=== PATIENT | male | born 1935 | race Caucasian/White ===

== ENCOUNTER 2016-09-04 11:01 | Outpatient (RCR) | payer MEDICARE, OTHER ==
[~2016-09-04 11:01] MED LIST: /BACIOPOI TOP; /TAMS4CA PEG; /TIOT18INH INH; ALLO100T PO; ASPI81TA21 PO; ASPI81TA83 PEG; CALC0.5C PEG; CALC1CAP31 PO; CEFD300CAP PO; CIAL5TAB PEG; CIPR500T89 PO; CLAR1TAB2 PO; CLEO300C PEG; COLC1TAB5 PO; DIOV80TA PEG; FINA5TAB2 PO; FINACRY PO; FINASTERIDE; FLOM5CAP PO; LEVO50TA45 PO; Lortab PEG; MECL-68 PO; METO-209 PO; MUCI600T34 PO; OMEP20TA7 PEG; OMEP40CA2 PO; PERIDEX RINSE SSP; PRAV10TA PO; PROA1AER IN; PROS5TAB PEG; SPIR1CAP IN; SPIRIVA INHALER INH; SULA8.5T PO; SULAR PEG; SYNT75TA PO; TOPR100T PEG; TRIGOSAMINE PEG; colace PEG
== END 2016-09-16 ==
LOC: M ST 11:01
PROVIDERS: ATTEND Otolaryngology
DX: Z51.89 Encounter for other specified aftercare (principal); Z43.0 Encounter for attention to tracheostomy
CPT/HCPCS: 92597; G9174; G9175; G9176

== ENCOUNTER → 2016-10-17 | Outpatient (CLI) | payer MEDICARE, OTHER | LOC: M ST 08:32 | PROVIDERS: ATTEND Otolaryngology | DX: Z96.3 Presence of artificial larynx (principal); Z51.89 Encounter for other specified aftercare | CPT/HCPCS: 92597; G9174; G9175; G9176 ==

== ENCOUNTER 2016-10-23 12:10 | Outpatient (RCR) | payer MEDICARE, OTHER | END 2016-11-16 | LOC: M ST 12:10 | PROVIDERS: ATTEND Otolaryngology | DX: Z51.89 Encounter for other specified aftercare (principal); C32.0 Malignant neoplasm of glottis; Z93.0 Tracheostomy status; Z43.0 Encounter for attention to tracheostomy | CPT/HCPCS: 92597; G9174; G9175; G9176 ==

== ENCOUNTER 2016-12-02 08:51 | Outpatient (RCR) | payer MEDICARE, OTHER | END 2016-12-17 | LOC: M ST 08:51 | PROVIDERS: ATTEND Otolaryngology | DX: Z51.89 Encounter for other specified aftercare (principal); Z43.0 Encounter for attention to tracheostomy; C32.0 Malignant neoplasm of glottis | CPT/HCPCS: 92597; G9174; G9175; G9176 ==

== ENCOUNTER 2017-01-09 10:44 | Outpatient (RCR) | payer MEDICARE, OTHER ==
[~2017-01-09 10:44] MED LIST changes: +CIPR-249 PO; -CIPR500T89 PO; +COLC1TAB14 PO; -COLC1TAB5 PO; -METO-209 PO; +METO1TAB33 PO; -MUCI600T34 PO; +MUCI600T37 PO; -PRAV10TA PO; +PRAV10TA4 PO; -PROA1AER IN; +PROAAER10 IN
== END 2017-01-16 | disposition home or self-care (01) ==
LOC: M ST 10:44
PROVIDERS: ATTEND Otolaryngology
DX: C32.0 Malignant neoplasm of glottis (principal); Z43.0 Encounter for attention to tracheostomy
CPT/HCPCS: 92597; G9174; G9175; G9176

== ENCOUNTER 2017-01-28 08:00 | Outpatient (RCR) | payer MEDICARE, OTHER | END 2017-02-16 | LOC: M ST 08:00 | PROVIDERS: ATTEND Otolaryngology | DX: Z51.89 Encounter for other specified aftercare (principal); Z96.3 Presence of artificial larynx | CPT/HCPCS: 92597; G9174; G9175; G9176 ==

== ENCOUNTER → 2017-12-18 | Outpatient (REF) | payer MEDICARE, OTHER | LOC: M LAB REF 17:24 | DX: R21 Rash and other nonspecific skin eruption (principal) | CPT/HCPCS: 87101 ==

== ENCOUNTER → 2018-01-25 | Outpatient (CLI) | payer MEDICARE, OTHER | LOC: M RAD 13:26 | DX: H90.A21 Sensorineural hearing loss, unilateral, right ear, with restricted hearing on the contralateral side (principal) | CPT/HCPCS: 70551 ==

== ENCOUNTER 2018-01-30 18:48 | Emergency (ER) | payer MEDICARE, OTHER ==
[2018-01-30] MEDS ORDERED: LIDOCAINE 1% MDV 20ML VIAL As Ordered (20:08)
[2018-01-30] MEDS: NS 1,000 ML IV (20:10)
[2018-01-30] MEDS ORDERED: MIDAZOLAM INJ 2 MG/2 ML VIAL (J2250) IV (20:15)
[2018-01-30] MEDS: fentaNYL 100 MCG/2 ML INJECTION (J3010) IV (20:19)
[2018-01-30] MEDS: MIDAZOLAM INJ 2 MG/2 ML VIAL (J2250) IV (20:19)
[2018-01-30] MEDS: LIDOCAINE 1% SDV INJ 30 ML VIAL XX (20:49)
[2018-01-30] MEDS ORDERED: CETACAINE SPRAY 5GM As Ordered (21:28)
== END 2018-01-30 22:49 | disposition home or self-care (01) ==
LOC: M ED 18:48
DX: R06.02 Shortness of breath (principal); R06.03 Acute respiratory distress; T17.598A Other foreign object in bronchus causing other injury, initial encounter; X58.XXXA Exposure to other specified factors, initial encounter; Y92.89 Other specified places as the place of occurrence of the external cause; Z85.21 Personal history of malignant neoplasm of larynx; Z92.3 Personal history of irradiation; Z96.3 Presence of artificial larynx; I10 Essential (primary) hypertension; E78.5 Hyperlipidemia, unspecified; M47.816 Spondylosis without myelopathy or radiculopathy, lumbar region; H91.90 Unspecified hearing loss, unspecified ear; N40.1 Benign prostatic hyperplasia with lower urinary tract symptoms; Z87.891 Personal history of nicotine dependence; K22.70 Barrett's esophagus without dysplasia; H81.10 Benign paroxysmal vertigo, unspecified ear; E03.9 Hypothyroidism, unspecified; Z88.0 Allergy status to penicillin; Z88.1 Allergy status to other antibiotic agents; Z79.899 Other long term (current) drug therapy; Z79.82 Long term (current) use of aspirin
CPT/HCPCS: J2250

== ENCOUNTER → 2018-06-07 | Outpatient (REF) | payer MEDICARE, OTHER | LOC: M LAB REF 17:12 | DX: E03.9 Hypothyroidism, unspecified (principal) | CPT/HCPCS: 84443 ==

== ENCOUNTER → 2019-04-29 | Outpatient (CLI) | payer MEDICARE, OTHER ==
[~2019-04-29] MED LIST changes: -/TAMS4CA PEG; -/TIOT18INH INH; -CALC0.5C PEG; +CALC0.5C14 PEG; +CEFD300C41 PO; -CEFD300CAP PO; +FLOM0.4C39 PEG; +FLOM0.4C39 PO; -FLOM5CAP PO; +LOPR1TAB7 PO; +METO-745 PEG; -OMEP40CA2 PO; +OMEP40CA97 PO; +SPIR1CAP INH; -TOPR100T PEG
--- NOTE | 2019-04-29 15:16 | REP ---
SCROTAL ULTRASOUND: Real-time sonographic evaluation of the scrotum and contents performed. Testicles are normal in size and echotexture with no mass or torsion. Right testicle measures 4.8 x 2.1 x 2.9 cm and left testicle 5.3 x 2.4 x 2.6 cm. RI right testicle 0.59 and left testicle 0.64. Tiny 2 mm cyst is seen in the head of the left epididymis. There is a complex right hydrocele with diffuse low level echoes. This is quite large and appears similar on size compared to the prior ultrasound at [facility] 09/03/2017. It does appear to be more complex. The right testicle is displaced anteromedially by fluid. IMPRESSION: No testicular mass or torsion. Very large right hydrocele contains diffuse low level echoes. Size is similar to the prior study of 09/03/2017, but the internal echoes and debris appear to have increased. Electronically Signed by Chadd Katz MD 05/03/2019 08:54 A
== END ==
LOC: M RAD 12:30
PROVIDERS: ATTEND Nurse Practitioner Women's Health
DX: N43.3 Hydrocele, unspecified (principal)

== ENCOUNTER → 2019-05-18 | Outpatient (CLI) | payer MEDICARE, OTHER ==
[2019-05-18 13:52] LABS: HEMATOCRIT 45.2 % (42.0-52.0); HEMOGLOBIN 14.7 g/dl (13.5-17.5); MEAN CORPUSCULAR HEMOGLOBIN 32.2 pg (27.0-33.0); MEAN CORPUSCULAR HGB CONC 32.5 g/dl (32.0-36.5); MEAN CORPUSCULAR VOLUME 99.1 fl (80.0-96.0); PLATELET COUNT, AUTOMATED 270 10^3/uL (150-450); RED BLOOD COUNT 4.56 10^6/uL (4.30-6.10); WHITE BLOOD COUNT 6.7 10^3/uL (4.0-10.0)
--- NOTE | 2019-05-18 13:55 | REP ---
Two-view chest: 05/18/2019. Indication: Preoperative assessment. Comparison: 01/30/2018. Findings: The lungs are clear. There is no pleural effusion or pneumothorax. Hyperinflation of the lungs is noted as well as degenerative sequelae of the mid thoracic spine. Surgical clips are noted within the region of the right lung apex. The previously described foreign body is no longer evident. Impression: Clear lungs. Electronically Signed by Marcell Oakley DO 05/18/2019 01:46 P
[2019-05-18 14:02] LABS: INR 1.06; PROTHROMBIN TIME 13.5 SECONDS (11.8-14.0)
[2019-05-18 14:03] LABS: PARTIAL THROMBOPLASTIN TIME 27.6 SECONDS (25.0-38.4)
[2019-05-18 14:22] LABS: CALCIUM LEVEL 9.3 MG/DL (8.8-10.2); CREATININE FOR GFR 1.82 MG/DL (0.70-1.30); GLOMERULAR FILTRATION RATE 38.2 (>35); POTASSIUM SERUM 4.3 MEQ/L (3.5-5.1)
--- NOTE | 2019-05-18 22:48 | ECGEPIP ---
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
== END ==
LOC: M LAB 12:57
PROVIDERS: ATTEND Nurse Practitioner Women's Health
DX: Z01.818 Encounter for other preprocedural examination (principal); N43.3 Hydrocele, unspecified; R94.31 Abnormal electrocardiogram [ECG] [EKG]; I44.0 Atrioventricular block, first degree; Z79.899 Other long term (current) drug therapy

== ENCOUNTER → 2019-05-20 | Outpatient (CLI) | payer MEDICARE, OTHER ==
[~2019-05-20] MED LIST changes: +ISOVUE-300 61% 50ML VIAL (Q9967) As Ordered ONE; +LIDOCAINE 1% MDV 20ML VIAL As Ordered ONE; +MIDAZOLAM INJ 2 MG/2 ML VIAL (J2250) As Ordered ONE; +fentaNYL 100 MCG/2 ML INJECTION (J3010) As Ordered ONE
--- NOTE | 2019-05-20 16:24 | ROOPDOC ---
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 Ultrasound-guided access left Laya fistula 2. Left upper extremity fistulogram and central venogram 3. Angioplasty subclavian vein with 10 x 40 conquest balloon and 14 x 40 atlas balloon 4. Completion venograms SURGEON: Leo Monzon MD ANESTHESIA: Local 7 mL lidocaine. Moderate intravenous conscious sedation with supervised by Dr. Monzon. The patient was independently monitored by a registered nurse assigned to the Department of radiology using automated blood pressure, EKG, and pulse oximetry. The detailed sedation record is permanently house in the hospital information system. The following is the brief sedation record: Start time 15:02, stop time 15:28, fentanyl 50 g IV, Versed 0.5 mg IV. CONTRAST: 20 mL Isovue INDICATION FOR PROCEDURE: Mr. Mccann is a very pleasant 84-year-old gentleman who is not yet on dialysis but has a left upper extremity Laya fistula that was placed in [place] when he was approaching stage V many years ago, but then his kidneys somewhat recovered and he has been doing very well since. He has had a few procedures done on the fistula since then, including a banding proximal to the AV anastomosis, and a subclavian vein angioplasty. He said after the subclavian vein angioplasty, his perfusion to his hand improved and he felt much better. We evaluated the patient because he was starting to have a little more aneurysmal dilation of his fistula and his hand was starting to become a little more cool than the right hand. On examination, I felt the great thrill in the fistula and it was definitely large but not extremely aneurysmal, but I did feel some pulsatility further up the arm and I think he may have again developed subclavian stenosis. He has a history of radiation to the neck and certainly this could've contributed, or could just be simply a narrow thoracic outlet. Either way, I think the best option is a fistulogram and possible angioplasty to improve her outflow. I discussed with the patient that if this resolves his symptoms with his hand, we certainly can follow him up every 2 months for maintenance. However, his hand is still having difficulty with perfusion, we may need to do a something surgical like another banding or possibly proximal eyes the fistula to the brachial artery and ligate the cephalic vein fistula at the wrist. Hopefully, relieving the outflow obstruction will be enough to relieve his symptoms. We will see how he does postprocedure. Risks benefits and alternatives were explained and he was agreeable to proceed. Informed consent was obtained. INTERPRETATION: 1. There is excellent inflow into the fistula in the cephalic vein is mildly tortuous but widely patent throughout the forearm and upper arm. There is no stenosis at the subclavian cephalic junction but the cephalic vein has a 95% stenosis through the thoracic outlet and then the central veins are widely patent. 2. After angioplasty of the subclavian vein with a 10 x 40 conquest balloon and a 14 x 40 atlas balloon, there is no significant residual stenosis and widely patent rapid flow through to the central system. REPORT OF OPERATION: The patient was brought to the angiographic suite in stable condition. His left upper extremity was prepped and draped in sterile fashion. A timeout was performed. Sedation was administered without complication. Local anesthesia was administered to the skin and subcutaneous tissue over the AV fistula near the AV anastomosis. A microneedle was used to access the fistula under ultrasound guidance and a wire was passed through this access and a micro- sheath was placed. Glidewire was advanced through this into the central system and a 6 Persian sheath was placed over the wire using the Seldinger technique and flushed with saline. A fistulogram and central venogram were performed please see above for interpretation. We advanced a 10 x 40 conquest balloon across the wire across the subclavian vein stenosis. It was little challenging to pass the balloon through due to the tight stenosis but we were able to manage this. We did it slowly inflation of the balloon due to the very tight nature of the stenosis and eventually with the conquest noncompliant balloon we were able to release the stenosis. I three-minute inflation was performed. Following this, there was improvement but still mild stenosis at the area. We then selected a 14 x 40 atlas balloon and did another three-minute inflation with the larger balloon. Following this, there was widely patent flow through to the central system with +10% residual stenosis. There is no extravasation noted. There was an excellent thrill the fistula in the pulsatility was resolved. This concluded her procedure. A Prolene suture was placed at the she site in the sheath was removed. The Prolene suture was secured with Steri-Strips and pressure was held for 5 minutes for good hemostasis. Sterile dressings were applied and the patient was taken to recovery in stable condition. ESTIMATED BLOOD LOSS: Approximately 5 mL. COMPLICATIONS: None. PLAN: We plan to see the patient back in a week to see if his symptoms are any better and his hand after this procedure. If not, further operative intervention may be necessary to improve perfusion. We will discuss with the patient once we see in the clinic. LEO MONZON MD May 20, 2019 16:24
[2019-05-20 16:50] VITALS: BP 165/71
== END ==
LOC: M IRPRO 13:23
PROVIDERS: ATTEND Surgery Vascular Surgery
DX: T82.590A Other mechanical complication of surgically created arteriovenous fistula, initial encounter (principal); N18.4 Chronic kidney disease, stage 4 (severe); X58.XXXA Exposure to other specified factors, initial encounter; Y93.9 Activity, unspecified; Y92.9 Unspecified place or not applicable; Y99.9 Unspecified external cause status
CPT/HCPCS: 36902; 99152; 99153; C1725; C1769; C1894; J2250; J3010; Q9967

== ENCOUNTER 2019-06-24 06:08 | Day surgery (SDC) | payer MEDICARE, OTHER ==
--- NOTE | 2019-06-14 12:10 | CR ---
DATE OF CONSULTATION: 06/13/[address] Dixon: Thank you for asking me to see Mr. Mario Mccann in consultation. 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 The patient reports he has been in his usual state of health. Denying any fevers or chills, chest pain or shortness of breath. At his last visit with me, he felt his dyspnea and COPD were worse. He was changed to the inhalers Stiolto and feels as previous is significantly the improved such that he is rarely using his ProAir. Patient is status post laryngectomy for squamous cell CA diagnosed 2011 treated with surgery radiotherapy. He has never been able to use this prosthetic voice box. He lips his words. His provides much of the history. The patient has chronic renal insufficiency. He has an arteriovenous (AV) fistula left upper extremity, which was just revascularized by a vascular surgeon at [facility]. He reports a good flow. The patient has benign positional vertigo. He uses his meclizine regularly with good results. Patient has history of gastroesophageal reflux disease, well controlled on omeprazole. Patient has history of gout. He has had no recent flares. Patient has history of benign prostatic hypertrophy (BPH) well-controlled of finasteride and Flomax. Review of systems otherwise negative denying fevers or chills, chest pain or shortness of breath, nausea or vomiting. PAST MEDICAL HISTORY: 1. Hypertension. 2. Hyperlipidemia. 3. Hard of hearing with bilateral hearing aides. 4. Osteoarthritis (OA) degenerative joint disease (DJD). Chronic back pain, wears a brace. 5. Vasectomy in 1975 with a reversal in 1987. 6. Left groin hernia repair 1996 7. Tobacco abuse status post cessation, 8. BPH with urinary retention 2014. Recurrent urinary tract infection (UTI) 9. Benign positional vertigo. 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 11. Colonic tubular adenomatous polyps. 12. Chronic renal insufficiency, left forearm AV fistula follows with nephrology every 3 months. 13. Status post squamous cell CA to the larynx diagnosed in 2011 status post laryngectomy and XRT. 14. Status post bilateral cataract extraction 2012. 15. 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 16. Gout. 17. Prostatic surgery because of recurrent urinary retention and UTI and urosepsis 2016. 18. Hydrocele 2018. 19. Hypothyroidism. MEDICATIONS: - allopurinol 100 mg two pills daily - baby aspirin daily - calcitriol 0.25 mcg three times a week - Cialis as needed - COLCRYS 0.6 mg twice a day as needed gout - finasteride 5 mg daily - Flomax 0.4 mg two by mouth at bedtime - levothyroxine 88 mcg daily - Magnesium 64 one at bedtime - meclizine 25 mg three times a day as needed - omeprazole 40 mg daily - ProAir as needed daily - saline three to four times a day as needed. - Stiolto rescue two puffs daily - Sular 17 mg daily - Toprol XL 100 mg daily - Tylenol as needed - Zyrtec 10 mg daily DRUG ALLERGIES: AMOXICILLIN - rash, hives. LEVAQUIN: Tendonitis. Drug intolerance to pravastatin SOCIAL HISTORY: Former smoker, quit in 2010. Denies alcohol use. Lives with his . FAMILY HISTORY: Father due to cirrhosis at age 59. Mother due to cancer, in her 80s. A son had colon cancer at 51, premature stroke at 45. A brother in his 60s due to cancer. Another brother from a drug overdose. A sister from cancer at 68. PHYSICAL EXAMINATION: Thin older male in no acute distress. Vital signs: Weight 136 with a body surface index (BMI) of 23, O2 sat at rest 96%, blood pressure 128/76, heart rate of 64. HEENT Examination: He wears dentures, hearing aides. He has in the anterior laryngectomy that appears clean and well-healed. No cervical lymphadenopathy. Oropharynx is dry. Benign. No jugular venous distention (JVD) or thyromegaly. Head is normocephalic. Neck is supple. Pupils equal, reactive to light. Respiratory: Increased AP diameter decreased breath sounds. Cardiovascular: Decreased heart sounds. Soft systolic murmur. No carotid bruits. Abdomen: Thin, firm, nontender. No hepatosplenomegaly. Dermatologic: No rashes or bruises. Extremities: OA changes of the DIP joints, left AV fistula that has a good thrill. Peripheral pulses palpable. Neurologic: Alert and oriented. Cranial nerves II-XII intact. LABORATORY DATA: 06/10/2019: Normal magnesium, thyroid. 05/18/2019: Normal CBC. Med profile significant for a GFR of 38, normal electrolytes. Urine culture negative. EKG from [facility] 05/18/2019: Normal sinus rhythm, first-degree AV block. Some repolarization changes but no significant change compared to EKG 08/19/2016. Chest x-ray 05/18/2019: Clear lungs no acute disease. IMPRESSION: Mr. Mario Mccann 84-year-old gentleman with cardiovascular risk factors positive for age, hypertension, renal disease and no signs or symptoms indicative of cardiovascular ischemia and is felt to be optimized and at low risk for cardiovascular complications from the proposed surgical intervention which can be further minimized by the followin. Chronic renal insufficiency: Take allopurinol, calcitriol a.m. of surgery. 2. Hypertension: Take Toprol and Sular as usual the evening prior to surgery. 3. Hypothyroid: Take levothyroxine a.m. of surgery. 4. Chronic obstructive pulmonary disease (COPD): Take inhalers a.m. of surgery. 5. Rivas's esophagitis: Take omeprazole as usual the evening prior to surgery. 6. Benign prostatic hypertrophy (BPH): Take finasteride and Flomax as usual before surgery. 7. Squamous carcinoma (CA) of the larynx: [place] to be in remission. 8. Chronic vertigo: Hold meclizine a.m. of surgery. 9. Hyperlipidemia: Hold aspirin 5 days before surgery. Thank you very much for this consultation. Please call with questions or concerns.
[~2019-06-24] VITALS: Ht 170.2 cm; Wt 62.1 kg
[~2019-06-24 06:08] MED LIST changes: +CETI10TA4 PO; +CLINDAMYCIN 900 MG in IV 1 EA IV ONE; -ISOVUE-300 61% 50ML VIAL (Q9967) As Ordered ONE; +LEVO88TA3 PO; -LIDOCAINE 1% MDV 20ML VIAL As Ordered ONE; +LIDOCAINE 1% MDV 20ML VIAL SQ PRN; +LR 1,000 ML IV ONE; -MIDAZOLAM INJ 2 MG/2 ML VIAL (J2250) As Ordered ONE; +NISO17TA3 PO; -SPIR1CAP IN; -fentaNYL 100 MCG/2 ML INJECTION (J3010) As Ordered ONE
[2019-06-24] MEDS ORDERED: STIO1AER (06:52)
[2019-06-24] MEDS ORDERED: BUPIVACAINE HCL 0.25% 10 ML VIAL As Ordered ONE (06:58)
[2019-06-24] MEDS ORDERED: LIDOCAINE 2% MDV 20 ML VIAL As Ordered ONE (06:59)
[2019-06-24] MEDS ORDERED: ALBUTEROL SULFATE 2.5 MG/0.5 ML INH NEB SOLN As Ordered ONE (07:11)
[2019-06-24] MEDS ORDERED: PROPOFOL 500 MG/50 ML VIAL As Ordered ONE (07:14)
[2019-06-24] MEDS ORDERED: fentaNYL 100 MCG/2 ML INJECTION (J3010) As Ordered ONE (07:14)
[2019-06-24] MEDS ORDERED: MIDAZOLAM INJ 2 MG/2 ML VIAL (J2250) As Ordered ONE (07:14)
[2019-06-24] MEDS ORDERED: dexameTHASONE 4 MG/ML 1ML VIAL (J1100) As Ordered ONE (07:15)
[2019-06-24] MEDS ORDERED: ONDANSETRON 4MG/2ML VIAL (J2405) As Ordered ONE (07:15)
[2019-06-24] MEDS ORDERED: LIDOCAINE 2% INJ 100 MG/5 ML SDV (FOR ANES.) As Ordered ONE (07:15)
[2019-06-24] MEDS ORDERED: ALBUTEROL SULFATE 2.5 MG/0.5 ML INH NEB SOLN INH ONE (07:30)
[2019-06-24] MEDS ORDERED: fentaNYL 100 MCG/2 ML INJECTION (J3010) IV PRN (09:45)
[2019-06-24] MEDS ORDERED: LR 1,000 ML IV SCH ×2 (09:45)
[2019-06-24] MEDS ORDERED: HYDROMORPHONE HCL 0.5 MG/ 0.5 ML SYRINGE (J1170 PER 1) IV PRN (09:45)
[2019-06-24] MEDS ORDERED: ONDANSETRON 4MG/2ML VIAL (J2405) IV PRN (09:45)
[2019-06-24] MEDS ORDERED: PERCOCET 5MG/325MG TAB PO PRN (09:45)
[2019-06-24 16:50] VITALS: BP 160/98
--- NOTE | 2019-06-24 18:44 | ROOPDOC ---
[facility] Report Of Operation Report of Operation DATE OF PROCEDURE: 06/24/19 PREPROCEDURE DIAGNOSES: [Right hydrocele]. POSTPROCEDURE DIAGNOSES: [Same]. PROCEDURE: [Right hydrocelectomy]. SURGEON: [Destiny]MD FOOD SERVICE: [None], ANESTHESIA: [Spinal with MAC]. ESTIMATED BLOOD LOSS: Approximately [minimal] mL. COMPLICATIONS: [None]. REMARKS: . PROCEDURE NOTE: [Patient 84-year-old gentleman large right hydrocele increasing discomfort. He was scheduled to have hydrocelectomy. He had an scrotal ultrasound which showed that it was definitely hydrocele. Mass]. DESCRIPTION OF PROCEDURE: Patient identified as himself. His H&P was updated his consent was reviewed and signed. Risk and benefits of the procedure were discussed with the patient and his . Patient was seen by the operating room team and anesthesia. Patient right sided scrotal was marked the correct side for surgery Patient was consented for spinal anesthesia with Mac. Patient was brought to the operating room first timeout was performed. Patient was given spinal anesthesia and placed in the supine position. Prepped and Draped in standard fashion. The right hemiscrotum was placed in the tension incision was made in the midline of the scrotum, dissecting through the skin into the right hemiscrotum through dartos muscle, then through the superficial fascia down to the cremasteric muscle and fascia. Once reaching the tunica vaginalis, care was taken not to enter into the hydrocele sac. The tunica was then mobilized away from the cremasteric muscle until the sac was easily exposed. An incision was made into the sac and fluid was then drained. The incision was extended along the tunica vaginalis assuring not to injure the testicles, the structures of the spermatic cord, or epididymis. The hydrocele sac was then inverted and wrapped around the spermatic cord. It was oversewed using a 3-0 Monocryl suture in a running technique. The hemiscrotum and the skin was inspected to assure that hemostasis was maintained. Hemiscrotum was also irrigated. The cremasteric muscle and fascia and the superficial layer oversew using a 3-0 Monocryl suture in a running technique. Dartos fascia was then closed using a 3-0 Monocryl using a horizontal mattress technique. The skin was then closed using a running technique with a 4-0 Monocryl suture. 10 mL of epi mixed with 0.25 Marcaine was injected along the suture line for additional anesthetic. Hemostasis was maintained throughout the entire procedure. A pressure dressing was place and a scrotal support was placed on the patient. Patient was washed off and awakened from sedation and taken to recovery room without complication. SILVANA WILSON MD Jun 24, 2019 15:10
== END 2019-06-24 17:07 | disposition home or self-care (01) ==
LOC: M SDC 06:08
PROVIDERS: ATTEND Urology
DX: N43.3 Hydrocele, unspecified (principal); I12.9 Hypertensive chronic kidney disease with stage 1 through stage 4 chronic kidney disease, or unspecified chronic kidney disease; E03.9 Hypothyroidism, unspecified; K21.9 Gastro-esophageal reflux disease without esophagitis; N18.9 Chronic kidney disease, unspecified; N40.0 Benign prostatic hyperplasia without lower urinary tract symptoms; M12.9 Arthropathy, unspecified; J44.9 Chronic obstructive pulmonary disease, unspecified; Z88.0 Allergy status to penicillin; Z88.1 Allergy status to other antibiotic agents; Z79.899 Other long term (current) drug therapy; Z79.82 Long term (current) use of aspirin; Z85.21 Personal history of malignant neoplasm of larynx; Z92.3 Personal history of irradiation; Z87.891 Personal history of nicotine dependence; Z96.1 Presence of intraocular lens; Z98.41 Cataract extraction status, right eye; Z98.42 Cataract extraction status, left eye
CPT/HCPCS: 55040; J1100; J2250; J2405; J3010

== ENCOUNTER 2020-01-24 22:37 | Emergency (ER) | payer MEDICARE, OTHER ==
[~2020-01-24] VITALS: Ht 170.2 cm; Wt 61.8 kg
[~2020-01-24 22:37] MED LIST changes: -CLINDAMYCIN 900 MG in IV 1 EA IV ONE; -LIDOCAINE 1% MDV 20ML VIAL SQ PRN; -LR 1,000 ML IV ONE; -MECL-68 PO; +MECL1TAB31 PO; -PROAAER10 IN; +PROAAER10 INH; +STIO1AER INH
[2020-01-24] MEDS ORDERED: IPRATROPIUM 0.5MG/ALBUTEROL 2.5MG INH SOL UD 3ML (DUONEB) NEB ONE (23:15)
[2020-01-24 23:27] LABS: BASO # 0.1 10^3/uL (0.0-0.2); BASO % 0.7 % (0.0-1.0); EOS # 0.4 10^3/uL (0.0-0.5); EOS % 5.4 % (0.0-3.0); HEMOGLOBIN 14.2 g/dl (13.5-17.5); LYMPH # 1.2 10^3/uL (1.5-5.0); LYMPH % 15.7 % (24.0-44.0); MEAN CORPUSCULAR HEMOGLOBIN 31.8 pg (27.0-33.0); MEAN CORPUSCULAR VOLUME 96.2 fl (80.0-96.0); MONO # 0.7 10^3/uL (0.0-0.8); MONO % 8.8 % (0.0-5.0); NEUTROPHILS # 5.1 10^3/uL (1.5-8.5); NEUTROPHILS % 69.1 % (36.0-66.0); PLATELET COUNT, AUTOMATED 269 10^3/uL (150-450); RED BLOOD COUNT 4.47 10^6/uL (4.30-6.10); WHITE BLOOD COUNT 7.4 10^3/uL (4.0-10.0)
[2020-01-24 23:58] LABS: ALBUMIN 3.5 GM/DL (3.2-5.2); ALT/SGPT 14 U/L (12-78); BILIRUBIN,DIRECT 0.1 MG/DL (0.0-0.2); BILIRUBIN,TOTAL 0.4 MG/DL (0.2-1.0); BLOOD UREA NITROGEN 25 MG/DL (7-18); CALCIUM LEVEL 8.9 MG/DL (8.8-10.2); CARBON DIOXIDE LEVEL 28 MEQ/L (21-32); CHLORIDE LEVEL 102 MEQ/L (98-107); CK-MB VALUE MASS 2.1 NG/ML (<3.6); CPK CREATINE PHOSPHOKINASE 71 U/L (39-308); CREATININE FOR GFR 1.83 MG/DL (0.70-1.30); GLOMERULAR FILTRATION RATE 37.9 (>35); GLUCOSE, FASTING 92 MG/DL (70-100); MB/CK RELATIVE INDEX 2.96 (< OR =4); NT-PRO BNP 366 PG/ML (<450); POTASSIUM SERUM 4.7 MEQ/L (3.5-5.1); SODIUM LEVEL 134 MEQ/L (136-145); TROPONIN I < 0.02 NG/ML (< 0.10)
[2020-01-25 02:23] VITALS: BP 148/82
--- NOTE | 2020-01-25 07:57 | ECGEPIP ---
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
--- NOTE | 2020-01-25 10:03 | REP ---
CHEST, SINGLE VIEW: COMPARISON: 05/18/2019 There is mild elevation of the right hemidiaphragm. There are mild bibasilar linear fibroatelectatic changes with no acute infiltrate. There is no significant cardiomegaly. There is mild calcification and tortuosity of the thoracic aorta. The mediastinal silhouette is unchanged. IMPRESSION: Mild bibasilar fibroatelectatic change. Electronically Signed by Chadd Katz MD 01/26/2020 09:18 A
[2020-01-25] MEDS ORDERED: ALBU83IN NEB (23:37)
[2020-01-25] MEDS ORDERED: [UNRECOGNIZED DRUG - SUPPLY] (23:37)
[2020-01-25] MEDS ORDERED: nebulizer (23:37)
[2020-05-03] MEDS ORDERED: FURO20TA2 PO (15:18)
== END 2020-01-25 02:25 | disposition home or self-care (01) ==
LOC: M ED 22:37
DX: R06.02 Shortness of breath (principal); R91.8 Other nonspecific abnormal finding of lung field; I10 Essential (primary) hypertension; N18.9 Chronic kidney disease, unspecified; Z79.51 Long term (current) use of inhaled steroids; Z79.82 Long term (current) use of aspirin; Z79.899 Other long term (current) drug therapy; Z85.21 Personal history of malignant neoplasm of larynx; Z88.0 Allergy status to penicillin; Z88.1 Allergy status to other antibiotic agents; Z88.8 Allergy status to other drugs, medicaments and biological substances

== ENCOUNTER 2020-01-25 20:39 | Emergency (ER) | payer MEDICARE, OTHER ==
[~2020-01-25] VITALS: Ht 170.2 cm; Wt 61.8 kg
[2020-01-25] MEDS ORDERED: NS 500 ML IV ONE (21:45)
[2020-01-25] MEDS ORDERED: IPRATROPIUM 0.5MG/ALBUTEROL 2.5MG INH SOL UD 3ML (DUONEB) NEB ONE (21:45)
[2020-01-25] MEDS ORDERED: ALBUTEROL SULFATE 2.5 MG/0.5 ML INH NEB SOLN INH ONE (21:45)
[2020-01-25 22:00] LABS: BASO # 0.1 10^3/uL (0.0-0.2); BASO % 0.7 % (0.0-1.0); EOS # 0.3 10^3/uL (0.0-0.5); EOS % 4.1 % (0.0-3.0); HEMATOCRIT 43.9 % (42.0-52.0); HEMOGLOBIN 14.4 g/dl (13.5-17.5); LYMPH # 1.1 10^3/uL (1.5-5.0); LYMPH % 15.2 % (24.0-44.0); MEAN CORPUSCULAR HEMOGLOBIN 31.5 pg (27.0-33.0); MEAN CORPUSCULAR HGB CONC 32.8 g/dl (32.0-36.5); MEAN CORPUSCULAR VOLUME 96.1 fl (80.0-96.0); MONO # 0.7 10^3/uL (0.0-0.8); MONO % 9.6 % (0.0-5.0); NEUTROPHILS # 5.3 10^3/uL (1.5-8.5); NEUTROPHILS % 70.1 % (36.0-66.0); PLATELET COUNT, AUTOMATED 280 10^3/uL (150-450); RED BLOOD COUNT 4.57 10^6/uL (4.30-6.10); WHITE BLOOD COUNT 7.5 10^3/uL (4.0-10.0)
[2020-01-25 22:32] LABS: ALBUMIN 3.5 GM/DL (3.2-5.2); ALT/SGPT 14 U/L (12-78); BILIRUBIN,DIRECT 0.3 MG/DL (0.0-0.2); BILIRUBIN,TOTAL 0.7 MG/DL (0.2-1.0); BLOOD UREA NITROGEN 26 MG/DL (7-18); CALCIUM LEVEL 9.3 MG/DL (8.8-10.2); CARBON DIOXIDE LEVEL 24 MEQ/L (21-32); CHLORIDE LEVEL 105 MEQ/L (98-107); CPK CREATINE PHOSPHOKINASE 89 U/L (39-308); CREATININE FOR GFR 1.98 MG/DL (0.70-1.30); GLOMERULAR FILTRATION RATE 34.6 (>35); GLUCOSE, FASTING 117 MG/DL (70-100); MB/CK RELATIVE INDEX 2.25 (< OR =4); NT-PRO BNP 362 PG/ML (<450); POTASSIUM SERUM 4.5 MEQ/L (3.5-5.1); SODIUM LEVEL 137 MEQ/L (136-145); THYROID STIMULATING HORMONE 0.119 uIU/ML (0.358-3.740); TOTAL PROTEIN 7.4 GM/DL (6.4-8.2); TROPONIN I < 0.02 NG/ML (< 0.10)
[2020-01-25 23:00] LABS: FREE T4 1.26 NG/DL (0.76-1.46)
[2020-01-25] MEDS ORDERED: [UNRECOGNIZED DRUG - SUPPLY] (23:37)
[2020-01-25] MEDS ORDERED: ALBU83IN NEB (23:37)
[2020-01-25] MEDS ORDERED: nebulizer (23:37)
[2020-01-25 23:45] VITALS: BP 148/78
--- NOTE | 2020-01-26 00:46 | ECGEPIP ---
[facility] - ED Test Date: 2020-01-25 Pat Name: JOSE R RAMIREZ Department: Room: - Gender: Male : jfox : 1935 Requested By: FRANKLIN Garcia Order Number: [id number] Reading MD: Franklin Arguelles Measurements Intervals [place] Rate: 72 P: 83 VA: 214 QRS: -12 QRSD: 96 T: 60 QT: 382 QTc: 419 Interpretive Statements SINUS RHYTHM WITH FIRST DEGREE AV BLOCK Nonspecific ST-T wave abnormalities Baseline artifact affects interpretation Electronically Signed on 01-26-2020 0:46:01 EDT by Franklin Arguelles
--- NOTE | 2020-01-26 08:49 | REP ---
REASON: Cough and dyspnea. COMPARISON: 01/25/2020 at 12:02 a.m. This examination 01/25/2020 at 10:58 p.m. The technique utilized in obtaining the radiograph has magnified the cardiac silhouette and accentuated the interstitial markings. The cardiomediastinal silhouette is unchanged. Once again, there is basilar fibrotic change status quo. Once again, there is thoracic aortic tortuosity status quo. No acute patchy parenchymal opacities or pleural effusions have developed. There is no change in the osseous structures. IMPRESSION: Stable appearing chronic changes. Electronically Signed by Brennan Hollingsworth DO 01/26/2020 04:53 P
[2020-05-03] MEDS ORDERED: FURO20TA2 PO (15:18)
== END 2020-01-25 23:56 | disposition home or self-care (01) ==
LOC: M ED 20:39
DX: J95.09 Other tracheostomy complication (principal); I10 Essential (primary) hypertension; Z79.51 Long term (current) use of inhaled steroids; Z79.82 Long term (current) use of aspirin; Z79.899 Other long term (current) drug therapy; Z88.0 Allergy status to penicillin; Z88.1 Allergy status to other antibiotic agents; Z88.8 Allergy status to other drugs, medicaments and biological substances

== ENCOUNTER 2020-02-29 14:55 | Inpatient (IN) | payer MEDICARE, OTHER ==
[~2020-02-29] VITALS: Ht 170.2 cm; Wt 61.8 kg
[~2020-02-29 14:55] MED LIST changes: +ALBU83IN NEB; +DEXTROMETHORPHAN 60MG/10ML SUSP 90ML BTL(DELSYM) ONE; +[UNRECOGNIZED DRUG - SUPPLY]; +methylPREDNISolone 125MG 2ML VIAL As Ordered ONE; +nebulizer
[2020-02-29] MEDS ORDERED: PANTOPRAZOLE 40MG VIAL (C9113 PER 1) As Ordered ONE (22:30)
[2020-02-29] MEDS ORDERED: SENOKOT S TAB As Ordered ONE (22:30)
[2020-02-29] MEDS ORDERED: HEPARIN SOD (PORCINE) 5000UNITS/ML 1ML VIAL/SYRINGE As Ordered ONE (22:30)
[2020-02-29] MEDS ORDERED: methylPREDNISolone 40MG 1ML VIAL As Ordered ONE (23:46)
[2020-03-01] MEDS ORDERED: methylPREDNISolone 40MG 1ML VIAL As Ordered ONE ×3 (06:23→17:51)
[2020-03-01] MEDS ORDERED: MAGNESIUM OXIDE 400 MG TAB (MAG-OX) As Ordered ONE (09:38)
[2020-03-01] MEDS ORDERED: SENOKOT S TAB As Ordered ONE ×2 (09:39→21:46)
[2020-03-01] MEDS ORDERED: HEPARIN SOD (PORCINE) 5000UNITS/ML 1ML VIAL/SYRINGE As Ordered ONE ×3 (09:39→21:46)
[2020-03-01] MEDS ORDERED: allopurinoL 100 MG TAB As Ordered ONE (09:39)
[2020-03-01] MEDS ORDERED: FINASTERIDE 5 MG TAB As Ordered ONE (09:39)
[2020-03-01] MEDS ORDERED: CETIRIZINE (ZyrTEC) 10 MG TAB As Ordered ONE (09:40)
[2020-03-01] MEDS ORDERED: METOPROLOL SUCC (TopROL XL) 100MG *XL* TAB As Ordered ONE (09:40)
[2020-03-01] MEDS ORDERED: ASPIRIN 81 MG ENTERIC TAB As Ordered ONE (09:40)
[2020-03-01] MEDS ORDERED: DOXYCYCLINE HYCLATE 100MG TABLET As Ordered ONE ×2 (11:46→21:46)
[2020-03-01] MEDS ORDERED: LEVOTHYROXINE 88MCG TABLET (0.088 MG) ONE (21:00)
[2020-03-01] MEDS ORDERED: PANTOPRAZOLE 40MG VIAL (C9113 PER 1) As Ordered ONE (21:46)
[2020-03-01] MEDS ORDERED: amLODIPine 5 MG TAB As Ordered ONE (21:46)
[2020-03-02] MEDS ORDERED: methylPREDNISolone 125MG 2ML VIAL As Ordered ONE ×4 (00:14→23:32)
[2020-03-02] MEDS ORDERED: cefTRIAXone SOD 1GM VIAL (J0696 PER 250MG) As Ordered ONE ×2 (01:48→08:13)
[2020-03-02] MEDS ORDERED: AZITHROMYCIN INJ 500MG VIAL (J0456 PER 500MG) As Ordered ONE (02:40)
[2020-03-02] MEDS ORDERED: LEVOTHYROXINE 100MCG TABLET (0.1MG) As Ordered ONE (06:21)
[2020-03-02] MEDS ORDERED: HEPARIN SOD (PORCINE) 5000UNITS/ML 1ML VIAL/SYRINGE As Ordered ONE ×2 (08:12→23:01)
[2020-03-02] MEDS ORDERED: SENOKOT S TAB As Ordered ONE ×2 (08:13→23:01)
[2020-03-02] MEDS ORDERED: METOPROLOL SUCC (TopROL XL) 100MG *XL* TAB As Ordered ONE (08:13)
[2020-03-02] MEDS ORDERED: FINASTERIDE 5 MG TAB As Ordered ONE (08:14)
[2020-03-02] MEDS ORDERED: ASPIRIN 81 MG ENTERIC TAB As Ordered ONE (08:14)
[2020-03-02] MEDS ORDERED: CETIRIZINE (ZyrTEC) 10 MG TAB As Ordered ONE (08:14)
[2020-03-02] MEDS ORDERED: DEXTROMETHORPHAN 60MG/10ML SUSP 90ML BTL(DELSYM) ONE (09:00)
[2020-03-02] MEDS ORDERED: methylPREDNISolone 125MG 2ML VIAL ONE (11:21)
[2020-03-02] MEDS ORDERED: LORazepam 0.5 MG TAB As Ordered ONE (15:47)
[2020-03-02] MEDS ORDERED: PANTOPRAZOLE 40MG VIAL (C9113 PER 1) As Ordered ONE (23:01)
[2020-03-02] MEDS ORDERED: amLODIPine 10 MG TAB As Ordered ONE (23:02)
[2020-03-02] MEDS ORDERED: amLODIPine 5 MG TAB As Ordered ONE (23:21)
[2020-03-03] MEDS ORDERED: LORazepam 0.5 MG TAB As Ordered ONE ×2 (01:50→16:34)
[2020-03-03] MEDS ORDERED: AZITHROMYCIN INJ 500MG VIAL (J0456 PER 500MG) As Ordered ONE (03:32)
[2020-03-03] MEDS ORDERED: LEVOTHYROXINE 100MCG TABLET (0.1MG) As Ordered ONE (06:04)
[2020-03-03] MEDS ORDERED: methylPREDNISolone 125MG 2ML VIAL As Ordered ONE (06:11)
[2020-03-03] MEDS ORDERED: SENOKOT S TAB As Ordered ONE ×2 (10:27→20:04)
[2020-03-03] MEDS ORDERED: allopurinoL 100 MG TAB As Ordered ONE (10:27)
[2020-03-03] MEDS ORDERED: CETIRIZINE (ZyrTEC) 10 MG TAB As Ordered ONE (10:27)
[2020-03-03] MEDS ORDERED: ASPIRIN 81 MG ENTERIC TAB As Ordered ONE (10:27)
[2020-03-03] MEDS ORDERED: METOPROLOL SUCC (TopROL XL) 100MG *XL* TAB As Ordered ONE ×2 (10:28→10:43)
[2020-03-03] MEDS ORDERED: cefTRIAXone SOD 1GM VIAL (J0696 PER 250MG) As Ordered ONE (10:28)
[2020-03-03] MEDS ORDERED: HEPARIN SOD (PORCINE) 5000UNITS/ML 1ML VIAL/SYRINGE As Ordered ONE ×2 (10:36→20:05)
[2020-03-03] MEDS ORDERED: methylPREDNISolone 40MG 1ML VIAL As Ordered ONE ×3 (13:08→23:55)
[2020-03-03] MEDS ORDERED: PANTOPRAZOLE 40MG VIAL (C9113 PER 1) As Ordered ONE (20:04)
[2020-03-03] MEDS ORDERED: AZITHROMYCIN 250MG TABLET As Ordered ONE (20:05)
[2020-03-03] MEDS ORDERED: amLODIPine 5 MG TAB As Ordered ONE (20:05)
[2020-03-04] MEDS ORDERED: methylPREDNISolone 40MG 1ML VIAL As Ordered ONE ×4 (06:17→23:57)
[2020-03-04] MEDS ORDERED: LEVOTHYROXINE 100MCG TABLET (0.1MG) As Ordered ONE (06:18)
[2020-03-04] MEDS ORDERED: LORazepam 0.5 MG TAB As Ordered ONE ×2 (06:20→18:27)
[2020-03-04] MEDS ORDERED: SENOKOT S TAB As Ordered ONE ×2 (08:27→20:21)
[2020-03-04] MEDS ORDERED: allopurinoL 100 MG TAB As Ordered ONE (08:28)
[2020-03-04] MEDS ORDERED: ACETAMINOPHEN TAB 650MG DOSE (2X325MG) As Ordered ONE (08:28)
[2020-03-04] MEDS ORDERED: HEPARIN SOD (PORCINE) 5000UNITS/ML 1ML VIAL/SYRINGE As Ordered ONE ×2 (08:28→20:21)
[2020-03-04] MEDS ORDERED: FINASTERIDE 5 MG TAB As Ordered ONE (08:28)
[2020-03-04] MEDS ORDERED: cefTRIAXone SOD 1GM VIAL (J0696 PER 250MG) As Ordered ONE (08:29)
[2020-03-04] MEDS ORDERED: ASPIRIN 81 MG ENTERIC TAB As Ordered ONE (08:29)
[2020-03-04] MEDS ORDERED: METOPROLOL SUCC (TopROL XL) 100MG *XL* TAB As Ordered ONE (08:29)
[2020-03-04] MEDS ORDERED: CETIRIZINE (ZyrTEC) 10 MG TAB As Ordered ONE (08:29)
[2020-03-04] MEDS ORDERED: CALCITRIOL 0.25 MCG CAP (S0169) As Ordered ONE (14:58)
[2020-03-04] MEDS ORDERED: FUROSEMIDE 40MG/4ML VIAL (J1940) As Ordered ONE (18:08)
[2020-03-04] MEDS ORDERED: PANTOPRAZOLE 40MG VIAL (C9113 PER 1) As Ordered ONE (20:20)
[2020-03-04] MEDS ORDERED: AZITHROMYCIN 250MG TABLET As Ordered ONE (20:21)
[2020-03-04] MEDS ORDERED: amLODIPine 5 MG TAB As Ordered ONE (20:21)
[2020-03-04] MEDS ORDERED: ACETAMINOPHEN 325 MG TAB As Ordered ONE (20:59)
[2020-03-04] MEDS ORDERED: ONDANSETRON 4MG/2ML VIAL As Ordered ONE (21:04)
[2020-03-05] MEDS ORDERED: methylPREDNISolone 40MG 1ML VIAL As Ordered ONE ×2 (05:43→13:05)
[2020-03-05] MEDS ORDERED: CETIRIZINE (ZyrTEC) 10 MG TAB As Ordered ONE (07:32)
[2020-03-05] MEDS ORDERED: SENOKOT S TAB As Ordered ONE ×2 (07:32→20:14)
[2020-03-05] MEDS ORDERED: HEPARIN SOD (PORCINE) 5000UNITS/ML 1ML VIAL/SYRINGE As Ordered ONE ×2 (07:32→20:14)
[2020-03-05] MEDS ORDERED: FINASTERIDE 5 MG TAB As Ordered ONE (07:32)
[2020-03-05] MEDS ORDERED: allopurinoL 100 MG TAB As Ordered ONE (07:32)
[2020-03-05] MEDS ORDERED: METOPROLOL TARTRATE 100 MG TAB As Ordered ONE (07:33)
[2020-03-05] MEDS ORDERED: CALCITRIOL 0.25 MCG CAP (S0169) As Ordered ONE (07:33)
[2020-03-05] MEDS ORDERED: cefTRIAXone SOD 1GM VIAL (J0696 PER 250MG) As Ordered ONE (07:34)
[2020-03-05] MEDS ORDERED: ASPIRIN 81 MG ENTERIC TAB As Ordered ONE (07:34)
[2020-03-05] MEDS ORDERED: FUROSEMIDE 40MG/4ML VIAL (J1940) As Ordered ONE (07:34)
[2020-03-05] MEDS ORDERED: DEXTROMETHORPHAN 60MG/10ML SUSP 90ML BTL(DELSYM) ONE ×2 (09:00→13:00)
[2020-03-05] MEDS ORDERED: CLINDAMYCIN 150MG CAPSULE ONE (09:00)
[2020-03-05] MEDS ORDERED: ACETAMINOPHEN TAB 650MG DOSE (2X325MG) As Ordered ONE (09:31)
[2020-03-05] MEDS ORDERED: LORazepam 0.5 MG TAB As Ordered ONE ×2 (09:31→21:27)
[2020-03-05] MEDS ORDERED: CALCITRIOL 0.25 MCG CAP (S0169) ONE (13:00)
[2020-03-05] MEDS ORDERED: AZITHROMYCIN 250MG TABLET As Ordered ONE (20:14)
[2020-03-05] MEDS ORDERED: PANTOPRAZOLE 40MG VIAL (C9113 PER 1) As Ordered ONE (20:14)
[2020-03-06] MEDS ORDERED: LEVOTHYROXINE 100MCG TABLET (0.1MG) As Ordered ONE ×2 (05:27→08:38)
[2020-03-06] MEDS ORDERED: SENOKOT S TAB As Ordered ONE (08:38)
[2020-03-06] MEDS ORDERED: FINASTERIDE 5 MG TAB As Ordered ONE (08:38)
[2020-03-06] MEDS ORDERED: HEPARIN SOD (PORCINE) 5000UNITS/ML 1ML VIAL/SYRINGE As Ordered ONE (08:38)
[2020-03-06] MEDS ORDERED: allopurinoL 100 MG TAB As Ordered ONE (08:39)
[2020-03-06] MEDS ORDERED: METOPROLOL TARTRATE 100 MG TAB As Ordered ONE (08:39)
[2020-03-06] MEDS ORDERED: CETIRIZINE (ZyrTEC) 10 MG TAB As Ordered ONE (08:39)
[2020-03-06] MEDS ORDERED: ASPIRIN 81 MG ENTERIC TAB As Ordered ONE (08:41)
[2020-03-06] MEDS ORDERED: predniSONE 20 MG TAB As Ordered ONE (08:41)
[2020-03-06] MEDS ORDERED: cefTRIAXone SOD 1GM VIAL (J0696 PER 250MG) As Ordered ONE (08:41)
[2020-03-06] MEDS ORDERED: ACETAMINOPHEN TAB 650MG DOSE (2X325MG) As Ordered ONE (10:16)
[2020-03-06] MEDS ORDERED: LORazepam 0.5 MG TAB As Ordered ONE (10:54)
[2020-03-06] MEDS ORDERED: ONDANSETRON 4MG/2ML VIAL IV PRN (11:00)
[2020-03-06] MEDS ORDERED: MUCI600T31 PO (11:20)
[2020-03-06] MEDS ORDERED: MAGN64TASA PO (11:20)
[2020-03-06] MEDS ORDERED: ALLO10TA PO (11:20)
[2020-03-06] MEDS ORDERED: ALBU83IN INH (11:20)
[2020-03-06] MEDS ORDERED: FINA5TAB2 PO (11:20)
[2020-03-06] MEDS ORDERED: CETI-24 PO (11:20)
[2020-03-06] MEDS ORDERED: ASPI-161 PO (11:20)
[2020-03-06] MEDS ORDERED: ALBUTEROL SULFATE 2.5 MG/0.5 ML INH NEB SOLN INH PRN (19:00)
[2020-03-06] MEDS ORDERED: SLF 3 ML SYR IV PRN (19:00)
[2020-03-06] MEDS ORDERED: ACETAMINOPHEN TAB 650MG DOSE (2X325MG) PO PRN (19:00)
[2020-03-06] MEDS: ALBUTEROL SULFATE 2.5 MG/0.5 ML INH NEB SOLN INH SCH ×2 (20:05→23:32)
[2020-03-06] MEDS: BUDESONIDE 0.5 MG/2 ML INHALATION SUSPENSION INH SCH (20:05)
[2020-03-06] MEDS: HEPARIN SOD (PORCINE) 5000UNITS/ML 1ML VIAL/SYRINGE SQ SCH (20:13)
[2020-03-06] MEDS: amLODIPine 5 MG TAB PO SCH (20:14)
[2020-03-06] MEDS: SODIUM CHLORIDE 1 GM TAB PO SCH (20:14)
[2020-03-06] MEDS: SENOKOT S TAB PO SCH (20:14)
[2020-03-06] MEDS: SLF 3 ML SYR IV SCH (20:15)
[2020-03-06] MEDS ORDERED: AZITHROMYCIN 250MG TABLET PO SCH (21:00)
[2020-03-06] MEDS ORDERED: DEXTROMETHORPHAN 60MG/10ML SUSP 90ML BTL(DELSYM) PO SCH (21:00)
[2020-03-06 21:50] LABS: BASO % 0.1 % (0.0-1.0); HEMATOCRIT 39.3 % (42.0-52.0); LYMPH # 0.6 10^3/uL (1.5-5.0); LYMPH % 5.4 % (24.0-44.0); MEAN CORPUSCULAR HEMOGLOBIN 32.6 pg (27.0-33.0); MEAN CORPUSCULAR HGB CONC 35.6 g/dl (32.0-36.5); MEAN CORPUSCULAR VOLUME 91.4 fl (80.0-96.0); MONO % 9.5 % (0.0-5.0); NEUTROPHILS # 9.1 10^3/uL (1.5-8.5); NEUTROPHILS % 84.1 % (36.0-66.0); PLATELET COUNT, AUTOMATED 299 10^3/uL (150-450); WHITE BLOOD COUNT 10.9 10^3/uL (4.0-10.0)
[2020-03-06 22:00] VITALS: BP 153/80
[2020-03-06] MEDS: CALCIUM CARBONATE 500 MG CHEW U/D PO PRN (23:19)
[2020-03-06] MEDS: LORazepam 0.5 MG TAB PO PRN (23:27)
[2020-03-07] MEDS: ALBUTEROL SULFATE 2.5 MG/0.5 ML INH NEB SOLN INH SCH ×6 (05:25→23:23)
[2020-03-07] MEDS: SLF 3 ML SYR IV SCH ×3 (05:25→20:05)
[2020-03-07] MEDS: LEVOTHYROXINE 100MCG TABLET (0.1MG) PO SCH (05:25)
[2020-03-07 06:00] VITALS: BP 127/67
[2020-03-07 06:39] LABS: BASO % 0.2 % (0.0-1.0); EOS % 0.1 % (0.0-3.0); HEMATOCRIT 42.1 % (42.0-52.0); HEMOGLOBIN 14.7 g/dl (13.5-17.5); LYMPH # 0.7 10^3/uL (1.5-5.0); LYMPH % 6.7 % (24.0-44.0); MEAN CORPUSCULAR HEMOGLOBIN 31.8 pg (27.0-33.0); MEAN CORPUSCULAR HGB CONC 34.9 g/dl (32.0-36.5); MEAN CORPUSCULAR VOLUME 91.1 fl (80.0-96.0); MONO % 9.3 % (0.0-5.0); NEUTROPHILS # 8.8 10^3/uL (1.5-8.5); NEUTROPHILS % 82.8 % (36.0-66.0); PLATELET COUNT, AUTOMATED 316 10^3/uL (150-450); RED BLOOD COUNT 4.62 10^6/uL (4.30-6.10); WHITE BLOOD COUNT 10.7 10^3/uL (4.0-10.0)
[2020-03-07 07:13] LABS: CALCIUM LEVEL 9.3 MG/DL (8.8-10.2); CREATININE FOR GFR 2.14 MG/DL (0.70-1.30); GLOMERULAR FILTRATION RATE 31.7 (>35); POTASSIUM SERUM 4.4 MEQ/L (3.5-5.1)
[2020-03-07] MEDS: BUDESONIDE 0.5 MG/2 ML INHALATION SUSPENSION INH SCH ×2 (08:03→19:10)
--- NOTE | 2020-03-07 08:06 | CR.PDOC ---
General Date of Consultation: Mar 07, [address] Monzon. HPI: The patient is an 84-year-old male not yet on HD, with Left radial cephalic AVF. The patient is unable to speak, status post laryngectomy. The patient is able to nod and shake his head appropriately to yes no questions. He has noted Left arm swelling. The pt is known to have h/o central vein stenosis with h/o previous angioplasty as per Dr Monzon. PMHx: Hypertension Hypothyroidism Gout Cancer - throat - 2011 Kidney Disease PSHX: renal fistula - 2010 Laryngectomy - December 2011 Dr Lucio Colonoscopy - 09/01 poor prep Hernia - [facility] Left Arm Fistulagram - (05/20/2019) SOCHX: Denies Smoking - Quit 07/2011 FAMHX: HTN ROS: As noted in HPI, otherwise 11pt ROS of systems reviewed and unremarkable. PE: GEN: 84yoM, appears stated age. Pleasant, interactive. HEENT: Normocephalic, atraumatic. Moist mucous membranes. CHEST: Regular rate and rhythm LUNGS: Clear to auscultation bilaterally. ABD: Round, soft, non-tender, non-distended. EXT: Left upper extremity swelling noted SKIN: [place], dry, warm. No rashes. NEURO: Alert and oriented x 3. No focal deficits appreciated. A&P: 1. The patient is an 84-year-old male not yet on HD, with Left radial cephalic AVF. Left arm swelling is noted. The pt is known to have h/o central vein stenosis with h/o previous angioplasty as per Dr Monzon. Fistulogram has been recommended and discussed with the pt as per Dr Monzon. The procedure, risks, benefits and alternatives are reviewed, Informed consent is obtained and placed with the chart. Thank you for your consultation. We will continue to follow along with you. Vital Signs/I&O Vital Signs Date Time Temp Pulse Resp B/P (MAP) Pulse Ox O2 Delivery O2 Flow Rate FiO2 03/07/20 06:00 97.8 70 19 127/67 (87) 98 Trach Collar 8.0 35 I&O- Last 24 Hours up to 6 AM 03/07/20 05:59 Intake Total 250 ml Output Total 400 ml Balance -150 ml Laboratory Data Labs 24H Laboratory Tests 2 03/07/20 06:18: Immature Granulocyte % (Auto) 0.9, Neutrophils (%) (Auto) 82.8H, Lymphocytes (%) (Auto) 6.7L, Monocytes (%) (Auto) 9.3H, Eosinophils (%) (Auto) 0.1, Basophils (%) (Auto) 0.2, Neutrophils # (Auto) 8.8H, Lymphocytes # (Auto) 0.7L, Monocytes # (Auto) 1.0H, Eosinophils # (Auto) 0.0, Basophils # (Auto) 0.0, Nucleated Red Blood Cells % (auto) 0.0, Anion Gap 9, Glomerular Filtration Rate 31.7L, Calcium Level 9.3 CBC/BMP Laboratory Tests 03/07/20 06:18 Allergies Coded Allergies: Penicillins (Verified Allergy, Intermediate, hives, 01/25/20) amoxicillin (Verified Allergy, Intermediate, hives, 01/25/20) levofloxacin (Verified Adverse Reaction, Severe, tendon damage, 01/25/20) Home Medications Scheduled Allopurinol (Allopurinol) 100 Mg Tablet, 200 MG PO DAILY, (Reported) Aspirin (Aspirin EC) 81 Mg Tablet.dr, 81 MG PO DAILY, (Reported) Calcitriol (Calcitriol) 0.25 Mcg Cap, 0.25 MCG PO 4XWK, (Reported) MON, WED, FRI, SUN Cetirizine HCl (Cetirizine HCl) 10 Mg Tablet, 10 MG PO DAILY, (Reported) Finasteride (Finasteride) 5 Mg Tablet, 5 MG PO DAILY, (Reported) Levothyroxine Sodium (Levothyroxine Sodium) 88 Mcg Tablet, 88 MCG PO DAILY, (Reported) Magnesium Chloride (Mag64) 64 Mg Tablet.dr, 64 MG PO Q2D, (Reported) Metoprolol Succinate (Metoprolol Succinate) 100 Mg Tab, 100 MG PO DAILY, (Reported) Nisoldipine (Nisoldipine) 17 Mg Tab.er.24h, 17 MG PO QHS, (Reported) Omeprazole (Omeprazole) 40 Mg Cap, 40 MG PO DAILY, (Reported) Tamsulosin HCl (Flomax) 0.4 Mg Cap, 0.4 MG PO QHS, (Reported) Tiotropium Br/Olodaterol HCl (Stiolto Respimat Inhal [place]) 4 Gm Mist.inhal, 1 PUFF INH BID, (Reported) Scheduled PRN Albuterol Sulf (Albuterol Sulfate) 2.5 Mg/3 Ml Vial.neb, 2.5 MG INH Q4H PRN for SSIB, (Reported) Albuterol Sulfate (Proair Hfa) 108 Mcg/Act Aer, 2 PUFFS INH QID PRN for SHORTNESS OF BREATH, (Reported) Colchicine (Colcrys) 0.6 Mg Tab, 0.6 MG PO DAILY PRN for GOUT, (Reported) Guaifenesin (Mucinex) 600 Mg Tab.er.12h, 600 MG PO BID PRN for CHEST CONGESTION, (Reported) Meclizine HCl (Meclizine HCl) 25 Mg Tab, 25 MG PO BID PRN for DIZZINESS, (Reported) Thelma Saha Mar 07, 2020 08:06
[2020-03-07] MEDS ORDERED: CEFDINIR 300 MG CAP (OMNICEF) PO SCH (09:00)
[2020-03-07] MEDS ORDERED: cefTRIAXone SOD 1 GM in D5W MINI-BAG PLUS 50 ML IV SCH (09:00)
[2020-03-07] MEDS ORDERED: PANTOPRAZOLE 40MG VIAL (C9113 PER 1) IV SCH (09:00)
[2020-03-07] MEDS ORDERED: MIDAZOLAM INJ 2MG/2ML VIAL (J2250 PER 1MG) As Ordered ONE (10:12)
[2020-03-07] MEDS ORDERED: ISOVUE-300 61% 50ML VIAL As Ordered ONE (10:12)
[2020-03-07] MEDS ORDERED: LIDOCAINE 1% MDV 20ML VIAL As Ordered ONE (10:12)
[2020-03-07] MEDS ORDERED: fentaNYL 100 MCG/2 ML INJECTION (J3010) As Ordered ONE (10:12)
--- NOTE | 2020-03-07 11:52 | IPNPDOC ---
Date Seen The patient was seen on 03/07/20. Progress Note Mr. Mccann is a very pleasant 84-year-old patient with subsiding significant swelling of his left upper extremity, and I was consulted yesterday to see the patient regarding the swelling. He has a long-standing left upper extremity AV fistula, but is not on dialysis. This was placed when the patient was progressing rapidly to stage V renal insufficiency, but then his kidney function somewhat returned to his baseline and he has not required it for dialysis. 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 This was dramatically improved with angioplasty and the patient's swelling and symptoms of a cold hand resolved. I suspect there is recurrent stenosis at the thoracic outlet requiring repeat angioplasty. I discussed the risks benefits and alternatives to a fistulogram and potential intervention with the patient and his last night, they were agreeable to proceed. Informed consent was obtained. Today, we brought the patient downstairs for the procedure, and he became very anxious and short of breath. He was coughing, consistently asking to be suctioned through his tracheostomy, requiring higher and higher amounts of oxygen to maintain oxygen saturations greater than 85%, and eventually we were able to get him calm down enough that his oxygen saturations returned to normal and he seemed ready for the procedure. However, we brought the patient in the room, he became increasingly anxious, coughing, and his oxygen saturations dropped again. We tried breathing treatments and suctioning, but the patient could not get over his anxiety. Therefore, after discussing with the patient at length options for proceeding versus postponing the procedure, he elected to postpone it. I think this is probably safest for today. We may be able to put him back on the schedule for Thursday, and we will see how he is doing then. He is agreeable to this plan. I have informed the hospitalist team. VS, I&O, 24H, Fishbone Vital Signs/I&O Vital Signs Date Time Temp Pulse Resp B/P (MAP) Pulse Ox O2 Delivery O2 Flow Rate FiO2 03/07/20 11:24 86 Trach Collar 15 50 03/07/20 11:00 28 03/07/20 10:53 58 03/07/20 06:00 97.8 127/67 (87) I&O- Last 24 Hours up to 6 AM 03/07/20 06:00 Intake Total 250 ml Output Total 525 ml Balance -275 ml Laboratory Data 24H LABS Laboratory Tests 2 03/07/20 06:18: Immature Granulocyte % (Auto) 0.9, Neutrophils (%) (Auto) 82.8H, Lymphocytes (%) (Auto) 6.7L, Monocytes (%) (Auto) 9.3H, Eosinophils (%) (Auto) 0.1, Basophils (%) (Auto) 0.2, Neutrophils # (Auto) 8.8H, Lymphocytes # (Auto) 0.7L, Monocytes # (Auto) 1.0H, Eosinophils # (Auto) 0.0, Basophils # (Auto) 0.0, Nucleated Red Blood Cells % (auto) 0.0, Anion Gap 9, Glomerular Filtration Rate 31.7L, Calcium Level 9.3 CBC/BMP Laboratory Tests 03/07/20 06:18 LEO ROGER MD Mar 07, 2020 11:52
[2020-03-07] MEDS: SODIUM CHLORIDE 1 GM TAB PO SCH ×2 (12:02→20:04)
[2020-03-07] MEDS: PANTOPRAZOLE 40MG TAB (PROTONIX) PO SCH (12:02)
[2020-03-07] MEDS: FINASTERIDE 5 MG TAB PO SCH (12:02)
[2020-03-07] MEDS: SENOKOT S TAB PO SCH ×2 (12:02→20:05)
[2020-03-07] MEDS: allopurinoL 100 MG TAB PO SCH (12:03)
[2020-03-07] MEDS: ASPIRIN 81 MG ENTERIC TAB PO SCH (12:03)
[2020-03-07] MEDS: CETIRIZINE (ZyrTEC) 10 MG TAB PO SCH (12:03)
[2020-03-07] MEDS: CALCITRIOL 0.25 MCG CAP (S0169) PO SCH (12:03)
[2020-03-07] MEDS: predniSONE 20 MG TAB PO SCH (12:03)
[2020-03-07] MEDS: CEFDINIR 300 MG CAP (OMNICEF) PO SCH (12:04)
[2020-03-07] MEDS: METOPROLOL SUCC (TopROL XL) 100MG *XL* TAB PO SCH (12:04)
[2020-03-07 14:00] VITALS: BP 123/72
--- NOTE | 2020-03-07 17:51 | IPNPDOC ---
Subjective Date Seen The patient was seen on 03/07/20. Subjective Chief Complaint/HPI shortness of breath Events since last encounter minimally ambulating per nursing. appears weak, nodded no to ROS questions. General: Reports: Normal Appetite; Denies: Chills, Night Sweats, Fatigue, Malaise Constitutional: Denies: Chills, Fever, Night Sweats Eyes: Denies: Pain, Vision change ENT: Denies: Head Aches, Ear Pain, Dysphagia Skin: Denies: Rash, Lesions, Breakdown Pulmonary: Denies: Dyspnea, Cough Cardiovascular: Denies: Chest Pain, Palpitations, Orthopnea, Paroxysmal Noc. Dyspnea, Lt Headedness Gastrointestinal: Denies: Nausea, Vomiting, Abdominal Pain, Diarrhea, Constipation Genitourinary: Denies: Dysuria, Frequency, Incontinence, Retention Hematologic: Denies: Bruising, Bleeding Excessively Musculoskeletal: Denies: Neck Pain, Back Pain, Joint Pain, Muscle Pain, Spasms Neurological: Denies: Weakness, Numbness, Change in speech, Confusion Psych: Reports: Mood Normal; Denies: Depression, Memory Issues Objective Physical Examination General Exam: Positive: Alert, No Acute Distress Eye Exam: Positive: PERRLA, Conjunctiva & lids normal, EOMI; Negative: Sclera icteric ENT Exam: Positive: Atraumatic, Mucous membr. moist/pink, Pharynx Normal Neck Exam: Positive: Supple; Negative: JVD, thyromegaly Chest Exam: Positive: Clear to auscultation, Rales, Diminished Heart Exam: Positive: Rate Normal, Regular Rhythm, Normal S1, Normal S2; Negative: Murmurs, Rubs Telemetry: Positive: No significant arrhythmia Abdomen Exam: Positive: Normal bowel sounds, Soft; Negative: Tenderness, Hepatospenomegaly Male Exam: Positive: Normal Genital Exam Extremity Exam: Positive: Normal pulses; Negative: Clubbing, Cyanosis, Edema Skin Exam: Positive: Nl turgor and temperature; Negative: Rash, Breakdown Neuro Exam: Positive: Normal Gait, Normal Speech, Cranial Nerves 3-12 NL, Reflexes 2+ Psych Exam: Positive: Mental status NL, Mood NL, Oriented x 3 Assessment /Plan Assessment 1. Acute bronchitis - continue antibiotics. desaturates with exertion. will need pulmonary rehab at some point outpatient -continue prednisone 2. Left Arm swelling - suspecting restenosis on old AV fistula (not on dialysis currently). Vascular on board - likely exploration Thursday? 3. Hx of CAD - continue ASA and Toprol 4. Hx of anxiety -on ativan as needed 5. Hx of gout - home allopurinol resumed Plan/VTE VTE Prophylaxis Ordered?: Yes VS, I&O, 24H, Fishbone Vital Signs/I&O Vital Signs Date Time Temp Pulse Resp B/P (MAP) Pulse Ox O2 Delivery O2 Flow Rate FiO2 03/07/20 14:00 98.1 79 18 123/72 (89) 83 Trach Collar 8.0 35 I&O- Last 24 Hours up to 6 AM 03/07/20 06:00 Intake Total 250 ml Output Total 525 ml Balance -275 ml Laboratory Data 24H LABS Laboratory Tests 2 03/07/20 06:18: Immature Granulocyte % (Auto) 0.9, Neutrophils (%) (Auto) 82.8H, Lymphocytes (%) (Auto) 6.7L, Monocytes (%) (Auto) 9.3H, Eosinophils (%) (Auto) 0.1, Basophils (%) (Auto) 0.2, Neutrophils # (Auto) 8.8H, Lymphocytes # (Auto) 0.7L, Monocytes # (Auto) 1.0H, Eosinophils # (Auto) 0.0, Basophils # (Auto) 0.0, Nucleated Red Blood Cells % (auto) 0.0, Anion Gap 9, Glomerular Filtration Rate 31.7L, Calcium Level 9.3 CBC/BMP Laboratory Tests 03/07/20 06:18 RYAN RODRIGUEZ DO Mar 07, 2020 17:51
[2020-03-07] MEDS: LORazepam 0.5 MG TAB PO PRN (20:04)
[2020-03-07] MEDS: amLODIPine 5 MG TAB PO SCH (20:04)
[2020-03-07] MEDS: CALCIUM CARBONATE 500 MG CHEW U/D PO PRN (20:04)
[2020-03-07 22:00] VITALS: BP 157/81
[2020-03-07] MEDS: HEPARIN SOD (PORCINE) 5000UNITS/ML 1ML VIAL/SYRINGE SQ SCH (23:12)
[2020-03-08] MEDS: ALBUTEROL SULFATE 2.5 MG/0.5 ML INH NEB SOLN INH SCH ×6 (03:46→23:04)
[2020-03-08] MEDS: LEVOTHYROXINE 100MCG TABLET (0.1MG) PO SCH (05:42)
[2020-03-08] MEDS: SLF 3 ML SYR IV SCH ×3 (05:43→20:20)
[2020-03-08 06:00] VITALS: BP 135/70
[2020-03-08] MEDS: BUDESONIDE 0.5 MG/2 ML INHALATION SUSPENSION INH SCH ×2 (07:25→19:45)
[2020-03-08] MEDS: LORazepam 0.5 MG TAB PO PRN ×2 (09:04→21:17)
[2020-03-08] MEDS: ASPIRIN 81 MG ENTERIC TAB PO SCH (09:05)
[2020-03-08] MEDS: CEFDINIR 300 MG CAP (OMNICEF) PO SCH (09:05)
[2020-03-08] MEDS: SENOKOT S TAB PO SCH ×2 (09:05→20:19)
[2020-03-08] MEDS: predniSONE 20 MG TAB PO SCH (09:06)
[2020-03-08] MEDS: PANTOPRAZOLE 40MG TAB (PROTONIX) PO SCH (09:07)
[2020-03-08] MEDS: METOPROLOL SUCC (TopROL XL) 100MG *XL* TAB PO SCH (09:08)
[2020-03-08] MEDS: SODIUM CHLORIDE 1 GM TAB PO SCH ×2 (09:08→20:19)
[2020-03-08] MEDS: CETIRIZINE (ZyrTEC) 10 MG TAB PO SCH (09:09)
[2020-03-08] MEDS: allopurinoL 100 MG TAB PO SCH (09:09)
[2020-03-08] MEDS: FINASTERIDE 5 MG TAB PO SCH (09:09)
[2020-03-08] MEDS: HEPARIN SOD (PORCINE) 5000UNITS/ML 1ML VIAL/SYRINGE SQ SCH ×2 (09:51→20:19)
[2020-03-08 11:35] LABS: CALCIUM LEVEL 9.5 MG/DL (8.8-10.2); CREATININE FOR GFR 2.07 MG/DL (0.70-1.30); GLOMERULAR FILTRATION RATE 32.9 (>35); POTASSIUM SERUM 4.1 MEQ/L (3.5-5.1)
[2020-03-08 12:03] LABS: BASO % 0.1 % (0.0-1.0); HEMATOCRIT 42.2 % (42.0-52.0); HEMOGLOBIN 14.6 g/dl (13.5-17.5); LYMPH # 0.5 10^3/uL (1.5-5.0); LYMPH % 3.5 % (24.0-44.0); MEAN CORPUSCULAR HEMOGLOBIN 31.9 pg (27.0-33.0); MEAN CORPUSCULAR HGB CONC 34.6 g/dl (32.0-36.5); MEAN CORPUSCULAR VOLUME 92.1 fl (80.0-96.0); MONO # 0.7 10^3/uL (0.0-0.8); MONO % 4.8 % (0.0-5.0); NEUTROPHILS # 12.7 10^3/uL (1.5-8.5); NEUTROPHILS % 90.5 % (36.0-66.0); PLATELET COUNT, AUTOMATED 361 10^3/uL (150-450); RED BLOOD COUNT 4.58 10^6/uL (4.30-6.10)
[2020-03-08 14:00] VITALS: BP 168/70
[2020-03-08 15:32] VITALS: BP 150/71
--- NOTE | 2020-03-08 17:16 | IPNPDOC ---
Subjective Date Seen The patient was seen on 03/08/20. Subjective Chief Complaint/HPI SOB Events since last encounter no overnight events General: Reports: Normal Appetite; Denies: Chills, Night Sweats, Fatigue, Malaise Constitutional: Denies: Chills, Fever, Night Sweats Eyes: Denies: Pain, Vision change ENT: Denies: Head Aches, Ear Pain, Dysphagia Skin: Denies: Rash, Lesions, Breakdown Pulmonary: Denies: Dyspnea, Cough Cardiovascular: Denies: Chest Pain, Palpitations, Orthopnea, Paroxysmal Noc. Dyspnea, Lt Headedness Gastrointestinal: Denies: Nausea, Vomiting, Abdominal Pain, Diarrhea, Constipation Genitourinary: Denies: Dysuria, Frequency, Incontinence, Retention Hematologic: Denies: Bruising, Bleeding Excessively Musculoskeletal: Denies: Neck Pain, Back Pain, Joint Pain, Muscle Pain, Spasms Neurological: Denies: Weakness, Numbness, Change in speech, Confusion Psych: Reports: Mood Normal; Denies: Depression, Memory Issues Objective Physical Examination General Exam: Positive: Alert, No Acute Distress Eye Exam: Positive: PERRLA, Conjunctiva & lids normal, EOMI; Negative: Sclera icteric ENT Exam: Positive: Atraumatic, Mucous membr. moist/pink, Pharynx Normal Neck Exam: Positive: Supple; Negative: JVD, thyromegaly Chest Exam: Positive: Clear to auscultation, Normal air movement, Rales, Diminished Heart Exam: Positive: Rate Normal, Regular Rhythm, Normal S1, Normal S2; Negative: Murmurs, Rubs Telemetry: Positive: No significant arrhythmia Abdomen Exam: Positive: Normal bowel sounds, Soft; Negative: Tenderness, Hepatospenomegaly Male Exam: Positive: Normal Genital Exam Extremity Exam: Positive: Normal pulses; Negative: Clubbing, Cyanosis, Edema Skin Exam: Positive: Nl turgor and temperature; Negative: Rash, Breakdown Neuro Exam: Positive: Normal Gait, Cranial Nerves 3-12 NL, Reflexes 2+ Psych Exam: Positive: Mental status NL, Mood NL, Oriented x 3 Assessment /Plan Assessment 1. Acute bronchitis - continue antibiotics -continue prednisone 2. Left Arm swelling - suspecting restenosis on old AV fistula (not on dialysis currently). Vascular on board - likely exploration Thursday? 3. Hx of CAD - continue ASA and Toprol 4. Hx of anxiety -on ativan as needed 5. Hx of gout - home allopurinol resumed 6. Hx of HTN hypertensive increased amlodipine to 10mg Plan/VTE VTE Prophylaxis Ordered?: Yes VS, I&O, 24H, Fishbone Vital Signs/I&O Vital Signs Date Time Temp Pulse Resp B/P (MAP) Pulse Ox O2 Delivery O2 Flow Rate FiO2 03/08/20 15:32 72 150/71 (97) 03/08/20 14:00 97.5 20 93 Trach Collar 8.0 35 I&O- Last 24 Hours up to 6 AM 03/08/20 06:00 Intake Total 870 ml Output Total 1650 ml Balance -780 ml Laboratory Data 24H LABS Laboratory Tests 2 03/08/20 10:45: Anion Gap 6L, Glomerular Filtration Rate 32.9L, Calcium Level 9.5 CBC/BMP Laboratory Tests 03/08/20 10:45 Microbiology Microbiology 03/02/20 Gram Stain - Final, Complete 03/02/20 Sputum Culture - Final, Complete Strep Agalactiae Group B Staphylococcus Aureus RYAN RODRIGUEZ DO Mar 08, 2020 17:16
[2020-03-08] MEDS: amLODIPine 10 MG TAB PO SCH (20:24)
[2020-03-08 22:00] VITALS: BP 153/74
[2020-03-09] MEDS: ALBUTEROL SULFATE 2.5 MG/0.5 ML INH NEB SOLN INH SCH ×6 (02:59→23:56)
[2020-03-09] MEDS: LEVOTHYROXINE 100MCG TABLET (0.1MG) PO SCH (05:37)
[2020-03-09] MEDS: SLF 3 ML SYR IV SCH ×3 (05:38→20:44)
[2020-03-09 06:00] VITALS: BP 155/78
[2020-03-09] MEDS: BUDESONIDE 0.5 MG/2 ML INHALATION SUSPENSION INH SCH ×2 (08:04→20:02)
--- NOTE | 2020-03-09 08:22 | IPNPDOC ---
Text Note Date of Service The patient was seen on 03/09/20. NOTE Vascular Surgery Dr Monzon The pt is an 84-year-old patient with swelling of his left upper extremity. He has a long-standing left upper extremity AV fistula, but is not on dialysis. This was placed when the patient was progressing rapidly to stage V renal insufficiency, but then his kidney function somewhat returned to his baseline and he has not required it for dialysis. 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 This was dramatically improved with angioplasty and the patient's swelling and symptoms of a cold hand resolved. The pt is suspected to have recurrent stenosis at the thoracic outlet requiring repeat angioplasty. Risks benefits and alternatives to a fistulogram and potential intervention have been discussed with the patient and his as per Dr Monzon, they were agreeable to proceed. Informed consent was obtained. Dr Monzon attempted fistulogram 03/07/20 however the procedure was aborted as he became very anxious and short of breath. He was coughing, consistently asking to be suctioned through his tracheostomy, requiring higher and higher amounts of oxygen to maintain oxygen saturations greater than 85%, and eventually we were able to get him calm down enough that his oxygen saturations returned to normal and he seemed ready for the procedure. However, we brought the patient in the room, he became increasingly anxious, coughing, and his oxygen saturations dropped again. Breathing treatments were tried and suctioning, but the patient could not get over his anxiety. Therefore, after discussing with the patient at length options for proceeding versus postponing the procedure, he elected to postpone it. Plan is to re attempt today at 12:[address] Monzon. Possibly consider a nebulizer treatment 1 hr prior to the procedure and possibly medication to help with anxiety, discussed with Dr Lund, she will order. BMP this AM pending. VS,[place], I+O VS, [place], I+O Laboratory Tests 03/08/20 10:45 Vital Signs Date Time Temp Pulse Resp B/P (MAP) Pulse Ox O2 Delivery O2 Flow Rate FiO2 03/09/20 06:00 98.1 64 17 155/78 (103) 100 Trach Collar 8.0 03/08/20 22:00 35 I&O- Last 24 Hours up to 6 AM 03/09/20 06:00 Intake Total 1155 ml Output Total 1150 ml Balance 5 ml Thelma Saha Mar 09, 2020 08:10
[2020-03-09] MEDS: ASPIRIN 81 MG ENTERIC TAB PO SCH (09:00)
[2020-03-09] MEDS: predniSONE 20 MG TAB PO SCH (09:59)
[2020-03-09] MEDS: FINASTERIDE 5 MG TAB PO SCH (09:59)
[2020-03-09] MEDS: METOPROLOL SUCC (TopROL XL) 100MG *XL* TAB PO SCH (09:59)
[2020-03-09] MEDS: LORazepam 0.5 MG TAB PO PRN ×2 (10:00→23:18)
[2020-03-09] MEDS ORDERED: LORazepam 2 MG/ML VIAL IV ONE ×2 (11:15)
[2020-03-09] MEDS: SENOKOT S TAB PO SCH ×2 (13:31→20:43)
[2020-03-09] MEDS: CEFDINIR 300 MG CAP (OMNICEF) PO SCH (13:32)
[2020-03-09] MEDS: CALCITRIOL 0.25 MCG CAP (S0169) PO SCH (13:32)
[2020-03-09] MEDS: CETIRIZINE (ZyrTEC) 10 MG TAB PO SCH (13:32)
[2020-03-09] MEDS: allopurinoL 100 MG TAB PO SCH (13:32)
[2020-03-09] MEDS: PANTOPRAZOLE 40MG TAB (PROTONIX) PO SCH (13:32)
[2020-03-09] MEDS: SODIUM CHLORIDE 1 GM TAB PO SCH ×2 (13:32→20:43)
[2020-03-09 14:00] VITALS: BP 155/78
[2020-03-09 14:10] LABS: CALCIUM LEVEL 9.4 MG/DL (8.8-10.2); CREATININE FOR GFR 1.76 MG/DL (0.70-1.30); GLOMERULAR FILTRATION RATE 39.7 (>35); POTASSIUM SERUM 4.5 MEQ/L (3.5-5.1)
--- NOTE | 2020-03-09 15:53 | IPNPDOC ---
Subjective Date Seen The patient was seen on 03/09/20. Subjective Chief Complaint/HPI SOB Events since last encounter no overnight events General: Reports: Normal Appetite; Denies: Chills, Night Sweats, Fatigue, Malaise Constitutional: Denies: Chills, Fever, Night Sweats Eyes: Denies: Pain, Vision change ENT: Denies: Head Aches, Ear Pain, Dysphagia Skin: Denies: Rash, Lesions, Breakdown Pulmonary: Denies: Dyspnea, Cough Cardiovascular: Denies: Chest Pain, Palpitations, Orthopnea, Paroxysmal Noc. Dyspnea, Lt Headedness Gastrointestinal: Denies: Nausea, Vomiting, Abdominal Pain, Diarrhea, Constipation Genitourinary: Denies: Dysuria, Frequency, Incontinence, Retention Hematologic: Denies: Bruising, Bleeding Excessively Musculoskeletal: Denies: Neck Pain, Back Pain, Joint Pain, Muscle Pain, Spasms Neurological: Denies: Weakness, Numbness, Change in speech, Confusion Psych: Reports: Anxiety Objective Physical Examination General Exam: Positive: Alert, No Acute Distress Eye Exam: Positive: PERRLA, Conjunctiva & lids normal, EOMI; Negative: Sclera icteric ENT Exam: Positive: Atraumatic, Mucous membr. moist/pink, Pharynx Normal Neck Exam: Positive: Supple; Negative: JVD, thyromegaly Chest Exam: Positive: Clear to auscultation, Normal air movement, Rales, Diminished Heart Exam: Positive: Rate Normal, Regular Rhythm, Normal S1, Normal S2; Negative: Murmurs, Rubs Telemetry: Positive: No significant arrhythmia Abdomen Exam: Positive: Normal bowel sounds, Soft; Negative: Tenderness, Hepatospenomegaly Male Exam: Positive: Normal Genital Exam Extremity Exam: Positive: Normal pulses; Negative: Clubbing, Cyanosis, Edema Skin Exam: Positive: Nl turgor and temperature; Negative: Rash, Breakdown Neuro Exam: Positive: Normal Gait, Cranial Nerves 3-12 NL, Reflexes 2+ Psych Exam: Positive: Mental status NL, Mood NL, Oriented x 3 Assessment /Plan Assessment 1. Acute bronchitis - continue antibiotics -continue prednisone 2. Left Arm swelling - suspecting restenosis on old AV fistula; fistulogram today 3. Hx of CAD - continue ASA and Toprol 4. Hx of anxiety -on ativan as needed 5. Hx of gout - home allopurinol resumed 6. Hx of HTN amlodipine to 10mg Plan/VTE VTE Prophylaxis Ordered?: Yes Disposition discharge tomorrow VS, I&O, 24H, Fishbone Vital Signs/I&O Vital Signs Date Time Temp Pulse Resp B/P (MAP) Pulse Ox O2 Delivery O2 Flow Rate FiO2 03/09/20 14:00 98.1 64 17 155/78 (103) 100 Trach Collar 8.0 03/09/20 12:24 50 I&O- Last 24 Hours up to 6 AM 03/09/20 05:59 Intake Total 1155 ml Output Total 1575 ml Balance -420 ml Laboratory Data 24H LABS Laboratory Tests 2 03/09/20 06:00: Anion Gap 1L, Glomerular Filtration Rate 39.7, Calcium Level 9.4 CBC/BMP Laboratory Tests 03/09/20 06:00 Microbiology Microbiology 03/02/20 Gram Stain - Final, Complete 03/02/20 Sputum Culture - Final, Complete Strep Agalactiae Group B Staphylococcus Aureus RYAN RODRIGUEZ DO Mar 09, 2020 15:53
[2020-03-09] MEDS: amLODIPine 10 MG TAB PO SCH (20:43)
[2020-03-09] MEDS: HEPARIN SOD (PORCINE) 5000UNITS/ML 1ML VIAL/SYRINGE SQ SCH (20:44)
[2020-03-09 22:00] VITALS: BP 133/88
[2020-03-10] MEDS: ALBUTEROL SULFATE 2.5 MG/0.5 ML INH NEB SOLN INH SCH ×5 (03:50→19:44)
[2020-03-10 06:00] VITALS: BP 151/90
[2020-03-10] MEDS: LEVOTHYROXINE 100MCG TABLET (0.1MG) PO SCH (06:01)
[2020-03-10] MEDS: SLF 3 ML SYR IV SCH ×3 (06:01→21:12)
[2020-03-10] MEDS: HEPARIN SOD (PORCINE) 5000UNITS/ML 1ML VIAL/SYRINGE SQ SCH ×2 (08:30→21:12)
[2020-03-10] MEDS: ASPIRIN 81 MG ENTERIC TAB PO SCH (08:31)
[2020-03-10] MEDS: allopurinoL 100 MG TAB PO SCH (08:31)
[2020-03-10] MEDS: PANTOPRAZOLE 40MG TAB (PROTONIX) PO SCH (08:31)
[2020-03-10] MEDS: SENOKOT S TAB PO SCH ×2 (08:31→21:12)
[2020-03-10] MEDS: CETIRIZINE (ZyrTEC) 10 MG TAB PO SCH (08:31)
[2020-03-10] MEDS: predniSONE 20 MG TAB PO SCH (08:31)
[2020-03-10] MEDS: SODIUM CHLORIDE 1 GM TAB PO SCH ×2 (08:31→21:11)
[2020-03-10] MEDS: FINASTERIDE 5 MG TAB PO SCH (08:32)
[2020-03-10] MEDS: CEFDINIR 300 MG CAP (OMNICEF) PO SCH (08:32)
[2020-03-10] MEDS: METOPROLOL SUCC (TopROL XL) 100MG *XL* TAB PO SCH (08:32)
[2020-03-10] MEDS: BUDESONIDE 0.5 MG/2 ML INHALATION SUSPENSION INH SCH ×2 (08:41→19:43)
[2020-03-10 09:07] LABS: CALCIUM LEVEL 9.3 MG/DL (8.8-10.2); CREATININE FOR GFR 1.55 MG/DL (0.70-1.30); GLOMERULAR FILTRATION RATE 45.9 (>35); POTASSIUM SERUM 4.1 MEQ/L (3.5-5.1)
[2020-03-10] MEDS ORDERED: CEFD1CAP8 PO (12:39)
[2020-03-10] MEDS ORDERED: PRED20TA PO (12:39)
[2020-03-10] MEDS ORDERED: AMLO1TAB25 PO (12:39)
[2020-03-10 14:00] VITALS: BP 155/64
[2020-03-10 16:38] LABS: BASO % 0.2 % (0.0-1.0); HEMATOCRIT 40.1 % (42.0-52.0); HEMOGLOBIN 13.5 g/dl (13.5-17.5); LYMPH # 0.3 10^3/uL (1.5-5.0); LYMPH % 2.5 % (24.0-44.0); MEAN CORPUSCULAR HEMOGLOBIN 32.5 pg (27.0-33.0); MEAN CORPUSCULAR HGB CONC 33.7 g/dl (32.0-36.5); MEAN CORPUSCULAR VOLUME 96.4 fl (80.0-96.0); MONO # 0.3 10^3/uL (0.0-0.8); MONO % 2.6 % (0.0-5.0); NEUTROPHILS # 11.2 10^3/uL (1.5-8.5); NEUTROPHILS % 93.5 % (36.0-66.0); PLATELET COUNT, AUTOMATED 320 10^3/uL (150-450); RED BLOOD COUNT 4.16 10^6/uL (4.30-6.10)
--- NOTE | 2020-03-10 18:45 | ROOPDOC ---
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 US guided access left cephalic vein 2. LUE fistulagram and central venogram 3. Angioplasty left subclavian vein at the thoracic outlet with 10 x 40 mustang balloon and 12 x 40 atlas balloon 4. Completion venogram SURGEON: Angela Monzon MD ANESTHESIA: Local anesthesia 3cc lidocaine. Moderate conscious sedation was administered by Dr. Monzon. The patient was independently monitored by a registered nurse assigned to the Department of radiology using automated blood pressure, EKG, and pulse oximetry. The detailed sedation record is permanently stored in the hospital information system. The following is a brief sedation record: Start time 12:05, stop time 12:23, Versed 1 mg IV, fentanyl 50 g IV. INDICATION FOR PROCEDURE: Mr. Mccann is a very pleasant 84-year-old patient with subsiding significant swelling of his left upper extremity, and I was consulted yesterday to see the patient regarding the swelling. He has a long- standing left upper extremity AV fistula, but is not on dialysis. This was placed when the patient was progressing rapidly to stage V renal insufficiency, but then his kidney function somewhat returned to his baseline and he has not required it for dialysis. 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 This was dramatically improved with angioplasty and the patient's swelling and symptoms of a cold hand resolved. I suspect there is recurrent stenosis at the thoracic outlet requiring repeat angioplasty. I discussed the risks benefits and alternatives to a fistulogram and potential intervention with the patient and his , they were agreeable to proceed. Informed consent was obtained. INTERPRETATION: 1. Widely patent AV anastamosis and laya fistula LUE, and widely patent cephalic vein over the forearm. 2. Excellent outflow through the left basilic vein and axillary vein 3. 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 4. 40-50% residual stenosis after initial angioplasty left subclavian vein with 10 x 40 balloon, but no significant residual stenosis after repeat angioplasty with 12 x 40 [place] balloon. No extravasation noted. Excellent brisk outflow and marked improvement in thrill over left laya fistula. REPORT OF OPERATION: Patient was brought to the angiographic suite in stable condition. His left upper extremity was prepped and draped in a sterile fashion. A timeout was performed. Local anesthesia was a inspector and sorter to the skin and subcutaneous tissue over the Laya fistula in the left upper extremity. Ultrasound was used to examine the Laya fistula from the AV anastomosis to the antecubital crease. There was excellent flow through the AV anastomosis, and through the fistula with no areas of stenosis noted. We then used ultrasound to gain access to the Laya fistula over the forearm and a microneedle was used for this access. A wire was passed through this access under ultrasound guidance the needle was removed and a 4 Greek sheath was placed and flushed with saline. We then performed a fistulogram and central venogram. Please interpretation above. Next, Glidewire was advanced into the central system under fluoroscopic guidance. The sheath was exchanged for a 7 Greek sheath and flushed with s marcos. We then angioplasty to cross the tight stenosis at the thoracic outlet in the subclavian vein with a 10 x 40 [place] balloon, but unfortunately despite multiple inflations are still remained persistent stenosis. No extravasation was noted. We then upsized to a 12 x 40 atlas balloon and with this high pressure balloon, after three-minute inflations, there was widely patent flow through the subclavian vein with no residual stenosis noted, and no extravasation noted. The thrill markedly improved in the fistula, and the flow rate was much more rapid to the central system. This concluded her procedure. Local anesthesia was administered around the sheath and a [id number] Prolene suture was secured at the sheath was removed. Pressure was held and sterile dressings were applied and the patient was taken to recovery in stable condition. He tolerated the procedure and the sedation well. ESTIMATED BLOOD LOSS: Approximately 3 mL. COMPLICATIONS: None. PLAN: Since the patient is not on dialysis, we will ask our nephrology colleagues to help us monitor his left upper extremity for signs of restenosis proximal. He may need maintenance angioplasty at thoracic outlet every 6-7 months to improve outflow and prevent swelling in his left arm. Will follow patient's exam. We appreciate the opportunity to participate in the care of this patient. ANGELA MONZON MD Mar 10, 2020 18:43
--- NOTE | 2020-03-10 19:25 | IPNPDOC ---
Subjective Date Seen The patient was seen on 03/10/20. Subjective Chief Complaint/HPI SOB Events since last encounter no overnight events. s/p fistulogram General: Reports: Normal Appetite; Denies: Chills, Night Sweats, Fatigue, Malaise Constitutional: Denies: Chills, Fever, Night Sweats Eyes: Denies: Pain, Vision change ENT: Denies: Head Aches, Ear Pain, Dysphagia, Sinus Congestion, Post Nasal Drip, Sore Throat, Epistaxis, Other Symptoms Skin: Denies: Rash, Lesions, Breakdown Pulmonary: Denies: Dyspnea, Cough Cardiovascular: Denies: Chest Pain, Palpitations, Orthopnea, Paroxysmal Noc. Dyspnea, Lt Headedness Gastrointestinal: Denies: Nausea, Vomiting, Abdominal Pain, Diarrhea, Constipation Genitourinary: Denies: Dysuria, Frequency, Incontinence, Retention Hematologic: Denies: Bruising, Bleeding Excessively Musculoskeletal: Denies: Neck Pain, Back Pain, Joint Pain, Muscle Pain, Spasms Neurological: Denies: Weakness, Numbness, Change in speech, Confusion Psych: Reports: Mood Normal; Denies: Depression, Memory Issues Objective Physical Examination General Exam: Positive: Alert, No Acute Distress Eye Exam: Positive: PERRLA, Conjunctiva & lids normal, EOMI; Negative: Sclera icteric ENT Exam: Positive: Atraumatic, Mucous membr. moist/pink, Pharynx Normal Neck Exam: Positive: Supple; Negative: JVD, thyromegaly Chest Exam: Positive: Clear to auscultation, Normal air movement, Rales, Diminished Heart Exam: Positive: Rate Normal, Regular Rhythm, Normal S1, Normal S2; Negative: Murmurs, Rubs Telemetry: Positive: No significant arrhythmia Abdomen Exam: Positive: Normal bowel sounds, Soft; Negative: Tenderness, Hepatospenomegaly Male Exam: Positive: Normal Genital Exam Extremity Exam: Positive: Normal pulses; Negative: Clubbing, Cyanosis, Edema Skin Exam: Positive: Nl turgor and temperature; Negative: Rash, Breakdown Neuro Exam: Positive: Normal Gait, Cranial Nerves 3-12 NL, Reflexes 2+ Psych Exam: Positive: Mental status NL, Mood NL, Oriented x 3 Assessment /Plan Assessment 1. Acute bronchitis - slight increase in WC, suspective reactive -will stop prednisone. will add azithro 2. Left Arm swelling - s/p fistulogram 3. Hx of CAD - continue ASA and Toprol 4. Hx of anxiety -on ativan as needed 5. Hx of gout - home allopurinol resumed 6. Hx of HTN amlodipine to 10mg Plan/VTE VTE Prophylaxis Ordered?: Yes VS, I&O, 24H, Fishbone Vital Signs/I&O Vital Signs Date Time Temp Pulse Resp B/P (MAP) Pulse Ox O2 Delivery O2 Flow Rate FiO2 03/10/20 14:00 96.4 63 18 155/64 (94) 100 Trach Collar 8.0 28 I&O- Last 24 Hours up to 6 AM 03/10/20 06:00 Intake Total 895 ml Output Total 2100 ml Balance -1205 ml Laboratory Data 24H LABS Laboratory Tests 2 03/10/20 06:55: Anion Gap 3L, Glomerular Filtration Rate 45.9, Calcium Level 9.3 03/10/20 16:00: Immature Granulocyte % (Auto) 1.2, Neutrophils (%) (Auto) 93.5H, Lymphocytes (%) (Auto) 2.5L, Monocytes (%) (Auto) 2.6, Eosinophils (%) (Auto) 0.0, Basophils (%) (Auto) 0.2, Neutrophils # (Auto) 11.2H, Lymphocytes # (Auto) 0.3L, Monocytes # (Auto) 0.3, Eosinophils # (Auto) 0.0, Basophils # (Auto) 0.0, Nucleated Red Blood Cells % (auto) 0.0 CBC/BMP Laboratory Tests 03/10/20 06:55 03/10/20 16:00 Microbiology Microbiology 03/02/20 Gram Stain - Final, Complete 03/02/20 Sputum Culture - Final, Complete Strep Agalactiae Group B Staphylococcus Aureus RYAN RODRIGUEZ DO Mar 10, 2020 19:25
[2020-03-10] MEDS: amLODIPine 10 MG TAB PO SCH (21:12)
[2020-03-10] MEDS: LORazepam 0.5 MG TAB PO PRN (21:12)
[2020-03-10 22:00] VITALS: BP 150/87
[2020-03-10 23:17] LABS: CALCIUM LEVEL 8.4 MG/DL (8.8-10.2); CREATININE FOR GFR 2.38 MG/DL (0.70-1.30); MAGNESIUM LEVEL 2.1 MG/DL (1.8-2.4); POTASSIUM SERUM 4.1 MEQ/L (3.5-5.1)
[2020-03-11] MEDS: ALBUTEROL SULFATE 2.5 MG/0.5 ML INH NEB SOLN INH SCH ×4 (00:42→13:38)
[2020-03-11 06:00] VITALS: BP 132/89
[2020-03-11] MEDS: LEVOTHYROXINE 100MCG TABLET (0.1MG) PO SCH (06:09)
[2020-03-11] MEDS: SLF 3 ML SYR IV SCH (06:09)
[2020-03-11 06:44] LABS: BASO % 0.3 % (0.0-1.0); EOS # 0.1 10^3/uL (0.0-0.5); EOS % 0.4 % (0.0-3.0); HEMATOCRIT 40.7 % (42.0-52.0); HEMOGLOBIN 13.4 g/dl (13.5-17.5); LYMPH % 7.2 % (24.0-44.0); MEAN CORPUSCULAR HEMOGLOBIN 31.8 pg (27.0-33.0); MEAN CORPUSCULAR HGB CONC 32.9 g/dl (32.0-36.5); MEAN CORPUSCULAR VOLUME 96.4 fl (80.0-96.0); MONO # 1.1 10^3/uL (0.0-0.8); NEUTROPHILS # 11.4 10^3/uL (1.5-8.5); NEUTROPHILS % 81.9 % (36.0-66.0); PLATELET COUNT, AUTOMATED 316 10^3/uL (150-450); RED BLOOD COUNT 4.22 10^6/uL (4.30-6.10); WHITE BLOOD COUNT 13.9 10^3/uL (4.0-10.0)
[2020-03-11 07:14] LABS: CREATININE FOR GFR 1.56 MG/DL (0.70-1.30); GLOMERULAR FILTRATION RATE 45.6 (>35)
[2020-03-11] MEDS: BUDESONIDE 0.5 MG/2 ML INHALATION SUSPENSION INH SCH (08:04)
[2020-03-11] MEDS ORDERED: CEFDINIR 300 MG CAP (OMNICEF) PO SCH (09:00)
[2020-03-11] MEDS: allopurinoL 100 MG TAB PO SCH (09:16)
[2020-03-11] MEDS: PANTOPRAZOLE 40MG TAB (PROTONIX) PO SCH (09:16)
[2020-03-11] MEDS: SODIUM CHLORIDE 1 GM TAB PO SCH (09:16)
[2020-03-11] MEDS: SENOKOT S TAB PO SCH (09:16)
[2020-03-11] MEDS: FINASTERIDE 5 MG TAB PO SCH (09:16)
[2020-03-11] MEDS: ASPIRIN 81 MG ENTERIC TAB PO SCH (09:16)
[2020-03-11 09:19] VITALS: BP 148/91
[2020-03-11] MEDS: LORazepam 0.5 MG TAB PO PRN (09:19)
[2020-03-11] MEDS: METOPROLOL SUCC (TopROL XL) 100MG *XL* TAB PO SCH (09:19)
[2020-03-11] MEDS: CETIRIZINE (ZyrTEC) 10 MG TAB PO SCH (09:19)
[2020-03-11] MEDS: HEPARIN SOD (PORCINE) 5000UNITS/ML 1ML VIAL/SYRINGE SQ SCH (09:20)
[2020-03-11] MEDS: CALCITRIOL 0.25 MCG CAP (S0169) PO SCH (09:20)
--- NOTE | 2020-03-11 19:06 | DS.PDOC ---
Discharge Summary General Date of Admission Feb 29, 2020 at 15:00 Date of Discharge 03/11/20 Specialist/Consultants Involve: A Discharge Summary PROCEDURES PERFORMED DURING STAY: [None]. ADMITTING DIAGNOSES: 1. Shortness of breath DISCHARGE DIAGNOSES: 1. CAP COMPLICATIONS/CHIEF COMPLAINT: SOB. HISTORY OF PRESENT ILLNESS: presented with SOB. Initial workup suggestive of pneumonia. treated with fiveday courrse of steroid and antibiotics HOSPITAL COURSE: left AV fistologram - f/u outpatient is concern for stenosis persists. curfrently not on hemodialysis DISCHARGE MEDICATIONS: Please see below. ALLERGIES: Please see below. PHYSICAL EXAMINATION ON DISCHARGE: VITAL SIGNS: Please see below. GENERAL: no acute distress HEENT: normocephalic NECK: no masses CARDIOVASCULAR EXAMINATION: rrr RESPIRATORY EXAMINATION: clear ABDOMINAL EXAMINATION: soft EXTREMITIES: no swelling SKIN: intact NEUROLOGICAL EXAMINATION: no focal defecits PSYCHIATRIC EXAMINATION: LABORATORY DATA: Please see below. IMAGING: CXR on 03/11/20 PROGNOSIS: good ACTIVITY: [As tolerated]. DIET: as tolerated DISCHARGE PLAN: completed CAP pneumonia treatment course DISPOSITION: 01 Home, Self-Care. DISCHARGE INSTRUCTIONS: 1. f/u PCP within 1 week ITEMS TO FOLLOWUP ON ON OUTPATIENT: 1. Respiratory symptoms: will benefit from pulmonary rehab DISCHARGE CONDITION: stable TIME SPENT ON DISCHARGE: Greater than 30 minutes. Vital Signs/I&Os Vital Signs Date Time Temp Pulse Resp B/P (MAP) Pulse Ox O2 Delivery O2 Flow Rate FiO2 03/11/20 09:19 73 148/91 03/11/20 08:00 8.0 28 03/11/20 06:00 97.6 20 93 Trach Collar I&O- Last 24 Hours up to 6 AM 03/11/20 05:59 Intake Total 1350 ml Output Total 1200 ml Balance 150 ml Laboratory Data Labs 24H Laboratory Tests 2 03/11/20 05:49: Immature Granulocyte % (Auto) 2.2, Neutrophils (%) (Auto) 81.9H, Lymphocytes (%) (Auto) 7.2L, Monocytes (%) (Auto) 8.0H, Eosinophils (%) (Auto) 0.4, Basophils (%) (Auto) 0.3, Neutrophils # (Auto) 11.4H, Lymphocytes # (Auto) 1.0L, Monocytes # (Auto) 1.1H, Eosinophils # (Auto) 0.1, Basophils # (Auto) 0.0, Nucleated Red Blood Cells % (auto) 0.0, Anion Gap 4L, Glomerular Filtration Rate 45.6, Calcium Level 9.0 03/11/20 05:55: CBC/BMP Laboratory Tests 03/11/20 05:49 Microbiology Microbiology 03/02/20 Gram Stain - Final, Complete 03/02/20 Sputum Culture - Final, Complete Strep Agalactiae Group B Staphylococcus Aureus Discharge Medications Scheduled Allopurinol (Allopurinol) 100 Mg Tablet, 200 MG PO DAILY, (Reported) Amlodipine Besylate (Amlodipine Besylate) 10 Mg Tablet, 10 MG PO QHS Aspirin (Aspirin EC) 81 Mg Tablet.dr, 81 MG PO DAILY, (Reported) Calcitriol (Calcitriol) 0.25 Mcg Cap, 0.25 MCG PO 4XWK, (Reported) MON, WED, FRI, SUN Cetirizine HCl (Cetirizine HCl) 10 Mg Tablet, 10 MG PO DAILY, (Reported) Finasteride (Finasteride) 5 Mg Tablet, 5 MG PO DAILY, (Reported) Levothyroxine Sodium (Levothyroxine Sodium) 88 Mcg Tablet, 88 MCG PO DAILY, (Reported) Magnesium Chloride (Mag64) 64 Mg Tablet.dr, 64 MG PO Q2D, (Reported) Metoprolol Succinate (Metoprolol Succinate) 100 Mg Tab, 100 MG PO DAILY, (Reported) Nisoldipine (Nisoldipine) 17 Mg Tab.er.24h, 17 MG PO QHS, (Reported) Omeprazole (Omeprazole) 40 Mg Cap, 40 MG PO DAILY, (Reported) Tamsulosin HCl (Flomax) 0.4 Mg Cap, 0.4 MG PO QHS, (Reported) Tiotropium Br/Olodaterol HCl (Stiolto Respimat Inhal [facility]) 4 Gm Mist.inhal, 1 PUFF INH BID, (Reported) Scheduled PRN Albuterol Sulf (Albuterol Sulfate) 2.5 Mg/3 Ml Vial.neb, 2.5 MG INH Q4H PRN for SSIB, (Reported) Albuterol Sulfate (Proair Hfa) 108 Mcg/Act Aer, 2 PUFFS INH QID PRN for SHORTNESS OF BREATH, (Reported) Colchicine (Colcrys) 0.6 Mg Tab, 0.6 MG PO DAILY PRN for GOUT, (Reported) Guaifenesin (Mucinex) 600 Mg Tab.er.12h, 600 MG PO BID PRN for CHEST CONGESTION, (Reported) Meclizine HCl (Meclizine HCl) 25 Mg Tab, 25 MG PO BID PRN for DIZZINESS, (Reported) Allergies Coded Allergies: Penicillins (Verified Allergy, Intermediate, hives, 01/25/20) amoxicillin (Verified Allergy, Intermediate, hives, 01/25/20) levofloxacin (Verified Adverse Reaction, Severe, tendon damage, 01/25/20) RYAN RODRIGUEZ DO Mar 11, 2020 16:04
[2020-03-11] MEDS ORDERED: AZITHROMYCIN 250MG TABLET PO SCH (21:00)
--- NOTE | 2020-04-06 08:02 | ECGEPIP ---
SINUS RHYTHM NORMAL ECG BASELINE ARTIFACT NO PREVIOUS SEE SCANNED DOWNTIME REPORT MTDD
--- NOTE | 2020-04-16 09:06 | REP ---
CHEST X-RAY: 2-VIEWS HISTORY: Pneumonia. COMPARISON: Chest x-ray 01/25/2020. FINDINGS: The lungs are symmetrically aerated and free of infiltrate. Pleural angles are sharp. Heart size is normal. Pulmonary vasculature is not increased. The thoracic aorta is tortuous as before. There is a nodular calcification projecting at the left base. Pulmonary vasculature is not increased. IMPRESSION: No acute disease. MTDD
[2020-04-18 20:16] LABS: BASO # 0.1 10^3/uL (0.0-0.2); BASO % 0.7 % (0.0-1.0); EOS # 0.4 10^3/uL (0.0-0.5); EOS % 5.1 % (0.0-3.0); HEMATOCRIT 42.9 % (42.0-52.0); HEMOGLOBIN 14.4 g/dl (13.5-17.5); LYMPH % 13.5 % (24.0-44.0); MEAN CORPUSCULAR HGB CONC 33.6 g/dl (32.0-36.5); MEAN CORPUSCULAR VOLUME 95.3 fl (80.0-96.0); MONO # 0.4 10^3/uL (0.0-0.8); MONO % 5.9 % (0.0-5.0); NEUTROPHILS # 5.6 10^3/uL (1.5-8.5); NEUTROPHILS % 73.9 % (36.0-66.0); PLATELET COUNT, AUTOMATED 338 10^3/uL (150-450); WHITE BLOOD COUNT 7.5 10^3/uL (4.0-10.0)
[2020-04-22 16:43] LABS: BASO % 0.2 % (0.0-1.0); HEMATOCRIT 43.1 % (42.0-52.0); HEMOGLOBIN 14.6 g/dl (13.5-17.5); LYMPH # 0.5 10^3/uL (1.5-5.0); LYMPH % 4.3 % (24.0-44.0); MEAN CORPUSCULAR HEMOGLOBIN 32.4 pg (27.0-33.0); MEAN CORPUSCULAR HGB CONC 33.9 g/dl (32.0-36.5); MEAN CORPUSCULAR VOLUME 95.6 fl (80.0-96.0); MONO # 0.1 10^3/uL (0.0-0.8); MONO % 1.1 % (0.0-5.0); NEUTROPHILS # 11.7 10^3/uL (1.5-8.5); PLATELET COUNT, AUTOMATED 332 10^3/uL (150-450); RED BLOOD COUNT 4.51 10^6/uL (4.30-6.10); WHITE BLOOD COUNT 12.6 10^3/uL (4.0-10.0)
[2020-04-29 08:34] LABS: HEMATOCRIT 41.1 % (42.0-52.0); HEMOGLOBIN 13.8 g/dl (13.5-17.5); MEAN CORPUSCULAR HEMOGLOBIN 31.9 pg (27.0-33.0); MEAN CORPUSCULAR HGB CONC 33.6 g/dl (32.0-36.5); MEAN CORPUSCULAR VOLUME 95.1 fl (80.0-96.0); PLATELET COUNT, AUTOMATED 364 10^3/uL (150-450); RED BLOOD COUNT 4.32 10^6/uL (4.30-6.10); WHITE BLOOD COUNT 21.5 10^3/uL (4.0-10.0)
[2020-04-29 08:35] LABS: INR 0.94; PROTHROMBIN TIME 12.8 SECONDS (12.5-14.3)
[2020-04-29 18:14] LABS: BASO % 0.1 % (0.0-1.0); LYMPH # 0.6 10^3/uL (1.5-5.0); LYMPH % 3.5 % (24.0-44.0); MEAN CORPUSCULAR HEMOGLOBIN 32.1 pg (27.0-33.0); MEAN CORPUSCULAR HGB CONC 34.1 g/dl (32.0-36.5); MONO # 0.5 10^3/uL (0.0-0.8); MONO % 2.6 % (0.0-5.0); NEUTROPHILS # 15.8 10^3/uL (1.5-8.5); NEUTROPHILS % 92.6 % (36.0-66.0); PLATELET COUNT, AUTOMATED 314 10^3/uL (150-450); RED BLOOD COUNT 4.36 10^6/uL (4.30-6.10)
[2020-05-03] MEDS ORDERED: FURO20TA2 PO (15:18)
[2020-05-23 04:32] LABS: ALBUMIN 3.8 GM/DL (3.2-5.2); ALT/SGPT 33 U/L (12-78); BILIRUBIN,DIRECT 0.2 MG/DL (0.0-0.2); BILIRUBIN,TOTAL 0.5 MG/DL (0.2-1.0); BLOOD UREA NITROGEN 33 MG/DL (7-18); CALCIUM LEVEL 9.5 MG/DL (8.8-10.2); CARBON DIOXIDE LEVEL 23 MEQ/L (21-32); CHLORIDE LEVEL 101 MEQ/L (98-107); CK-MB VALUE MASS 11.3 NG/ML (<3.6); CPK CREATINE PHOSPHOKINASE 452 U/L (39-308); CREATININE FOR GFR 2.05 MG/DL (0.70-1.30); GLOMERULAR FILTRATION RATE 33.2 (>35); GLUCOSE, FASTING 119 MG/DL (70-100); NT-PRO BNP 371 PG/ML (<450); POTASSIUM SERUM 4.8 MEQ/L (3.5-5.1); SODIUM LEVEL 133 MEQ/L (136-145); TOTAL PROTEIN 7.4 GM/DL (6.4-8.2); TROPONIN I < 0.02 NG/ML (< 0.10)
[2020-05-23 18:10] LABS: CALCIUM LEVEL 9.4 MG/DL (8.8-10.2); CREATININE FOR GFR 1.93 MG/DL (0.70-1.30); GLOMERULAR FILTRATION RATE 35.6 (>35); POTASSIUM SERUM 4.9 MEQ/L (3.5-5.1)
[2020-05-23 18:11] LABS: ALBUMIN 3.7 GM/DL (3.2-5.2); BILIRUBIN,TOTAL 0.4 MG/DL (0.2-1.0); FREE T3 1.2 PG/ML (2.2-4.0); FREE T4 0.43 NG/DL (0.76-1.46); MAGNESIUM LEVEL 1.9 MG/DL (1.8-2.4); TOTAL PROTEIN 7.4 GM/DL (6.4-8.2); TOTAL T3 39.8 NG/DL (60.0-181.0)
[2020-05-27 05:00] LABS: ALBUMIN 3.8 GM/DL (3.2-5.2); BILIRUBIN,TOTAL 0.5 MG/DL (0.2-1.0); CALCIUM LEVEL 9.6 MG/DL (8.8-10.2); CREATININE FOR GFR 1.96 MG/DL (0.70-1.30); GLOMERULAR FILTRATION RATE 34.9 (>35); PHOSPHORUS LEVEL 3.5 MG/DL (2.5-4.9); POTASSIUM SERUM 5.3 MEQ/L (3.5-5.1); TOTAL PROTEIN 7.5 GM/DL (6.4-8.2); TROPONIN I 0.02 NG/ML (< 0.10)
[2020-05-27 05:00] LABS: CALCIUM LEVEL 8.7 MG/DL (8.8-10.2); CREATININE FOR GFR 1.9 MG/DL (0.70-1.30); GLOMERULAR FILTRATION RATE 36.2 (>35); POTASSIUM SERUM 5.5 MEQ/L (3.5-5.1); THYROID STIMULATING HORMONE 28.6 uIU/ML (0.358-3.740)
[2020-05-27 06:43] LABS: ABG BASE EXCESS -4.9 (-2.0-2.0); ABG MODE OF VENT RA; ABG O2 SATURATION 98.8 % (95.0-99.0); ABG PARTIAL PRESSURE CO2 32.6 mmHg (35.0-45.0); ABG PARTIAL PRESSURE O2 124.7 mmHg (75.0-100.0); ABG STANDARD HCO3 20.5 MEQ/L (22.0-26.0); ABG pH (ARTERIAL) 7.384 UNITS (7.350-7.450)
[2020-05-27 11:12] LABS: CALCIUM LEVEL 8.7 MG/DL (8.8-10.2); CREATININE FOR GFR 1.76 MG/DL (0.70-1.30); GLOMERULAR FILTRATION RATE 39.6 (>35); POTASSIUM SERUM 4.7 MEQ/L (3.5-5.1)
[2020-05-27 12:34] LABS: OSMOLALITY URINE 265 MOSM/KG (500-800); SODIUM,RANDOM URINE 73 MEQ/L
[2020-05-27 13:02] LABS: CALCIUM LEVEL 8.4 MG/DL (8.8-10.2); CREATININE FOR GFR 2.38 MG/DL (0.70-1.30); GLOMERULAR FILTRATION RATE 27.9 (>35); POTASSIUM SERUM 4.6 MEQ/L (3.5-5.1); URIC ACID 5.7 MG/DL (3.5-7.2)
[2020-05-27 13:02] LABS: CALCIUM LEVEL 8.6 MG/DL (8.8-10.2); CREATININE FOR GFR 2.43 MG/DL (0.70-1.30); GLOMERULAR FILTRATION RATE 27.3 (>35); POTASSIUM SERUM 4.3 MEQ/L (3.5-5.1)
[2020-05-27 13:02] LABS: CALCIUM LEVEL 8.9 MG/DL (8.8-10.2); CREATININE FOR GFR 2.3 MG/DL (0.70-1.30); GLOMERULAR FILTRATION RATE 29.1 (>35); POTASSIUM SERUM 4.8 MEQ/L (3.5-5.1)
== END 2020-03-11 14:30 | disposition home or self-care (01) | DRG 981 ==
LOC: M ED 14:55 → M MSPAV 15:00
PROVIDERS: ADMIT Internal Medicine Nephrology; ATTEND Internal Medicine
PROC: 0BJ08ZZ Inspection of Tracheobronchial Tree, Via Natural or Artificial Opening Endoscopic (ICD-10-PCS; principal; 2020-02-28)
PROC: 05763Z1 Dilation of Left Subclavian Vein using Drug-Coated Balloon, Percutaneous Approach (ICD-10-PCS; 2020-03-09)
DX: J18.9 Pneumonia, unspecified organism (principal); J86.0 Pyothorax with fistula; J44.1 Chronic obstructive pulmonary disease with (acute) exacerbation; E87.1 Hypo-osmolality and hyponatremia; Z79.899 Other long term (current) drug therapy; Z79.82 Long term (current) use of aspirin; Z88.0 Allergy status to penicillin; Z88.8 Allergy status to other drugs, medicaments and biological substances; I12.9 Hypertensive chronic kidney disease with stage 1 through stage 4 chronic kidney disease, or unspecified chronic kidney disease; M10.9 Gout, unspecified; E03.9 Hypothyroidism, unspecified; Z85.818 Personal history of malignant neoplasm of other sites of lip, oral cavity, and pharynx; Z90.02 Acquired absence of larynx; Z87.891 Personal history of nicotine dependence; I25.10 Atherosclerotic heart disease of native coronary artery without angina pectoris; F41.9 Anxiety disorder, unspecified; N18.3 Chronic kidney disease, stage 3 (moderate); N40.0 Benign prostatic hyperplasia without lower urinary tract symptoms; K21.9 Gastro-esophageal reflux disease without esophagitis; E83.42 Hypomagnesemia

== ENCOUNTER → 2020-03-29 | Outpatient (REF) | payer MEDICARE, OTHER ==
[~2020-03-29] MED LIST changes: +ALBU83IN INH; +ALLO10TA PO; +AMLO1TAB25 PO; +ASPI-161 PO; +CEFD1CAP8 PO; +CETI-24 PO; -DEXTROMETHORPHAN 60MG/10ML SUSP 90ML BTL(DELSYM) ONE; +FURO20TA2 PO; +MAGN64TASA PO; +MUCI600T31 PO; +PRED20TA PO; -methylPREDNISolone 125MG 2ML VIAL As Ordered ONE
== END ==
LOC: M LAB REF 12:19
PROVIDERS: ATTEND Internal Medicine
DX: M19.90 Unspecified osteoarthritis, unspecified site (principal)

== ENCOUNTER → 2020-03-30 | Outpatient (CLI) | payer MEDICARE, OTHER ==
--- NOTE | 2020-03-30 14:46 | REPVR ---
PROCEDURE INFORMATION: Exam: CT Chest Without Contrast Exam date and time: 03/30/2020 2:12 PM Age: 84 years old Clinical indication: Other: Dysphagia; Additional info: Dysphaiga TECHNIQUE: Imaging protocol: Computed tomography of the chest without contrast. Radiation optimization: All CT scans at this facility use at least one of these dose optimization techniques: automated exposure control; mA and/or kV adjustment per patient size (includes targeted exams where dose is matched to clinical indication); or iterative reconstruction. COMPARISON: CT Neck without contrast 03/06/2016 1:00:53 PM FINDINGS: Limitations: Lack of intravenous contrast material limits evaluation of the vascular and visceral structures. Thyroid: Peripherally calcified lesion adjacent to the left thyroid bed, measuring up to 1.8 cm, unchanged. Surgical clips in the right thyroid bed. Lungs: Mild subpleural scarring in the lung apices. Calcified pulmonary granulomas. Mild linear atelectasis or scarring in the lingula and right lower lobe. Pleural space: Unremarkable. No pneumothorax. No pleural effusion. Heart: Prominent coronary artery calcifications. Aortic valve calcification. Mediastinal space: Patient is status post laryngectomy and tracheostomy. Tubular shaped metallic density between the trachea and the esophagus, unchanged. Aorta: Moderate atherosclerotic calcification of the thoracic aorta. Lymph nodes: Unremarkable. No enlarged lymph nodes. Gallbladder and bile ducts: Cholelithiasis. Adrenals: Mild left adrenal gland thickening. Kidneys and ureters: Bilateral renal cortical scarring. Right renal cysts, measuring up to 2.8 cm. 1.6 cm left renal cyst. Bones/joints: Degenerative change of the spine. Soft tissues: Postsurgical changes from laryngectomy. IMPRESSION: 1. No acute chest abnormality is identified. 2. Prominent coronary artery calcifications. 3. Postsurgical change of the larynx/trachea. COMMENTS: Consistent with the [employer]'s Incidental Findings Committee white paper (J Am Elvira Radiol 2015): In patients aged 35 years and older with an incidental thyroid nodule equal to or greater than 1.[address], MRI or extrathyroidal US, further evaluation with dedicated thyroid US is recommended for patients with normal life expectancy and without comorbidities. For smaller nodules without suspicious features, no further evaluation or follow up is recommended. Electronically signed by: Henrietta Ford On 03/30/2020 14:46:10 PM
--- NOTE | 2020-03-30 15:08 | REPVR ---
PROCEDURE INFORMATION: Exam: CT Neck Without Contrast Exam date and time: 03/30/2020 2:12 PM Age: 84 years old Clinical indication: Dysphagia / difficulty swallowing TECHNIQUE: Imaging protocol: Computed tomography images of the neck without contrast. Radiation optimization: All CT scans at this facility use at least one of these dose optimization techniques: automated exposure control; mA and/or kV adjustment per patient size (includes targeted exams where dose is matched to clinical indication); or iterative reconstruction. COMPARISON: CT Neck without contrast 03/06/2016 1:[address] Chest without contrast 03/30/2020 2:22:53 PM FINDINGS: Orbits: Thinning of the lenses of the globes consistent with prior lens surgery. Nasopharynx: Unremarkable. Oropharynx: Unremarkable. Larynx: Prior total laryngectomy. Retropharyngeal space: Stable. Submandibular/Parotid glands: Normal. Glands are normal in size. Thyroid: Normal. No enlarged or calcified nodules. Lymph nodes: Perhaps heavily calcified lymph nodes in the left neck, as before. No pathologically enlarged lymph nodes identified. Trachea: A tracheostomy is again demonstrated. A TEP device is in place between the trachea and esophagus. Esophagus: The pharyngoesophageal junction demonstrates circumferential wall thickening with luminal narrowing for example seen on image 52 of series 201. Previously, the lumen appeared entirely effaced (image 50 series 201 on the prior study). Just caudal to this level, the upper cervical esophagus at C6 level appears relatively patent. More inferiorly this is followed by stable, mild apparent circumferential wall thickening, image 57 series 201. Lungs: Evaluated separately. Bones/joints: No acute fracture seen. Progressive severe cervical degenerative disc disease is again demonstrated from C4-C5 through C6-C7; anterior osteophytes are larger compared to the prior study. There are central spinal canal and neural foraminal stenoses. Moderate pannus like degenerative changes at C1-C2. Vasculature: Calcified atherosclerotic plaque at the carotid bifurcations. Soft tissues: Stable increased prevertebral soft tissue attenuation from the C4 through C6 levels, an area of prominent prevertebral spondylosis. IMPRESSION: 1. The pharyngoesophageal junction demonstrates circumferential wall thickening with luminal narrowing, improved compared to the prior study. 2. A separate area of stable mild luminal narrowing in the upper cervical esophagus. 3. The areas of luminal narrowing could be related to related to postsurgical scar tissue/radiation therapy or inflammation. Electronically signed by: Angela Lim On 03/30/2020 15:08:09 PM
== END ==
LOC: M RAD 14:02
PROVIDERS: ATTEND Internal Medicine
DX: R13.10 Dysphagia, unspecified (principal); R06.00 Dyspnea, unspecified; Z85.89 Personal history of malignant neoplasm of other organs and systems

== ENCOUNTER → 2020-04-02 | Outpatient (REF) | payer MEDICARE, OTHER | LOC: M LAB REF 16:25 | PROVIDERS: ATTEND Internal Medicine | DX: E03.9 Hypothyroidism, unspecified (principal) ==

== ENCOUNTER → 2020-04-18 | Outpatient (CLI) | payer MEDICARE, OTHER ==
--- NOTE | 2020-04-25 08:30 | REP ---
UNILATERAL RIGHT LOWER EXTREMITY DUPLEX VENOUS ULTRASOUND HISTORY: Right lower extremity swelling. Rule out deep vein thrombosis (DVT). FINDINGS: The deep veins are anechoic and fully compressible from the groin to the popliteal fossa on the right lower extremity on two-dimensional scanning. Color flow imaging is homogeneous. Spectral Doppler interrogation demonstrates intact respiratory variation in flow and normal manual augmentation of flow. There is no evidence of DVT. IMPRESSION: Negative right lower extremity duplex venous ultrasound. No evidence of deep vein thrombosis (DVT). MTDD
== END ==
LOC: M RAD 10:00
PROVIDERS: ATTEND Internal Medicine Nephrology
DX: R60.0 Localized edema (principal)

== ENCOUNTER → 2020-04-29 | Outpatient (CLI) | payer MEDICARE, OTHER | LOC: M LABSMTC 08:14 | PROVIDERS: ATTEND Anesthesiology | DX: Z01.812 Encounter for preprocedural laboratory examination (principal); Z20.828 Contact with and (suspected) exposure to other viral communicable diseases | CPT/HCPCS: C9803; U0003 ==

== ENCOUNTER 2020-05-04 12:45 | Day surgery (SDC) | payer MEDICARE, OTHER ==
[~2020-05-04] VITALS: Ht 170.2 cm; Wt 61.2 kg
[~2020-05-04 12:45] MED LIST changes: +NS 1,000 ML IV ONE
[2020-05-04] MEDS ORDERED: LIDOCAINE 2% 100MG/5ML SDV (FOR ANES.) As Ordered ONE (13:59)
[2020-05-04] MEDS ORDERED: fentaNYL 100 MCG/2 ML INJECTION (J3010) As Ordered ONE (13:59)
[2020-05-04] MEDS ORDERED: propofoL 200 MG/20 ML VIAL As Ordered ONE (13:59)
--- NOTE | 2020-05-04 14:12 | ROOR ---
Patient Name: Nickolas Mccann Procedure Date: 05/04/2020 1:48 PM Date of : 1935 Age: 84 Room: [facility] Gender: Male Note Status: Finalized Procedure: Upper GI endoscopy Indications: Dysphagia Providers: Franklin HILL MD Referring MD: Nena ARAGON MD Requesting Provider: Medicines: Monitored Anesthesia Care Complications: No immediate complications. Procedure: Pre-Anesthesia Assessment: - The heart rate, respiratory rate, oxygen saturations, blood pressure, adequacy of pulmonary ventilation, and response to care were monitored throughout the procedure. The Endoscope was introduced through the mouth, and advanced to the second part of duodenum. The upper GI endoscopy was accomplished without difficulty. The patient tolerated the procedure well. Findings: One benign-appearing, intrinsic moderate (circumferential scarring or stenosis; an endoscope may pass) stenosis was found in the proximal esophagus. This stenosis measured 8-9 mm (inner diameter) x 1 cm (in length). The stenosis was traversed. A guidewire was placed and the scope was withdrawn. Dilation was performed with a Savary dilator with mild resistance at 33 Fr and 36 Fr. The dilation site was examined following endoscope reinsertion and showed moderate improvement in luminal narrowing. The exam of the esophagus was otherwise normal. The entire examined stomach was normal. The examined duodenum was normal. Impression: - Benign-appearing proximal esophageal stenosis. Dilated with guidewire/savary dilator at 33 and 36 F. - Normal stomach. - Normal examined duodenum. - No specimens collected. Recommendation: - Observe patient's clinical course. - Continue present medications. Franklin Hill MD Franklin HILL MD 05/04/2020 2:11:45 PM Electronically signed by Franklin HILL MD Number of Addenda: 0 Note Initiated On: 05/04/2020 1:48 PM Estimated Blood Loss: Estimated blood loss: none.
[2020-05-04 14:35] VITALS: BP 151/70
== END 2020-05-04 14:50 | disposition home or self-care (01) ==
LOC: M OPP 12:45
PROVIDERS: ATTEND Internal Medicine Gastroenterology
DX: R13.10 Dysphagia, unspecified (principal); K22.2 Esophageal obstruction
CPT/HCPCS: 43453; J3010

== ENCOUNTER → 2020-08-10 | Outpatient (CLI) | payer MEDICARE, OTHER ==
[~2020-08-10] MED LIST changes: +DOXY-350 PO; -NS 1,000 ML IV ONE; +PRED10PA PO
--- NOTE | 2020-08-10 12:24 | REP ---
INDICATION: COUGH, US 1ST THEN XR. COMPARISON: Comparison chest x-ray March 11, 2020. TECHNIQUE: Two views.. FINDINGS: The lungs are well inflated and free of infiltrate. The pleural angles are sharp. The heart size is normal. Pulmonary vasculature is not increased. No significant bony abnormality is seen. Thoracic aorta is somewhat tortuous. Mild degenerative changes are seen in the thoracic and lumbar spine. There are clips in the soft tissues of the neck to the right of the trachea. There are calcifications projecting to the left of the trachea at the thoracic inlet consistent with calcified thyroid cysts or peripherally calcified lymph nodes. These are unchanged. IMPRESSION: No active cardiopulmonary disease.. <Electronically signed by Lisandro Land > 08/10/20 [id number]
== END ==
LOC: M RAD 10:01
PROVIDERS: ATTEND Internal Medicine
DX: M51.34 Other intervertebral disc degeneration, thoracic region (principal); M51.36 Other intervertebral disc degeneration, lumbar region; R05 Cough

== ENCOUNTER → 2020-08-10 | Outpatient (CLI) | payer MEDICARE, OTHER ==
--- NOTE | 2020-08-10 12:15 | REP ---
INDICATION: RETENTION OF URINE. COMPARISON: None. TECHNIQUE: Transabdominal pelvic sonography bladder sonogram. FINDINGS: Scanning through the urine filled bladder demonstrates smooth bladder davila. Emptying ureteral jets are present. No mass lesion is observed. Prostate dimensions on transabdominal scanning are 3.7 x 2.8 x 4.1 cm. Calculated glandular volume 22 mL. A calculated volume of the urine filled bladder is 452 mL. Postvoid residual is 55% (250 mL). IMPRESSION: 55% postvoid bladder residual. Otherwise negative. <Electronically signed by Lisandro Land > 08/10/20 [id number]
--- NOTE | 2020-08-10 12:21 | REP ---
INDICATION: CKD STAGE 3. COMPARISON: Comparison renal sonography August 08, 2010.. TECHNIQUE: Upper urinary tract sonography. FINDINGS: . Renal cortical echogenicity pattern is normal bilaterally and contours are smooth. There is no evidence of hydronephrosis on either side. There is a 1.6 cm cyst at the lower pole of the left kidney and a 1.1 cm cyst is seen at the upper pole the left kidney. In a atypically shaped, cylindrical cyst is seen in the right kidney. Previous study from 2010 showed a cyst. There is a cylindrical cyst visible on noncontrast CT study from March 30, 2020 corresponding to today's ultrasound findings. No mass lesion is observed on either side. The right kidney measures 9.4 x 5.3 x 5.4 cm. Left renal dimensions are 10.2 x 5.2 x 5.4 cm. IMPRESSION: Bilateral renal cysts. Atypical cylindrical cyst right kidney measuring small cysts left kidney 4.8 x 1.9 by 1.5 cm.. Small cysts left kidney. No hydronephrosis. <Electronically signed by Lisandro Land > 08/10/20 [id number]
== END ==
LOC: M RAD 09:57
PROVIDERS: ATTEND Internal Medicine Nephrology
DX: N18.32 Chronic kidney disease, stage 3b (principal); R33.9 Retention of urine, unspecified; N28.1 Cyst of kidney, acquired; R39.198 Other difficulties with micturition; M51.34 Other intervertebral disc degeneration, thoracic region; M51.36 Other intervertebral disc degeneration, lumbar region; R05 Cough

== ENCOUNTER → 2020-08-14 | Outpatient (CLI) | payer MEDICARE, OTHER ==
[~2020-08-14] MED LIST changes: +ISOVUE-300 61% 50ML VIAL As Ordered ONE; +LIDOCAINE 1% MDV 20ML VIAL As Ordered ONE; +MIDAZOLAM INJ 2MG/2ML VIAL (J2250 PER 1MG) As Ordered ONE; +fentaNYL 100 MCG/2 ML INJECTION (J3010) As Ordered ONE
--- NOTE | 2020-08-14 15:08 | ROOPDOC ---
[facility] Report Of Operation Report of Operation DATE OF PROCEDURE: 08/14/20 PREPROCEDURE DIAGNOSES: End-stage renal disease with increased swelling left upper extremity POSTPROCEDURE DIAGNOSES: Same. PROCEDURE: 1. Ultrasound-guided access right cephalic vein 2. Right upper extremity fistulogram and central venogram 3. Angioplasty basilic vein with 8 x 20 cutting balloon 4. Angioplasty subclavian vein with 10 x 40 Dazey balloon and 12 x 40 atlas balloon 5. Completion venogram SURGEON: Leo Monzon MD ANESTHESIA: Local anesthesia 5 mL lidocaine. Moderate intravenous conscious sedation was administered by Dr. Monzon. The patient was independently monitored by registered nurse and signed in the department of radiology using automated blood pressure, EKG, and pulse oximetry. The details sedation record is permanently stored in the hospital information system. The following is a brief sedation record: Start time 14:29, stop time 14:49, Versed 0.5 mg IV, fentanyl 25 g IV. CONTRAST: 24 mL Isovue-300 INDICATION FOR PROCEDURE: This is a very pleasant 85-year-old gentleman with end-stage renal disease currently dialyzing with the left Laya fistula. He has had increased swelling in the left upper extremity and increased pulsatility in the fistula. Risks benefits alternatives to a fistulogram potential intervention works 1 to the patient needs agreeable to proceed. Informed consent was obtained. INTERPRETATION: 1. On ultrasound the patient's AV anastomosis is widely patent. We also examined the cephalic vein near the AV anastomosis and it is mildly tortuous but widely patent. No signs of stenosis are noted. 2. Fistulogram of the left upper extremity reveals a widely patent cephalic vein that flows primarily into the basilic vein. There is no outflow obstruction in this area, but in the mid basilic vein there is a mild stenosis noted and a valve, and then widely patent inflow through to the proximal system through the axillary vein, but a 70% stenosis is noted at the thoracic outlet in the subclavian vein, and then the central veins are widely patent. 3. After angioplasty the basilic vein with an 8 x 20 cutting balloon, there is widely patent flow no extravasation. No significant residual stenosis is noted. 4. After angioplasty of the subclavian vein with a 10 x 40 Dazey balloon, there is still 50% residual stenosis, but this resolved with a high-pressure 12 x 40 atlas balloon after three-minute inflations. We noted widely patent inflow through the central system without significant residual stenosis in no extravasation was noted. There was an excellent thrill and the fistula. REPORT OF OPERATION: The patient was brought to the angiographic suite in stable condition. His left upper extremity was prepped and draped in a sterile fashion. A timeout was performed. Local anesthesia was administered to the skin and subcutaneous tissue over the cephalic vein near the AV anastomosis. Ultrasound was used to examine the AV anastomosis and the cephalic vein in this area. Please see into rotation above. We then use ultrasound to access the vein and a wire was passed through this access and a 4 Maldivian sheath was placed and flushed with saline. A fistulogram and central venogram were performed, please see interpretation above. Next, exchanged the sheath over the wire for a 7 Mal[place]ian sheath. [id number] Glidewire advantage was advanced in the central system 8 x 20 cutting balloon was used to angioplasty dear the valve and mild stenosis in the basilic vein. Following this there is widely patent flow. We then exchange the wire [id number] Glidewire and over this wire we began angioplasty at the thoracic outlet subclavian vein on the left with a 10 x 40 Dazey balloon. After three- minute inflations were still 50% residual stenosis, the balloon was exchanged for a high-pressure 12 x 40 atlas balloon and a high-pressure inflation was performed following by 3 minutes to atmospheres. Following this, there is widely patent inflow through the central system with no significant residual stenosis noted at the thoracic outlet. The patient had an excellent thrill and is fistula, and following opening up this outflow, the very prominent small guerrero perficial veins on his forearm or much less prominent. Hopefully this will help his swelling. We placed a [id number] Prolene suture at the sheath thigh and removed the sheath and secured the suture. Pressure was held for 2 minutes and sterile dressings were applied. Good hemostasis was noted. The patient was taken recovery in stable condition. He tolerated the sedation in the procedure well. ESTIMATED BLOOD LOSS: Approximately 5 mL. COMPLICATIONS: none. PLAN: It is okay to use the AV access for dialysis. It is okay to resume home diet and medications. Continue to use a squeeze ball left upper extremity to improve circulation. We appreciate the opportunity to participate in the care of this patient. LEO MONZON MD Aug 14, 2020 15:08
[2020-08-14 15:35] VITALS: BP 168/74
== END ==
LOC: M IRPRO 12:57
PROVIDERS: ATTEND Surgery Vascular Surgery
DX: T82.590A Other mechanical complication of surgically created arteriovenous fistula, initial encounter (principal); N18.6 End stage renal disease; I12.0 Hypertensive chronic kidney disease with stage 5 chronic kidney disease or end stage renal disease; E03.9 Hypothyroidism, unspecified; M10.9 Gout, unspecified; X58.XXXA Exposure to other specified factors, initial encounter; Z79.82 Long term (current) use of aspirin; Z79.890 Hormone replacement therapy; Z79.899 Other long term (current) drug therapy; Z85.21 Personal history of malignant neoplasm of larynx; Z88.1 Allergy status to other antibiotic agents
CPT/HCPCS: 36902; 36907; 99152; 99153; C1725; C1729; C1769; C1894; J1644; J2250; J3010; Q9967

== ENCOUNTER → 2020-12-25 | Outpatient (CLI) | payer MEDICARE, OTHER ==
--- NOTE | 2020-12-25 14:38 | ROOPDOC ---
[facility] Report Of Operation Report of Operation DATE OF PROCEDURE: 12/25/20 PREPROCEDURE DIAGNOSES: End-stage renal disease on hemodialysis with the increased venous pressures and swelling left upper extremity POSTPROCEDURE DIAGNOSES: Same PROCEDURE: 1. Ultrasound-guided access left cephalic vein 2. Left upper extremity fistulogram and central venogram 3. Angioplasty left subclavian vein at the thoracic outlet with 8 x 20 cutting balloon, 9 x 40 Wilton balloon, 10 x 40 conquest balloon 4. Completion venogram SURGEON: Angela Monzon MD ANESTHESIA: Local anesthesia 3 mL lidocaine. Moderate intravenous conscious sedation was administered by Dr. Monzon. The patient was independently monitored by registered nurse assigned to the Department of radiology using automated blood pressure, EKG, and pulse oximetry. The details sedation record is permanently stored in the hospital information system. The following is a brief sedation record: Start time 13:59, stop time 14:26, Versed 0.5 mg IV, fentanyl 25 g IV. CONTRAST: 32 mL Isovue-300 INDICATION FOR PROCEDURE: This is a very pleasant 85-year-old gentleman with increased swelling in venous pressures in his left upper extremity. The patient dialyzes through Laya fistula and has had increased pulsatility and increased bleeding times with dialysis as well. His arm is becoming quite uncomfortable due to the swelling. 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 Risks benefits and alternatives to a fistulogram potential intervention were explained to the patient needs agreeable to proceed. Informed consent was obtained. INTERPRETATION: 1. The AV anastomosis is widely patent on ultrasound, please see images. We also examine the cephalic vein over the forearm and although tortuous and mildly aneurysmal, it is widely patent with no areas of stenosis. 2. The fistulogram reveals widely patent outflow through the median cubital vein into the basilic vein in the upper arm with a widely patent inflow through the basilic vein and into the axillary vein. There are extensive collateral veins filling along with the main outflow, and collaterals filling around the shoulder and chest due to severe stenosis at the thoracic outlet. There is a 95% stenosis at the thoracic outlet in the subclavian vein, but then the central veins proximal to this are widely patent with good outflow to the heart. 3. After angioplasty of the left subclavian vein with an 8 x 20 cutting balloon, there is some improvement in flow, no extravasation, but still significant residual stenosis. After repeat angioplasty with a 9 x 40 balloon, also improvement is noted but still residual stenosis. After angioplasty with a high pressure 10 x 40 conquest balloon, there is a marked improvement in flow through the vein, no filling of the collateral veins is noted, there is an excellent thrill and the fistula with no pulsatility. No extravasation noted. REPORT OF OPERATION: The patient was brought to the angiographic suite in stable condition. His left upper extremity was prepped and draped in a sterile fashion. A timeout was performed. Local anesthesia was administered to the skin and subcutaneous tissue over the cephalic vein in the forearm. Ultrasound was used to examine the AV anastomosis and it was noted to be widely patent. We also examine the cephalic vein and forearm and all the vein was patent with no areas of stenosis noted. We used ultrasound to gain access to the cephalic vein and a wire was passed through this access and the needle was removed and a 4 Hebrew s rylee was placed and flushed with saline. A fistulogram and central venogram were performed, please see interpretation above. We then advanced Glidewire through this access and exchange the sheath for 7 Hebrew sheath using a Seldinger technique. The sheath was flushed with saline. We exchange the wire for a 018 Glidewire to manage advances into the central system under fluoroscopic guidance. We advanced an 8 x 20 cutting balloon over the wire and did serial angioplasties across the left subclavian vein. Following this there was definitely an improvement in no extravasation, but still significant residual stenosis. We slowly upsized to a 9 x 40 Wilton balloon and after three-minute inflations and there was still significant residual stenosis. However, after three-minute inflations with a 10 x 40 high-pressure conquest balloon, there was a marked improvement in flow, no significant residual stenosis, no filling of the collateral veins, and no extravasation noted. There was an excellent thrill and the fistula in the pulsatility have resolved. The once prominent superficial veins on the arm had flattened. The patient had much better venous return in the left upper extremity. Local anesthesia was administered around the sheath in a [id number]-[id number] suture was placed at the sheath exit site. This was secured is the sheath was removed. Pressure was held and sterile dressings were applied. Good hemostasis was noted. The patient tolerated the procedure and the sedation well and was then taken to recovery in stable condition. ESTIMATED BLOOD LOSS: Approximately 3 mL. COMPLICATIONS: None. PLAN: It is okay to use the left Laya fistula for dialysis. It is okay to resume home diet and medications. Elevation of the left upper extremity above the level of the heart will help with the left arm swelling now that his venous outflow is improved. We appreciate the opportunity to participate in the care of this patient. ANGELA MONZON MD Dec 25, 2020 14:38
[2020-12-25 15:25] VITALS: BP 97/8
== END ==
LOC: M IRPRO 13:01
PROVIDERS: ATTEND Surgery Vascular Surgery
DX: T82.590A Other mechanical complication of surgically created arteriovenous fistula, initial encounter (principal); N18.6 End stage renal disease; E03.9 Hypothyroidism, unspecified; I12.0 Hypertensive chronic kidney disease with stage 5 chronic kidney disease or end stage renal disease; M10.9 Gout, unspecified; X58.XXXA Exposure to other specified factors, initial encounter; Z79.82 Long term (current) use of aspirin; Z79.899 Other long term (current) drug therapy; Z85.21 Personal history of malignant neoplasm of larynx; Z88.1 Allergy status to other antibiotic agents; Z99.2 Dependence on renal dialysis
CPT/HCPCS: 36902; 99152; 99153; C1725; C1729; C1769; C1894; J1644; J2250; J3010; Q9967

== ENCOUNTER 2021-01-02 17:38 | Observation (INO) | payer MEDICARE, OTHER ==
[~2021-01-02] VITALS: Ht 170.2 cm; Wt 62.2 kg
[~2021-01-02 17:38] MED LIST changes: -ISOVUE-300 61% 50ML VIAL As Ordered ONE; -LIDOCAINE 1% MDV 20ML VIAL As Ordered ONE; -MIDAZOLAM INJ 2MG/2ML VIAL (J2250 PER 1MG) As Ordered ONE; +OMEP40CA4 PO; -OMEP40CA97 PO; -fentaNYL 100 MCG/2 ML INJECTION (J3010) As Ordered ONE
[2021-01-02] MEDS ORDERED: [UNRECOGNIZED DRUG - REMARK] PO (18:11)
[2021-01-02] MEDS ORDERED: TOPR100T PO (18:11)
[2021-01-02 18:39] LABS: BASO # 0.1 10^3/uL (0.0-0.2); BASO % 1.1 % (0.0-1.0); EOS # 0.3 10^3/uL (0.0-0.5); EOS % 4.4 % (0.0-3.0); HEMATOCRIT 43.9 % (42.0-52.0); HEMOGLOBIN 14.3 g/dl (13.5-17.5); LYMPH # 1.2 10^3/uL (1.5-5.0); LYMPH % 16.2 % (24.0-44.0); MEAN CORPUSCULAR HEMOGLOBIN 31.7 pg (27.0-33.0); MEAN CORPUSCULAR HGB CONC 32.6 g/dl (32.0-36.5); MEAN CORPUSCULAR VOLUME 97.3 fl (80.0-96.0); MONO # 0.9 10^3/uL (0.0-0.8); MONO % 11.3 % (2.0-8.0); NEUTROPHILS # 4.9 10^3/uL (1.5-8.5); NEUTROPHILS % 65.7 % (36.0-66.0); PLATELET COUNT, AUTOMATED 452 10^3/uL (150-450); RED BLOOD COUNT 4.51 10^6/uL (4.30-6.10); WHITE BLOOD COUNT 7.5 10^3/uL (4.0-10.0)
[2021-01-02 18:51] LABS: ALBUMIN 3.2 GM/DL (3.2-5.2); ALT/SGPT 18 U/L (12-78); BILIRUBIN,DIRECT 0.2 MG/DL (0.0-0.2); BILIRUBIN,TOTAL 0.6 MG/DL (0.2-1.0); CPK CREATINE PHOSPHOKINASE 64 U/L (39-308); MB/CK RELATIVE INDEX 4.69 (< OR =4); TOTAL PROTEIN 6.8 GM/DL (6.4-8.2); TROPONIN I < 0.02 NG/ML (< 0.10)
--- NOTE | 2021-01-02 19:11 | REP ---
INDICATION: lethargy; ?pneumonia. COMPARISON: 08/10/2020 TECHNIQUE: Portable FINDINGS: The technique utilized in obtaining the radiograph has magnified the cardiac silhouette and attenuated the interstitial markings. Cardiomediastinal silhouette is unchanged. The heart is not enlarged. Lung salazar are clear and stable. No acute patchy parenchymal opacities or pleural effusions have developed. There is unchanged elevation of the diaphragmatic surface of the right lung. There is no change in the osseous structures. IMPRESSION: Stable appearing chronic changes without evidence of acute cardiopulmonary disease. <Electronically signed by Brennan Hollingsworth > 01/02/21 [id number]
[2021-01-02] MEDS ORDERED: NS 500 ML IV ONE (20:45)
[2021-01-02] MEDS ORDERED: NS 1,000 ML IV SCH (20:45)
[2021-01-02] MEDS ORDERED: cefTRIAXone SOD 1 GM in D5W MINI-BAG PLUS 50 ML IV ONE (20:45)
[2021-01-02] MEDS ORDERED: MUCI600T31 PO (21:29)
[2021-01-02] MEDS ORDERED: BUDE0.5S6 INH (21:29)
[2021-01-02] MEDS ORDERED: FLOM0.4C39 PO (21:29)
[2021-01-02] MEDS ORDERED: METO1TAB33 PO (21:29)
[2021-01-02] MEDS ORDERED: SYNT75TA PO (21:29)
[2021-01-02] MEDS ORDERED: ACET-897 PO (21:29)
[2021-01-02] MEDS ORDERED: MAALOX 30 ML SUSP *UDC PO PRN (21:40)
[2021-01-02] MEDS ORDERED: MOM 30ML SUSPENSION UDC PO PRN (21:40)
[2021-01-02 21:59] LABS: RSV AMPLIFICATION NEGATIVE (NEGATIVE)
[2021-01-02] MEDS ORDERED: MECLIZINE 25 MG TABLET PO PRN (22:20)
[2021-01-02] MEDS ORDERED: ALBUTEROL SULFATE 2.5 MG/0.5 ML INH NEB SOLN INH PRN (22:20)
[2021-01-02] MEDS: NS 1,000 ML IV SCH (22:20)
--- NOTE | 2021-01-02 22:24 | HPEPDOC ---
[facility] Medical History & Physical Date of Admission Jan 02, 2021 Date of Service: Jan 02, 2021 Primary Care Physician: Nena Norman Attending Physician: DANIELLE BATISTA MD History and Physical CHIEF COMPLAINT: Sleepiness and right lower back pain HISTORY OF PRESENT ILLNESS: . Mr. Mccann is an 85-year-old male who was brought to the ER this evening upon the recommendation of Dr. Hayes, nephrology. According to the patient's . The patient has been sleeping about 15 hours a day for the last 2-3 days. He denies any nausea, vomiting, fever, chills or diarrhea but does complain of right lower back/lateral buttock pain which extends down the lateral right leg. At the time of my evaluation. He states this pain was improved. The patient's also noted that his urine was dark and cloudy this morning. He has a history of chronic kidney disease stage 3-4 with baseline creatinine around 2.0 per nephrology. He does have an AV fistula in the left forearm but is not on dialysis. Patient has a history of laryngeal cancer, status post tracheostomy. He is also hard of hearing with bilateral hearing aids. He will answer yes and no appropriately and does mouth some words. His answers most questions for him and provides the majority of the details of his history. Patient also has a history of dysphagia, not only secondary to his tracheostomy but also because of scarring status post radiation treatment. His relates that this is compounded by the fact that the patient eats very fast and does not chew his food well. She states there has been no change in his appetite, by mouth or fluid intake in the last several days. Her biggest clue that something was wrong was the fact that he was sleeping most of the day. Dr. Hayes recommended the patient go to the ER for further evaluation. On initial evaluation he was noted to have an abnormal UA with 2+ leukocyte Estrace. He also had an acute kidney injury with creatinine of 3.0. BUNs was elevated at 47. Platelets were also elevated at 452. Chest x-ray showed stable appearing chronic changes without evidence of acute cardiopulmonary disease. Vital signs were unremarkable. The patient was given 500 mL normal saline bolus in the ER and 1 g of Rocephin. PAST MEDICAL HISTORY: 1. Chronic kidney disease stage 3-4. 2. Hypertension. 3. Chronic obstructive pulmonary disease. 4. Gout. 5. Laryngeal cancer status post tracheostomy. 5. Hypothyroid. 6. Gastroesophageal reflux disease. 7. Urinary retention. 8. Hyperlipidemia. 9. Hard of hearing with hearing aids. 10. Dysphagia PAST SURGICAL HISTORY: . 1. AV fistula 3. 2. Laryngectomy. 3. Colonoscopy. 4. Left inguinal hernia repair. 5. Hydrocelectomy 2. 6. Tonsillectomy. 7. Cyst removal SOCIAL HISTORY: Tobacco use:, Quit in 2011 ETOH:. Denies Illicit drug use: Denies Patient lives with: His FAMILY HISTORY: . Patient's father of liver failure. His mother of old age. REVIEW OF SYSTEMS: Complete 10 point review systems is negative except as noted above PHYSICAL EXAMINATION: Patient is seen in the ER, sitting up on the stretcher eating dinner. He is hard of hearing and has bilateral hearing aids.. He does read lips and will answer appropriately, either by mouthing his answer or signing to his . He has obvious issues with dysphagia, but seems to eat very fast and chews very little. He spits out almost half of what he puts in his mouth. He is alert and oriented x 3. HEENT is otherwise WNL. Neck is supple. Tracheostomy is clean with blue prosthesis tab taped in place. Lungs coarse with bilateral wheeze and shallow, tachypneic inspiration. Heart regular rate and rhythm without murmur. Abdomen is soft, non-tender to palpation with bowel sounds positive. Extremities with good ROM and strength equal bilaterally. No lower extremity edema. Pedal pulses are positive. Patient states pain at right lower back/lateral hip is much improved. Skin is warm and dry with no obvious rash or lesion. Neuro: grossly intact. Psych: He seems to be constantly moving, but does not appear to be anxious or agitated. He is cooperative. ASSESSMENT AND PLAN: 1. Acute kidney injury in the setting of chronic kidney disease stage 3-4 possibly secondary to urinary tract infection. Will continue empiric antibiotics with Rocephin and adjust those antibiotics based on urine cultures. We'll hold home Lasix. Will continue on very gentle IV fluids and monitor intake and output closely. Avoid nephrotoxic medications. We'll recheck renal function in the morning. Will consult nephrology if needed. 2. Possible urinary tract infection. Plan as outlined above. 3. Hypertension, essential. Continue metoprolol and nisoldipine. Patient does not tolerate amlodipine. Monitor with routine vital signs and adjust medications as needed based on trends. 4. Chronic obstructive pulmonary disease with no obvious acute exacerbation. We'll continue the patient on duo nebs and home Pulmicort while hospitalized. Encourage good pulmonary toilet. Oxygen will be available as needed. 5. Chronic tracheostomy. Continue trach care. Monitor prosthesis closely and continue to tape prosthetic tab as needed. 6. Dysphagia. We'll continue the patient on mechanical soft diet. Try to encourage patient to slow down and chew food better. We'll consult speech therapy if needed. 7. Gout. Continue allopurinol. 8. Thrombocytosis, probably reactive. Continue to monitor platelets, with daily labs. 9. Urinary retention. Continue Flomax. 10. Gastroesophageal reflux disease. Omeprazole. 11. DVT prophylaxis. Will add heparin. CODE STATUS: CODE STATUS was discussed with the patient. He desires to be considered full code. He states his would act as his surrogate if he were unable to make his own decisions. Patient is considered high risk of further deterioration including worsening acute kidney injury and possible end-stage renal disease. He is admitted for close observation and further evaluation and expected to remain at least one midnight 8. Vital Signs Vital Signs Date Time Temp Pulse Resp B/P (MAP) Pulse Ox O2 Delivery O2 Flow Rate FiO2 01/02/21 21:19 77 19 112/63 (79) 96 Room Air 01/02/21 19:53 97.4 Laboratory Data Labs 24H Laboratory Tests 2 01/02/21 17:57: Immature Granulocyte % (Auto) 1.3, Neutrophils (%) (Auto) 65.7, Lymphocytes (%) (Auto) 16.2L, Monocytes (%) (Auto) 11.3H, Eosinophils (%) (Auto) 4.4H, Basophils (%) (Auto) 1.1H, Neutrophils # (Auto) 4.9, Lymphocytes # (Auto) 1.2L, Monocytes # (Auto) 0.9H, Eosinophils # (Auto) 0.3, Basophils # (Auto) 0.1, Nucleated Red Blood Cells % (auto) 0.0 01/02/21 18:01: Total Bilirubin 0.6, Direct Bilirubin 0.2, Aspartate Amino Transf (AST/SGOT) 14, Alanine Aminotransferase (ALT/SGPT) 18, Alkaline Phosphatase 74, Total Creatine Kinase 64, Creatine Kinase MB 3.0, Creatine Kinase MB Relative Index 4.69H, Troponin I < 0.02, Total Protein 6.8, Albumin 3.2, Albumin/Globulin Ratio 0.9 01/02/21 18:02: POC Glucose (Misc Panel) 103, POC Sodium (Misc Panel) 137, POC Potassium (Misc Panel) 4.2, POC Chloride (Misc Panel) 97L, POC Total CO2 (Misc Panel) 29.0H, POC Blood Urea Nitrogen (Misc Panel 47H, POC Ionized Calcium (Misc Panel) 4.7, POC Creatinine (Misc Panel) 3.0H, POC Hematocrit (Misc Panel) 45.0 01/02/21 19:43: Urine Color YELLOW, Urine Appearance CLEAR, Urine pH 6.0, Urine Specific [place] 1.008, Urine Protein NEGATIVE, Urine Glucose (UA) NEGATIVE, Urine Ketones NEGATIVE, Urine Blood NEGATIVE, Urine Nitrite NEGATIVE, Urine Bilirubin NEGATIVE, Urine Urobilinogen 0.2, Urine Leukocyte Esterase 2+H, Urine WBC (Auto) 17H, Urine RBC (Auto) 4H, Urine Hyaline Casts (Auto) 0, Urine Bacteria (Auto) NEGATIVE, Urine Squamous Epithelial Cells 1, Urine Transitional Epithelial Cells 1, Urine Sperm (Auto) 01/02/21 21:12: CBC/BMP Laboratory Tests 01/02/21 17:57 Microbiology Microbiology 01/02/21 Urine Culture, Received Pending Home Medications Scheduled Allopurinol (Allopurinol) 100 Mg Tablet, 200 MG PO DAILY Aspirin (Aspirin EC) 81 Mg Tablet.dr, 81 MG PO DAILY Budesonide (Budesonide) 0.5 Mg/2 Ml Ampul.neb, 0.5 MG INH BID Calcitriol (Calcitriol) 0.25 Mcg Cap, 0.25 MCG PO 4XWK THURSDAY, THURSDAY, THURSDAY AND THURSDAY Cetirizine HCl (Cetirizine HCl) 10 Mg Tablet, 10 MG PO DAILY Furosemide (Furosemide) 20 Mg Tablet, 20 MG PO Q2D Guaifenesin (Mucinex) 600 Mg Tab.er.12h, 600 MG PO BID Levothyroxine Sodium (Synthroid) 75 Mcg Tablet, 75 MCG PO DAILY Magnesium Chloride (Mag64) 64 Mg Tablet.dr, 64 MG PO Q2D Metoprolol Succinate (Metoprolol Succinate) 100 Mg Tab.er.24h, 100 MG PO DAILY Nisoldipine (Nisoldipine) 17 Mg Tab.er.24h, 17 MG PO QHS Omeprazole (Omeprazole) 40 Mg Cap, 40 MG PO DAILY Tamsulosin HCl (Flomax) 0.4 Mg Capsule, 0.4 MG PO DAILY Tiotropium Br/Olodaterol HCl (Stiolto Respimat Inhal [place]) 4 Gm Mist.inhal, 1 PUFF INH BID Scheduled PRN Acetaminophen (Tylenol Extra Strength) 500 Mg Tablet, 1,000 MG PO Q6H PRN for PAIN Albuterol Sulf (Albuterol Sulfate) 2.5 Mg/3 Ml Vial.neb, 2.5 MG INH QID PRN for SHORTNESS OF BREATH Albuterol Sulfate (Proair Hfa) 108 Mcg/Act Aer, 2 PUFFS INH QID PRN for SHORTNESS OF BREATH Meclizine HCl (Meclizine HCl) 25 Mg Tab, 25 MG PO TID PRN for DIZZINESS Allergies Coded Allergies: amoxicillin (Verified Allergy, Intermediate, hives, 01/25/20) levofloxacin (Verified Adverse Reaction, Severe, tendon damage, 01/25/20) A-FIB/CHADSVASC A-FIB History Current/History of A-Fib/PAF?: No TERRI JAMES Jan 02, 2021 22:24
[2021-01-02 23:57] VITALS: BP 170/68
[2021-01-03] MEDS: HEPARIN SOD (PORCINE) 5000UNITS/ML 1ML VIAL/SYRINGE SC SCH ×4 (00:24→21:11)
[2021-01-03] MEDS: guaiFENesin ER 600 MG TAB PO SCH ×3 (00:24→21:12)
[2021-01-03] MEDS: ACETAMINOPHEN TAB 650MG DOSE (2X325MG) PO PRN ×2 (02:14→13:28)
[2021-01-03] MEDS: NS 1,000 ML IV SCH ×2 (05:02→18:50)
[2021-01-03 06:00] VITALS: BP 110/65
[2021-01-03] MEDS: IPRATROPIUM 0.5MG/ALBUTEROL 2.5MG INH SOL UD 3ML (DUONEB) NEB SCH ×4 (07:22→20:07)
[2021-01-03] MEDS: BUDESONIDE 0.5 MG/2 ML INHALATION SUSPENSION INH SCH ×2 (07:22→20:07)
--- NOTE | 2021-01-03 08:14 | ECGEPIP ---
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
[2021-01-03 08:40] LABS: HEMATOCRIT 42.4 % (42.0-52.0); HEMOGLOBIN 13.9 g/dl (13.5-17.5); MEAN CORPUSCULAR HEMOGLOBIN 31.6 pg (27.0-33.0); MEAN CORPUSCULAR HGB CONC 32.8 g/dl (32.0-36.5); MEAN CORPUSCULAR VOLUME 96.4 fl (80.0-96.0); PLATELET COUNT, AUTOMATED 445 10^3/uL (150-450); WHITE BLOOD COUNT 10.6 10^3/uL (4.0-10.0)
[2021-01-03 09:03] LABS: CREATININE FOR GFR 2.47 MG/DL (0.70-1.30); GLOMERULAR FILTRATION RATE 26.8 (>35); MAGNESIUM LEVEL 2.2 MG/DL (1.8-2.4); POTASSIUM SERUM 4.3 MEQ/L (3.5-5.1)
[2021-01-03 09:15] LABS: BASO # 0.1 10^3/uL (0.0-0.2); BASO % 0.6 % (0.0-1.0); EOS # 0.1 10^3/uL (0.0-0.5); LYMPH # 1.1 10^3/uL (1.5-5.0); LYMPH % 10.9 % (24.0-44.0); MONO # 0.8 10^3/uL (0.0-0.8); MONO % 7.5 % (2.0-8.0); NEUTROPHILS # 8.3 10^3/uL (1.5-8.5); NEUTROPHILS % 79.2 % (36.0-66.0)
[2021-01-03 09:16] LABS: PLATELET ESTIMATE NORMAL (NORMAL)
[2021-01-03] MEDS: METOPROLOL SUCC (TopROL XL) 100MG *XL* TAB PO SCH (09:33)
[2021-01-03] MEDS: NISOLDIPINE 17 MG PO SCH ×2 (09:39→21:14)
[2021-01-03] MEDS: LEVOTHYROXINE 75MCG TABLET (0.075MG) PO SCH (09:40)
[2021-01-03] MEDS: OMEPRAZOLE 20 MG CAP PO SCH (09:40)
[2021-01-03] MEDS: ASPIRIN 81MG ENTERIC TABLET PO SCH (09:40)
[2021-01-03] MEDS: TAMSULOSIN 0.4 MG CAP PO SCH (09:40)
[2021-01-03] MEDS: CETIRIZINE (ZyrTEC) 10 MG TAB PO SCH (09:40)
[2021-01-03] MEDS: allopurinoL 100 MG TAB PO SCH (09:43)
[2021-01-03 14:00] VITALS: BP 120/95
--- NOTE | 2021-01-03 18:46 | IPNPDOC ---
Subjective Date Seen The patient was seen on 01/03/21. Subjective Chief Complaint/HPI Feeling better this am. Did not offer any complaints . He says was feeling very tired so was sleeping so much at home. Denied any dysuria or frequency. Objective Physical Examination General Exam: Positive: Alert, Cooperative, No Acute Distress Eye Exam: Positive: PERRLA, Conjunctiva & lids normal, EOMI; Negative: Sclera icteric Neck Exam: Positive: Supple; Negative: JVD, thyromegaly Chest Exam: Positive: Clear to auscultation, Normal air movement Heart Exam: Positive: Rate Normal, Regular Rhythm, Normal S1, Normal S2; Negative: Murmurs, Rubs Abdomen Exam: Positive: Normal bowel sounds, Soft; Negative: Tenderness, Hepatospenomegaly Extremity Exam: Positive: Normal pulses; Negative: Clubbing, Cyanosis, Edema Assessment /Plan Assessment Mr. 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 Hayes, nephrology for excessive somnolence. According to the patient's . The patient has been sleeping about 15 hours a day for the last 2-3 days with decreased oral intake as he has been sleeping mostly. The patient's also noted that his urine was dark and cloudy this morning. He has a history of chronic kidney disease stage 3-4 with baseline creatinine around 2.0 per nephrology. He does have an AV fistula in the left forearm. On initial evaluation he was noted to have an abnormal UA with 2+ leukocyte Estrace. He also had an acute kidney injury with creatinine of 3.0. BUNs was elevated at 47. H e was admitted for ALENA on CKD and suspected UTI. Acute kidney injury on chronic kidney disease stage 4 stopped lasix. received some fluids getting better, with continue IVF. UTi ruled out urine culture negative antibiotic stopped. Hypertension, essential. Continue metoprolol and nisoldipine. Patient does not tolerate amlodipine. Chronic obstructive pulmonary disease with no obvious acute exacerbation. Chronic tracheostomy. Continue trach care. Monitor prosthesis closely and continue to tape prosthetic tab as needed. Dysphagia. continue the patient on mechanical soft diet. Try to encourage patient to slow down and chew food better. Gout. Continue allopurinol. BPH with h/o Urinary retention. Continue Flomax. Gastroesophageal reflux disease. Omeprazole. Plan/VTE VTE Prophylaxis Ordered?: Yes VS, I&O, 24H, Fishbone Vital Signs/I&O Vital Signs Date Time Temp Pulse Resp B/P (MAP) Pulse Ox O2 Delivery O2 Flow Rate FiO2 01/03/21 06:00 98.3 82 20 110/65 (80) 97 Room Air I&O- Last 24 Hours up to 6 AM 01/03/21 06:00 Intake Total 1465 ml Output Total 100 ml Balance 1365 ml Laboratory Data 24H LABS Laboratory Tests 2 01/02/21 17:57: Immature Granulocyte % (Auto) 1.3, Neutrophils (%) (Auto) 65.7, Lymphocytes (%) (Auto) 16.2L, Monocytes (%) (Auto) 11.3H, Eosinophils (%) (Auto) 4.4H, Basophils (%) (Auto) 1.1H, Neutrophils # (Auto) 4.9, Lymphocytes # (Auto) 1.2L, Monocytes # (Auto) 0.9H, Eosinophils # (Auto) 0.3, Basophils # (Auto) 0.1, Nucleated Red Blood Cells % (auto) 0.0 01/02/21 18:01: Total Bilirubin 0.6, Direct Bilirubin 0.2, Aspartate Amino Transf (AST/SGOT) 14, Alanine Aminotransferase (ALT/SGPT) 18, Alkaline Phosphatase 74, Total Creatine Kinase 64, Creatine Kinase MB 3.0, Creatine Kinase MB Relative Index 4.69H, Troponin I < 0.02, Total Protein 6.8, Albumin 3.2, Albumin/Globulin Ratio 0.9 01/02/21 18:02: POC Glucose (Misc Panel) 103, POC Sodium (Misc Panel) 137, POC Potassium (Misc Panel) 4.2, POC Chloride (Misc Panel) 97L, POC Total CO2 (Misc Panel) 29.0H, POC Blood Urea Nitrogen (Misc Panel 47H, POC Ionized Calcium (Misc Panel) 4.7, POC Creatinine (Misc Panel) 3.0H, POC Hematocrit (Misc Panel) 45.0 01/02/21 19:43: Urine Color YELLOW, Urine Appearance CLEAR, Urine pH 6.0, Urine Specific [place] 1.008, Urine Protein NEGATIVE, Urine Glucose (UA) NEGATIVE, Urine Ketones NEGATIVE, Urine Blood NEGATIVE, Urine Nitrite NEGATIVE, Urine Bilirubin NEG ATIVE, Urine Urobilinogen 0.2, Urine Leukocyte Esterase 2+H, Urine WBC (Auto) 17H, Urine RBC (Auto) 4H, Urine Hyaline Casts (Auto) 0, Urine Bacteria (Auto) NEGATIVE, Urine Squamous Epithelial Cells 1, Urine Transitional Epithelial Cells 1, Urine Sperm (Auto) 01/02/21 21:12: Coronavirus (COVID-19)(PCR) NEGATIVE, Influenza Type A (RT-PCR) NEGATIVE, Influenza Type B (RT-PCR) NEGATIVE, Respiratory Syncytial Virus (PCR) NEGATIVE CBC/BMP Laboratory Tests 01/02/21 17:57 Microbiology Microbiology 01/02/21 Urine Culture, Received Pending MIGUELINA COREA MD Jan 03, 2021 08:16
[2021-01-03] MEDS ORDERED: cefTRIAXone SOD 1 GM in D5W MINI-BAG PLUS 50 ML IV SCH (21:00)
[2021-01-03 21:15] VITALS: BP 133/67
[2021-01-03 22:00] VITALS: BP 134/67
[2021-01-04] MEDS: ACETAMINOPHEN TAB 650MG DOSE (2X325MG) PO PRN (04:55)
[2021-01-04] MEDS: LEVOTHYROXINE 75MCG TABLET (0.075MG) PO SCH (05:32)
[2021-01-04] MEDS: HEPARIN SOD (PORCINE) 5000UNITS/ML 1ML VIAL/SYRINGE SC SCH (05:32)
[2021-01-04 06:00] VITALS: BP 135/54
[2021-01-04 06:32] LABS: BASO # 0.1 10^3/uL (0.0-0.2); BASO % 0.9 % (0.0-1.0); EOS # 0.3 10^3/uL (0.0-0.5); EOS % 3.7 % (0.0-3.0); HEMATOCRIT 36.8 % (42.0-52.0); LYMPH # 0.9 10^3/uL (1.5-5.0); LYMPH % 11.2 % (24.0-44.0); MEAN CORPUSCULAR HEMOGLOBIN 31.4 pg (27.0-33.0); MEAN CORPUSCULAR HGB CONC 32.6 g/dl (32.0-36.5); MEAN CORPUSCULAR VOLUME 96.3 fl (80.0-96.0); MONO # 0.7 10^3/uL (0.0-0.8); MONO % 9.5 % (2.0-8.0); NEUTROPHILS # 5.6 10^3/uL (1.5-8.5); NEUTROPHILS % 73.8 % (36.0-66.0); PLATELET COUNT, AUTOMATED 350 10^3/uL (150-450); RED BLOOD COUNT 3.82 10^6/uL (4.30-6.10); WHITE BLOOD COUNT 7.6 10^3/uL (4.0-10.0)
[2021-01-04 06:50] LABS: CALCIUM LEVEL 8.4 MG/DL (8.8-10.2); CREATININE FOR GFR 2.03 MG/DL (0.70-1.30); GLOMERULAR FILTRATION RATE 33.6 (>35); POTASSIUM SERUM 3.8 MEQ/L (3.5-5.1)
[2021-01-04] MEDS: IPRATROPIUM 0.5MG/ALBUTEROL 2.5MG INH SOL UD 3ML (DUONEB) NEB SCH ×2 (07:18→12:00)
[2021-01-04] MEDS: BUDESONIDE 0.5 MG/2 ML INHALATION SUSPENSION INH SCH (07:18)
[2021-01-04] MEDS: guaiFENesin ER 600 MG TAB PO SCH (08:41)
[2021-01-04] MEDS: TAMSULOSIN 0.4 MG CAP PO SCH (08:41)
[2021-01-04] MEDS: OMEPRAZOLE 20 MG CAP PO SCH (08:41)
[2021-01-04] MEDS: ASPIRIN 81MG ENTERIC TABLET PO SCH (08:41)
[2021-01-04] MEDS: allopurinoL 100 MG TAB PO SCH (08:42)
[2021-01-04 08:44] VITALS: BP 141/81
[2021-01-04] MEDS: CETIRIZINE (ZyrTEC) 10 MG TAB PO SCH (08:44)
[2021-01-04] MEDS: METOPROLOL SUCC (TopROL XL) 100MG *XL* TAB PO SCH (08:44)
[2021-01-04] MEDS ORDERED: CALCITRIOL 0.25 MCG CAP (S0169) PO SCH (09:00)
--- NOTE | 2021-01-04 12:09 | IPNPDOC ---
Subjective Date Seen The patient was seen on 01/04/21. Subjective Chief Complaint/HPI No complaints this morning wants to go home. Objective Physical Examination General Exam: Positive: Alert, Cooperative, No Acute Distress Eye Exam: Positive: PERRLA, Conjunctiva & lids normal, EOMI; Negative: Sclera icteric Neck Exam: Positive: Supple; Negative: JVD, thyromegaly Chest Exam: Positive: Clear to auscultation, Normal air movement Heart Exam: Positive: Rate Normal, Regular Rhythm, Normal S1, Normal S2; Negative: Murmurs, Rubs Abdomen Exam: Positive: Normal bowel sounds, Soft; Negative: Tenderness, Hepatospenomegaly Extremity Exam: Positive: Normal pulses; Negative: Clubbing, Cyanosis, Edema Assessment /Plan Assessment Mr. 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 Hayes, nephrology for excessive somnolence. According to the patient's . The patient has been sleeping about 15 hours a day for the last 2-3 days with decreased oral intake as he has been sleeping mostly. The patient's also noted that his urine was dark and cloudy this morning. He has a history of chronic kidney disease stage 3-4 with baseline creatinine around 2.0 per nephrology. He does have an AV fistula in the left forearm. On initial evaluation he was noted to have an abnormal UA with 2+ leukocyte Estrace. He also had an acute kidney injury with creatinine of 3.0. BUNs was elevated at 47. H e was admitted for ALENA on CKD and suspected UTI. Acute kidney injury on chronic kidney disease stage 4 improved with IVF will stop lasix. UTI ruled out urine culture negative antibiotic stopped. Hypertension, essential. Continue metoprolol and nisoldipine. Patient does not tolerate amlodipine. Chronic obstructive pulmonary disease with no obvious acute exacerbation. Chronic tracheostomy. Continue trach care. Monitor prosthesis closely and continue to tape prosthetic tab as needed. Dysphagia. continue the patient on mechanical soft diet. Try to encourage patient to slow down and chew food better. Gout. Continue allopurinol. BPH with h/o Urinary retention. Continue Flomax. Gastroesophageal reflux disease. Omeprazole. Dispo: Home. Follow up with renal in 1 week. PMD in 2 weeks. Plan/VTE VTE Prophylaxis Ordered?: Yes VS, I&O, 24H, Fishbone Vital Signs/I&O Vital Signs Date Time Temp Pulse Resp B/P (MAP) Pulse Ox O2 Delivery O2 Flow Rate FiO2 01/04/21 09:00 5.0 28 01/04/21 08:44 94 141/81 01/04/21 06:00 99.0 22 95 Room Air I&O- Last 24 Hours up to 6 AM 01/04/21 06:00 Intake Total 2408 ml Output Total 2255 ml Balance 153 ml Laboratory Data 24H LABS Laboratory Tests 2 01/04/21 06:15: Immature Granulocyte % (Auto) 0.9, Neutrophils (%) (Auto) 73.8H, Lymphocytes (%) (Auto) 11.2L, Monocytes (%) (Auto) 9.5H, Eosinophils (%) (Auto) 3.7H, Basophils (%) (Auto) 0.9, Neutrophils # (Auto) 5.6, Lymphocytes # (Auto) 0.9L, Monocytes # (Auto) 0.7, Eosinophils # (Auto) 0.3, Basophils # (Auto) 0.1, Nucleated Red Blood Cells % (auto) 0.0, Anion Gap 8, Glomerular Filtration Rate 33.6L, Calcium Level 8.4L CBC/BMP Laboratory Tests 01/04/21 06:15 Microbiology Microbiology 01/02/21 Urine Culture - Final, Complete MIGUELINA COREA MD Jan 04, 2021 12:09
== END 2021-01-04 14:10 | disposition home or self-care (01) ==
LOC: M ED 17:38 → UNDOADMOB 17:39 → M ED INP 17:39 → ENRESERV 22:37 → M ED INP 01-03 → M MSPAV 01-03
PROVIDERS: ADMIT Internal Medicine; ATTEND Internal Medicine Nephrology
DX: N17.9 Acute kidney failure, unspecified (principal); N18.4 Chronic kidney disease, stage 4 (severe); R40.0 Somnolence; R82.998 Other abnormal findings in urine; I44.0 Atrioventricular block, first degree; I49.3 Ventricular premature depolarization; I12.9 Hypertensive chronic kidney disease with stage 1 through stage 4 chronic kidney disease, or unspecified chronic kidney disease; J44.9 Chronic obstructive pulmonary disease, unspecified; T66.XXXA Radiation sickness, unspecified, initial encounter; R13.10 Dysphagia, unspecified; M10.9 Gout, unspecified; N40.1 Benign prostatic hyperplasia with lower urinary tract symptoms; K21.9 Gastro-esophageal reflux disease without esophagitis; Z93.0 Tracheostomy status; Z85.21 Personal history of malignant neoplasm of larynx; Z92.3 Personal history of irradiation; E03.9 Hypothyroidism, unspecified; M54.5 Low back pain; H91.90 Unspecified hearing loss, unspecified ear; Z87.891 Personal history of nicotine dependence; Z79.899 Other long term (current) drug therapy; Z79.82 Long term (current) use of aspirin; Z88.0 Allergy status to penicillin; Z88.1 Allergy status to other antibiotic agents
CPT/HCPCS: 36415; 71045; 80047; 80048; 80076; 81001; 82550; 82553; 83735; 84484; 85025; 85027; 87086; 87631; 93005; 93041; 94640; 96361; 96365; 96367; 96372; 99285; G0378; J0696; J1644

== ENCOUNTER → 2021-02-18 | Outpatient (CLI) | payer MEDICARE, OTHER ==
[~2021-02-18] MED LIST changes: +ACET-897 PO; +BUDE0.5S6 INH; +TOPR100T PO; +[UNRECOGNIZED DRUG - REMARK] PO
== END ==
LOC: M LABSMTC 10:04
PROVIDERS: ATTEND Anesthesiology
DX: Z11.52 Encounter for screening for COVID-19 (principal)

== ENCOUNTER 2021-02-22 08:59 | Day surgery (SDC) | payer MEDICARE, OTHER ==
[~2021-02-22] VITALS: Ht 170.2 cm; Wt 62.6 kg
[~2021-02-22 08:59] MED LIST changes: -CEFD1CAP8 PO; +NS 1,000 ML IV ONE; +propofoL 200 MG/20 ML VIAL As Ordered ONE
[2021-02-22 11:07] VITALS: BP 167/73
[2021-05-24] MEDS ORDERED: FINA5TAB2 PO (07:59)
[2021-05-24] MEDS ORDERED: COLC1TAB14 PO (07:59)
[2021-05-24] MEDS ORDERED: PROAAER10 INH (07:59)
[2021-07-28] MEDS ORDERED: OMEP40CA5 PO (08:06)
== END 2021-02-22 11:06 | disposition home or self-care (01) ==
LOC: M OPP 08:59
PROVIDERS: ATTEND Internal Medicine Gastroenterology
DX: Z86.010 Personal history of colon polyps (principal); K57.30 Diverticulosis of large intestine without perforation or abscess without bleeding; K64.8 Other hemorrhoids; I10 Essential (primary) hypertension; E03.9 Hypothyroidism, unspecified; M19.90 Unspecified osteoarthritis, unspecified site; J44.9 Chronic obstructive pulmonary disease, unspecified; G47.30 Sleep apnea, unspecified; Z85.89 Personal history of malignant neoplasm of other organs and systems; Z92.3 Personal history of irradiation; Z88.1 Allergy status to other antibiotic agents; Z88.8 Allergy status to other drugs, medicaments and biological substances; Z79.82 Long term (current) use of aspirin; Z79.899 Other long term (current) drug therapy; Z80.1 Family history of malignant neoplasm of trachea, bronchus and lung; Z82.49 Family history of ischemic heart disease and other diseases of the circulatory system; Z80.0 Family history of malignant neoplasm of digestive organs

== ENCOUNTER → 2021-04-24 | Outpatient (CLI) | payer MEDICARE, OTHER ==
[~2021-04-24] MED LIST changes: +CEFD1CAP8 PO; +ISOVUE-300 61% 50ML VIAL As Ordered ONE; +LIDOCAINE 1% MDV 20ML VIAL As Ordered ONE; +MIDAZOLAM INJ 2MG/2ML VIAL (J2250 PER 1MG) As Ordered ONE; -NS 1,000 ML IV ONE; +NS 1,000 ML IV SCH; +ceFAZolin 2 GM/D5W 50 ML IV BAG (J0690 PER 500MG) As Ordered ONE; +diphenhydrAMINE 50MG/ML VIAL (J1200) As Ordered ONE; +fentaNYL 100 MCG/2 ML INJECTION (J3010) As Ordered ONE; -propofoL 200 MG/20 ML VIAL As Ordered ONE
[2021-04-24 09:23] LABS: HEMATOCRIT 44.8 % (42.0-52.0); HEMOGLOBIN 14.7 g/dl (13.5-17.5); MEAN CORPUSCULAR HEMOGLOBIN 32.3 pg (27.0-33.0); MEAN CORPUSCULAR HGB CONC 32.8 g/dl (32.0-36.5); MEAN CORPUSCULAR VOLUME 98.5 fl (80.0-96.0); PLATELET COUNT, AUTOMATED 303 10^3/uL (150-450); RED BLOOD COUNT 4.55 10^6/uL (4.30-6.10); WHITE BLOOD COUNT 6.3 10^3/uL (4.0-10.0)
[2021-04-24 09:34] LABS: INR 0.95; PARTIAL THROMBOPLASTIN TIME 25.5 SECONDS (25.9-37.0); PROTHROMBIN TIME 13.1 SECONDS (12.7-14.5)
[2021-04-24 09:41] LABS: CALCIUM LEVEL 10.3 MG/DL (8.8-10.2); CREATININE FOR GFR 2.06 MG/DL (0.70-1.30); POTASSIUM SERUM 4.3 MEQ/L (3.5-5.1)
[2021-04-24 12:57] VITALS: BP 148/74
--- NOTE | 2021-04-24 15:27 | ROOPDOC ---
[facility] Report Of Operation Report of Operation DATE OF PROCEDURE: 04/24/21 PREPROCEDURE DIAGNOSES: End-stage renal disease, not on hemodialysis yet. 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 PROCEDURE PERFORMED: 1. Ultrasound-guided access of the left cephalic vein 2. Left upper extremity fistulogram and central venogram 3. Angioplasty left subclavian vein at the junction with the innominate vein, with 8 x 20 cutting balloon, 10 x 40 [place] balloon, 12 x 80 [place] balloon 4. Completion venogram SURGEON: Adrianne Resendiz MD ANESTHESIA: Local anesthesia 3 mL lidocaine. Moderate intravenous conscious sedation was administered-with Versed 1 mg and fentanyl 50 mcg. The patient was independently monitored by registered nurse assigned to the Department of radiology using automated blood pressure, EKG, and pulse oximetry. CONTRAST: 60 mL Isovue-300 INDICATION FOR PROCEDURE: The patient is a pleasant 85-year-old gentleman with increased swelling in his left upper extremity, along with decrease in thrill of the left radiocephalic AV fistula. He is not on hemodialysis yet. He was noted to have a venous stenosis of the subclavian vein, at the thoracic outlet, and had balloon angioplasty, by Dr. Monzon on 12/25/2020, for similar symptoms. Recurrent central venous stenosis was suspected. As the patient was not on hemodialysis yet, clearance from nephrology was obtained, to use contrast dye for the procedure. Risks benefits and alternatives to the fistulogram with po tential intervention were explained to the patient, including worsening renal insufficiency secondary to contrast, and the need to go on hemodialysis. The patient and his agreeable to proceed. Informed consent was obtained from the patient. INTERPRETATION: 1. The AV anastomosis is widely patent on reflux imaging. The cephalic vein over the forearm although tortuous and aneurysmal, is widely patent. There was an area of 50% stenosis, at its junction with the median antecubital vein, before entering into the basilic vein. The basilic vein, in the was patent and significantly tortuous, however with no areas of stenosis. 2. The fistulogram reveals widely patent outflow through the median cubital vein into the basilic vein in the upper arm with a widely patent inflow through the basilic vein and into the axillary vein. There are extensive collateral veins filling along with the main outflow, and collaterals filling around the shoulder and chest due to severe stenosis of the subclavian vein at the thoracic outlet. There is a 95% focal stenosis of the subclavian vein, at the junction with the innominate. Patent superior vena cava 3. After angioplasty of the left subclavian vein with an 8 x 20 cutting balloon, there was still significant residual stenosis. After repeat angioplasty with 12 x 80 [place] balloon, there was marked improvement in flow through the vein. No extravasation noted. REPORT OF OPERATION: The patient was brought to the angiographic suite in stable condition. His left upper extremity was prepped and draped in a sterile fashion. A timeout was performed. Local anesthesia was administered to the skin and subcutaneous tissue over the cephalic vein in the forearm. Under ultrasound guidance, the cephalic vein was accessed, in the mid forearm, using a 21-gauge micropuncture needle. This was exchanged to a 4 [place] micro sheath over 0.018 inch guidewire. Initial fistulogram was performed, through the micro sheath. Half-strength contrast was used to image, to reduce the volume of contrast dye. Findings as mentioned above. The micro sheath was then exchanged to a 7 [place] sheath, over a stiff Glidewire, that was advanced, into the superior vena cava. Initial balloon angioplasty, with a 10 x 40 mm [place] balloon, seemed to resolve the subclavian vein stenosis, however with significant recoil. This was followed by 12 x 80 mm [place] balloon. Although the waist in the balloon improved, there was significant recoil. Hence an 8 x 20 mm cutting balloon was used, to treat the focal subclavian vein stenosis, followed by balloon angioplasty with the 12 x 80 mm balloon. Follow-up imaging revealed improvement in the subclavian vein stenosis, with less than 30% residual stenosis, and improved flow into the central veins. There was a suspicion of stenosis, in the basilic vein, in the mid arm area where it was tortuous. This was treated with the 10 mm balloon, without significant stenosis noted. There was also an area of 50% stenosis, noted, in the cephalic vein, at its junction with the median antecubital vein, which was treated with a 10 mm balloon, with significant waist noted, that resolved with balloon angioplasty. Reflux imaging of the arterial anastomosis revealed a widely patent anastomosis. The thrill in the fistula improved following the procedure. The 7 [place] sheath was removed, and the sheath access site was controlled with a pursestring 2-0 Prolene suture. Dry dressing was placed ESTIMATED BLOOD LOSS: Approximately 10 mL. COMPLICATIONS: None. The patient tolerated the procedure well, and was hemodynamically stable throughout. He however had bouts of wheezing, and cough, secondary to collection of secretions, at his tracheostomy site, requiring suctioning and inhalation treatment during the procedure through the tracheostomy. This led to frequent moving of the patient, with need to repeat imaging, to better delineate the findings. Suggest anesthesia assistance, for future procedures. The procedure and findings were conveyed to his Dania over the phone. Adrianne Resendiz MD Apr 24, 2021 15:27
== END ==
LOC: M IRPRO 08:42
PROVIDERS: ATTEND Surgery Vascular Surgery
DX: T82.590A Other mechanical complication of surgically created arteriovenous fistula, initial encounter (principal); E03.9 Hypothyroidism, unspecified; I12.0 Hypertensive chronic kidney disease with stage 5 chronic kidney disease or end stage renal disease; J44.9 Chronic obstructive pulmonary disease, unspecified; N18.6 End stage renal disease; X58.XXXA Exposure to other specified factors, initial encounter; Z79.890 Hormone replacement therapy; Z79.899 Other long term (current) drug therapy; Z88.1 Allergy status to other antibiotic agents
CPT/HCPCS: 36902; 36907; 80048; 85027; 85610; 85730; 99152; 99153; C1725; C1769; C1894; J0690; J1644; J2250; J3010; Q9967

== ENCOUNTER → 2021-04-29 | Outpatient (CLI) | payer MEDICARE, OTHER ==
[~2021-04-29] MED LIST changes: -ISOVUE-300 61% 50ML VIAL As Ordered ONE; -LIDOCAINE 1% MDV 20ML VIAL As Ordered ONE; -MIDAZOLAM INJ 2MG/2ML VIAL (J2250 PER 1MG) As Ordered ONE; -NS 1,000 ML IV SCH; -ceFAZolin 2 GM/D5W 50 ML IV BAG (J0690 PER 500MG) As Ordered ONE; -diphenhydrAMINE 50MG/ML VIAL (J1200) As Ordered ONE; -fentaNYL 100 MCG/2 ML INJECTION (J3010) As Ordered ONE
[2021-04-29 14:27] LABS: CALCIUM LEVEL 9.7 MG/DL (8.8-10.2); CREATININE FOR GFR 2.04 MG/DL (0.70-1.30); GLOMERULAR FILTRATION RATE 33.4 (>35); POTASSIUM SERUM 4.1 MEQ/L (3.5-5.1)
== END ==
LOC: M PLALAB 09:40
PROVIDERS: ATTEND Surgery Vascular Surgery
DX: N18.5 Chronic kidney disease, stage 5 (principal)

== ENCOUNTER → 2021-04-30 | Outpatient (REF) | payer MEDICARE, OTHER | LOC: M LAB REF 14:02 | PROVIDERS: ATTEND Internal Medicine Nephrology | DX: E83.42 Hypomagnesemia (principal) ==

== ENCOUNTER → 2021-05-24 | Outpatient (CLI) | payer MEDICARE, OTHER | LOC: M LABSMTC 10:26 | PROVIDERS: ATTEND Anesthesiology | DX: Z01.818 Encounter for other preprocedural examination (principal); Z11.52 Encounter for screening for COVID-19 ==

== ENCOUNTER 2021-05-27 12:44 | Day surgery (SDC) | payer MEDICARE, OTHER ==
[~2021-05-27] VITALS: Ht 170.2 cm; Wt 62.6 kg
[~2021-05-27 12:44] MED LIST changes: +LIDOCAINE 1% MDV 20ML VIAL SQ PRN; +LR 1,000 ML IV ONE
--- OUTSIDE RECORDS SUMMARY | 2021-05-27 12:50 | CCD | Continuity of Care Document ---
Author Author Nickolas Rendon M.D. Organization Unknown Address [id number] [place] [address] Phone [phone] Care Team Providers Care Weigher Operator Name Role Phone Víctor Hayes MD AUTM [phone] Manuel Nunn MD AUTM Unavailable Bo Trotter MD AUTM Unavailable Nena Rendon MD AUTM [phone] Angel Lucio MD AUTM [phone] Cirilo Weeks MD AUTM [phone] Joceline Motley OD AUTM Unavailable Marlo Caban MD AUTM [phone] [facility] AUTM [phone] Angela Monzon MD AUTM [phone] Problems Active Problems Provider Date Benign essential hypertension Nena Rendon M.D. Onset: 05/02/2011 Abnormal glucose level Nena Rendon M.D. Onset: 2010 Pure hypercholesterolemia Nena Rendon M.D. Onset: Chronic kidney disease stage 4 Nena Rendon M.D. Onset : 05/02/2011 Rivas's esophagus Nena Rendon M.D. Onset: 1 Chronic obstructive lung disease Nena Rendon M.D. Ons et: 05/02/2011 Benign prostatic hyperplasia without outflow obstructi on Nena Rendon M.D. Onset: 05/02/2011 Hypomagnesemia Nena Rendon M.D. Onset: 7 Social History Type Date Description Comments Sex Unknown ETOH Use Denies alcohol use Tobacco Use Start: Unknown End: Unknown Patient is a former smoker Quit 2010; 1 ppd x 50 Allergies and adverse reactions Active Allergies Criticality Reaction | Severity Comments Date Amoxicillin Unable to assess criticality rash, hives 09/14/2012 Levaquin Unable to assess criticality tendonitis 06/06/2015 Inactive Allergies NKDA Unable to assess criticality 03/21/2010 Medications Active Medications SIG Qnty Indications Ordering Provide r Date Levothyroxine Sodium 88mcg Tablets 1 by mouth every day Nena Rendon M.D. 03/21/20 21 Metoprolol Succinate ER 100mg Tablets ER 24HR Take One Tablet By Mouth Every Day 90tabs Nena Rendon M.D. 03/19/2021 Gatoraid one daily ok with Dr.Sindhu Nena Rendon M.D. 01/11/2021 Tamsulosin HCL 0.4mg Capsules 1 by mouth every day 90caps Nena Rendon M.D. 09/04/19 21 Ensure Active Liquid 2 can/d 30Cans Nena Rendon M.D. 05/01/[address] 1 by mouth every morning 90caps Nena Rendon M.D. 03/30/20 20 Albuterol Sulfate (2 .5mg/3ML) 0.083% Nebulizer Use One Vial Via Nebulizer Four Times A Day as Needed 1050units Nena Rendon M.D. 01/30/2020 Nebulizer Device use as d irected 1units Nena Rendon M.D. 01/26/2020 Allopurinol 100mg Tablets take 2 tablets by mouth every day Nena Rendon M.D. 01/[address] 1 by [facility] Nena Rendon M.D. 05/24/2019 Stiolto Respimat 2.5-2.5mcg/Act Ae rosol Inhale Two Puffs By Mouth Daily 12units Nena jaime M.D. 05/24/2019 Calcitriol 0.25mcg Capsules 1 on Thursday and Thursday only Nena Rendon M.D. 08/19/19 17 Saline Nasal [place] 0.65% Solution 3-4x/d as directed 1units Nena Rendon M.D. 03/22/20 13 Zyrtec Allergy 10mg Tablets 1 by mouth every day Nena Rendon M.D. 03/22/20 13 Colcrys 0.6mg Tablets 1 po bid prn gout Nephrol Nena Rendon M.D. 03/21/2013 Proair HFA 108(90Base) mcg/Act Aer osol Inhale Two Puffs By Mouth Four Times A Day as Needed 25.5units Nena Rendon M.D. 09/14/2012 Finasteride 5mg Tablets qd Nena Rendon M.D. 05/06/2011 Aspir-Low 81mg Tablets DR 1 p o qd Nena Rendon M.D. 01/01/2011 Tylenol Extra Strength 500mg Table ts prn up to 3 a day Nena Rendon M.D. 01/02/20 11 Meclizine HCL 25mg Tablets take one to two tablets by mouth three times a day as needed 180tabs Jaime Rendon M.D. 03/05/2010 Budesonide 0.5mg/2ML Suspension use in nebulizer twice daily Unknown Sular 8.5mg Tablets ER 24HR 1 at bedtime by mouth Unknown History Medications Levothyroxine Sodium 75mcg Tablets 1 by mouth every day 90tabs Nena Rendon M.D. 12/01/19 - 03/21/2021 Prednisone 20mg Tablets 3 qd x 4days then 2 for 4 days then 1 for 4 d then 1/2 x 4 days then stop Unknown 11/26/2020 - 01/07/2021 Medications Administered in Office Medication SIG Qnty Indications Ordering Provider Date Administration Of Flu Vaccine Inj ection Nena Rendon M.D. 04/18/20 21 Covid-19 vaccine, Unspecified Inj ection Unknown 10/19/2020 Covid-19 vaccine, Unspecified Inj ection Unknown 09/21/2020 Administration Of Flu Vaccine Inj kathleen Rendon M.D. 04/11/20 20 Administration Of Flu Vaccine Inj kathleen Rendon M.D. 05/24/20 19 Administration Of Flu Vaccine Inj kathleen Rendon M.D. 06/08/20 18 Administration Of Flu Vaccine Inj ection Nnea Rendon M.D. 05/21/20 17 Administration Of Flu Vaccine Inj kathleen Rendon M.D. 06/03/20 16 Administration Of Flu Vaccine Inj kathleen Rendon M.D. 06/06/20 15 Administration Of Flu Vaccine Inj kathleen Rendon M.D. 06/05/20 14 Immunizations CPT Code Status Date Vaccine Lot # [id number] Given 04/18/2021 Influenza Vaccin e Quadrivalent Preser/Antibiotic Free Im Use [id number] 89889 Given 04/11/2020 Influenza Vaccin e Quadrivalent Preser/Antibiotic Free Im Use [id number] 60976 Given 05/24/2019 Influenza Vaccin e Quadrivalent Preser/Antibiotic Free Im Use [id number] 79855 Given 06/08/2018 Influenza Virus Vaccine, Quadrivalent ([id number]), Derived From 9 Given 03/02/2018 Pneumovax 23 [id number] 39885 Given 05/21/2017 Influenza Vaccin e Quadrivalent Preser/Antibiotic Free Im Use [id number] 70983 Given 08/19/2016 Adacel- Tetanus Diphtheria P ertussis [id number] Q2037 Given 06/03/2016 Fluvirin Virus Vaccine 89722 01 U-PneuC Given 04/19/2016 Prevnar 13 Q2037 Given 06/06/2015 Fluvirin Virus Vaccine 91616 01 Q2037 Given 06/05/2014 Fluvirin Virus Vaccine 48499 21 Q2037 Given 05/07/2012 Fluvirin Virus Vaccine 16995 01 Q2037 Given 05/01/2011 Fluvirin Virus Vaccine 99262 Given 04/25/2010 Influenza Virus Vaccine 53666 Refused 09/14/2018 Shingrix Zoster Vaccine (HZV), Recombinant, Subunit, Adjuvanted 55159 Refused 09/14/2018 Zoster Vaccine Vital Signs Date Vital Result Comment 03/19/2021 10:44am BP Systolic 108 mmHg RT Arm BP Diastolic 60 mmHg RT Arm Heart Rate 60 /min Height 64.75 inches 5'4.75" Weight 138.38 lb BMI (Body Mass Index) 23.2 kg/m2 01/10/2021 10:01am BP Systolic 118 mmHg RT Arm BP Diastolic 60 mmHg RT Arm Heart Rate 60 /min Height 64.75 inches 5'4.75" Weight 138.00 lb BMI (Body Mass Index) 23.1 kg/m2 Results Test Acquired Date Facility Test Result H/L Range Note Laboratory test finding 05/24/[address] [address] [phone] Sars Covid-19 Amplification NEGATIVE Normal Nega tive 1 Basic Metabolic Profile 04/29/[address] [id number] [phone] Glucose, Fasting 104 mg/dL High 70-100 Blood Urea Nitrogen 30 mg/dL High 7-18 Creatinine For GFR 2.04 mg/dL High 0.70-1.30 Glomerular Filtration Rate 33.4 Low >35 2 Sodium Level 136 mEq/L Normal 136-145 Potassium Serum 4.1 mEq/L Normal 3.5-5.1 Chloride Level 102 mEq/L Normal 98-107 Carbon Dioxide Level 29 mEq/L Normal 21-32 Anion Gap 5 mEq/L Low 8-16 Calcium Level 9.7 mg/dL Normal 8.8-10.2 PT & Aptt 04/24/2021 [facility] nter [address] [place] [address] [phone] Prothrombin Time 13.1 seconds Normal 12.7-14.5 Inr 0.95 Normal 3 Partial Thromboplastin Time 25.5 seconds Normal 25.9-37.0 Basic Metabolic Profile 04/24/[address] [address] [phone] Glucose, Fasting 107 mg/dL High 70-100 Blood Urea Nitrogen 31 mg/dL High 7-18 Creatinine For GFR 2.06 mg/dL High 0.70-1.30 Glomerular Filtration Rate 33.0 Low >35 4 Sodium Level 137 mEq/L Normal 136-145 Potassium Serum 4.3 mEq/L Normal 3.5-5.1 Chloride Level 103 mEq/L Normal 98-107 Carbon Dioxide Level 31 mEq/L Normal 21-32 Anion Gap 3 mEq/L Low 8-16 Calcium Level 10.3 mg/dL High 8.8-10.2 Complete Blood Count 04/24/2021 [facility] enter [address] [place] [address] [phone] White Blood Count 6.3 10 Normal 4.0-10.0 Red Blood Count 4.55 10 Normal 4.30-6.10 Hemoglobin 14.7 g/dL Normal 13.5-17.5 Hematocrit 44.8 % Normal 42.0-52.0 Mean Corpuscular Volume 98.5 fl High 80.0-96.0 Mean Corpuscular Hemoglobin 32.3 pg Normal 27.0-33.0 Mean Corpuscular HGB Conc 32.8 g/dL Normal 32.0-36.5 Red Cell Distribution Width 14.1 % Normal 11.5-14.5 Platelet Count, Automated 303 10 Normal 150-450 Nucleated Red Blood Cell % 0.0 % Normal 0-0 Laboratory test finding 03/19/2021 [facility] Research Psychologist: Dr Niranjan Goss [place], [place] [id number] [phone] Thyroid Stimulating Hormone 5.69 uIU/mL High 0.3 6 - 3.74 Coronavirus 2019 Nasopharygeal 02/18/2021 [place] [id number] [phone] Coronavirus 2019 Nasopharygeal ASSAY INFORMATIO <SEE N OTE> 5 Laboratory test finding 02/08/2021 [facility] Research Psychologist: Dr Niranjan [place]oss [place] [address] [phone] Thyroid Stimulating Hormone 6.49 uIU/mL High 0.3 6 - 3.74 Basic Metabolic Panel 01/10/2021 [facility] Research Psychologist: [address] [place] [place] [address] [phone] Glucose 109 mg/dL High 74 - 99 6 BUN 26 mg/dL High 7 - 18 Creatinine 1.9 mg/dL High 0.6 - 1.3 Sodium 136 mEq/L 136 - 145 Potassium 4.8 mEq/L 3.5 - 5.1 Chloride 99 mEq/L 98 - 107 Carbon Dioxide 31 mEq/L 21 - 32 Calcium 10.2 mg/dL High 8.5 - 10.1 7 GFR 34 mL/min Low >60 GFR 41 mL/min Low >60 8 Laboratory test finding 01/10/2021 [facility] Research Psychologist: Dr Ureña [place] [id number] [phone] Thyroid Stimulating Hormone 8.00 uIU/mL High 0.3 6 - 3.74 9 Ua W/ Reflex To Culture 01/02/2021 [facility] [address] [place] [address] [phone] Appearance, Urine RFX CLEAR Normal Clear Color, Urine RFX YELLOW Normal Yellow PH,Urine RFX 6.0 units Normal 5.0-9.0 Specific [place] Ur Auto RFX 1.008 Normal 1.002-1.035 Protein, Urine Auto RFX NEGATIVE mg/dL Normal Negative Glucose, Urine (Ua) Auto RFX NEGATIVE mg/dL Normal Negative Ketone, Urine Auto RFX NEGATIVE mg/dL Normal Negative Urobilinogen, Urine Auto RFX 0.2 mg/dL Normal 0.0-2.0 Bilirubin, Urine Auto RFX NEGATIVE Normal Negative Nitrite, Urine Auto RFX NEGATIVE Normal Negative Leukocyte Esterase Ur Auto RFX 2+ High Negative Blood, Urine Blood RFX NEGATIVE Normal Negative WBC, Urine Auto RFX 17 /HPF High 0-3 RBC, Urine Auto RFX 4 /HPF High 0-3 Bacteria, Urine Auto RFX NEGATIVE Normal Negative Squam Epithelial Cell Ur Aurfx 1 /HPF Normal 0-6 Transitional Epithelial AU RFX 1 /HPF Normal None Hyaline Cast, Urine Auto RFX 0 /LPF Normal 0-1 Istat Chem8+ Panel 01/02/2021 [facility] nter [address] [place] [address] [phone] iSTAT HCT 45.0 % Normal 38.0-51.0 iSTAT Glucose 103 mg/dL Normal 70-105 iSTAT Sodium 137 mEq/L Normal 136-145 iSTAT Potassium 4.2 mEq/L Normal 3.5-5.1 iSTAT CA++ 4.7 mg/dL Normal 4.5-5.3 iSTAT Chloride 97 mEq/L Low 98-109 iSTAT Co2 29.0 MM/L High 23.0-27.0 iSTAT BUN 47 mg/dL High 8-26 iSTAT Creatinine 3.0 mg/dL High 0.6-1.3 Cardiac Marker Panel 01/02/2021 [facility] enter [address] [place] [address] [phone] CPK Creatine Phosphokinase 64 U/L Normal 39-30 8 CK-MB Value Mass 3.0 NG/ML Normal <3.6 MB/CK Relative Index 4.69 High < Or =4 10 Troponin I < 0.02 NG/ML Normal < 0.10 11 Liver Profile 01/02/2021 [facility] nter [address] [place] [address] [phone] Ast/Sgot 14 U/L Normal 7-37 Alt/SGPT 18 U/L Normal 12-78 Alkaline Phosphatase 74 U/L Normal 45-117 Bilirubin,Total 0.6 mg/dL Normal 0.2-1.0 Bilirubin,Direct 0.2 mg/dL Normal 0.0-0.2 Total Protein 6.8 GM/DL Normal 6.4-8.2 Albumin 3.2 GM/DL Normal 3.2-5.2 Albumin/Globulin Ratio 0.9 Normal CBC With Differential 01/02/[address] [address] [phone] White Blood Count 7.5 10 Normal 4.0-10.0 Red Blood Count 4.51 10 Normal 4.30-6.10 Hemoglobin 14.3 g/dL Normal 13.5-17.5 Hematocrit 43.9 % Normal 42.0-52.0 Mean Corpuscular Volume 97.3 fl High 80.0-96.0 Mean Corpuscular Hemoglobin 31.7 pg Normal 27.0-33.0 Mean Corpuscular HGB Conc 32.6 g/dL Normal 32.0-36.5 Red Cell Distribution Width 13.6 % Normal 11.5-14.5 Platelet Count, Automated 452 10 High 150-450 Neutrophils % 65.7 % Normal 36.0-66.0 Lymph % 16.2 % Low 24.0-44.0 [place] % 11.3 % High 2.0-8.0 Eos % 4.4 % High 0.0-3.0 Baso % 1.1 % High 0.0-1.0 Immature Granulocyte % 1.3 % Normal 0-3.0 Nucleated Red Blood Cell % 0.0 % Normal 0-0 Neutrophils # 4.9 10 Normal 1.5-8.5 Lymph # 1.2 10 Low 1.5-5.0 [place] # 0.9 10 High 0.0-0.8 Eos # 0.3 10 Normal 0.0-0.5 Baso # 0.1 10 Normal 0.0-0.2 Laboratory test finding 11/29/2020 [facility] Research Psychologist: [place] [address] [phone] Thyroid Stimulating Hormone 0.05 uIU/mL Low 0.3 6 - 3.74 1 A false negative result may occur if a specimen is improperly collected, transported or handled. False negative results may also occur if inadequate numbers of organisms are present in the specimen. As with any molecular test, mutations within the target regions of X[employer]press SARS-CoV-2 could affect primer and/or probe binding resulting in failure to detect the presence of virus. This test cannot rule out diseases caused by other bacterial or viral pathogens. DISCLAIMER: Testing was performed using the [employer] SARS-CoV-2 test. This test was developed and its performance characteristics determined by [employer]. This test has not been FDA cleared or approved. This test has been authorized by FDA under an Emergency Use Authorization (EUA). This test is only authorized for the duration of time the declaration that circumstances exist justifying the authorization of the emergency use of in vitro diagnostic tests for detection of SARS-CoV-2 virus and/or diagnosis of COVID-19 infection under section 564(b)(1) of the Act, 21 U.S.C. 360bbb-3(b)(1), unless the authorization is terminated or revoked sooner. 2 Units are mL/min/1.73 m2 Chronic Kidney Disease Staging per NKF: Stage I & II GFR >=60 Normal to Mildly Decreased Stage III GFR 30-59 Moderately Decreased Stage IV GFR 15-29 Severely Decreased Stage V GFR <15 Very Little GFR Left ESRD GFR <15 on MANAGER METAL 3 THERAPUTIC HUMAN INR VALUES INDICATIONS NORMAL RANGES PROPHYLAXIS/TREATMENT OF: VENOUS THROMBOSIS 2.0-3.0 PULMONARY EMBOLISM 2.0-3.0 PREVENTION OF SYSTEMIC EMBOLISM FROM: TISSUE HEART VALVES 2.0-3.0 ACUTE MYOCARDIAL INFARCTION 2.0-3.0 VALVULAR HEART DISEASE 2.0-3.0 ATRIAL FIBRILLATION 2.0-3.0 MECHANICAL VALVES(HIGH RISK) 2.5-3.5 RECURRENT MYOCARDIAL INFARCTION 2.5-3.5 4 Units are mL/min/1.73 m2 Chronic Kidney Disease Staging per NKF: Stage I & II GFR >=60 Normal to Mildly Decreased Stage III GFR 30-59 Moderately Decreased Stage IV GFR 15-29 Severely Decreased Stage V GFR <15 Very Little GFR Left ESRD GFR <15 on MANAGER METAL 5 ASSAY INFORMATION: Real Time RT-PCR NOTE: The COVID-19 assay has been cleared by the U.S. Food and Drug Administration under the Emergency Use Authorization (EUA). [employer] and [facility] are designated as high complexity laboratories by the Clinical Laboratory Improvement Amendments of 1988(CLIA) and are qualified to perform this test. Not Detected 6 100-125 mg/dL PRE-DIABET ES/FASTING >126 mg/dL DIABETES/FASTING 7 NOTE: RESULT VERIFIED. 8 CHRONIC KIDNEY DISEASE STAGI NG PER NKF STAGE I & II GFR >= 60 NORMAL TO MILDLY DECREASED STAGE III GFR 30-59 MODERATELY DECREASED STAGE IV GFR 15-29 SEVERELY DECREASED STAGE V GFR <15 VERY LITTLE GFR LEFT ESRD GFR <15 ON MANAGER METAL 9 NOTE: RESULT VERIFIED. 10 DIAGNOSIS CRITERIA MMB ng/ml Relative Index (RI) NON-AMI < or = 5 N/A BLOOM ZONE > 5 < or = 4 AMI > 5 > 4 11 Troponin I Reference Interva l for [facility] LOCI: 99th Percentile= 0.00-0.045 ng/ml Risk Stratification: <= 0.10 ng/ml Decreased Risk for Adverse Clinical Events. 0.10-1.50 ng/ml Increased Risk for Adv erse Clinical Events. Evaluation of additional criterion and/or repeat testing in 2-6 hours is suggested to rule out myocardial damage. >= 1.50 ng/ml Indicative of Myocardial Injury. Procedures Date Code Description Status 03/19/2021 40125 Office/Outpatient Established Mo d MDM 30-39 Min Completed 02/22/2021 [id number] Colonoscopy Completed 01/10/2021 [address]1648 [facility] SRV W/I 7 Days Of DC, C omm W/I 2 Dys Med Rec Completed 11/29/2020 [id number] Office/Outpatient Established Mo d MDM 30-39 Min Completed 09/28/2014 [id number] Colonoscopy Completed 09/02/2012 [id number] Colonoscopy Completed 06/28/2009 [id number] Colonoscopy Completed Medical Devices Description No Information Available Encounters Type Date Location Provider Dx Diagnosis Office Visit 03/19/2021 10:45a [facility] PAhmetCAhmet Rendon M.D. 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 Jaime Rendon M.D. 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 04/18/2021 Z23 Encounter for immunization Nurse Schedule 03/19/2021 J44.1 Chronic obstructive pulmonary disease with (acute) exacerbation Nena Rendon M.D. 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 03/19/2021 I12.9 Hypertensive chronic kidney dise ase with stage 1 through sta Nena Rendon M.D. 03/19/2021 N18.32 Chronic kidney disease, stage 3b Nena Rendon M.D. 03/19/2021 K21.9 Gastro-esophageal reflux disease without esophagitis Nena Rendon M.D. 03/19/2021 E03.9 Hypothyroidism, unspecified Hawa Rendon M.D. 03/19/2021 M10.9 Gout, unspecified Nena kingsley M.D. 03/19/2021 H82.9 Vertiginous syndrome s in diseases classified elsewhere, unspecified ear Nena Rendon M.D. 03/19/2021 M54.41 Lumbago with sciatica, right jasmyn e Nena Rendon M.D. 03/19/2021 N40.1 Benign prostatic hyperplasia wit h lower urinary tract symptoms Nena Rendon M.D. 03/19/2021 E83.42 Hypomagnesemia Nena jaime M.D. 03/19/2021 Z86.010 Personal history of colonic poly ps Nena Rendon M.D. 03/19/2021 R62.7 Adult failure to thrive Nena Rendon M.D. 02/08/2021 E03.9 Hypothyroidism, unspecified Hawa Rendon M.D. 02/08/2021 E03.9 Hypothyroidism, unspecified Lab Schedule 01/10/2021 N17.9 Acute kidney failure, unspecifie d Nena Rendon M.D. 01/10/2021 I12.9 Hypertensive chronic kidney dise ase with stage 1 through sta Nena Rendon M.D. 01/10/2021 N18.32 Chronic kidney disease, stage 3b Nena Rendon M.D. 01/10/2021 N30.01 Acute cystitis with hematuria Mey Rendon M.D. 01/10/2021 J44.1 Chronic obstructive pulmonary disease with (acute) exacerbation Nena Rendon M.D. 01/10/2021 K21.9 Gastro-esophageal reflux disease without esophagitis Nena Rendon M.D. 01/10/2021 E03.9 Hypothyroidism, jassified Hawa Rendon M.D. 01/10/2021 R13.10 Dysphagia, breanne Rendon M.D. 01/10/2021 M10.9 Gout, unspecified Nena kingsley M.D. 01/10/2021 H82.9 Vertiginous syndrome s in diseases classified elsewhere, unspecified ear Nena Rendon M.D. 01/10/2021 M54.41 Lumbago with sciatica, right jasmyn e Nena Rendon M.D. 01/10/2021 N40.1 Benign prostatic hyperplasia wit h lower urinary tract symptoms Nena Rendon M.D. 01/10/2021 E83.42 Hypomagnesemia Nena jaime M.D. 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 01/10/2021 Z86.010 Personal history of colonic poly ps Nena Rendon M.D. 11/29/2020 J44.1 Chronic obstructive pulmonary disease with (acute) exacerbation Nena Rendon M.D. 11/29/2020 I12.9 Hypertensive chronic kidney dise ase with stage 1 through sta Nena Rendon M.D. 11/29/2020 N18.32 Chronic kidney disease, stage 3b Nena Rendon M.D. 11/29/2020 R60.0 Localized edema Nena jaime M.D. 11/29/2020 N40.0 Benign prostatic hyp erplasia without lower urinary tract symptoms Nena Rendon M.D. 11/29/2020 M10.9 Gout, unspecified Nena kingsley M.D. 11/29/2020 E83.42 Hypomagnesemia Nena jaime M.D. 11/29/2020 E03.9 Hypothyroidism, unspecified Hawa Rendon M.D. 11/29/2020 R13.10 Dysphagia, unspecified Nena Rendon M.D. 11/29/2020 R62.7 Adult failure to thrive Nena Rendon M.D. 11/29/2020 Z86.010 Personal history of colonic poly ps Nena Rendon M.D. 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 Plan of Treatment Future Appointment(s):* 06/25/2021 10:45 am - Nena Rendon M.D. at [facility]. 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 * I12.9 Hypertensive chronic kidney disease with stage 1 through sta * N18.32 Chronic kidney disease, stage 3b * K21.9 Gastro-esophageal reflux disease without esophagitis * E03.9 Hypothyroidism, unspecified * M10.9 Gout, unspecified * H82.9 Vertiginous syndromes in diseases classified elsewhere, unspecified ear * M54.41 Lumbago with sciatica, right side * N40.1 Benign prostatic hyperplasia with lower urinary tract symptoms * E83.42 Hypomagnesemia * Z86.010 Personal history of colonic polyps * R62.7 Adult failure to thrive * All * New Medication:* Metoprolol Succinate ER 100 mg - Take One Tablet By Mouth Every Day Functional Status Description No Information Available Mental Status Description No Information Available Referrals Description No Information Available
--- OUTSIDE RECORDS SUMMARY | 2021-05-27 12:51 | CCD | Continuity of Care Document ---
Author Author Nickolas WEBSTER MD Organization Unknown Address [address], [address] [place] [address] Phone [phone] Care Team Providers Care Silk Spotter Name Role Phone Nena Norman M.D. AUTM [phone] Angel Lucio MD AUTM Supriya Adame AUTM [phone] AUTM Unavailable AUTM Unavailable Madalyn Hayes D.O. AUTM [phone] Problems Active Problems Provider Date Chronic kidney disease stage 4 Bo Trotter MD O nset: 08/02/2010 Essential hypertension Bo Trotter MD Onset: Disorder of prostate Bo Trotter MD Onset: 07/20 Rivas's esophagus Bo Trotter MD Onset: 08/02 Deficiency anemias Bo Trotter MD Onset: 08/02 Benign prostatic hyperplasia without outflow obstructi on Bo Trotter MD Onset: 08/02/2010 Chronic obstructive lung disease Bo Trotter MD Onset: 08/02/2010 Gastroesophageal reflux disease Bo Trotter MD Onset: 08/02/2010 Renovascular hypertension Bo Trotter MD Onset: 08/16/2010 Hyperparathyroidism due to renal insufficiency Bo Trotter MD Onset: 08/16/2010 History of polyp of colon Bo Trotter MD Onset: 08/16/2010 Psychosexual dysfunction associated with inhibited fortino dashawn Bo Trotter MD Onset: 08/16/2010 Difficulty speaking Bo Trotter MD Onset: 10/20 Overlapping malignant neoplasm of larynx Bo stewart MD Onset: 01/20/2012 History Personal Malignant Neoplasm Larynx Angel Lucio MD Onset: 06/28/2012 Tracheoesophageal fistula Angel Lucio MD Onset: 012 Aphonia Angel Lucio MD Onset: 06/28/2012 Tracheostomy present Marivel Chandra Chel SHEPARD Onset: 06/28/2012 Tracheostomy complication Marivel Milligan DO Onset: 012 Malignant tumor of larynx Manuel Nunn MD Onset: 06/28 Non-toxic uninodular goiter Manuel Nunn MD Onset: 04/2012 Neoplasm of uncertain behavior of larynx Manuel Nunn MD Onset: 06/28/2012 Diverticular disease of colon Franklin Hill MD Onset: 04/2012 Internal hemorrhoids without complication Franklin Hill MD Onset: 06/28/2012 Gout Bo Trotter MD Onset: 02/04 Benign neoplasm of colon Franklin Hill MD Onset: 06/10/20 13 Neoplasm of uncertain behavior of skin Bill Canela II, PA-C Onset: 09/22/2013 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 .. hx of 1 ppd x 55 years Recreational Drug Use Denies Drug Use Smoking Status Reviewed: 01/14/21 Denies Smoking Quit 07/2011.. .. hx of 1 ppd x 55 years Allergies and adverse reactions Active Allergies Criticality Reaction | Severity Comments Date Amoxicillin Unable to assess criticality Hives, Rash 05/11/2009 Levaquin Unable to assess criticality 09/03/2016 Medications Active Medications SIG Qnty Indications Ordering Provide r Date Budesonide 0.5mg/2ML Suspension inhale 1 vial twice a day via nebulizer 360units J44.9 James Dorsey 11/26/[address] 1 by mouth twice a day (Dysphagia/reflux) 60caps 530.85 Franklin Hill MD 04/26/2020 Zyrtec Allergy 10mg Tablets 1 by mouth every day Unknown Tamsulosin HCL 0.4mg Capsules Take One Capsule By Mouth Every Day Unknown Metoprolol Tartrate 100mg Tablets 1 tab by mouth every day Unknown Albuterol Sulfate (2 .5mg/3ML) 0.083% Nebulizer 1 vial four times a day as needed Unknown Magnesium Oxide 250mg Tablets 1 by mouth every other day Unknown Stiolto Respimat 2.5-2.5mcg/Act Ae rosol Inhale Two Puffs By Mouth Daily Unknown Mucinex 600mg Tablets ER 12HR 1 tab by mouth as needed Unknown Calcitriol 0.25mcg Capsules 1 tab by mouth every Mon and Fri Unknown Finasteride 5mg Tablets 1 tab by mouth everyday Unknown Levothyroxine Sodium 88mcg Capsule s 1 tab by mouth everyday 45caps Unknown Proair HFA 108(90Base) mcg/Act Aer osol two puffs q6h prn dyspnea 1units Unknown Sular 8.5mg Tablets ER 24HR 1 tab by mouth everyday 405.91 Unknown Colcrys 0.6mg Tablets 1 tab by mouth as needed 30tabs 274.9 Unknown Allopurinol 100mg Tablets two tab by mouth everyday 30tabs 274.9 Unknown Meclizine HCL 25mg Tablets 1 tab by mouth as needed 30tabs Unknown Aspirin Ec Lo-Dose 81mg Tablets 1 tab by mouth everyday 30tabs Unknown History Medications Prednisone 10mg Tablets 30mg every day x 4 days then 20mg every day x 4 days then 10mg every day x 4 days, then 5mg every day x 4 days, then stop 26tabs J44.9 Narcisa Dorsey 11/26 - 08/16/2020 Milk Of Magnesia 7.75% Suspension take 45 milliliters by mouth about 1-2 days before colonoscopy prep 360ml Z86.010 Franklin Hill MD 11/26/2020 - 08/16/2020 Miralax 17GM/Scoop Powder use as directed see dr hill colon preparation instructions 510gm Z86.010 Fabricio kotsas Hill MD 11/26/2020 - 08/16/2020 Covid-19 vaccine, Unspecified Inj ection Unknown Medications Administered in Office Medication SIG Qnty Indications Ordering Provider Date Covid-19 vaccine, Unspecified Inj ection Unknown 10/19/2020 Covid-19 vaccine, Unspecified Inj ection Unknown 09/21/2020 Immunizations Description No Information Available Vital Signs Date Vital Result Comment 04/29/2021 3:49pm BP Systolic 126 mmHg BP Diastolic 62 mmHg Body Temperature 97.3 F Height 67 inches 5'7" Weight 137.12 lb BMI (Body Mass Index) 21.5 kg/m2 [place] Body Weight 148 lb Weight 62.200 kg BSA (Body Surface Area) 1.72 m2 04/04/2021 11:38am BP Systolic 136 mmHg BP Diastolic 78 mmHg Body Temperature 98.2 F Height 67 inches 5'7" Weight 141.38 lb BMI (Body Mass Index) 22.1 kg/m2 [place] Body Weight 148 lb Weight 64.128 kg BSA (Body Surface Area) 1.75 m2 Results Test Acquired Date Facility Test Result H/L Range Note Basic Metabolic Profile 04/29/2021 [facility] Main Lab [address], [place] [id number] [phone] Glucose, Fasting 104 mg/dL High 70-100 Blood Urea Nitrogen 30 mg/dL High 7-18 Creatinine For GFR 2.04 mg/dL High 0.70-1.30 Glomerular Filtration Rate 33.4 Low >35 1 Sodium Level 136 mEq/L Normal 136-145 Potassium Serum 4.1 mEq/L Normal 3.5-5.1 Chloride Level 102 mEq/L Normal 98-107 Carbon Dioxide Level 29 mEq/L Normal 21-32 Anion Gap 5 mEq/L Low 8-16 Calcium Level 9.7 mg/dL Normal 8.8-10.2 PT & Aptt 04/24/2021 [facility] Main Lab [address] [place] [address] [phone] Prothrombin Time 13.1 seconds Normal 12.7-14.5 Inr 0.95 Normal 2 Partial Thromboplastin Time 25.5 seconds Normal 25.9-37.0 Basic Metabolic Profile 04/24/2021 [facility] Main Lab [address] [place] [address] [phone] Glucose, Fasting 107 mg/dL High 70-100 Blood Urea Nitrogen 31 mg/dL High 7-18 Creatinine For GFR 2.06 mg/dL High 0.70-1.30 Glomerular Filtration Rate 33.0 Low >35 3 Sodium Level 137 mEq/L Normal 136-145 Potassium Serum 4.3 mEq/L Normal 3.5-5.1 Chloride Level 103 mEq/L Normal 98-107 Carbon Dioxide Level 31 mEq/L Normal 21-32 Anion Gap 3 mEq/L Low 8-16 Calcium Level 10.3 mg/dL High 8.8-10.2 Complete Blood Count 04/24/2021 [facility] Main Lab [address] [place] [address] [phone] White Blood Count 6.3 10 Normal 4.0-10.0 [...] Blood Cell % 0.0 % Normal 0-0 1 Units are mL/min/1.73 m2 Chronic Kidney Disease Staging per NKF: Stage I & II GFR >=60 Normal to Mildly Decreased Stage III GFR 30-59 Moderately Decreased Stage IV GFR 15-29 Severely Decreased Stage V GFR <15 Very Little GFR Left ESRD GFR <15 on GRAIN THRESHER 2 THERAPUTIC HUMAN INR VALUES INDICATIONS NORMAL RANGES PROPHYLAXIS/TREATMENT OF: VENOUS THROMBOSIS 2.0-3.0 PULMONARY EMBOLISM 2.0-3.0 PREVENTION OF SYSTEMIC EMBOLISM FROM: TISSUE HEART VALVES 2.0-3.0 ACUTE MYOCARDIAL INFARCTION 2.0-3.0 VALVULAR HEART DISEASE 2.0-3.0 ATRIAL FIBRILLATION 2.0-3.0 MECHANICAL VALVES(HIGH RISK) 2.5-3.5 RECURRENT MYOCARDIAL INFARCTION 2.5-3.5 3 Units are mL/min/1.73 m2 Chronic Kidney Disease Staging per NKF: Stage I & II GFR >=60 Normal to Mildly Decreased Stage III GFR 30-59 Moderately Decreased Stage IV GFR 15-29 Severely Decreased Stage V GFR <15 Very Little GFR Left ESRD GFR <15 on GRAIN THRESHER Procedures Date Code Description Status 04/29/2021 24372 Office/Outpatient Established Lo w MDM 20-29 Min Completed 04/24/2021 26263 Ultrasound Guidance For Vascular Access Requiring Ultrasound Eval Completed 04/24/2021 90234 Translum Balloon Ang io Central Dial Segment Through Dialys Circui Completed 04/24/2021 67958 Dialysis Circuit, Intro Robeline/ Cath W/ Diagnostic Angiography Completed 04/04/2021 76440 Office/Outpatient Established Mo d MDM 30-39 Min Completed 02/22/2021 92678 Colonoscopy Flexible Proximal To Splenic Flexure Diagnostic W/Or Completed 02/04/2021 21391 Office/Outpatient Established Lo w MDM 20-29 Min Completed 02/04/2021 10216 Tracheobronchoscopy Through Est Tracheostomy Incision Completed 01/14/2021 92746 Office/Outpatient Established Lo w MDM 20-29 Min Completed 01/01/2021 51167 Office/Outpatient Established Lo w MDM 20-29 Min Completed 12/25/2020 15368 Hospital Consult Initial Level 2 Completed 12/25/2020 43042 Dialysis Circuit W/ Transluminal Balloon Angioplasty, Peripheral Completed 12/05/2020 69672 Office/Outpatient Established Mo d MDM 30-39 Min Completed 11/26/2020 05545 Office/Outpatient Established Lo w MDM 20-29 Min Completed 11/26/2020 42856 Office/Outpatient Established Lo w MDM 20-29 Min Completed Medical Devices Description No Information Available Encounters Type Date Location Provider Dx Diagnosis Office Visit 04/29/2021 3:45p [facility] Alicia Webster MD 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, init N18.5 Chronic kidney disease, stag e 5 Office Visit 04/04/2021 11:30a [facility] Alicia Webster MD N18.5 Chronic kidney disease, stag e 5 J44.9 Chronic obstructive pulmonar y disease, unspecified T82.898A Oth complication of vascular prosth dev/grft, 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 Office Visit 02/04/2021 11:00a [facility] Angel Lucio MD Z85.21 Personal history of malignant neoplasm of larynx Office Visit 01/14/2021 3:00p [facility] Pulmonary[facility]Thoracic Narcisa Rodriguez J44.9 Chronic obstructive pulmonary disease, u nspecified Z87.891 Personal history of nicotine dependence Office Visit 01/01/2021 1:15p [facility] MULU Gallo N18.4 Chronic kidney disease, stage 4 (severe) 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 Office Visit 12/25/2020 2:00p [facility], init N18.6 End stage renal disease Office Visit 12/05/2020 11:00a [facility] MULU Gallo N18.4 Chronic kidney disease, stage 4 (severe) 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 T82.898A Oth complication of vascular prosth dev/grft, init Office Visit 11/26/2020 1:00p [facility] Pulmonary/Thoracic Giovana To wne, A.N.P. J44.9 Chronic obstructive pulmonary disease, u nspecified Z87.891 Personal history of nicotine dependence Office Visit 11/26/2020 3:30p [facility] Franklin Hill MD Z86.010 Personal history of colonic polyps R13.12 Dysphagia, oropharyngeal pha se Assessments Date Code Description Provider 04/29/2021 T82.858A Stenosis of other va scular prosthetic devices, implants and grafts, initial encounter Adrianne Webster MD 04/29/2021 N18.5 Chronic kidney disease, stage 5 Adrianne Webster MD 04/24/2021 N18.6 End stage renal disease Adrianne Webster MD 04/24/2021 T82.590A Other mechanical com plication of surgically created arteriovenous fistula, initial encounter Adrianne Webster MD 04/24/2021 I87.1 Compression of vein Adrianne Webster MD 04/04/2021 N18.5 Chronic kidney disease, stage 5 Adrianne Webster MD 04/04/2021 J44.9 Chronic obstructive pulmonary di sease, unspecified Adrianne Webster MD 04/04/2021 T82.898A Other specified comp lication of vascular prosthetic devices, implants and grafts, initial encounter Adrianne Webster MD 04/04/2021 Z95.828 Presence of other vascular impla nts and grafts Adrianne Webster MD 02/22/2021 Z12.11 Encounter for screening for paolo gnant neoplasm of colon Franklin Hill MD 02/22/2021 K57.30 Diverticulosis of la rge intestine without perforation or abscess without bleeding Franklin Hill MD 02/22/2021 K64.8 Other hemorrhoids Franklin Hill MD 02/04/2021 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 Angel Lucio MD 01/14/2021 J44.9 Chronic obstructive pulmonary di sease, unspecified Giovana Hernandez A.N.P. 01/14/2021 Z87.891 Personal history of nicotine dep endence Giovana Hernandez, A.N.P. 01/01/2021 N18.4 Chronic kidney disease, stage 4 (severe) MULU Fuller 01/01/2021 Z95.828 Presence of other vascular impla nts and grafts MULU Fuller 12/25/2020 T82.590A Other mechanical com plication of surgically created arteriovenous fistula, initial encounter Angela Monzon MD 12/25/2020 N18.6 End stage renal disease Angela santoyo MD 12/05/2020 N18.4 Chronic kidney disease, stage 4 (severe) MULU Fuller 12/05/2020 Z95.828 Presence of other vascular impla nts and grafts MULU Fuller 12/05/2020 T82.898A Other specified comp lication of vascular prosthetic devices, implants and grafts, initial encounter MULU Fuller 11/26/2020 Z86.010 Personal history of colonic poly ps Franklin Hill MD 11/26/2020 R13.12 Dysphagia, oropharyngeal phase D alf Hill MD 11/26/2020 J44.9 Chronic obstructive pulmonary di sease, unspecified Giovana Hernandez, A.N.P. 11/26/2020 Z87.891 Personal history of nicotine dep endence Giovana Hernandez, A.N.P. Plan of Treatment Future Appointment(s):* 06/24/2021 1:30 pm - Giovana Hernandez A.N.P. 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 He developed postprocedure hematoma which is resolved, with residual bruising, which is improving. The left arm swelling has improved/resolved. The AV fistula is patent.Follow-up as required. * N18.5 Chronic kidney disease, stage 5* Comments:* Not on hemodialysis yet Functional Status Description No Information Available Mental Status Description No Information Available Referrals Description No Information Available
--- OUTSIDE RECORDS SUMMARY | 2021-05-27 12:51 | CCD | Continuity of Care Document ---
Author Author Nickolas WEBSTER MD Organization Unknown Address [address], [address] [place] [address] Phone [phone] Care Team Providers Care Environmental Solutions Engineer Name Role Phone Nena Norman M.D. AUTM [phone] Angel Lucio MD AUTM [phone] Supriya Adame AUTM [phone] AUTM Unavailable AUTM Unavailable Madalyn Hayes D.O. AUTM [phone] Problems Active Problems Provider Date Chronic kidney [...] Lucio MD Onset: 06/28/2012 Tracheostomy present Marivel Milligan DO Onset: 06/28/2012 Tracheostomy complication Marivel Milligan DO [...] vein Adrianne Webster MD Onset: 2020 Ex-smoker ERIKA Dorsey Onset: 11/26/2020 Chronic kidney disease stage 5 [...] twice a day via nebulizer 360units J44.9 Giovana Hernandez, ANP 0 11/26/[address] 1 by [...] x 4 days, then stop 26tabs J44.9 ERIKA Dorsey 11/27/19 - 08/16/2020 Milk Of Magnesia 7.75% Suspension take 45 milliliters by mouth about 1-2 days before colonoscopy prep 360ml Z86.010 Franklin Hill MD 11/26/2020 - 08/16/2020 Miralax 17GM/Scoop Powder use as directed see dr hill colon preparation instructions 510gm Z86.010 Fabricio kostas Hill MD 11/26/2020 - 08/16/2020 Covid-19 vaccine, [...] lb BMI (Body Mass Index) 21.5 kg/m2 [place] Body Weight 148 lb Weight 62.200 kg BSA (Body Surface Area) 1.72 m2 04/04/2021 11:38am BP Systolic 136 mmHg BP Diastolic 78 mmHg Body Temperature 98.2 F Height 67 inches 5'7" Weight 141.38 lb BMI (Body Mass Index) 22.1 kg/m2 [place] Body Weight 148 lb Weight 64.128 kg BSA (Body Surface Area) 1.75 m2 Results Test Acquired Date Facility Test Result H/L Range Note Basic Metabolic Profile 04/29/2021 [facility] Main Lab [address] [place] [address] [phone] Glucose, Fasting 104 mg/dL High 70-100 Blood [...] mg/dL Normal 8.8-10.2 PT & Aptt 04/24/2021 [facility] Main Lab [address] [place] [address] [phone] Prothrombin Time 13.1 seconds Normal 12.7-14.5 Inr 0.95 Normal 2 Partial Thromboplastin Time 25.5 seconds Normal 25.9-37.0 Basic Metabolic Profile 04/24/2021 [facility] Main Lab [address] [place] [address] [phone] Glucose, Fasting 107 mg/dL High 70-100 Blood [...] mg/dL High 8.8-10.2 Complete Blood Count 04/24/2021 [facility] Main Lab [address] [place] [address] [phone] White Blood Count 6.3 10 Normal 4.0-10.0 [...] Little GFR Left ESRD GFR <15 on AUTOMOTIVE WINDOW TINTER 2 THERAPUTIC HUMAN INR VALUES INDICATIONS NORMAL [...] Little GFR Left ESRD GFR <15 on AUTOMOTIVE WINDOW TINTER Procedures Date Code Description Status 04/29/2021 46427 Office/Outpatient Established Lo w MDM 20-29 Min Completed 04/04/2021 07336 Office/Outpatient Established Mo d MDM 30-39 Min Completed 02/22/2021 56998 Colonoscopy Flexible Proximal To Splenic Flexure Diagnostic W/Or Completed 02/04/2021 39506 Office/Outpatient Established Lo w MDM 20-29 Min Completed 02/04/2021 21430 Tracheobronchoscopy Through Est Tracheostomy Incision Completed 01/14/2021 55310 Office/Outpatient Established Lo w MDM 20-29 Min Completed 01/01/2021 73532 Office/Outpatient Established Lo w MDM 20-29 Min Completed 12/25/2020 21931 Hospital Consult Initial Level 2 Completed 12/25/2020 50292 Dialysis Circuit W/ Transluminal Balloon Angioplasty, Peripheral Completed 12/05/2020 11964 Office/Outpatient Established Mo d MDM 30-39 Min Completed 11/26/2020 22020 Office/Outpatient Established Lo w MDM 20-29 Min Completed 11/26/2020 50191 Office/Outpatient Established Lo w MDM 20-29 Min Completed Medical Devices Description No Information Available Encounters Type Date Location Provider Dx Diagnosis Office Visit 04/29/2021 3:45p [facility] Alicia Webster MD 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, init N18.5 Chronic kidney disease, stag e 5 Office Visit 04/04/2021 11:30a [facility] Alicia Webster MD N18.5 Chronic kidney disease, stag e 5 J44.9 Chronic obstructive pulmonar y disease, unspecified T82.898A Oth complication of vascular prosth dev/grft, 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 Office Visit 02/04/2021 11:00a [facility] Angel Lucio MD Z85.21 Personal history of malignant neoplasm of larynx Office Visit 01/14/2021 3:00p [facility] Pulmonary/Thoracic Giovana To ERIKA barrios J44.9 Chronic obstructive pulmonary disease, u nspecified Z87.891 Personal history of nicotine dependence Office Visit 01/01/2021 1:15p [facility] MULU Gallo N18.4 Chronic kidney disease, stage 4 (severe) 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 Office Visit 12/25/2020 2:00p [facility] Angela malone MD 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, init N18.6 End stage renal disease Office Visit 12/05/2020 11:00a [facility] MULU Gallo N18.4 Chronic kidney disease, stage 4 (severe) 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 T82.898A Oth complication of vascular prosth dev/grft, init Office Visit 11/26/2020 1:00p [facility] Pulmonary/Thoracic Giovana To ERIKA barrios J44.9 Chronic obstructive pulmonary disease, u nspecified Z87.891 Personal history of nicotine dependence Office Visit 11/26/2020 3:30p [facility] Gastroenterology [facility] toby Hill MD Z86.010 Personal history of colonic polyps R13.12 Dysphagia, oropharyngeal pha se Assessments Date Code Description Provider 04/29/2021 T82.858A Stenosis of other va scular prosthetic devices, implants and grafts, initial encounter Adrianne Webster MD 04/29/2021 N18.5 Chronic kidney disease, stage 5 Adrianne Webster MD 04/04/2021 N18.5 Chronic kidney [...] of malignant ne oplasm of larynx Angel uLcio MD 01/14/2021 J44.9 Chronic obstructive pulmonary di sease, unspecified Giovana Hernandez, ERIKA 01/14/2021 Z87.891 Personal history of nicotine dep endence Giovana Hernandez, ERIKA 01/01/2021 N18.4 Chronic kidney disease, stage 4 [...] J44.9 Chronic obstructive pulmonary di sease, unspecified ERIKA Dorsey 11/26/2020 Z87.891 Personal history of nicotine dep endence ERIKA Dorsey Plan of Treatment Future Appointment(s):* 06/24/2021 1:30 pm - ERIKA Dorsey at [facility] Pulmonary/Thoracic 04/29/2021 - Adrianne Webster MD* [...] Mental Status Description No Information Available Referrals Refer to Reason for Referral Status Appt Date Giovana Hernandez A.N.P. SOB Closed 11/26/2020 [facility] Pul[facility] [address] [place], [place] [address] [phone]
--- OUTSIDE RECORDS SUMMARY | 2021-05-27 12:51 | CCD | Continuity of Care Document ---
Author Author Nickolas WEBSTER MD Organization Unknown Address [address] [facility], [address] [place] [address] Phone [phone] Care Team Providers Care Back Roll Lathe Operator Name Role Phone Nena Norman M.D. AUTM [phone] Angel Lucio MD AUTM Supriya Adame AUTM AUTM Unavailable AUTM Unavailable Madalyn Hayes D.O. 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 Bo Trotter MD Onset: 08/16/2010 Difficulty speaking [...] lb BMI (Body Mass Index) 21.5 kg/m2 [place] Body Weight 148 lb Weight 62.200 kg BSA (Body Surface Area) 1.72 m2 04/04/2021 11:38am BP Systolic 136 mmHg BP Diastolic 78 mmHg Body Temperature 98.2 F Height 67 inches 5'7" Weight 141.38 lb BMI (Body Mass Index) 22.1 kg/m2 [place] Body Weight 148 lb Weight 64.128 kg BSA (Body Surface Area) 1.75 m2 Results Test Acquired Date Facility Test Result H/L Range Note Basic Metabolic Profile 04/29/2021 [facility] Main Lab [address] [place] [address] [phone] Glucose, Fasting 104 mg/dL High 70-100 Blood [...] mg/dL Normal 8.8-10.2 PT & Aptt 04/24/2021 [facility] nter Main Lab [address] [place] [address] [phone] Prothrombin Time 13.1 seconds Normal 12.7-14.5 Inr 0.95 Normal 2 Partial Thromboplastin Time 25.5 seconds Normal 25.9-37.0 Basic Metabolic Profile 04/24/2021 [facility] Main Lab [address] [place] [address] [phone] Glucose, Fasting 107 mg/dL High 70-100 Blood [...] mg/dL High 8.8-10.2 Complete Blood Count 04/24/2021 [facility] Main Lab [address] [place] [address] [phone] White Blood Count 6.3 10 Normal 4.0-10.0 [...] Little GFR Left ESRD GFR <15 on GARBAGE DEPOT WORKER 2 THERAPUTIC HUMAN INR VALUES INDICATIONS NORMAL [...] Little GFR Left ESRD GFR <15 on [employer] Procedures Date Code Description Status 04/29/2021 74916 Office/Outpatient Established Lo w MDM 20-29 Min Completed 04/04/2021 59191 Office/Outpatient Established Mo d MDM 30-39 Min Completed 02/22/2021 53202 Colonoscopy Flexible Proximal To Splenic Flexure Diagnostic W/Or Completed 02/04/2021 49235 Office/Outpatient Established Lo w MDM 20-29 Min Completed 02/04/2021 81908 Tracheobronchoscopy Through Est Tracheostomy Incision Completed 01/14/2021 87638 Office/Outpatient Established Lo w MDM 20-29 Min Completed 01/01/2021 19000 Office/Outpatient Established Lo w MDM 20-29 Min Completed 12/25/2020 31886 Hospital Consult Initial Level 2 Completed 12/25/2020 77420 Dialysis Circuit W/ Transluminal Balloon Angioplasty, Peripheral Completed 12/05/2020 45486 Office/Outpatient Established Mo d MDM 30-39 Min Completed 11/26/2020 88225 Office/Outpatient Established Lo w MDM 20-29 Min Completed 11/26/2020 49329 Office/Outpatient Established Lo w MDM 20-29 Min Completed Medical Devices Description No Information Available Encounters Type Date Location Provider Dx Diagnosis Office Visit 04/29/2021 3:45p [facility] Alicia Webster MD 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, init N18.5 Chronic kidney disease, stag e 5 Office Visit 04/04/2021 11:30a [facility] Alicia Webster MD N18.5 Chronic kidney disease, stag e 5 J44.9 Chronic obstructive pulmonar y disease, unspecified T82.898A Oth complication of vascular prosth dev/grft, 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 Office Visit 02/04/2021 11:00a [facility] Angel Lucio MD 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 Office Visit 01/14/2021 3:00p [facility]Thoracic Giovana To ERIKA barrois J44.9 Chronic obstructive pulmonary disease, u nspecified Z87.891 Personal history of nicotine dependence Office Visit 01/01/2021 1:15p [facility] MULU Gallo N18.4 Chronic kidney disease, stage 4 (severe) 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 Office Visit 12/25/2020 2:00p [facility] Angela malone MD 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, init N18.6 End stage renal disease Office Visit 12/05/2020 11:00a [facility] MULU Gallo N18.4 Chronic kidney disease, stage 4 (severe) 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 SOB Closed 11/26/2020 [facility] Pulmonary [address] [place], [place] [address] [phone]
--- OUTSIDE RECORDS SUMMARY | 2021-05-27 12:51 | CCD | Continuity of Care Document ---
Author Author Nickolas Rendon M.D. Organization Unknown Address [address] [place] [address] Phone [phone] Care Team Providers Care Facility Practice Specialist Name Role Phone Víctor Hayes MD AUTM [phone] Manuel Nunn MD AUTM Unavailable Bo Trotter MD AUTM Unavailable Nena Rendon MD AUTM [phone] Angel Lucio MD AUTM [phone] Cirilo Weeks MD AUTM [phone] Joceline Motley OD AUTM Unavailable Marlo Caban MD AUTM [phone] [facility] AUTM Angela Monzon MD AUTM [phone] Problems Active Problems Provider Date Benign essential [...] 01/[address] 1 by [facility] Nena Rendon M.D. 05/24/2019 Stiolto Respimat 2.5-2.5mcg/Act Ae rosol Inhale Two Puffs By Mouth Daily 12units Nena jaime M.D. 05/24/2019 Calcitriol 0.25mcg Capsules 1 on Thursday and Thursday only Nena Rendon M.D. 08/19/19 17 Saline Nasal [place] 0.65% Solution 3-4x/d as directed 1units Nena [...] 18 Administration Of Flu Vaccine Inj ection Nena Rendon M.D. 05/21/20 17 Administration Of Flu Vaccine Inj kathleen Rendon M.D. 06/03/20 16 Administration Of Flu Vaccine Inj kathleen Rendon M.D. 06/06/20 15 Administration Of Flu Vaccine Inj kathleen Rendon M.D. 06/05/20 14 Immunizations CPT Code Status Date Vaccine Lot # [id number] Given 04/18/2021 Influenza Vaccin e Quadrivalent Preser/Antibiotic Free Im Use [id number] 94278 Given 04/11/2020 Influenza Vaccin e Quadrivalent Preser/Antibiotic Free Im Use [id number] 74994 Given 05/24/2019 Influenza Vaccin e Quadrivalent Preser/Antibiotic Free Im Use [id number] 70240 Given 06/08/2018 Influenza Virus Vaccine, Quadrivalent ([id number]), Derived From 7 Given 03/02/2018 Pneumovax 23 [id number] 32807 Given 05/21/2017 Influenza Vaccin e Quadrivalent Preser/Antibiotic Free Im Use 530234 34217 Given 08/19/2016 Adacel- Tetanus Diphtheria P ertussis [id number] Q2037 Given 06/03/2016 Fluvirin Virus Vaccine 86477 01 U-PneuC Given 04/19/2016 Prevnar 13 Q2037 Given 06/06/2015 Fluvirin Virus Vaccine 66392 01 Q2037 Given 06/05/2014 Fluvirin Virus Vaccine 94814 21 Q2037 Given 05/07/2012 Fluvirin Virus Vaccine 54694 01 Q2037 Given 05/01/2011 Fluvirin Virus Vaccine 22531 Given 04/25/2010 Influenza Virus Vaccine 50321 Refused 09/14/2018 Shingrix Zoster Vaccine (HZV), Recombinant, Subunit, Adjuvanted 62465 Refused 09/14/2018 Zoster Vaccine Vital Signs Date [...] H/L Range Note Basic Metabolic Profile 04/29/2021 [facility] [address] [place] [address] [phone] Glucose, Fasting 104 mg/dL High 70-100 Blood [...] mg/dL Normal 8.8-10.2 PT & Aptt 04/24/2021 [facility] nter [address] [place] [address] [phone] Prothrombin Time 13.1 seconds Normal 12.7-14.5 Inr 0.95 Normal 2 Partial Thromboplastin Time 25.5 seconds Normal 25.9-37.0 Basic Metabolic Profile 04/24/2021 [facility] [address] [place] [address] [phone] Glucose, Fasting 107 mg/dL High 70-100 Blood [...] mg/dL High 8.8-10.2 Complete Blood Count 04/24/2021 [facility] enter [address] [place], [place] [id number] [phone] White Blood Count 6.3 10 Normal 4.0-10.0 [...] % Normal 0-0 Laboratory test finding 03/19/2021 [facility] is, Range Mounter: [place] [address] [phone] Thyroid Stimulating Hormone 5.69 uIU/mL High 0.3 6 - 3.74 Coronavirus 2019 Nasopharygeal 02/18/2021 [facility] [address] [place], [place] [id number] [phone] Coronavirus 2019 Nasopharygeal ASSAY INFORMATIO <SEE N OTE> 4 Laboratory test finding 02/08/2021 [facility], pc Range Mounter: Dr Niranjan Goss [place], [place] [id number] [phone] Thyroid Stimulating Hormone 6.49 uIU/mL High 0.3 6 - 3.74 Basic Metabolic Panel 01/10/2021 [facility] Range Mounter: Dr Niranjan Goss [place], [place] [id number] [phone] Glucose 109 mg/dL High 74 - 99 5 BUN 26 mg/dL High 7 - 18 Creatinine 1.9 mg/dL High 0.6 - 1.3 Sodium 136 mEq/L 136 - 145 Potassium 4.8 mEq/L 3.5 - 5.1 Chloride 99 mEq/L 98 - 107 Carbon Dioxide 31 mEq/L 21 - 32 Calcium 10.2 mg/dL High 8.5 - 10.1 6 GFR 34 mL/min Low >60 GFR 41 mL/min Low >60 7 Laboratory test finding 01/10/2021 [facility] Range Mounter: [place] [address] [phone] Thyroid Stimulating Hormone 8.00 uIU/mL High 0.3 6 - 3.74 8 Ua W/ Reflex To Culture 01/02/2021 [facility] [address] [place] [address] [phone] Appearance, Urine RFX CLEAR Normal Clear Color, Urine RFX YELLOW Normal Yellow PH,Urine RFX 6.0 units Normal 5.0-9.0 Specific [place] Ur Auto RFX 1.008 Normal 1.002-1.035 Protein, [...] /LPF Normal 0-1 Istat Chem8+ Panel 01/02/2021 [facility] nter [address] [place] [address] [phone] iSTAT HCT 45.0 % Normal 38.0-51.0 iSTAT Glucose 103 mg/dL Normal 70-105 iSTAT Sodium 137 mEq/L Normal 136-145 iSTAT Potassium 4.2 mEq/L Normal 3.5-5.1 iSTAT CA++ 4.7 mg/dL Normal 4.5-5.3 iSTAT Chloride 97 mEq/L Low 98-109 iSTAT Co2 29.0 MM/L High 23.0-27.0 iSTAT BUN 47 mg/dL High 8-26 iSTAT Creatinine 3.0 mg/dL High 0.6-1.3 Cardiac Marker Panel 01/02/2021 [facility] enter [address] [place] [address] [phone] CPK Creatine Phosphokinase 64 U/L Normal 39-30 8 CK-MB Value Mass 3.0 NG/ML Normal <3.6 MB/CK Relative Index 4.69 High < Or =4 9 Troponin I < 0.02 NG/ML Normal < 0.10 10 Liver Profile 01/02/2021 [facility] nter [address] [place] [address] [phone] Ast/Sgot 14 U/L Normal 7-37 Alt/SGPT 18 U/L Normal 12-78 Alkaline Phosphatase 74 U/L Normal 45-117 Bilirubin,Total 0.6 mg/dL Normal 0.2-1.0 Bilirubin,Direct 0.2 mg/dL Normal 0.0-0.2 Total Protein 6.8 GM/DL Normal 6.4-8.2 Albumin 3.2 GM/DL Normal 3.2-5.2 Albumin/Globulin Ratio 0.9 Normal CBC With Differential 01/02/[address] [address] [phone] White Blood Count 7.5 10 Normal 4.0-10.0 [...] 36.0-66.0 Lymph % 16.2 % Low 24.0-44.0 [place] % 11.3 % High 2.0-8.0 Eos % 4.4 % High 0.0-3.0 Baso % 1.1 % High 0.0-1.0 Immature Granulocyte % 1.3 % Normal 0-3.0 Nucleated Red Blood Cell % 0.0 % Normal 0-0 Neutrophils # 4.9 10 Normal 1.5-8.5 Lymph # 1.2 10 Low 1.5-5.0 [place]ett # 0.9 10 High 0.0-0.8 Eos # 0.3 10 Normal 0.0-0.5 Baso # 0.1 10 Normal 0.0-0.2 Laboratory test finding 11/29/2020 [facility] Range Mounter: Dr Niranjan Goss [place], [place] [id number] [phone] Thyroid Stimulating Hormone 0.05 uIU/mL Low 0.3 6 - 3.74 Laboratory test finding 10/30/2020 [facility] Range Mounter: Dr Niranjan Goss [place], [place] [id number] [phone] Thyroid Stimulating Hormone 0.67 uIU/mL 0.3 6 - 3.74 1 Units are mL/min/1.73 m2 Chronic Kidney Disease Staging per NKF: Stage I & II GFR >=60 Normal to Mildly Decreased Stage III GFR 30-59 Moderately Decreased Stage IV GFR 15-29 Severely Decreased Stage V GFR <15 Very Little GFR Left ESRD GFR <15 on POLISHER APPRENTICE 2 THERAPUTIC HUMAN INR VALUES INDICATIONS NORMAL [...] Little GFR Left ESRD GFR <15 on POLISHER APPRENTICE 4 ASSAY INFORMATION: Real Time RT-PCR NOTE: The COVID-19 assay has been cleared by the U.S. Food and Drug Administration under the Emergency Use Authorization (EUA). [employer] and [facility] are designated as high complexity laboratories by the Clinical Laboratory Improvement Amendments of 1988(CLIA) and are qualified to perform this test. Not Detected 5 100-125 mg/dL PRE-DIABET ES/FASTING >126 mg/dL DIABETES/FASTING 6 NOTE: RESULT VERIFIED. 7 CHRONIC KIDNEY DISEASE STAGI NG PER NKF STAGE I & II GFR >= 60 NORMAL TO MILDLY DECREASED STAGE III GFR 30-59 MODERATELY DECREASED STAGE IV GFR 15-29 SEVERELY DECREASED STAGE V GFR <15 VERY LITTLE GFR LEFT ESRD GFR <15 ON POLISHER APPRENTICE 8 NOTE: RESULT VERIFIED. 9 DIAGNOSIS CRITERIA MMB ng/ml Relative Index (RI) NON-AMI < or = 5 N/A BLOOM ZONE > 5 < or = 4 AMI > 5 > 4 10 Troponin I Reference Interva l for [employer] LOCI: 99th Percentile= 0.00-0.045 ng/ml Risk Stratification: <= 0.10 ng/ml Decreased Risk for Adverse Clinical Events. 0.10-1.50 ng/ml Increased Risk for Adv erse Clinical Events. Evaluation of additional criterion and/or repeat testing in 2-6 hours is suggested to rule out myocardial damage. >= 1.50 ng/ml Indicative of Myocardial Injury. Procedures Date Code Description Status 03/19/2021 90824 Office/Outpatient Established Mo d MDM 30-39 Min Completed 02/22/2021 [id number] Colonoscopy Completed 01/10/2021 [address] SRV W/I 7 Days Of DC, C omm W/I 2 Dys Med Rec Completed 11/29/2020 13701 Office/Outpatient Established Mo d MDM 30-39 Min Completed 09/28/2014 [id number] Colonoscopy Completed 09/02/2012 [id number] Colonoscopy Completed 06/28/2009 [id number] Colonoscopy Completed Medical Devices Description No Information Available Encounters Type Date Location Provider Dx Diagnosis Office Visit 03/19/2021 10:[facility] J44.1 Chronic obstructive pulmonar y [...] failure to thrive Office Visit 01/10/2021 10:00a [facility] P[facility]remías Rendon M.D. N17.9 Acute kidney [...] of colonic polyps Office Visit 11/29/2020 11:00a [facility] J44.1 Chronic obstructive pulmonar y disease [...] esophagitis Nena Rendon M.D. 01/10/2021 E03.9 Hypothyroidism, unspecified Hawa Rendon M.D. 01/10/2021 R13.10 Dysphagia, jassified Nena Rendon M.D. 01/10/2021 M10.9 Gout, unspecified Nena [...] ne oplasm of larynx Nena Rendon M.D. 10/30/2020 E03.9 Hypothyroidism, unspecified Hawa Rendon M.D. 10/30/2020 E03.9 Hypothyroidism, unspecified Lab Schedule Plan of Treatment Future Appointment(s):* 06/25/2021 10:45 am - Nena Rendon M.D. at [facility] 03/19/2021 - Nena Rendon M.D.* J44.1 Chronic [...]
--- OUTSIDE RECORDS SUMMARY | 2021-05-27 12:51 | CCD | Continuity of Care Document ---
Author Author Nickolas Rendon M.D. Organization Unknown Address [address] [place] [address] Phone [phone] Care Team Providers Care Marketing Outreach Coordinator Name Role Phone Víctor Hayes MD AUTM [phone] Manuel Nunn MD AUTM Unavailable Bo Trotter MD AUTM Unavailable Nnea Rendon MD AUTM [phone] Angel Lucio MD AUTM [phone] Cirilo Weeks MD AUTM [phone] Joceline Motley OD AUTM Unavailable Marlo Caban MD AUTM [phone] [facility] AUTM Angela Monzon MD AUTM [phone] Problems Active Problems Provider Date Benign essential [...] 01/[address] 1 by [facility] Nena Rendon M.D. 05/24/2019 Stiolto Respimat 2.5-2.5mcg/Act Ae rosol Inhale Two Puffs By Mouth Daily 12units Nena jaime M.D. 05/24/2019 Calcitriol 0.25mcg Capsules 1 on Thursday and Thursday only Nena Rendon M.D. 08/19/19 17 Saline Nasal [place] 0.65% Solution 3-4x/d as directed 1units Nena [...] CPT Code Status Date Vaccine Lot # [id number] Given 04/18/2021 Influenza Vaccin e Quadrivalent Preser/Antibiotic Free Im Use [id number] 66315 Given 04/11/2020 Influenza Vaccin e Quadrivalent Preser/Antibiotic Free Im Use [id number] 16854 Given 05/24/2019 Influenza Vaccin e Quadrivalent Preser/Antibiotic Free Im Use [id number] 08481 Given 06/08/2018 Influenza Virus Vaccine, Quadrivalent ([id number]), Derived From 2 Given 03/02/2018 Pneumovax 23 [id number] 31507 Given 05/21/2017 Influenza Vaccin e Quadrivalent Preser/Antibiotic Free Im Use 536314 03130 Given 08/19/2016 Adacel- Tetanus Diphtheria P ertussis [id number] Q2037 Given 06/03/2016 Fluvirin Virus Vaccine 35674 01 U-[id number] Given 04/19/2016 Prevnar 13 [id number] Given 06/06/2015 Fluvirin Virus Vaccine 29850 01 Q2037 Given 06/05/2014 Fluvirin Virus Vaccine 58805 21 Q2037 Given 05/07/2012 Fluvirin Virus Vaccine [id number] 01 Q2037 Given 05/01/2011 Fluvirin Virus Vaccine 91827 Given 04/25/2010 Influenza Virus Vaccine 92321 Refused 09/14/2018 Shingrix Zoster Vaccine (HZV), Recombinant, Subunit, Adjuvanted 03322 Refused 09/14/2018 Zoster Vaccine Vital Signs Date [...] Date Facility Test Result H/L Range Note PT & Aptt 04/24/2021 [facility] nter [address] [place], [place] [id number] [phone] Prothrombin Time 13.1 seconds Normal 12.7-14.5 Inr 0.95 Normal 1 Partial Thromboplastin Time 25.5 seconds Normal 25.9-37.0 Basic Metabolic Profile 04/24/2021 [facility] [address] [place] [address] [phone] Glucose, Fasting 107 mg/dL High 70-100 Blood Urea Nitrogen 31 mg/dL High 7-18 Creatinine For GFR 2.06 mg/dL High 0.70-1.30 Glomerular Filtration Rate 33.0 Low >35 2 Sodium Level 137 mEq/L Normal 136-145 Potassium Serum 4.3 mEq/L Normal 3.5-5.1 Chloride Level 103 mEq/L Normal 98-107 Carbon Dioxide Level 31 mEq/L Normal 21-32 Anion Gap 3 mEq/L Low 8-16 Calcium Level 10.3 mg/dL High 8.8-10.2 Complete Blood Count 04/24/2021 [facility] [address] [place] [address] [phone] White Blood Count 6.3 10 Normal 4.0-10.0 [...] % Normal 0-0 Laboratory test finding 03/19/2021 [facility] [employer] hunt Dimethylaniline Sulfator Operator: Dr Niranjan [place] [id number] [phone] Thyroid Stimulating Hormone 5.69 uIU/mL High 0.3 6 - 3.74 Coronavirus 2019 Nasopharygeal 02/18/[address] [address] [phone] Coronavirus 2019 Nasopharygeal ASSAY INFORMATIO <SEE N OTE> 3 Laboratory test finding 02/08/2021 [facility] Echeverria Dimethylaniline Sulfator Operator: Dr Niranjan Goss [place], [place] [address] [phone] Thyroid Stimulating Hormone 6.49 uIU/mL High 0.3 6 - 3.74 Basic Metabolic Panel 01/10/2021 [facility] Maldonado Dimethylaniline Sulfator Operator: Dr Niranjan [place]oss [place] [address] [phone] Glucose 109 mg/dL High 74 - 99 4 BUN 26 mg/dL High 7 - 18 Creatinine 1.9 mg/dL High 0.6 - 1.3 Sodium 136 mEq/L 136 - 145 Potassium 4.8 mEq/L 3.5 - 5.1 Chloride 99 mEq/L 98 - 107 Carbon Dioxide 31 mEq/L 21 - 32 Calcium 10.2 mg/dL High 8.5 - 10.1 5 GFR 34 mL/min Low >60 GFR 41 mL/min Low >60 6 Laboratory test finding 01/10/2021 [facility] Echeverria Dimethylaniline Sulfator Operator: Dr Niranjan Goss [place], [place] [id number] [phone] Thyroid Stimulating Hormone 8.00 uIU/mL High 0.3 6 - 3.74 7 Ua W/ Reflex To Culture 01/02/[address], [place] [address] [phone] Appearance, Urine RFX CLEAR Normal Clear Color, Urine RFX YELLOW Normal Yellow PH,Urine RFX 6.0 units Normal 5.0-9.0 Specific [place] Ur Auto RFX 1.008 Normal 1.002-1.035 Protein, [...] /LPF Normal 0-1 Istat Chem8+ Panel 01/02/2021 [facility] nter [address] [place], [place] [address] [phone] iSTAT HCT 45.0 % Normal 38.0-51.0 iSTAT Glucose 103 mg/dL Normal 70-105 iSTAT Sodium 137 mEq/L Normal 136-145 iSTAT Potassium 4.2 mEq/L Normal 3.5-5.1 iSTAT CA++ 4.7 mg/dL Normal 4.5-5.3 iSTAT Chloride 97 mEq/L Low 98-109 iSTAT Co2 29.0 MM/L High 23.0-27.0 iSTAT BUN 47 mg/dL High 8-26 iSTAT Creatinine 3.0 mg/dL High 0.6-1.3 Cardiac Marker Panel 01/02/2021 [facility] enter [address] [place] [address] [phone] CPK Creatine Phosphokinase 64 U/L Normal 39-30 8 CK-MB Value Mass 3.0 NG/ML Normal <3.6 MB/CK Relative Index 4.69 High < Or =4 8 Troponin I < 0.02 NG/ML Normal < 0.10 9 Liver Profile 01/02/2021 [facility] nter [address] [place], [place] [address] [phone] Ast/Sgot 14 U/L Normal 7-37 Alt/SGPT 18 U/L Normal 12-78 Alkaline Phosphatase 74 U/L Normal 45-117 Bilirubin,Total 0.6 mg/dL Normal 0.2-1.0 Bilirubin,Direct 0.2 mg/dL Normal 0.0-0.2 Total Protein 6.8 GM/DL Normal 6.4-8.2 Albumin 3.2 GM/DL Normal 3.2-5.2 Albumin/Globulin Ratio 0.9 Normal CBC With Differential 01/02/2021 [place] [address] [place] [address] [phone] White Blood Count 7.5 10 Normal 4.0-10.0 [...] 36.0-66.0 Lymph % 16.2 % Low 24.0-44.0 [place] % 11.3 % High 2.0-8.0 Eos % 4.4 % High 0.0-3.0 Baso % 1.1 % High 0.0-1.0 Immature Granulocyte % 1.3 % Normal 0-3.0 Nucleated Red Blood Cell % 0.0 % Normal 0-0 Neutrophils # 4.9 10 Normal 1.5-8.5 Lymph # 1.2 10 Low 1.5-5.0 [place] # 0.9 10 High 0.0-0.8 Eos # 0.3 10 Normal 0.0-0.5 Baso # 0.1 10 Normal 0.0-0.2 Laboratory test finding 11/29/2020 [facility] [employer] hunt Dimethylaniline Sulfator Operator: [place] [address] [phone] Thyroid Stimulating Hormone 0.05 uIU/mL Low 0.3 6 - 3.74 Laboratory test finding 10/30/2020 [facility] [employer] hunt Dimethylaniline Sulfator Operator: [place] [address] [phone] Thyroid Stimulating Hormone 0.67 uIU/mL 0.3 6 - 3.74 1 THERAPUTIC HUMAN INR VALUES INDICATIONS NORMAL RANGES PROPHYLAXIS/TREATMENT OF: VENOUS THROMBOSIS 2.0-3.0 PULMONARY EMBOLISM 2.0-3.0 PREVENTION OF SYSTEMIC EMBOLISM FROM: TISSUE HEART VALVES 2.0-3.0 ACUTE MYOCARDIAL INFARCTION 2.0-3.0 VALVULAR HEART DISEASE 2.0-3.0 ATRIAL FIBRILLATION 2.0-3.0 MECHANICAL VALVES(HIGH RISK) 2.5-3.5 RECURRENT MYOCARDIAL INFARCTION 2.5-3.5 2 Units are mL/min/1.73 m2 Chronic Kidney Disease Staging per NKF: Stage I & II GFR >=60 Normal to Mildly Decreased Stage III GFR 30-59 Moderately Decreased Stage IV GFR 15-29 Severely Decreased Stage V GFR <15 Very Little GFR Left ESRD GFR <15 on SENIOR PRIVATE CLIENT ADVISOR 3 ASSAY INFORMATION: Real Time RT-PCR NOTE: The COVID-19 assay has been cleared by the U.S. Food and Drug Administration under the Emergency Use Authorization (EUA). [facility] and [facility] are designated as high complexity laboratories by the Clinical Laboratory Improvement Amendments of 1988(CLIA) and are qualified to perform this test. Not Detected 4 100-125 mg/dL PRE-DIABET ES/FASTING >126 mg/dL DIABETES/FASTING 5 NOTE: RESULT VERIFIED. 6 CHRONIC KIDNEY DISEASE STAGI NG PER NKF STAGE I & II GFR >= 60 NORMAL TO MILDLY DECREASED STAGE III GFR 30-59 MODERATELY DECREASED STAGE IV GFR 15-29 SEVERELY DECREASED STAGE V GFR <15 VERY LITTLE GFR LEFT ESRD GFR <15 ON SENIOR PRIVATE CLIENT ADVISOR 7 NOTE: RESULT VERIFIED. 8 DIAGNOSIS CRITERIA MMB ng/ml Relative Index (RI) NON-AMI < or = 5 N/A BLOOM ZONE > 5 < or = 4 AMI > 5 > 4 9 Troponin I Reference Interva l for Siemens IQcard LOCI: 99th Percentile= 0.00-0.045 ng/ml Risk Stratification: <= 0.10 ng/ml Decreased Risk for Adverse Clinical Events. 0.10-1.50 ng/ml Increased Risk for Adv erse Clinical Events. Evaluation of additional criterion and/or repeat testing in 2-6 hours is suggested to rule out myocardial damage. >= 1.50 ng/ml Indicative of Myocardial Injury. Procedures Date Code Description Status 03/19/2021 27432 Office/Outpatient Established Mo d MDM 30-39 Min Completed 02/22/2021 [id number] Colonoscopy Completed 01/10/2021 [address] SRV W/I 7 Days Of DC, C omm W/I 2 Dys Med Rec Completed 11/29/2020 43905 Office/Outpatient Established Mo d MDM 30-39 Min Completed 09/28/2014 [id number] Colonoscopy Completed 09/02/2012 [id number] Colonoscopy Completed 06/28/2009 [id number] Colonoscopy Completed Medical Devices Description No Information Available Encounters Type Date Location Provider Dx Diagnosis Office Visit 03/19/2021 10:45a [facility] M.D. J44.1 Chronic obstructive pulmonar y disease [...] failure to thrive Office Visit 01/10/2021 10:00a [facility] M.D. N17.9 Acute kidney failure, unspec ified [...] of colonic polyps Office Visit 11/29/2020 11:00a [facility] Jaime Rendon M.D. J44.1 Chronic [...] ase with stage 1 through sta Nena Rnedon M.D. 03/19/2021 N18.32 Chronic kidney disease, stage [...] 10:45 am - [facility] at [facility] 03/19/2021 - Nena Rendon M.D.* J44.1 [...]
--- OUTSIDE RECORDS SUMMARY | 2021-05-27 12:51 | CCD | Continuity of Care Document ---
Author Author Nickolas WEBSTER MD Organization Unknown Address [address] [facility], [address] [place] [address] Phone [phone] Care Team Providers Care Fulfillment Associate Name Role Phone Nena Norman M.D. AUTM [phone] Angel Lucio MD AUTM Supriya Adame AUTM AUTM Unavailable AUTM Unavailable Madalyn Hayes D.O. 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[place] Angel Lucio MD Onset: 06/28/2012 Tracheostomy present Marivel Milligan DO Onset: 06/28/2012 Tracheostomy complication Marivle Milligan DO Onset: 012 Malignant tumor of [...] lb BMI (Body Mass Index) 21.5 kg/m2 [place] Body Weight 148 lb Weight 62.200 kg BSA (Body Surface Area) 1.72 m2 04/04/2021 11:38am BP Systolic 136 mmHg BP Diastolic 78 mmHg Body Temperature 98.2 F Height 67 inches 5'7" Weight 141.38 lb BMI (Body Mass Index) 22.1 kg/m2 [place] Body Weight 148 lb Weight 64.128 kg BSA (Body Surface Area) 1.75 m2 Results Test Acquired Date Facility Test Result H/L Range Note Basic Metabolic Profile 04/29/2021 [facility] Main Lab [address] [place] [address] [phone] Glucose, Fasting 104 mg/dL High 70-100 Blood [...] mg/dL Normal 8.8-10.2 PT & Aptt 04/24/2021 [facility] nter Main Lab [address] [place] [address] [phone] Prothrombin Time 13.1 seconds Normal 12.7-14.5 Inr 0.95 Normal 2 Partial Thromboplastin Time 25.5 seconds Normal 25.9-37.0 Basic Metabolic Profile 04/24/2021 [facility] Main Lab [address] [place] [address] [phone] Glucose, Fasting 107 mg/dL High 70-100 Blood [...] 8.8-10.2 Complete Blood Count 04/24/2021 [facility] Main Lab [address] [place] [address] [phone] White Blood Count 6.3 10 Normal 4.0-10.0 [...] Little GFR Left ESRD GFR <15 on SHIP OFFICER 2 THERAPUTIC HUMAN INR VALUES INDICATIONS NORMAL [...] Little GFR Left ESRD GFR <15 on SHIP OFFICER Procedures Date Code Description Status 04/29/2021 93363 Office/Outpatient Established Lo w MDM 20-29 Min Completed 04/04/2021 00750 Office/Outpatient Established Mo d MDM 30-39 Min Completed 02/22/2021 47480 Colonoscopy Flexible Proximal To Splenic Flexure Diagnostic W/Or Completed 02/04/2021 40992 Office/Outpatient Established Lo w MDM 20-29 Min Completed 02/04/2021 53727 Tracheobronchoscopy Through Est Tracheostomy Incision Completed 01/14/2021 76190 Office/Outpatient Established Lo w MDM 20-29 Min Completed 01/01/2021 40983 Office/Outpatient Established Lo w MDM 20-29 Min Completed 12/25/2020 58235 Hospital Consult Initial Level 2 Completed 12/25/2020 78367 Dialysis Circuit W/ Transluminal Balloon Angioplasty, Peripheral Completed 12/05/2020 38171 Office/Outpatient Established Mo d MDM 30-39 Min Completed 11/26/2020 94496 Office/Outpatient Established Lo w MDM 20-29 Min Completed 11/26/2020 67410 Office/Outpatient Established Lo w MDM 20-29 Min Completed Medical Devices Description No Information Available Encounters Type Date Location Provider Dx Diagnosis Office Visit 04/29/2021 3:45p [facility] Surgery [facility] Alicia Webster MD 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, init N18.5 Chronic kidney disease, stag e 5 Office Visit 04/04/2021 11:30a [facility] Surgery Practice Alicia Webster MD N18.5 Chronic kidney disease, stag e 5 J44.9 Chronic obstructive pulmonar y disease, unspecified T82.898A Oth complication of vascular prosth dev/grft, 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 Office Visit 02/04/2021 11:00a [facility] ENT Practice Angel Lucio MD 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 Office Visit 01/14/2021 3:00p [facility] Pulmonary/Thoracic Giovana To ERIKA barrios J44.9 Chronic obstructive pulmonary disease, u nspecified Z87.891 Personal history of nicotine dependence Office Visit 01/01/2021 1:15p [facility] Surgery Practice MULU Gallo N18.4 Chronic kidney disease, stage 4 (severe) 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 Office Visit 12/25/2020 2:00p [facility] Surgery [facility] Angela malone MD 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, init N18.6 End stage renal disease Office Visit 12/05/2020 11:00a [facility] Surgery Practice MULU Gallo N18.4 Chronic kidney disease, stage 4 (severe) 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 T82.898A Oth complication of vascular prosth dev/grft, init Office Visit 11/26/2020 1:00p [facility] Pulmonary/Thoracic Giovana To ERIKA barrios J44.9 Chronic obstructive pulmonary disease, u nspecified Z87.891 Personal history of nicotine dependence Office Visit 11/26/2020 3:30p [facility] Gastroenterology [facility] toby Hill MD Z86.010 Personal history of colonic polyps R13.12 Dysphagia, oropharyngeal pha se Assessments Date Code Description Provider 04/29/2021 T82.858A Stenosis of other va scular prosthetic devices, implants and grafts, initial encounter Adiranne Webster MD 04/29/2021 N18.5 Chronic kidney disease, [...] 06/24/2021 1:30 pm - ERIKA Dorsey at [facility] Pulmonary/Thoracic 04/29/2021 - Adrianne Webster MD* T82.858A [...] Date Giovana Hernandez A.N.P. SOB Closed 11/26/2020 [facility] Pulmonary [address] [place], [place] [address] [phone]
--- OUTSIDE RECORDS SUMMARY | 2021-05-27 12:51 | CCD | Continuity of Care Document ---
Author Author Nickolas WEBSTER MD Organization Unknown Address [address] [facility], [address] [place] [address] Phone [phone] Care Team Providers Care Grommet Worker Name Role Phone Nena Norman M.D. AUTM [phone] Angel Lucio MD AUTM Supriya Adame AUTM AUTM Unavailable AUTM Unavailable Madalyn Hayes D.O. AUTM [phone] Problems Active Problems Provider Date Chronic kidney [...] lb BMI (Body Mass Index) 21.5 kg/m2 [place] Body Weight 148 lb Weight 62.200 kg BSA (Body Surface Area) 1.72 m2 04/04/2021 11:38am BP Systolic 136 mmHg BP Diastolic 78 mmHg Body Temperature 98.2 F Height 67 inches 5'7" Weight 141.38 lb BMI (Body Mass Index) 22.1 kg/m2 [place] Body Weight 148 lb Weight 64.128 kg BSA (Body Surface Area) 1.75 m2 Results Test Acquired Date Facility Test Result H/L Range Note Basic Metabolic Profile 04/29/2021 [facility] Main Lab [address] [place] [address] [phone] Glucose, Fasting 104 mg/dL High 70-100 Blood [...] mg/dL Normal 8.8-10.2 PT & Aptt 04/24/2021 [facility] nter Main Lab [address] [place] [address] [phone] Prothrombin Time 13.1 seconds Normal 12.7-14.5 Inr 0.95 Normal 2 Partial Thromboplastin Time 25.5 seconds Normal 25.9-37.0 Basic Metabolic Profile 04/24/2021 [facility] Main Lab [address] [place] [address] [phone] Glucose, Fasting 107 mg/dL High 70-100 Blood [...] mg/dL High 8.8-10.2 Complete Blood Count 04/24/2021 [facility] Main Lab [address] [place] [address] [phone] White Blood Count 6.3 10 Normal 4.0-10.0 [...] Little GFR Left ESRD GFR <15 on ORGANIC GARDENING TEACHER 2 THERAPUTIC HUMAN INR VALUES INDICATIONS NORMAL [...] Little GFR Left ESRD GFR <15 on ORGANIC GARDENING TEACHER Procedures Date Code Description Status 04/29/2021 20408 Office/Outpatient Established Lo w MDM 20-29 Min Completed 04/04/2021 80650 Office/Outpatient Established Mo d MDM 30-39 Min Completed 02/22/2021 93066 Colonoscopy Flexible Proximal To Splenic Flexure Diagnostic W/Or Completed 02/04/2021 35823 Office/Outpatient Established Lo w MDM 20-29 Min Completed 02/04/2021 68375 Tracheobronchoscopy Through Est Tracheostomy Incision Completed 01/14/2021 06765 Office/Outpatient Established Lo w MDM 20-29 Min Completed 01/01/2021 33308 Office/Outpatient Established Lo w MDM 20-29 Min Completed 12/25/2020 85783 Hospital Consult Initial Level 2 Completed 12/25/2020 63327 Dialysis Circuit W/ Transluminal Balloon Angioplasty, Peripheral Completed 12/05/2020 67314 Office/Outpatient Established Mo d MDM 30-39 Min Completed 11/26/2020 73389 Office/Outpatient Established Lo w MDM 20-29 Min Completed 11/26/2020 79220 Office/Outpatient Established Lo w MDM 20-29 Min Completed Medical Devices Description No Information Available Encounters Type Date Location Provider Dx Diagnosis Office Visit 04/29/2021 3:45p [facility] Surgery [facility] Alicia Webster MD 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, init N18.5 Chronic kidney disease, stag e 5 Office Visit 04/04/2021 11:30a [facility] Surgery Practice Alicia Webster MD N18.5 Chronic kidney disease, stag e 5 J44.9 Chronic obstructive pulmonar y disease, unspecified T82.898A Oth complication of vascular prosth dev/grft, 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 Office Visit 02/04/2021 11:00a [facility] ENT Practice Angel Lucio MD 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 Office Visit 01/14/2021 3:00p [facility] Pulmonary/Thoracic Giovana To ERIKA barrios J44.9 Chronic obstructive pulmonary disease, u nspecified Z87.891 Personal history of nicotine dependence Office Visit 01/01/2021 1:15p [facility] Surgery [facility] MULU Gallo N18.4 Chronic kidney disease, stage 4 (severe) 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 Office Visit 12/25/2020 2:00p [facility] Angela malone MD 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, init N18.6 End stage renal disease Office Visit 12/05/2020 11:00a [facility] MULU Gallo N18.4 Chronic kidney disease, stage 4 (severe) 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 T82.898A Oth complication of vascular prosth dev/grft, init Office Visit 11/26/2020 1:00p [facility] Pulmonary/Thoracic Giovana To ERIKA barrios J44.9 Chronic obstructive pulmonary disease, u nspecified Z87.891 Personal history of nicotine dependence Office Visit 11/26/2020 3:30p [facility] Gastroenterology [facility] toby Hill MD Z86.010 Personal [...] 06/24/2021 1:30 pm - ERIKA Dorsey at [facility] Pulmonary/Thoracic 04/29/2021 - Adrianne Webster MD* T82.858A [...]
--- OUTSIDE RECORDS SUMMARY | 2021-05-27 12:51 | CCD | Continuity of Care Document ---
Author Author Nickolas WEBSTER MD Organization Unknown Address [address], [address] [place] [address] Phone [phone] Care Team Providers Care Sales Driver Name Role Phone Nena Norman M.D. AUTM [phone] Angel Lucio MD AUTM [phone] Supriya Adame AUTM [phone] AUTM Unavailable AUTM Unavailable Madalyn Hayes D.O. AUTM [phone] Problems Active Problems Provider Date Chronic kidney [...] lb BMI (Body Mass Index) 21.5 kg/m2 [place] Body Weight 148 lb Weight 62.200 kg BSA (Body Surface Area) 1.72 m2 04/04/2021 11:38am BP Systolic 136 mmHg BP Diastolic 78 mmHg Body Temperature 98.2 F Height 67 inches 5'7" Weight 141.38 lb BMI (Body Mass Index) 22.1 kg/m2 [place] Body Weight 148 lb Weight 64.128 kg BSA (Body Surface Area) 1.75 m2 Results Test Acquired Date Facility Test Result H/L Range Note Basic Metabolic Profile 04/29/2021 [facility] Main Lab [address] [place] [address] [phone] Glucose, Fasting 104 mg/dL High 70-100 Blood [...] mg/dL Normal 8.8-10.2 PT & Aptt 04/24/2021 [facility] Main Lab [address] [place] [address] [phone] Prothrombin Time 13.1 seconds Normal 12.7-14.5 Inr 0.95 Normal 2 Partial Thromboplastin Time 25.5 seconds Normal 25.9-37.0 Basic Metabolic Profile 04/24/2021 [facility] Main Lab [address] [place] [address] [phone] Glucose, Fasting 107 mg/dL High 70-100 Blood [...] mg/dL High 8.8-10.2 Complete Blood Count 04/24/2021 [facility] Main Lab [address] [place] [address] [phone] White Blood Count 6.3 10 Normal 4.0-10.0 [...] Little GFR Left ESRD GFR <15 on COAL DUMPING EQUIPMENT OPERATOR 2 THERAPUTIC HUMAN INR VALUES INDICATIONS NORMAL [...] Little GFR Left ESRD GFR <15 on COAL DUMPING EQUIPMENT OPERATOR Procedures Date Code Description Status 04/29/2021 89475 Office/Outpatient Established Lo w MDM 20-29 Min Completed 04/24/2021 99862 Ultrasound Guidance For Vascular Access Requiring Ultrasound Eval Completed 04/24/2021 27513 Translum Balloon Ang io Central Dial Segment Through Dialys Circui Completed 04/24/2021 98935 Dialysis Circuit, Intro [place]/ Cath W/ Diagnostic Angiography Completed 04/04/2021 96177 Office/Outpatient Established Mo d MDM 30-39 Min Completed 02/22/2021 92421 Colonoscopy Flexible Proximal To Splenic Flexure Diagnostic W/Or Completed 02/04/2021 25434 Office/Outpatient Established Lo w MDM 20-29 Min Completed 02/04/2021 14442 Tracheobronchoscopy Through Est Tracheostomy Incision Completed 01/14/2021 14901 Office/Outpatient Established Lo w MDM 20-29 Min Completed 01/01/2021 15906 Office/Outpatient Established Lo w MDM 20-29 Min Completed 12/25/2020 45833 Hospital Consult Initial Level 2 Completed 12/25/2020 36484 Dialysis Circuit W/ Transluminal Balloon Angioplasty, Peripheral Completed 12/05/2020 46520 Office/Outpatient Established Mo d MDM 30-39 Min Completed 11/26/2020 29790 Office/Outpatient Established Lo w MDM 20-29 Min Completed 11/26/2020 08704 Office/Outpatient Established Lo w MDM 20-29 Min Completed Medical Devices Description No Information Available Encounters Type Date Location Provider Dx Diagnosis Office Visit 04/29/2021 3:45p [facility] Alicia Webster MD 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, init N18.5 Chronic kidney disease, stag e 5 Office Visit 04/04/2021 11:30a [facility] Alicia Webster MD N18.5 Chronic kidney disease, stag e 5 J44.9 Chronic obstructive pulmonar y disease, unspecified T82.898A Oth complication of vascular prosth dev/grft, 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 Office Visit 02/04/2021 11:00a [facility] Angel Lucio MD 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 Office Visit 01/14/2021 3:00p [facility] Pulmonary/Thoracic Giovana To ERIKA barrios J44.9 Chronic obstructive pulmonary disease, u nspecified Z87.891 Personal history of nicotine dependence Office Visit 01/01/2021 1:15p [facility] MULU Gallo N18.4 Chronic kidney disease, stage 4 (severe) 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 Office Visit 12/25/2020 2:00p [facility] Angela malone MD T82.590A [facility] compl of surgically created arterio venous fistula, init N18.6 End stage renal disease Office Visit 12/05/2020 11:00a [facility] MULU Gallo N18.4 Chronic kidney disease, stage 4 (severe) 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 T82.898A Oth complication of vascular prosth dev/grft, init Office Visit 11/26/2020 1:00p [facility] Pulmonary/Thoracic Giovana To ERIKA barrios J44.9 Chronic obstructive pulmonary disease, u nspecified Z87.891 Personal history of nicotine dependence Office Visit 11/26/2020 3:30p [facility] Gastroenterology Pra ctice [place] MD [...] obstructive pulmonary di sease, unspecified ERIKA Dorsey 01/14/2021 Z87.891 Personal history of nicotine dep endence ERIKA Dorsey 01/01/2021 N18.4 Chronic kidney disease, stage 4 (severe) MULU Fuller 01/01/2021 Z95.828 Presence of other vascular impla nts and grafts MULU Fuller 12/25/2020 T82.590A Other mechanical com plication of surgically created arteriovenous fistula, initial encounter Angela Monzon MD 12/25/2020 N18.6 End stage renal disease Angela santoyo MD 12/05/2020 N18.4 Chronic kidney disease, stage 4 (severe) UMLU Fuller 12/05/2020 Z95.828 Presence of other vascular [...] 06/24/2021 1:30 pm - ERIKA Dorsey at [facility] Pulmonary/Thoracic 04/29/2021 - Adrianne Webster MD* [...]
--- OUTSIDE RECORDS SUMMARY | 2021-05-27 12:52 | CCD | Continuity of Care Document ---
Author Author Nickolas Rendon M.D. Organization Unknown Address [address] [place] [address] Phone [phone] Care Team Providers Care Database Software Technician Name Role Phone Víctor Hayes MD AUTM [phone] Manuel Nunn MD AUTM Unavailable Bo Trotter MD AUTM Unavailable Nena Rendon MD AUTM [phone] Angel Lucio MD AUTM [phone] Cirilo Weeks MD AUTM [phone] Joceline Motley OD AUTM Unavailable Marlo Caban MD AUTM [phone] [facility] AUTM Angela Monzon MD AUTM [phone] Problems Active Problems Provider Date Benign essential [...] smoker Quit 2010; 1 ppd x 50 Allergies, Adverse Reactions, Alerts Active Allergies Criticality Reaction | Severity Comments Date Amoxicillin Unable to assess criticality rash, hives 09/14/2012 Levaquin Unable to assess criticality tendonitis 06/06/2015 Inactive Allergies NKDA Unable to assess criticality 03/21/2010 Medications Active Medications SIG Qnty Indications Ordering Provide r Date Gatoraid one daily ok with Dr.Sindhu Nena Rendon M.D. 01/11/2021 Levothyroxine Sodium 75mcg Tablets 1 by mouth every day 90tabs Nena Rendon M.D. 12/01/19 21 Tamsulosin HCL 0.4mg Capsules 1 by mouth every day 90selins Nena Rendon M.D. 09/04/19 21 Ensure Active Liquid 2 can/d 30Cans Nena Rendon M.D. 05/01/[address] 1 by mouth every morning 90tonny Rendon M.D. 03/30/20 20 Albuterol Sulfate (2 .5mg/3ML) 0.083% Nebulizer Use One Vial Via Nebulizer Four Times A Day as Needed 1050units Nena Rendon M.D. 01/30/2020 Nebulizer Device use as d irected 1unsae Rendon M.D. 01/26/2020 Allopurinol 100mg Tablets take 2 tablets by mouth every day Nena Rendon M.D. 01/[address] 1 by mo [facility] Nena Rendon M.D. 05/24/2019 Stiolto Respimat 2.5-2.5mcg/Act Ae rosol Inhale Two Puffs By Mouth Daily 12units Nena jaime M.D. 05/24/2019 Calcitriol 0.25mcg Capsules 1 on Thursday and Thursday only Nena Rendon M.D. 08/19/19 17 Saline Nasal [place] 0.65% Solution 3-4x/d as directed 1units Nena [...] as needed 180tabs Jaime Rendon M.D. 03/05/2010 Toprol XL 100mg Tablets ER 24HR take one tablet by mouth every day 90tabs Alejandra Casarez 11/29/1999 Budesonide 0.5mg/2ML Suspension use in nebulizer twice daily Unknown Sular 8.5mg Tablets ER 24HR 1 at bedtime by mouth Unknown History Medications Prednisone 20mg Tablets 3 qd x 4days then 2 for 4 days then 1 for 4 d then 1/2 x 4 days then stop Unknown 11/26/2020 - 01/07/2021 Medications Administered in Office Medication SIG Qnty Indications Ordering Provider Date Administration Of Flu Vaccine Inj kathleen Rendon M.D. 04/11/20 20 Administration Of Flu Vaccine Inj kathleen Rendon M.D. 05/24/20 19 Administration Of Flu Vaccine Inj Oksana HolderD. 06/08/20 18 Administration Of Flu Vaccine Inj kathleen Rendon M.D. 05/21/20 17 Administration Of Flu Vaccine Inj kathleen Rendon M.D. 06/03/20 16 Administration Of Flu Vaccine Inj kathleen Rendon M.D. 06/06/20 15 Administration Of Flu Vaccine Inj kathleen Rendon M.D. 06/05/20 14 Immunizations CPT Code Status Date Vaccine Lot # [id number] Given 04/11/2020 Influenza Vaccin e Quadrivalent Preser/Antibiotic Free Im Use [id number] 14365 Given 05/24/2019 Influenza Vaccin e Quadrivalent Preser/Antibiotic Free Im Use [id number] 97807 Given 06/08/2018 Influenza Virus Vaccine, Quadrivalent (Cciiv4), Derived From 4 Given 03/02/2018 Pneumovax 23 [id number] 22771 Given 05/21/2017 Influenza Vaccin e Quadrivalent Preser/Antibiotic Free Im Use [id number] 71508 Given 08/19/2016 Adacel- Tetanus Diphtheria P ertussis (Age64 & Under) [id number] Q2037 Given 06/03/2016 Fluvirin Virus Vaccine 87361 01 U-PneuC Given 04/19/2016 Prevnar 13 Q2037 Given 06/06/2015 Fluvirin Virus Vaccine 28301 01 Q2037 Given 06/05/2014 Fluvirin Virus Vaccine 39152 21 Q2037 Given 05/07/2012 Fluvirin Virus Vaccine 79173 01 Q2037 Given 05/01/2011 Fluvirin Virus Vaccine 43569 Given 04/25/2010 Influenza Virus Vaccine 33316 Refused 09/14/2018 Shingrix Zoster Vaccine (HZV), Recombinant, Subunit, Adjuvanted 31705 Refused 09/14/2018 Zoster Vaccine Vital Signs Date [...] Result H/L Range Note Laboratory test finding 03/19/2021 [place] [facility] Echeverria Ladle Puller: [place] [address] [phone] TSH <pending> Coronavirus 2019 Nasopharygeal 02/18/2021 [place] [address] [phone] Coronavirus 2019 Nasopharygeal ASSAY INFORMATIO <SEE N OTE> 1 Laboratory test finding 02/08/2021 [place] [facility] Echeverria Ladle Puller: [place] [id number] [phone] Thyroid Stimulating Hormone 6.49 uIU/mL High 0.3 6 - 3.74 Basic Metabolic Panel 01/10/2021 [place] [facility] Maldonado Ladle Puller: [place] [address] [phone] Glucose 109 mg/dL High 74 - 99 2 BUN 26 mg/dL High 7 - 18 Creatinine 1.9 mg/dL High 0.6 - 1.3 Sodium 136 mEq/L 136 - 145 Potassium 4.8 mEq/L 3.5 - 5.1 Chloride 99 mEq/L 98 - 107 Carbon Dioxide 31 mEq/L 21 - 32 Calcium 10.2 mg/dL High 8.5 - 10.1 3 GFR 34 mL/min Low >60 GFR 41 mL/min Low >60 4 Laboratory test finding 01/10/2021 [place] Silvia hunt Ladle Puller: Dr Nir[place] [id number] [phone] Thyroid Stimulating Hormone 8.00 uIU/mL High 0.3 6 - 3.74 5 Ua W/ Reflex To Culture 01/02/2021 [place] [id number] [phone] Appearance, Urine RFX CLEAR Normal Clear Color, Urine RFX YELLOW Normal Yellow PH,Urine RFX 6.0 units Normal 5.0-9.0 Specific [place] Ur Auto RFX 1.008 Normal 1.002-1.035 Protein, [...] /LPF Normal 0-1 Istat Chem[facility]+ [facility] [address] [place] [address] [phone] iSTAT HCT 45.0 % Normal 38.0-51.0 iSTAT Glucose 103 mg/dL Normal 70-105 iSTAT Sodium 137 mEq/L Normal 136-145 iSTAT Potassium 4.2 mEq/L Normal 3.5-5.1 iSTAT CA++ 4.7 mg/dL Normal 4.5-5.3 iSTAT Chloride 97 mEq/L Low 98-109 iSTAT Co2 29.0 MM/L High 23.0-27.0 iSTAT BUN 47 mg/dL High 8-26 iSTAT Creatinine 3.0 mg/dL High 0.6-1.3 Cardiac Marker Panel 01/02/2021 [facility] enter [address] [place] [address] [phone] CPK Creatine Phosphokinase 64 U/L Normal 39-30 8 CK-MB Value Mass 3.0 NG/ML Normal <3.6 MB/CK Relative Index 4.69 High < Or =4 6 Troponin I < 0.02 NG/ML Normal < 0.10 7 Liver Profile 01/02/2021 [facility] nter [address] [place] [address] [phone] Ast/Sgot 14 U/L Normal 7-37 Alt/SGPT 18 U/L Normal 12-78 Alkaline Phosphatase 74 U/L Normal 45-117 Bilirubin,Total 0.6 mg/dL Normal 0.2-1.0 Bilirubin,Direct 0.2 mg/dL Normal 0.0-0.2 Total Protein 6.8 GM/DL Normal 6.4-8.2 Albumin 3.2 GM/DL Normal 3.2-5.2 Albumin/Globulin Ratio 0.9 Normal CBC With Differential 01/02/2021 [facility] [address] [place], [place] [id number] [phone] White Blood Count 7.5 10 Normal 4.0-10.0 [...] 36.0-66.0 Lymph % 16.2 % Low 24.0-44.0 [place] % 11.3 % High 2.0-8.0 Eos % 4.4 % High 0.0-3.0 Baso % 1.1 % High 0.0-1.0 Immature Granulocyte % 1.3 % Normal 0-3.0 Nucleated Red Blood Cell % 0.0 % Normal 0-0 Neutrophils # 4.9 10 Normal 1.5-8.5 Lymph # 1.2 10 Low 1.5-5.0 [place] # 0.9 10 High 0.0-0.8 Eos # 0.3 10 Normal 0.0-0.5 Baso # 0.1 10 Normal 0.0-0.2 Laboratory test finding 11/29/2020 [place] [facility] pc Ladle Puller: [place] [address] [phone] Thyroid Stimulating Hormone 0.05 uIU/mL Low 0.3 6 - 3.74 Laboratory test finding 10/30/2020 [place] [employer] avis hunt Ladle Puller: [place] [address] [phone] Thyroid Stimulating Hormone 0.67 uIU/mL 0.3 6 - 3.74 Laboratory test finding 09/28/2020 [place] [employer] avis hunt Ladle Puller: [place] [address] [phone] Thyroid Stimulating Hormone 1.37 uIU/mL 0.3 6 - 3.74 1 ASSAY INFORMATION: Real Time RT-PCR NOTE: The COVID-19 assay has been cleared by the U.S. Food and Drug Administration under the Emergency Use Authorization (EUA). [facility] are designated as high complexity laboratories by the Clinical Laboratory Improvement Amendments of 1988(CLIA) and are qualified to perform this test. Not Detected 2 100-125 mg/dL PRE-DIABET ES/FASTING >126 mg/dL DIABETES/FASTING 3 NOTE: RESULT VERIFIED. 4 CHRONIC KIDNEY DISEASE STAGI NG PER NKF STAGE I & II GFR >= 60 NORMAL TO MILDLY DECREASED STAGE III GFR 30-59 MODERATELY DECREASED STAGE IV GFR 15-29 SEVERELY DECREASED STAGE V GFR <15 VERY LITTLE GFR LEFT ESRD GFR <15 ON DIRECTOR CONSUMER AFFAIRS 5 NOTE: RESULT VERIFIED. 6 DIAGNOSIS CRITERIA MMB ng/ml Relative Index (RI) NON-AMI < or = 5 N/A BLOOM ZONE > 5 < or = 4 AMI > 5 > 4 7 Troponin I Reference Interva l for [employer] LOCI: 99th Percentile= 0.00-0.045 ng/ml Risk Stratification: <= 0.10 ng/ml Decreased Risk for Adverse Clinical Events. 0.10-1.50 ng/ml Increased Risk for Adv erse Clinical Events. Evaluation of additional criterion and/or repeat testing in 2-6 hours is suggested to rule out myocardial damage. >= 1.50 ng/ml Indicative of Myocardial Injury. Procedures Date Code Description Status 02/22/2021 [id number] Colonoscopy Completed 01/10/2021 [address] SRV W/I 7 Days Of DC, C omm W/I 2 Dys Med Rec Completed 11/29/2020 88885 Office/Outpatient Established Mo d MDM 30-39 Min Completed 10/09/2020 76687 Office/Outpatient Established Lo w MDM 20-29 Min Completed 09/28/2014 [id number] Colonoscopy Completed 09/02/2012 [id number] Colonoscopy Completed 06/28/2009 [id number] Colonoscopy Completed Medical Devices Description No Information Available Encounters Type Date Location Provider Dx Diagnosis Office Visit 01/10/2021 10:00a [place] InternAroldo hunt M.D. N17.9 Acute kidney failure, [...] of colonic polyps Office Visit 11/29/2020 11:00a [place] InternAroldo hunt M.D. J44.1 Chronic obstructive pulmonar [...] history of malignan t neoplasm of larynx Office Visit 10/09/2020 12:00p [place] Aroldo Queen M.D. 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 [...] unspecified Hawa Rendon M.D. 01/10/2021 R13.10 Dysphagia, unspecified Nena Rendon M.D. 01/10/2021 M10.9 Gout, unspecified [...] M.D. 10/30/2020 E03.9 Hypothyroidism, unspecified Lab Schedule 10/09/2020 J44.1 Chronic obstructive pulmonary disease with (acute) exacerbation Nena Rendon M.D. 10/09/2020 R62.7 Adult failure to thrive Nena Rendon M.D. 10/09/2020 I12.9 Hypertensive chronic kidney dise ase with stage 1 through sta Nena Rendon M.D. 10/09/2020 N18.32 Chronic kidney disease, stage 3b Nena Rendon M.D. 10/09/2020 E03.9 Hypothyroidism, unspecified Hawa Rendon M.D. 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 09/28/2020 E03.9 Hypothyroidism, unspecified Hawa Rendon M.D. 09/28/2020 E03.9 Hypothyroidism, unspecified Lab Schedule Plan of Treatment Future Appointment(s):* 04/18/2021 2:00 pm - [facility] * 06/25/2021 10:45 am - Nena Rendon M.D. at [facility] 01/10/2021 - Nena Rendon M.D.* N17.9 Acute kidney failure, unspecified * I12.9 Hypertensive chronic kidney disease with stage 1 through sta * N18.32 Chronic kidney disease, stage 3b * N30.01 Acute cystitis with hematuria * J44.1 Chronic obstructive pulmonary disease with (acute) exacerbation * K21.9 Gastro-esophageal reflux disease without esophagitis * E03.9 Hypothyroidism, unspecified * R13.10 Dysphagia, unspecified * M10.9 Gout, unspecified * H82.9 Vertiginous syndromes in diseases classified elsewhere, unspecified ear * M54.41 Lumbago with sciatica, right side * N40.1 Benign prostatic hyperplasia with lower urinary tract symptoms * E83.42 Hypomagnesemia * 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 Failure to thrive. Weight is down again, will continue to supplement. Support offered, encouragement given Functional Status Description No Information Available Mental Status Description No Information Available Referrals Refer to Reason for Referral Status Appt Date [facility] Pulmonary Medicine CONSULT FOR PROGRESSIVE SOB Patient Noti fied 11/26/[address] [place], [place] [id number] [phone]
--- OUTSIDE RECORDS SUMMARY | 2021-05-27 12:52 | CCD | Continuity of Care Document ---
Author Author Nurse Nickolas Tompkins Organization Unknown Address [address] [place] [address] Phone [phone] Care Team Providers Care Federal District Clerk Name Role Phone Víctor Hayes MD AUTM [phone] Manuel Nunn MD AUTM Unavailable Bo Trotter MD AUTM Unavailable Nena Rendon MD AUTM [phone] Angel Lucio MD AUTM [phone] Cirilo Weeks MD AUTM [phone] Joceline Motley OD AUTM Unavailable Marlo Caban MD AUTM [phone] [facility] AUTM [phone] Angela Monzon MD AUTM [phone] Problems Active Problems Provider Date Benign essential [...] Capsules DR 1 by mouth every morning 90capsteve Rendon M.D. 03/30/20 20 Albuterol Sulfate (2 .5mg/3ML) 0.083% Nebulizer Use One Vial Via Nebulizer Four Times A Day as Needed 1050units Nena Rendon M.D. 01/30/2020 Nebulizer Device use as d irected 1unsae Rendon M.D. 01/26/2020 Allopurinol 100mg Tablets take 2 tablets by mouth every day Nena Rendon M.D. 01/[address] 1 by mo [facility] Nena Rendon M.D. 05/24/2019 Stiolto Respimat 2.5-2.5mcg/Act Ae rosol Inhale Two Puffs By Mouth Daily 12units Nena jaime M.D. 05/24/2019 Calcitriol 0.25mcg Capsules 1 on Thursday and Thursday only Nena Rendon M.D. 08/19/19 17 Saline Nasal [place] 0.65% Solution 3-4x/d as directed 1unsae Rendon M.D. 03/22/20 13 Zyrtec Allergy 10mg Tablets 1 by mouth every day Nena Rnedon M.D. 03/22/20 13 Colcrys 0.6mg Tablets 1 [...] Flu Vaccine Inj ection Nena Rendon M.D. 04/11/20 20 Administration Of Flu [...] CPT Code Status Date Vaccine Lot # 13974 Given 04/18/2021 Influenza Vaccin e Quadrivalent Preser/Antibiotic Free Im Use [id number] 47113 Given 04/11/2020 Influenza Vaccin e Quadrivalent Preser/Antibiotic Free Im Use 229097 39199 Given 05/24/2019 Influenza Vaccin e Quadrivalent Preser/Antibiotic Free Im Use 136113 40578 Given 06/08/2018 Influenza Virus Vaccine, Quadrivalent (Cciiv4), Derived From 9 Given 03/02/2018 Pneumovax 23 [id number] 59956 Given 05/21/2017 Influenza Vaccin e Quadrivalent Preser/Antibiotic Free Im Use [id number] 28755 Given 08/19/2016 Adacel- Tetanus Diphtheria P ertussis [id number] Q2037 Given 06/03/2016 Fluvirin Virus Vaccine 19015 01 U-PneuC Given 04/19/2016 Prevnar 13 Q2037 Given 06/06/2015 Fluvirin Virus Vaccine 53304 01 Q2037 Given 06/05/2014 Fluvirin Virus Vaccine 17344 21 Q2037 Given 05/07/2012 Fluvirin Virus Vaccine 25790 01 Q2037 Given 05/01/2011 Fluvirin Virus Vaccine 48792 Given 04/25/2010 Influenza Virus Vaccine 89408 Refused 09/14/2018 Shingrix Zoster Vaccine (HZV), Recombinant, Subunit, Adjuvanted 29127 Refused 09/14/2018 Zoster Vaccine Vital Signs Date [...] H/L Range Note Laboratory test finding 03/19/2021 [facility] Referral Management Liaison: [place] [address] [phone] Thyroid Stimulating Hormone 5.69 uIU/mL High 0.3 6 - 3.74 Coronavirus 2019 Nasopharygeal 02/18/[address] [address] [phone] Coronavirus 2019 Nasopharygeal ASSAY INFORMATIO <SEE N OTE> 1 Laboratory test finding 02/08/2021 [facility] Echever[facility] Referral Management Liaison: [place] [address] [phone] Thyroid Stimulating Hormone 6.49 uIU/mL High 0.3 6 - 3.74 Basic Metabolic Panel 01/10/2021 [facility] Garcia Referral Management Liaison: [place] [address] [phone] Glucose 109 mg/dL High 74 - 99 [...] Low >60 4 Laboratory test finding 01/10/2021 [facility] Echever[facility] Referral Management Liaison: [place] [address] [phone] Thyroid Stimulating Hormone 8.00 uIU/mL High 0.3 6 - 3.74 5 Ua W/ Reflex To Culture 01/02/2021 [facility] [address] [place] [address] [phone] Appearance, Urine RFX CLEAR Normal Clear Color, Urine RFX YELLOW Normal Yellow PH,Urine RFX 6.0 units Normal 5.0-9.0 Specific [place] Ur Auto RFX 1.008 Normal 1.002-1.035 Protein, [...] /LPF Normal 0-1 Istat Chem8+ Panel 01/02/2021 [facility] [address] [place] [address] [phone] iSTAT HCT 45.0 % Normal 38.0-51.0 iSTAT Glucose 103 mg/dL Normal 70-105 iSTAT Sodium 137 mEq/L Normal 136-145 iSTAT Potassium 4.2 mEq/L Normal 3.5-5.1 iSTAT CA++ 4.7 mg/dL Normal 4.5-5.3 iSTAT Chloride 97 mEq/L Low 98-109 iSTAT Co2 29.0 MM/L High 23.0-27.0 iSTAT BUN 47 mg/dL High 8-26 iSTAT Creatinine 3.0 mg/dL High 0.6-1.3 Cardiac Marker Panel 01/02/2021 [facility] enter [address] [place] [address] [phone] CPK Creatine Phosphokinase 64 U/L Normal 39-30 8 CK-MB Value Mass 3.0 NG/ML Normal <3.6 MB/CK Relative Index 4.69 High < Or =4 6 Troponin I < 0.02 NG/ML Normal < 0.10 7 Liver Profile 01/02/2021 [facility] nter [address] [place] [address] [phone] Ast/Sgot 14 U/L Normal 7-37 Alt/SGPT 18 U/L Normal 12-78 Alkaline Phosphatase 74 U/L Normal 45-117 Bilirubin,Total 0.6 mg/dL Normal 0.2-1.0 Bilirubin,Direct 0.2 mg/dL Normal 0.0-0.2 Total Protein 6.8 GM/DL Normal 6.4-8.2 Albumin 3.2 GM/DL Normal 3.2-5.2 Albumin/Globulin Ratio 0.9 Normal CBC With Differential 01/02/2021 [facility] [address] [place] [address] [phone] White Blood Count 7.5 10 Normal 4.0-10.0 [...] 36.0-66.0 Lymph % 16.2 % Low 24.0-44.0 Grant % 11.3 % High 2.0-8.0 Eos % 4.4 % High 0.0-3.0 Baso % 1.1 % High 0.0-1.0 Immature Granulocyte % 1.3 % Normal 0-3.0 Nucleated Red Blood Cell % 0.0 % Normal 0-0 Neutrophils # 4.9 10 Normal 1.5-8.5 Lymph # 1.2 10 Low 1.5-5.0 Grant # 0.9 10 High 0.0-0.8 Eos # 0.3 10 Normal 0.0-0.5 Baso # 0.1 10 Normal 0.0-0.2 Laboratory test finding 11/29/2020 [facility] Referral Management Liaison: [place] [address] [phone] Thyroid Stimulating Hormone 0.05 uIU/mL Low 0.3 6 - 3.74 Laboratory test finding 10/30/2020 [facility] Referral Management Liaison: [place] [address] [phone] Thyroid Stimulating Hormone 0.67 uIU/mL 0.3 6 - 3.74 1 ASSAY INFORMATION: Real Time RT-PCR NOTE: The COVID-19 assay has been cleared by the U.S. Food and Drug Administration under the Emergency Use Authorization (EUA). [facility] and [facility] are designated as high complexity laboratories by [...] LITTLE GFR LEFT ESRD GFR <15 ON BOTTLE CASER 5 NOTE: RESULT VERIFIED. 6 DIAGNOSIS CRITERIA MMB ng/ml Relative Index (RI) NON-AMI < or = 5 N/A BLOOM ZONE > 5 < or = 4 AMI > 5 > 4 7 Troponin I Reference Interva l for Siemens [place] LOCI: 99th Percentile= 0.00-0.045 ng/ml Risk Stratification: <= 0.10 ng/ml Decreased Risk for Adverse Clinical Events. 0.10-1.50 ng/ml Increased Risk for Adv erse Clinical Events. Evaluation of additional criterion and/or repeat testing in 2-6 hours is suggested to rule out myocardial damage. >= 1.50 ng/ml Indicative of Myocardial Injury. Procedures Date Code Description Status 03/19/2021 47874 Office/Outpatient Established Mo d MDM 30-39 Min Completed 02/22/2021 20412503 Colonoscopy Completed 01/10/2021 97869 [facility] SRV W/I 7 Days Of DC, C omm W/I 2 Dys Med Rec Completed 11/29/2020 22543 Office/Outpatient Established Mo d MDM 30-39 Min Completed 09/28/2014 [id number] Colonoscopy Completed 09/02/2012 [id number] Colonoscopy Completed 06/28/2009 [id number] Colonoscopy Completed Medical Devices Description No Information Available Encounters Type Date Location Provider Dx Diagnosis Office Visit 03/19/2021 10:45a [facility] M.[facility] J44.1 Chronic obstructive pulmonar [...] failure to thrive Office Visit 01/10/2021 10:00a Aroldo Velazquez M.D. N17.9 Acute kidney failure, unspec ified [...] of colonic polyps Office Visit 11/29/2020 11:00a [facility] Jaime Rendon M.D. J44.1 Chronic [...] of larynx Assessments Date Code Description Provider 03/19/2021 J44.1 Chronic obstructive pulmonary disease with [...] symptoms Nena Rendon M.D. 11/29/2020 M10.9 Gout, jassified Nena kingsley M.D. 11/29/2020 E83.42 Hypomagnesemia Nena jaime M.D. 11/29/2020 E03.9 Hypothyroidism, unspecified Hawa Rendon M.D. 11/29/2020 R13.10 Dysphagia, jassified Nena Rendon M.D. 11/29/2020 R62.7 Adult failure to thrive Nena Rendon M.D. 11/29/2020 Z86.010 Personal history of colonic poly ps Nena Rendon M.D. 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 10/30/2020 E03.9 Hypothyroidism, unspecified Hawa Rendon M.D. 10/30/2020 E03.9 Hypothyroidism, unspecified Lab Schedule Plan of Treatment Future Appointment(s):* 06/25/2021 10:45 am - Nena Rendon M.D. at [facility] 03/19/2021 - Nena Rendon M.D.* [...]
--- OUTSIDE RECORDS SUMMARY | 2021-05-27 12:52 | CCD | Continuity of Care Document ---
Author Author Nickolas WEBSTER MD Organization Unknown Address [address], [address] [place] [address] Phone [phone] Care Team Providers Care Relay Record Clerk Name Role Phone Nena Norman M.D. AUTM [phone] Angel Lucio MD AUTM [phone] Supriya Adame AUTM [phone] AUTM Unavailable Problems Active Problems Provider Date Chronic kidney [...] of colon Franklin Hill MD Onset: 09/29/2014 Ex-smoker ERIKA Dorsey Onset: 11/26/2020 Social History Type Date Description Comments Sex Unknown ETOH Use Denies alcohol use Tobacco Use Reviewed: 11/26/20 Denies Smoking Quit 07/2011.. .. hx of 1 ppd x 55 years Recreational Drug Use Denies Drug Use Smoking Status Reviewed: 01/14/21 Denies Smoking Quit 07/2011.. .. hx of 1 ppd x 55 years Allergies, Adverse Reactions, Alerts Active Allergies Criticality Reaction | Severity Comments Date Amoxicillin Unable to assess criticality Hives, Rash 05/11/2009 Levaquin Unable to assess criticality 09/03/2016 Medications Active Medications SIG Qnty Indications Ordering Provide r Date Budesonide 0.5mg/2ML Suspension inhale 1 vial twice a day via nebulizer 360units J44.9 ERIKA Dorsey 0 11/26/[address] 1 [...] 30tabs Unknown Aspirin Ec Lo-Dose 81mg Tablets DR 1 tab by mouth everyday 30tabs Unknown History Medications Prednisone 10mg Tablets 30mg every day x 4 days then 20mg every day x 4 days then 10mg every day x 4 days, then 5mg every day x 4 days, then stop 26tabs J44.9 Giovanayadira Oconnelle, ERIKA 11/27/19 - 08/16/2020 Milk Of Magnesia 7.75% [...] Available Vital Signs Date Vital Result Comment 04/04/2021 11:38am BP Systolic 136 mmHg BP Diastolic 78 mmHg Body Temperature 98.2 F Height 67 inches 5'7" Weight 141.38 lb BMI (Body Mass Index) 22.1 kg/m2 [place] Body Weight 148 lb Weight 64.128 kg BSA (Body Surface Area) 1.75 m2 02/04/2021 11:10am Height 67 inches 5'7" Weight 136.00 lb BMI (Body Mass Index) 21.3 kg/m2 [place] Body Weight 148 lb Weight 61.690 kg BSA (Body Surface Area) 1.72 m2 Results Description No Information Available Procedures Date Code Description Status 02/22/2021 79378 Colonoscopy Flexible Proximal To Splenic Flexure Diagnostic W/Or Completed 02/04/2021 16567 Office/Outpatient Established Lo w MDM 20-29 Min Completed 02/04/2021 40149 Tracheobronchoscopy Through Est Tracheostomy Incision Completed 01/14/2021 08206 Office/Outpatient Established Lo w MDM 20-29 Min Completed 01/01/2021 15167 Office/Outpatient Established Lo w MDM 20-29 Min Completed 12/25/2020 95992 Hospital Consult Initial Level 2 Completed 12/25/2020 40460 Dialysis Circuit W/ Transluminal Balloon Angioplasty, Peripheral Completed 12/05/2020 05885 Office/Outpatient Established Mo d MDM 30-39 Min Completed 11/26/2020 22348 Office/Outpatient Established Lo w MDM 20-29 Min Completed 11/26/2020 67750 Office/Outpatient Established Lo w MDM 20-29 Min Completed Medical Devices Description No Information Available Encounters Type Date Location Provider Dx Diagnosis Office Visit 02/04/2021 11:00a [facility] Angel Lucio MD 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 Office Visit 01/14/2021 3:00p [facility] Pulmonary/Thoracic Giovana To ERIKA barrios J44.9 Chronic obstructive pulmonary disease, u nspecified Z87.891 Personal history of nicotine dependence Office Visit 01/01/2021 1:15p [facility] Surgery [facility] MULU Gallo N18.4 Chronic kidney disease, stage 4 (severe) 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 Office Visit 12/25/2020 2:00p [facility], init N18.6 End stage renal disease Office Visit 12/05/2020 11:00a [facility] MULU Gallo N18.4 Chronic kidney disease, stage 4 (severe) 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 T82.898A Oth complication of vascular prosth dev/grft, init Office Visit 11/26/2020 1:00p [facility] Pulmonary/Thoracic Giovana To ERIKA barrios J44.9 Chronic obstructive pulmonary disease, u nspecified Z87.891 Personal history of nicotine dependence Office Visit 11/26/2020 3:30p [facility] Gastroenterology Pra ctice Franklin Hill MD Z86.010 Personal history of colonic polyps R13.12 Dysphagia, oropharyngeal pha se Assessments Date Code Description Provider 02/22/2021 Z12.11 Encounter for screening for paolo gnant neoplasm of colon Franklin Hill MD 02/22/2021 K57.30 Diverticulosis of la rge intestine without perforation or abscess without bleeding Franklin Hill MD 02/22/2021 K64.8 Other hemorrhoids Franklin Hill MD 02/04/2021 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 Angel Lucio MD 01/14/2021 J44.9 Chronic obstructive pulmonary di seasyeni, unspecified ERIKA Dorsey 01/14/2021 Z87.891 Personal history of nicotine dep lisandroence ERIKA Dorsey 01/01/2021 N18.4 Chronic kidney disease, [...] 06/24/2021 1:30 pm - ERIKA Dorsey at [facility] Pulmonary/Thoracic 02/04/2021 - Angel Lucio MD* 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
--- OUTSIDE RECORDS SUMMARY | 2021-05-27 12:52 | CCD | Continuity of Care Document ---
Author Author Nickolas WEBSTER MD Organization Unknown Address [address], [address] [place] [address] Phone [phone] Care Team Providers Care Starting Sheet Tank Operator Name Role Phone Nena Norman M.D. AUTM [phone] Angel Lucio MD AUTM [phone] Supriya Adame AUTM [phone] AUTM Unavailable Problems Active Problems Provider [...] Milligan DO Onset: 06/28/2012 Tracheostomy complication Marivel L Chel DO Onset: 012 Malignant tumor of larynx [...] of colon Franklin Hill MD Onset: 09/29/2014 Disorder of surgical arteriovenous fistula Adrianne kamara MD Onset: 04/04/2021 Ex-smoker ERIKA Dorsey Onset: 11/26/2020 Chronic kidney disease stage 5 Adrianne Webster MD On set: 04/04/2021 Social History Type Date Description Comments [...] lb BMI (Body Mass Index) 22.1 kg/m2 [place] Body Weight 148 lb Weight 64.128 kg BSA (Body Surface Area) 1.75 m2 02/04/2021 11:10am Height 67 inches 5'7" Weight 136.00 lb BMI (Body Mass Index) 21.3 kg/m2 [place] Body Weight 148 lb Weight 61.690 kg BSA (Body Surface Area) 1.72 m2 Results Description No Information Available Procedures Date Code Description Status 04/04/2021 32061 Office/Outpatient Established Mo d MDM 30-39 Min Completed 02/22/2021 17851 Colonoscopy Flexible Proximal To Splenic Flexure Diagnostic W/Or Completed 02/04/2021 37500 Office/Outpatient Established Lo w MDM 20-29 Min Completed 02/04/2021 77934 Tracheobronchoscopy Through Est Tracheostomy Incision Completed 01/14/2021 30124 Office/Outpatient Established Lo w MDM 20-29 Min Completed 01/01/2021 94567 Office/Outpatient Established Lo w MDM 20-29 Min Completed 12/25/2020 66761 Hospital Consult Initial Level 2 Completed 12/25/2020 97936 Dialysis Circuit W/ Transluminal Balloon Angioplasty, Peripheral Completed 12/05/2020 18081 Office/Outpatient Established Mo d MDM 30-39 Min Completed 11/26/2020 55656 Office/Outpatient Established Lo w MDM 20-29 Min Completed 11/26/2020 01595 Office/Outpatient Established Lo w MDM 20-29 Min Completed Medical Devices Description No Information Available Encounters Type Date Location Provider Dx Diagnosis Office Visit 04/04/2021 11:30a [facility] Alicia blackwood Froy Webster MD N18.5 Chronic kidney disease, stag e 5 J44.9 Chronic obstructive pulmonar y disease, unspecified T82.898A Oth complication of vascular prosth dev/grft, 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 Office Visit 02/04/2021 11:00a [facility] Angel Lucio MD 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 Office Visit 01/14/2021 3:00p [facility] Giovana To ERIKA barrios J44.9 Chronic obstructive pulmonary disease, u nspecified Z87.891 Personal history of nicotine dependence Office Visit 01/01/2021 1:15p [facility] MULU Gallo N18.4 Chronic kidney disease, stage 4 (severe) 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 Office Visit 12/25/2020 2:00p [facility] Angela malone MD 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, init N18.6 End stage renal disease Office Visit 12/05/2020 11:00a [facility] MULU Gallo N18.4 Chronic kidney disease, stage 4 (severe) 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 T82.898A Oth complication of vascular prosth dev/grft, init Office Visit 11/26/2020 1:00p [facility] Giovana To ERIKA barrios J44.9 Chronic obstructive pulmonary disease, u nspecified Z87.891 Personal history of nicotine dependence Office Visit 11/26/2020 3:30p [facility] Franklin Hill MD Z86.010 Personal history of colonic polyps R13.12 Dysphagia, oropharyngeal pha se Assessments Date Code Description Provider 04/04/2021 N18.5 Chronic kidney disease, stage 5 [...] N18.4 Chronic kidney disease, stage 4 (severe) MLUU Fuller 12/05/2020 Z95.828 Presence of other vascular impla nts and grafts MULU Fuller 12/05/2020 T82.898A Other specified comp lication of vascular prosthetic devices, implants and grafts, initial encounter MULU Fuller 11/26/2020 Z86.010 Personal history of colonic poly ps Franklin Hill MD 11/26/2020 R13.12 Dysphagia, oropharyngeal phase D alf Hill MD 11/26/2020 J44.9 Chronic obstructive pulmonary di sease, unspecified ERIKA Dorsye 11/26/2020 Z87.891 Personal history of nicotine dep endence ERIKA Dorsey Plan of Treatment Future Appointment(s):* 05/02/2021 9:00 am - Adrianne Webster MD at [facility] * 04/24/2021 9:30 am - Adrianne Webster MD at [facility] * 06/24/2021 1:30 pm - ERIKA Dorsey at [facility] 04/04/2021 - Adrianne Webster MD* N18.5 Chronic kidney disease, stage 5* Comments:* Patient is not on hemodialysis yet. 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 of his recurrent left arm swelling * J44.9 Chronic obstructive pulmonary disease, unspecified* Comments:* On nebulizers * T82.898A Other specified complication of vascular prosthetic devices, implants and grafts, initial encounter* Comments:* Recurrent swelling of the left 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 They are keen on salvaging the AV fistula, and wished to proceed with a fistulogram and subclavian artery intervention-which will be performed, after evaluation with nephrology, as he is not on hemodialysis yet.The patient and his understand and agree to the plan of care. All their questions were answered to their satisfaction * Z95.828 Presence of other vascular implants and grafts* Comments:* Patent left radio cephalic AV fistula. He has mild grade 1 steal syndrome, which is tolerable, and does not need intervention, at the current time. The patient and his were reassured about the nature of his symptoms Functional Status Description No Information Available Mental Status Description No Information Available Referrals Refer to Reason for Referral Status Appt Date Giovana Hernandez A.N.P. SOB Closed 11/26/2020 [facility] [address] [place], [place] [address] [phone]
--- OUTSIDE RECORDS SUMMARY | 2021-05-27 12:52 | CCD | Continuity of Care Document ---
Author Author Nickolas Rendon M.D. Organization Unknown Address [address] [place] [address] Phone [phone] Care Team Providers Care Event Host Name Role Phone Víctor Hayes MD AUTM [phone] Manuel Nunn MD AUTM Unavailable Bo Trotter MD AUTM Unavailable Nena Rendon MD AUTM [phone] Angel Lucio MD AUTM [phone] Cirilo Weeks MD AUTM [phone] Joceline Motley OD AUTM Unavailable Marlo Caban MD AUTM [phone] [facility] AUTM [phone] Angela Monzon MD AUTM [phone] Problems Active Problems Provider Date Benign essential [...] 01/[address] 1 by [facility] Nena Rendon M.D. 05/24/2019 Stiolto Respimat 2.5-2.5mcg/Act Ae rosol Inhale Two Puffs By Mouth Daily 12units Nena jaime M.D. 05/24/2019 Calcitriol 0.25mcg Capsules 1 on Thursday and Thursday only Nena Rendon M.D. 08/19/19 17 Saline Nasal [place] 0.65% Solution 3-4x/d as directed 1units Nena [...] CPT Code Status Date Vaccine Lot # 63349 Given 04/18/2021 Influenza Vaccin e Quadrivalent Preser/Antibiotic Free Im Use [id number] 57563 Given 04/11/2020 Influenza Vaccin e Quadrivalent Preser/Antibiotic Free Im Use 734853 40914 Given 05/24/2019 Influenza Vaccin e Quadrivalent Preser/Antibiotic Free Im Use [id number] 30674 Given 06/08/2018 Influenza Virus Vaccine, Quadrivalent (Cciiv4), Derived From 1 Given 03/02/2018 Pneumovax 23 [id number] 80455 Given 05/21/2017 Influenza Vaccin e Quadrivalent Preser/Antibiotic Free Im Use 690653 93273 Given 08/19/2016 Adacel- Tetanus Diphtheria P ertussis [id number] Q2037 Given 06/03/2016 Fluvirin Virus Vaccine 88521 01 U-PneuC Given 04/19/2016 Prevnar 13 Q2037 Given 06/06/2015 Fluvirin Virus Vaccine 32606 01 Q2037 Given 06/05/2014 Fluvirin Virus Vaccine 60664 21 Q2037 Given 05/07/2012 Fluvirin Virus Vaccine 98296 01 Q2037 Given 05/01/2011 Fluvirin Virus Vaccine 71751 Given 04/25/2010 Influenza Virus Vaccine 13534 Refused 09/14/2018 Shingrix Zoster Vaccine (HZV), Recombinant, Subunit, Adjuvanted 16575 Refused 09/14/2018 Zoster Vaccine Vital Signs Date [...] H/L Range Note PT & Aptt 04/24/2021 [facility] nter [address] [place], [place] [address] [phone] Prothrombin Time 13.1 seconds Normal 12.7-14.5 Inr 0.95 Normal 1 Partial Thromboplastin Time 25.5 seconds Normal 25.9-37.0 Basic Metabolic Profile 04/24/2021 [facility] [address] [place] [address] [phone] Glucose, Fasting 107 mg/dL High 70-100 Blood [...] mg/dL High 8.8-10.2 Complete Blood Count 04/24/2021 [facility] [address] [place] [address] [phone] White Blood Count 6.3 10 Normal 4.0-10.0 [...] % Normal 0-0 Laboratory test finding 03/19/2021 [place] [employer] avis hunt Biology Manager: Dr Niranjan [place]oss [place] [address] [phone] Thyroid Stimulating Hormone 5.69 uIU/mL High 0.3 6 - 3.74 Coronavirus 2019 Nasopharygeal 02/18/[address] [address] [phone] Coronavirus 2019 Nasopharygeal ASSAY INFORMATIO <SEE N OTE> 3 Laboratory test finding 02/08/2021 [place] av[facility] Echeverria Biology Manager: Dr Niranjan Goss [place], [place] [address] [phone] Thyroid Stimulating Hormone 6.49 uIU/mL High 0.3 6 - 3.74 Basic Metabolic Panel 01/10/2021 [place] vais Maldonado Biology Manager: Dr Niranjan [place]oss [place] [address] [phone] Glucose 109 mg/dL High 74 - 99 [...] Low >60 6 Laboratory test finding 01/10/2021 [place] [facility] Echeverria Biology Manager: Dr Niranjan Goss [place], [place] [address] [phone] Thyroid Stimulating Hormone 8.00 uIU/mL High 0.3 6 - 3.74 7 Ua W/ Reflex To Culture 01/02/[address], [place] [address] [phone] Appearance, Urine RFX CLEAR Normal Clear Color, Urine RFX YELLOW Normal Yellow PH,Urine RFX 6.0 units Normal 5.0-9.0 Specific [place] Ur Auto RFX 1.008 Normal 1.002-1.035 Protein, [...] /LPF Normal 0-1 Istat Chem8+ Panel 01/02/2021 [facility] Ce nter [address] [place], [place] [id number] [phone] iSTAT HCT 45.0 % Normal 38.0-51.0 iSTAT Glucose 103 mg/dL Normal 70-105 iSTAT Sodium 137 mEq/L Normal 136-145 iSTAT Potassium 4.2 mEq/L Normal 3.5-5.1 iSTAT CA++ 4.7 mg/dL Normal 4.5-5.3 iSTAT Chloride 97 mEq/L Low 98-109 iSTAT Co2 29.0 MM/L High 23.0-27.0 iSTAT BUN 47 mg/dL High 8-26 iSTAT Creatinine 3.0 mg/dL High 0.6-1.3 Cardiac Marker Panel 01/02/2021 [facility] [address] [place] [address] [phone] CPK Creatine Phosphokinase 64 U/L Normal 39-30 8 CK-MB Value Mass 3.0 NG/ML Normal <3.6 MB/CK Relative Index 4.69 High < Or =4 8 Troponin I < 0.02 NG/ML Normal < 0.10 9 Liver Profile 01/02/2021 [facility] nter [address] [place], [place] [address] [phone] Ast/Sgot 14 U/L Normal 7-37 Alt/SGPT 18 U/L Normal 12-78 Alkaline Phosphatase 74 U/L Normal 45-117 Bilirubin,Total 0.6 mg/dL Normal 0.2-1.0 Bilirubin,Direct 0.2 mg/dL Normal 0.0-0.2 Total Protein 6.8 GM/DL Normal 6.4-8.2 Albumin 3.2 GM/DL Normal 3.2-5.2 Albumin/Globulin Ratio 0.9 Normal CBC With Differential 01/02/2021 [address] [place] [address] [phone] White Blood Count 7.5 10 Normal 4.0-10.0 [...] 36.0-66.0 Lymph % 16.2 % Low 24.0-44.0 [place] % 11.3 % High 2.0-8.0 Eos % 4.4 % High 0.0-3.0 Baso % 1.1 % High 0.0-1.0 Immature Granulocyte % 1.3 % Normal 0-3.0 Nucleated Red Blood Cell % 0.0 % Normal 0-0 Neutrophils # 4.9 10 Normal 1.5-8.5 Lymph # 1.2 10 Low 1.5-5.0 [place] # 0.9 10 High 0.0-0.8 Eos # 0.3 10 Normal 0.0-0.5 Baso # 0.1 10 Normal 0.0-0.2 Laboratory test finding 11/29/2020 [place] [employer] avis hunt Biology Manager: [place] [address] [phone] Thyroid Stimulating Hormone 0.05 uIU/mL Low 0.3 6 - 3.74 Laboratory test finding 10/30/2020 [place] [employer] av[employer] hunt Biology Manager: [place] [address] [phone] Thyroid Stimulating Hormone 0.67 uIU/mL 0.3 6 [...] Little GFR Left ESRD GFR <15 on CONTRACT TECHNICIAN 3 ASSAY INFORMATION: Real Time RT-PCR NOTE: The COVID-19 assay has been cleared by the U.S. Food and Drug Administration under the Emergency Use Authorization (EUA). [employer] and [employer] are designated as high complexity laboratories by [...] LITTLE GFR LEFT ESRD GFR <15 ON CONTRACT TECHNICIAN 7 NOTE: RESULT VERIFIED. 8 DIAGNOSIS CRITERIA MMB ng/ml Relative Index (RI) NON-AMI < or = 5 N/A BLOOM ZONE > 5 < or = 4 AMI > 5 > 4 9 Troponin I Reference Interva l for Siemens UZwan LOCI: 99th Percentile= 0.00-0.045 ng/ml Risk Stratification: <= 0.10 ng/ml Decreased Risk for Adverse Clinical Events. 0.10-1.50 ng/ml Increased Risk for Adv erse Clinical Events. Evaluation of additional criterion and/or repeat testing in 2-6 hours is suggested to rule out myocardial damage. >= 1.50 ng/ml Indicative of Myocardial Injury. Procedures Date Code Description Status 03/19/2021 00015 Office/Outpatient Established Mo d MDM 30-39 Min Completed 02/22/2021 [id number] Colonoscopy Completed 01/10/2021 [id number] SRV W/I 7 Days Of DC, C omm W/I 2 Dys Med Rec Completed 11/29/2020 01732 Office/Outpatient Established Mo d MDM 30-39 Min Completed 09/28/2014 [id number] Colonoscopy Completed 09/02/2012 [id number] Colonoscopy Completed 06/28/2009 [id number] Colonoscopy Completed Medical Devices Description No Information Available Encounters Type Date Location Provider Dx Diagnosis Office Visit 03/19/2021 10:45a [place] [facility] M.D. J44.1 Chronic obstructive pulmonar [...] failure to thrive Office Visit 01/10/2021 10:00a [place] [facility] hunt M.D. N17.9 Acute kidney failure, [...] of colonic polyps Office Visit 11/29/2020 11:00a [facility] Jaime Rendon M.D. J44.1 Chronic [...] 10:45 am - [facility] at [place] [facility] 03/19/2021 - Nena Rendon M.D.* J44.1 [...]
--- OUTSIDE RECORDS SUMMARY | 2021-05-27 12:52 | CCD | Continuity of Care Document ---
Author Author Nickolas Rendon M.D. Organization Unknown Address [address] [place] [address] Phone [phone] Care Team Providers Care Denitrator Name Role Phone Víctor Hayes MD AUTM [phone] Manuel Nunn MD AUTM Unavailable Bo Trotter MD AUTM Unavailable Nena Rendon MD AUTM [phone] Angel Lucio MD AUTM [phone] Cirilo Weeks MD AUTM [phone] Joceline Motley OD AUTM Unavailable Marlo Caban MD AUTM [phone] [facility] AUTM Angela Monzon MD AUTM [phone] Problems Active Problems Provider Date Benign essential [...] Rendon M.D. 01/[address] Jessica by [facility] Nena Rendon M.D. 05/24/2019 Stiolto Respimat 2.5-2.5mcg/Act Ae rosol Inhale Two Puffs By Mouth Daily 12units Nena jaime M.D. 05/24/2019 Calcitriol 0.25mcg Capsules 1 on Thursday and Thursday only Nena Rendon M.D. 08/19/19 17 Saline Nasal [place] 0.65% Solution 3-4x/d as directed 1units Nena [...] CPT Code Status Date Vaccine Lot # 50137 Given 04/11/2020 Influenza Vaccin e Quadrivalent Preser/Antibiotic Free Im Use [id number] 86748 Given 05/24/2019 Influenza Vaccin e Quadrivalent Preser/Antibiotic Free Im Use 637647 82774 Given 06/08/2018 Influenza Virus Vaccine, Quadrivalent (Cciiv4), Derived From 3 Given 03/02/2018 Pneumovax 23 [id number] 23413 Given 05/21/2017 Influenza Vaccin e Quadrivalent Preser/Antibiotic Free Im Use 212506 02881 Given 08/19/2016 Adacel- Tetanus Diphtheria P ertussis (Age64 & Under) [id number] Q2037 Given 06/03/2016 Fluvirin Virus Vaccine 83944 01 U-PneuC Given 04/19/2016 Prevnar 13 Q2037 Given 06/06/2015 Fluvirin Virus Vaccine 62528 01 Q2037 Given 06/05/2014 Fluvirin Virus Vaccine 11009 21 Q2037 Given 05/07/2012 Fluvirin Virus Vaccine 95967 01 Q2037 Given 05/01/2011 Fluvirin Virus Vaccine 02478 Given 04/25/2010 Influenza Virus Vaccine 55727 Refused 09/14/2018 Shingrix Zoster Vaccine (HZV), Recombinant, Subunit, Adjuvanted 83945 Refused 09/14/2018 Zoster Vaccine Vital Signs Date [...] H/L Range Note Laboratory test finding 03/19/2021 [place] [employer] Super[employer] avis hunt Tree Pruner: Dr Niranjan [place]oss [place] [address] [phone] Thyroid Stimulating Hormone 5.69 uIU/mL High 0.3 6 - 3.74 Coronavirus 2019 Nasopharygeal 02/18/[address] [address] [phone] Coronavirus 2019 Nasopharygeal ASSAY INFORMATIO <SEE N OTE> 1 Laboratory test finding 02/08/2021 [place] [facility] Echeverria Tree Pruner: Dr Niranjan [place]oss [place] [address] [phone] Thyroid Stimulating Hormone 6.49 uIU/mL High 0.3 6 - 3.74 Basic Metabolic Panel 01/10/2021 [place] [facility] Maldonado Tree Pruner: Dr [place] [address] [phone] Glucose 109 mg/dL High 74 - 99 [...] Low >60 4 Laboratory test finding 01/10/2021 [place] [facility] Echeverria Tree Pruner: Dr Niranjan [place]oss [place] [address] [phone] Thyroid Stimulating Hormone 8.00 uIU/mL High 0.3 6 - 3.74 5 Ua W/ Reflex To Culture 01/02/[address], [place] 13[address]24 [phone] Appearance, Urine RFX CLEAR Normal Clear Color, Urine RFX YELLOW Normal Yellow PH,Urine RFX 6.0 units Normal 5.0-9.0 Specific [place] Ur Auto RFX 1.008 Normal 1.002-1.035 Protein, [...] /LPF Normal 0-1 Istat Chem8+ Panel 01/02/2021 [facility] Ce n[address] [place], [place] [address] [phone] iSTAT HCT 45.0 % Normal 38.0-51.0 iSTAT Glucose 103 mg/dL Normal 70-105 iSTAT Sodium 137 mEq/L Normal 136-145 iSTAT Potassium 4.2 mEq/L Normal 3.5-5.1 iSTAT CA++ 4.7 mg/dL Normal 4.5-5.3 iSTAT Chloride 97 mEq/L Low 98-109 iSTAT Co2 29.0 MM/L High 23.0-27.0 iSTAT BUN 47 mg/dL High 8-26 iSTAT Creatinine 3.0 mg/dL High 0.6-1.3 Cardiac Marker Panel 01/02/2021 [facility] enter [address] [place] [address] [phone] CPK Creatine Phosphokinase 64 U/L Normal 39-30 8 CK-MB Value Mass 3.0 NG/ML Normal <3.6 MB/CK Relative Index 4.69 High < Or =4 6 Troponin I < 0.02 NG/ML Normal < 0.10 7 Liver Profile 01/02/2021 [facility] nter [address] [place], [place] [address] [phone] Ast/Sgot 14 U/L Normal 7-37 Alt/SGPT 18 U/L Normal 12-78 Alkaline Phosphatase 74 U/L Normal 45-117 Bilirubin,Total 0.6 mg/dL Normal 0.2-1.0 Bilirubin,Direct 0.2 mg/dL Normal 0.0-0.2 Total Protein 6.8 GM/DL Normal 6.4-8.2 Albumin 3.2 GM/DL Normal 3.2-5.2 Albumin/Globulin Ratio 0.9 Normal CBC With Differential 01/02/2021 [address] [place] [address] [phone] White Blood Count 7.5 10 Normal 4.0-10.0 [...] 36.0-66.0 Lymph % 16.2 % Low 24.0-44.0 [place] % 11.3 % High 2.0-8.0 Eos % 4.4 % High 0.0-3.0 Baso % 1.1 % High 0.0-1.0 Immature Granulocyte % 1.3 % Normal 0-3.0 Nucleated Red Blood Cell % 0.0 % Normal 0-0 Neutrophils # 4.9 10 Normal 1.5-8.5 Lymph # 1.2 10 Low 1.5-5.0 [place] # 0.9 10 High 0.0-0.8 Eos # 0.3 10 Normal 0.0-0.5 Baso # 0.1 10 Normal 0.0-0.2 Laboratory test finding 11/29/2020 [place] [employer] av[employer] hunt Tree Pruner: Dr Nir[place] [address] [phone] Thyroid Stimulating Hormone 0.05 uIU/mL Low 0.3 6 - 3.74 Laboratory test finding 10/30/2020 [place] [employer] avis hunt Tree Pruner: Dr Niranjan [place] [address] [phone] Thyroid Stimulating Hormone 0.67 uIU/mL 0.3 6 - 3.74 Laboratory test finding 09/28/2020 [place] [employer] Super[employer] avis hunt Tree Pruner: Dr Niranjan [place] [address] [phone] Thyroid Stimulating Hormone 1.37 uIU/mL 0.3 6 - 3.74 1 ASSAY INFORMATION: Real Time RT-PCR NOTE: The COVID-19 assay has been cleared by the U.S. Food and Drug Administration under the Emergency Use Authorization (EUA). [employer] and [employer] are designated as high complexity laboratories by [...] LITTLE GFR LEFT ESRD GFR <15 ON SKELP PROCESSOR 5 NOTE: RESULT VERIFIED. 6 DIAGNOSIS CRITERIA MMB ng/ml Relative Index (RI) NON-AMI < or = 5 N/A BLOOM ZONE > 5 < or = 4 AMI > 5 > 4 7 Troponin I Reference Interva l for Siemens [place] LOCI: 99th Percentile= 0.00-0.045 ng/ml Risk Stratification: <= 0.10 ng/ml Decreased Risk for Adverse Clinical Events. 0.10-1.50 ng/ml Increased Risk for Adv erse Clinical Events. Evaluation of additional criterion and/or repeat testing in 2-6 hours is suggested to rule out myocardial damage. >= 1.50 ng/ml Indicative of Myocardial Injury. Procedures Date Code Description Status 03/19/2021 10519 Office/Outpatient Established Mo d MDM 30-39 Min Completed 02/22/2021 [id number] Colonoscopy Completed 01/10/2021 [address] SRV W/I 7 Days Of DC, C omm W/I 2 Dys Med Rec Completed 11/29/2020 00076 Office/Outpatient Established Mo d MDM 30-39 Min Completed 10/09/2020 68347 Office/Outpatient Established Lo w MDM 20-29 Min Completed 09/28/2014 [id number] Colonoscopy Completed 09/02/2012 [id number] Colonoscopy Completed 06/28/2009 [id number] Colonoscopy Completed Medical Devices Description No Information Available Encounters Type Date Location Provider Dx Diagnosis Office Visit 03/19/2021 10:45a [place] [facility] hunt M.D. J44.1 Chronic obstructive pulmonar [...] failure to thrive Office Visit 01/10/2021 10:00a [place] [facility] N17.9 Acute kidney failure, unspec ified [...] of colonic polyps Office Visit 11/29/2020 11:00[facility] [place] [facility] J44.1 Chronic obstructive [...] neoplasm of larynx Office Visit 10/09/2020 12:00p [place] [facility] J44.1 Chronic obstructive [...] 03/19/2021 N18.32 Chronic kidney disease, stage 3b Nean Rendon M.D. 03/19/2021 K21.9 Gastro-esophageal reflux disease [...] 04/18/2021 2:00 pm - Nurse Schedule at [facility] * 06/25/2021 10:45 am - Nena Rendon M.D. at [facility] 03/19/2021 - Nena Rendon M.D.* [...] Dr Reason for Referral Status Appt Date [facility] Pulmonary Medicine CONSULT FOR PROGRESSIVE SOB Patient Noti fied 11/26/[address] [place] [address] [phone]
--- OUTSIDE RECORDS SUMMARY | 2021-05-27 12:52 | CCD | Continuity of Care Document ---
Author Author Nickolas Rendon M.D. Organization Unknown Address [address] [place] [address] Phone [phone] Care Team Providers Care Smoking Pipe Liner Name Role Phone Víctor Hayes MD AUTM [phone] Manuel Nunn MD AUTM Unavailable Bo Trotter MD AUTM Unavailable Nena Rendon MD AUTM [phone] Angel Lucio MD AUTM [phone] Cirilo Weeks MD AUTM [phone] Joceline Motley OD AUTM Unavailable Marlo Caban MD AUTM [phone] [facility] AUTM Angela Monzon MD AUTM [phone] Problems Active Problems Provider Date Benign essential [...] SIG Qnty Indications Ordering Provide r Date Metoprolol Succinate ER 100mg Tablets ER 24HR Take One Tablet By Mouth Every Day 90tabs Nena Rendon M.D. 03/19/2021 Gatoraid one daily ok with Dr.Sindhu Nena Rendon M.D. 01/11/2021 Levothyroxine Sodium 75mcg Tablets 1 by mouth every day 90tajordan Rendon M.D. 12/01/19 21 Tamsulosin HCL 0.4mg [...] 01/[address] 1 by [facility] Nena Rendon M.D. 05/24/2019 Stiolto Respimat 2.5-2.5mcg/Act Ae rosol Inhale Two Puffs By Mouth Daily 12units Nena jaime M.D. 05/24/2019 Calcitriol 0.25mcg Capsules 1 on Thursday and Thursday only Nena Rendon M.D. 08/19/19 17 Saline Nasal [place] 0.65% Solution 3-4x/d as directed 1units Nena [...] 05/24/20 19 Administration Of Flu Vaccine Inj ection Nena Rendon, M.D. 06/08/20 18 Administration Of Flu Vaccine Inj kathleen Rendon M.D. 05/21/20 17 Administration Of Flu Vaccine Inj kathleen Rendon M.D. 06/03/20 16 Administration Of Flu Vaccine Inj kathleen Rendon M.D. 06/06/20 15 Administration Of Flu Vaccine Inj kathleen Rendon M.D. 06/05/20 14 Immunizations CPT Code Status Date Vaccine Lot # 32912 Given 04/11/2020 Influenza Vaccin e Quadrivalent Preser/Antibiotic Free Im Use [id number] 58934 Given 05/24/2019 Influenza Vaccin e Quadrivalent Preser/Antibiotic Free Im Use [id number] 70000 Given 06/08/2018 Influenza Virus Vaccine, Quadrivalent (Cciiv4), Derived From 2 Given 03/02/2018 Pneumovax 23 [id number] 13570 Given 05/21/2017 Influenza Vaccin e Quadrivalent Preser/Antibiotic Free Im Use [id number] 47625 Given 08/19/2016 Adacel- Tetanus Diphtheria P ertussis (Age64 & Under) [id number] Q2037 Given 06/03/2016 Fluvirin Virus Vaccine 91527 01 U-PneuC Given 04/19/2016 Prevnar 13 Q2037 Given 06/06/2015 Fluvirin Virus Vaccine 12828 01 Q2037 Given 06/05/2014 Fluvirin Virus Vaccine 90409 21 Q2037 Given 05/07/2012 Fluvirin Virus Vaccine 80129 01 Q2037 Given 05/01/2011 Fluvirin Virus Vaccine 26116 Given 04/25/2010 Influenza Virus Vaccine 38156 Refused 09/14/2018 Shingrix Zoster Vaccine (HZV), Recombinant, Subunit, Adjuvanted 58175 Refused 09/14/2018 Zoster Vaccine Vital Signs Date [...] H/L Range Note Laboratory test finding 03/19/2021 [place] [facility] [employer]: Dr Niranjan Goss [place] [id number] [phone] Thyroid Stimulating Hormone 5.69 uIU/mL High 0.3 6 - 3.74 Coronavirus 2019 Nasopharygeal 02/18/2021 [place] [address] [phone] Coronavirus 2019 Nasopharygeal ASSAY INFORMATIO <SEE N OTE> 1 Laboratory test finding 02/08/2021 [place] [employer] [employer]: Dr Niranjan Goss [place] [id number] [phone] Thyroid Stimulating Hormone 6.49 uIU/mL High 0.3 6 - 3.74 Basic Metabolic Panel 01/10/2021 [place] [employer]: Dr Niranjan Goss [place] [id number] [phone] Glucose 109 mg/dL High 74 - 99 [...] Low >60 4 Laboratory test finding 01/10/2021 [place] [employer] [employer]: Dr Niranjan [place] [address] [phone] Thyroid Stimulating Hormone 8.00 uIU/mL High 0.3 6 - 3.74 5 Ua W/ Reflex To Culture 01/02/[address] [address] [phone] Appearance, Urine RFX CLEAR Normal Clear Color, Urine RFX YELLOW Normal Yellow PH,Urine RFX 6.0 units Normal 5.0-9.0 Specific [place] Ur Auto RFX 1.008 Normal 1.002-1.035 Protein, [...] /LPF Normal 0-1 Istat Chem8+ Panel 01/02/2021 [facility] nter [address] [place] [address] [phone] iSTAT HCT 45.0 % Normal 38.0-51.0 iSTAT Glucose 103 mg/dL Normal 70-105 iSTAT Sodium 137 mEq/L Normal 136-145 iSTAT Potassium 4.2 mEq/L Normal 3.5-5.1 iSTAT CA++ 4.7 mg/dL Normal 4.5-5.3 iSTAT Chloride 97 mEq/L Low 98-109 iSTAT Co2 29.0 MM/L High 23.0-27.0 iSTAT BUN 47 mg/dL High 8-26 iSTAT Creatinine 3.0 mg/dL High 0.6-1.3 Cardiac Marker Panel 01/02/2021 [facility] enter [address] [place] [address] [phone] CPK Creatine Phosphokinase 64 U/L Normal 39-30 8 CK-MB Value Mass 3.0 NG/ML Normal <3.6 MB/CK Relative Index 4.69 High < Or =4 6 Troponin I < 0.02 NG/ML Normal < 0.10 7 Liver Profile 01/02/2021 [facility] nter [address] [place] [address] [phone] Ast/Sgot 14 U/L Normal 7-37 Alt/SGPT 18 U/L Normal 12-78 Alkaline Phosphatase 74 U/L Normal 45-117 Bilirubin,Total 0.6 mg/dL Normal 0.2-1.0 Bilirubin,Direct 0.2 mg/dL Normal 0.0-0.2 Total Protein 6.8 GM/DL Normal 6.4-8.2 Albumin 3.2 GM/DL Normal 3.2-5.2 Albumin/Globulin Ratio 0.9 Normal CBC With Differential 01/02/2021 [facility] [address] [place] [address] [phone] White Blood Count 7.5 10 Normal 4.0-10.0 [...] 36.0-66.0 Lymph % 16.2 % Low 24.0-44.0 [place] % 11.3 % High 2.0-8.0 Eos % 4.4 % High 0.0-3.0 Baso % 1.1 % High 0.0-1.0 Immature Granulocyte % 1.3 % Normal 0-3.0 Nucleated Red Blood Cell % 0.0 % Normal 0-0 Neutrophils # 4.9 10 Normal 1.5-8.5 Lymph # 1.2 10 Low 1.5-5.0 [place] # 0.9 10 High 0.0-0.8 Eos # 0.3 10 Normal 0.0-0.5 Baso # 0.1 10 Normal 0.0-0.2 Laboratory test finding 11/29/2020 [place] [employer] [facility]: [place] [address] [phone] Thyroid Stimulating Hormone 0.05 uIU/mL Low 0.3 6 - 3.74 Laboratory test finding 10/30/2020 [facility] [employer]: [place] [address] [phone] Thyroid Stimulating Hormone 0.67 uIU/mL 0.3 6 - 3.74 Laboratory test finding 09/28/2020 [place] [employer]: Dr Niranjan [place] [address] [phone] Thyroid Stimulating Hormone 1.37 uIU/mL 0.3 6 - 3.74 1 ASSAY INFORMATION: Real Time RT-PCR NOTE: The COVID-19 assay has been cleared by the U.S. Food and Drug Administration under the Emergency Use Authorization (EUA). [facility] [employer] are designated as high complexity laboratories by [...] LITTLE GFR LEFT ESRD GFR <15 ON ARBORIST 5 NOTE: RESULT VERIFIED. 6 DIAGNOSIS CRITERIA MMB ng/ml Relative Index (RI) NON-AMI < or = 5 N/A BLOOM ZONE > 5 < or = 4 AMI > 5 > 4 7 Troponin I Reference Interva l for Blip LOCI: 99th Percentile= 0.00-0.045 ng/ml Risk Stratification: <= 0.10 ng/ml Decreased Risk for Adverse Clinical Events. 0.10-1.50 ng/ml Increased Risk for Adv erse Clinical Events. Evaluation of additional criterion and/or repeat testing in 2-6 hours is suggested to rule out myocardial damage. >= 1.50 ng/ml Indicative of Myocardial Injury. Procedures Date Code Description Status 02/22/2021 [id number] Colonoscopy Completed 01/10/2021 91532 [facility] SRV W/I 7 Days Of DC, C omm W/I 2 Dys Med Rec Completed 11/29/2020 85814 Office/Outpatient Established Mo d MDM 30-39 Min Completed 10/09/2020 07661 Office/Outpatient Established Lo w MDM 20-29 Min Completed 09/28/2014 [id number] Colonoscopy Completed 09/02/2012 [id number] Colonoscopy Completed 06/28/2009 [id number] Colonoscopy Completed Medical Devices Description No Information Available Encounters Type Date Location Provider Dx Diagnosis Office Visit 01/10/2021 10:00a [place] [facility] hunt M.D. N17.9 Acute kidney failure, [...] of colonic polyps Office Visit 11/29/2020 11:00a [place] InternAroldo hunt M.D. J44.1 Chronic obstructive pulmonar [...] neoplasm of larynx Office Visit 10/09/2020 12:00p [facility] Jaime ie M. Julieta, M.D. 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 03/19/2021 N18.32 Chronic kidney disease, stage 3b Nena Rendon M.D. 03/19/2021 J44.1 Chronic obstructive pulmonary disease with (acute) exacerbation Nena Rendon M.D. 03/19/2021 K21.9 Gastro-esophageal reflux [...] 03/19/2021 E83.42 Hypomagnesemia Nena jaime M.D. 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 03/19/2021 Z86.010 Personal history of colonic poly ps Nena Rendon M.D. 03/19/2021 R62.7 Adult failure to thrive Nena Rendon M.D. 02/08/2021 E03.9 Hypothyroidism, unspecified Hawa Rendon M.D. 02/08/2021 E03.9 Hypothyroidism, unspecified Lab Schedule 01/10/2021 N17.9 Acute kidney failure, unspecifie d Nena Rendon M.D. 01/10/2021 I12.9 Hypertensive chronic kidney dise ase with stage 1 through mahi Rendon M.D. 01/10/2021 N18.32 Chronic kidney disease, [...] ase with stage 1 through sta Nena Rendon, M.D. 11/29/2020 N18.32 Chronic kidney disease, stage [...] 04/18/2021 2:00 pm - Nurse Schedule at [facility] * 06/25/2021 10:45 am - Nena Rendon M.D. at [facility] 03/19/2021 - Nena Rendon M.D.* I12.9 Hypertensive chronic kidney disease with stage 1 through sta * N18.32 Chronic kidney disease, stage 3b * J44.1 Chronic obstructive pulmonary disease with [...] Dr Reason for Referral Status Appt Date [facility] Pulmonary Medicine CONSULT FOR PROGRESSIVE SOB Patient Noti fied 11/26/[id number] [place] [address] [phone]
--- OUTSIDE RECORDS SUMMARY | 2021-05-27 12:52 | CCD | Continuity of Care Document ---
Author Author Nurse Nickolas Tompkins Organization Unknown Address [address] [place] [address] Phone [phone] Care Team Providers Care Inpatient Coder Name Role Phone Víctor Hayes MD AUTM [phone] Manuel Nunn MD AUTM Unavailable Bo Trotter MD AUTM Unavailable Nena Rendon MD AUTM [phone] Angel Lucio MD AUTM [phone] Cirilo Weeks MD AUTM [phone] Joceline Motley OD AUTM Unavailable Marlo Caban MD AUTM [phone] [facility] AUTM Angela Monzon MD AUTM [phone] Problems Active Problems Provider Date Benign essential [...] Rendon M.D. 01/[address] Lopez by [facility] Nena Rendon M.D. 05/24/2019 Stiolto Respimat 2.5-2.5mcg/Act Ae rosol Inhale Two Puffs By Mouth Daily 12units Nena jaime M.D. 05/24/2019 Calcitriol 0.25mcg Capsules 1 on Thursday and Thursday only Nena Rendon M.D. 08/19/19 17 Saline Nasal [place] 0.65% Solution 3-4x/d as directed 1units Nena Rendon M.D. 03/22/20 13 Zyrtec Allergy 10mg Tablets 1 by mouth every day Nena Rendon M.D. 03/22/20 13 Colcrys 0.6mg Tablets 1 po bid prn gout Nephrol Nena Rendno M.D. 03/21/2013 Proair HFA 108(90Base) mcg/Act Aer [...] day 90tabs Nena Rendon M.D. 12/01/19 21 - 03/21/2021 Prednisone 20mg Tablets 3 qd x 4days then 2 for 4 days then 1 for 4 d then 1/2 x 4 days then stop Unknown 11/26/2020 - 01/07/2021 Medications Administered in Office Medication SIG Qnty Indications Ordering Provider Date Administration Of Flu Vaccine Inj ection Nena Rendon M.D. 09/30/20 21 Covid-19 vaccine, Unspecified Inj ection Unknown [...] CPT Code Status Date Vaccine Lot # [id number] Given 04/18/2021 Influenza Vaccin e Quadrivalent Preser/Antibiotic Free Im Use [id number] 83213 Given 04/11/2020 Influenza Vaccin e Quadrivalent Preser/Antibiotic Free Im Use 524242 13861 Given 05/24/2019 Influenza Vaccin e Quadrivalent Preser/Antibiotic Free Im Use 308695 27189 Given 06/08/2018 Influenza Virus Vaccine, Quadrivalent (Cciiv4), Derived From 3 Given 03/02/2018 Pneumovax 23 [id number] 08227 Given 05/21/2017 Influenza Vaccin e Quadrivalent Preser/Antibiotic Free Im Use 864839 40004 Given 08/19/2016 Adacel- Tetanus Diphtheria P ertussis [id number] Q2037 Given 06/03/2016 Fluvirin Virus Vaccine 64357 01 U-PneuC Given 04/19/2016 Prevnar 13 Q2037 Given 06/06/2015 Fluvirin Virus Vaccine 15500 01 Q2037 Given 06/05/2014 Fluvirin Virus Vaccine 70505 21 Q2037 Given 05/07/2012 Fluvirin Virus Vaccine 66484 01 Q2037 Given 05/01/2011 Fluvirin Virus Vaccine 89572 Given 04/25/2010 Influenza Virus Vaccine 12598 Refused 09/14/2018 Shingrix Zoster Vaccine (HZV), Recombinant, Subunit, Adjuvanted 38069 Refused 09/14/2018 Zoster Vaccine Vital Signs Date [...] H/L Range Note Laboratory test finding 03/19/2021 [place] [facility] [employer] Planner: [place] [address] [phone] Thyroid Stimulating Hormone 5.69 uIU/mL High 0.3 6 - 3.74 Coronavirus 2019 Nasopharygeal 02/18/[address] [address] [phone] Coronavirus 2019 Nasopharygeal ASSAY INFORMATIO <SEE N OTE> 1 Laboratory test finding 02/08/2021 [place] [employer]anner: [place] [address] [phone] Thyroid Stimulating Hormone 6.49 uIU/mL High 0.3 6 - 3.74 Basic Metabolic Panel 01/10/2021 [place] [facility] [employer] Planner: [place] [address] [phone] Glucose 109 mg/dL High 74 - 99 [...] Low >60 4 Laboratory test finding 01/10/2021 [place] [facility] [employer] Program Planner: [place] [address] [phone] Thyroid Stimulating Hormone 8.00 uIU/mL High 0.3 6 - 3.74 5 Ua W/ Reflex To Culture 01/02/2021 [facility] [address] [place] [address] [phone] Appearance, Urine RFX CLEAR Normal Clear Color, Urine RFX YELLOW Normal Yellow PH,Urine RFX 6.0 units Normal 5.0-9.0 Specific [place] Ur Auto RFX 1.008 Normal 1.002-1.035 Protein, [...] /LPF Normal 0-1 Istat Chem8+ Panel 01/02/2021 [facility] nter [address] [place] [address] [phone] iSTAT HCT 45.0 % Normal 38.0-51.0 iSTAT Glucose 103 mg/dL Normal 70-105 iSTAT Sodium 137 mEq/L Normal 136-145 iSTAT Potassium 4.2 mEq/L Normal 3.5-5.1 iSTAT CA++ 4.7 mg/dL Normal 4.5-5.3 iSTAT Chloride 97 mEq/L Low 98-109 iSTAT Co2 29.0 MM/L High 23.0-27.0 iSTAT BUN 47 mg/dL High 8-26 iSTAT Creatinine 3.0 mg/dL High 0.6-1.3 Cardiac Marker Panel 01/02/2021 [facility] enter [address] [place] [address] [phone] CPK Creatine Phosphokinase 64 U/L Normal 39-30 8 CK-MB Value Mass 3.0 NG/ML Normal <3.6 MB/CK Relative Index 4.69 High < Or =4 6 Troponin I < 0.02 NG/ML Normal < 0.10 7 Liver Profile 01/02/2021 [facility] nter [address] [place] [address] [phone] Ast/Sgot 14 U/L Normal 7-37 Alt/SGPT 18 U/L Normal 12-78 Alkaline Phosphatase 74 U/L Normal 45-117 Bilirubin,Total 0.6 mg/dL Normal 0.2-1.0 Bilirubin,Direct 0.2 mg/dL Normal 0.0-0.2 Total Protein 6.8 GM/DL Normal 6.4-8.2 Albumin 3.2 GM/DL Normal 3.2-5.2 Albumin/Globulin Ratio 0.9 Normal CBC With Differential 01/02/2021 [facility] [address] [place] [address] [phone] White Blood Count 7.5 10 Normal 4.0-10.0 [...] 36.0-66.0 Lymph % 16.2 % Low 24.0-44.0 [place] % 11.3 % High 2.0-8.0 Eos % 4.4 % High 0.0-3.0 Baso % 1.1 % High 0.0-1.0 Immature Granulocyte % 1.3 % Normal 0-3.0 Nucleated Red Blood Cell % 0.0 % Normal 0-0 Neutrophils # 4.9 10 Normal 1.5-8.5 Lymph # 1.2 10 Low 1.5-5.0 [place] # 0.9 10 High 0.0-0.8 Eos # 0.3 10 Normal 0.0-0.5 Baso # 0.1 10 Normal 0.0-0.2 Laboratory test finding 11/29/2020 [place] [employer] Program Planner: Dr Niranjan Goss [place], [place] [address] [phone] Thyroid Stimulating Hormone 0.05 uIU/mL Low 0.3 6 - 3.74 Laboratory test finding 10/30/2020 [place] [employer] Senior Program Planner: [place] [address] [phone] Thyroid Stimulating Hormone 0.67 uIU/mL 0.3 6 - 3.74 1 ASSAY INFORMATION: Real Time RT-PCR NOTE: The COVID-19 assay has been cleared by the U.S. Food and Drug Administration under the Emergency Use Authorization (EUA). [facility] and [facility] are designated as high complexity laboratories by [...] LITTLE GFR LEFT ESRD GFR <15 ON SERVICE NOW DEVELOPER 5 NOTE: RESULT VERIFIED. 6 DIAGNOSIS CRITERIA MMB ng/ml Relative Index (RI) NON-AMI < or = 5 N/A BLOOM ZONE > 5 < or = 4 AMI > 5 > 4 7 Troponin I Reference Interva l for Siemens leaselock LOCI: 99th Percentile= 0.00-0.045 ng/ml Risk Stratification: <= 0.10 ng/ml Decreased Risk for Adverse Clinical Events. 0.10-1.50 ng/ml Increased Risk for Adv erse Clinical Events. Evaluation of additional criterion and/or repeat testing in 2-6 hours is suggested to rule out myocardial damage. >= 1.50 ng/ml Indicative of Myocardial Injury. Procedures Date Code Description Status 03/19/2021 36410 Office/Outpatient Established Mo d MDM 30-39 Min Completed 02/22/2021 [id number] Colonoscopy Completed 01/10/2021 31576 [facility] Cre SRV W/I 7 Days Of DC, C omm W/I 2 Dys Med Rec Completed 11/29/2020 01848 Office/Outpatient Established Mo d MDM 30-39 Min Completed 09/28/2014 [id number] Colonoscopy Completed 09/02/2012 [id number] Colonoscopy Completed 06/28/2009 [id number] Colonoscopy Completed Medical Devices Description No Information Available Encounters Type Date Location Provider Dx Diagnosis Office Visit 03/19/2021 10[facility]45a [place] [facility] J44.1 Chronic obstructive pulmonar y [...] failure to thrive Office Visit 01/10/2021 10:00a [place] [facility] N17.9 Acute kidney failure, unspec [...] of colonic polyps Office Visit 11/29/2020 11:00a [facility] Jaime Rendon M.D. J44.1 Chronic [...] Schedule 01/10/2021 N17.9 Acute kidney failure, unspecifie willi Rendon M.D. 01/10/2021 I12.9 Hypertensive chronic kidney [...] jassified Nena Rendon M.D. 01/10/2021 M10.9 Gout, jassified Nena kingsley M.D. 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 at [facility] 03/19/2021 - Nena Rendon M.D.* J44.1 Chronic [...]
--- OUTSIDE RECORDS SUMMARY | 2021-05-27 12:53 | CCD | Continuity of Care Document ---
Author Author Nickolas Rendon M.D. Organization Unknown Address [address] [place] [address] Phone [phone] Care Team Providers Care Quality Assurance Lead Name Role Phone Víctor Hayes MD AUTM [phone] Manuel Nunn MD AUTM Unavailable Bo Trotter MD AUTM Unavailable Nena Rendon MD AUTM [phone] Angel Lucio MD AUTM [phone] Cirilo Weeks MD AUTM [phone] Joceline Motley OD AUTM Unavailable Marlo Caban MD AUTM [phone] [facility] AUTM [phone] Angela Monzon MD AUTM [phone] Problems Active Problems Provider Date Benign essential [...] Mag64 64mg Tablets DR 1 by mo [facility] Nena Rendon M.D. 05/24/2019 Stiolto Respimat 2.5-2.5mcg/Act Ae rosol Inhale Two Puffs By Mouth Daily 12units Nena jaime M.D. 05/24/2019 Calcitriol 0.25mcg Capsules 1 on Thursday and Thursday only Nena Rendon M.D. 08/19/19 17 Saline Nasal [place] 0.65% Solution 3-4x/d as directed 1units Nena [...] CPT Code Status Date Vaccine Lot # 22955 Given 04/11/2020 Influenza Vaccin e Quadrivalent Preser/Antibiotic Free Im Use [id number] 00971 Given 05/24/2019 Influenza Vaccin e Quadrivalent Preser/Antibiotic Free Im Use [id number] 34808 Given 06/08/2018 Influenza Virus Vaccine, Quadrivalent (Cciiv4), Derived From 8 Given 03/02/2018 Pneumovax 23 [id number] 59407 Given 05/21/2017 Influenza Vaccin e Quadrivalent Preser/Antibiotic Free Im Use [id number] 30441 Given 08/19/2016 Adacel- Tetanus Diphtheria P ertussis (Age64 & Under) [id number] Q2037 Given 06/03/2016 Fluvirin Virus Vaccine 83056 01 U-PneuC Given 04/19/2016 Prevnar 13 Q2037 Given 06/06/2015 Fluvirin Virus Vaccine 60013 01 Q2037 Given 06/05/2014 Fluvirin Virus Vaccine 88932 21 Q2037 Given 05/07/2012 Fluvirin Virus Vaccine 74372 01 Q2037 Given 05/01/2011 Fluvirin Virus Vaccine 94963 Given 04/25/2010 Influenza Virus Vaccine 51344 Refused 09/14/2018 Shingrix Zoster Vaccine (HZV), Recombinant, Subunit, Adjuvanted 78320 Refused 09/14/2018 Zoster Vaccine Vital Signs Date [...] H/L Range Note Laboratory test finding 03/19/2021 [facility] [facility] Equity Holder: [place] [address] [phone] TSH <pending> Coronavirus 2019 Nasopharygeal 02/18/2021 [place] [address] [phone] Coronavirus 2019 Nasopharygeal ASSAY INFORMATIO <SEE N OTE> 1 Laboratory test finding 02/08/2021 [facility] [facility] Equity Holder: Dr Niranjan [place]oss [place] [id number] [phone] Thyroid Stimulating Hormone 6.49 uIU/mL High 0.3 6 - 3.74 Basic Metabolic Panel 01/10/2021 [facility] Maldon[facility] Equity Holder: [place] [address] [phone] Glucose 109 mg/dL High 74 - 99 [...] Low >60 4 Laboratory test finding 01/10/2021 [place] [facility] hunt Equity Holder: Dr Niranjan Goss [place] [address] [phone] Thyroid Stimulating Hormone 8.00 uIU/mL High 0.3 6 - 3.74 5 Ua W/ Reflex To Culture 01/02/2021 [place] [id number] [phone] Appearance, Urine RFX CLEAR Normal Clear Color, Urine RFX YELLOW Normal Yellow PH,Urine RFX 6.0 units Normal 5.0-9.0 Specific [place] Ur Auto RFX 1.008 Normal 1.002-1.035 Protein, [...] /LPF Normal 0-1 Istat Chem[facility]+ [facility] [place] [address] [phone] iSTAT HCT 45.0 % Normal 38.0-51.0 iSTAT Glucose 103 mg/dL Normal 70-105 iSTAT Sodium 137 mEq/L Normal 136-145 iSTAT Potassium 4.2 mEq/L Normal 3.5-5.1 iSTAT CA++ 4.7 mg/dL Normal 4.5-5.3 iSTAT Chloride 97 mEq/L Low 98-109 iSTAT Co2 29.0 MM/L High 23.0-27.0 iSTAT BUN 47 mg/dL High 8-26 iSTAT Creatinine 3.0 mg/dL High 0.6-1.3 Cardiac Marker Panel 01/02/2021 [facility] [address] [place] [address] [phone] CPK Creatine Phosphokinase 64 U/L Normal 39-30 8 CK-MB Value Mass 3.0 NG/ML Normal <3.6 MB/CK Relative Index 4.69 High < Or =4 6 Troponin I < 0.02 NG/ML Normal < 0.10 7 Liver Profile 01/02/2021 [facility] nter [address] [place] [address] [phone] Ast/Sgot 14 U/L Normal 7-37 Alt/SGPT 18 U/L Normal 12-78 Alkaline Phosphatase 74 U/L Normal 45-117 Bilirubin,Total 0.6 mg/dL Normal 0.2-1.0 Bilirubin,Direct 0.2 mg/dL Normal 0.0-0.2 Total Protein 6.8 GM/DL Normal 6.4-8.2 Albumin 3.2 GM/DL Normal 3.2-5.2 Albumin/Globulin Ratio 0.9 Normal CBC With Differential 01/02/2021 [facility] [address] [place], [place] [id number] [phone] White Blood Count 7.5 10 Normal 4.0-10.0 [...] 36.0-66.0 Lymph % 16.2 % Low 24.0-44.0 [place] % 11.3 % High 2.0-8.0 Eos % 4.4 % High 0.0-3.0 Baso % 1.1 % High 0.0-1.0 Immature Granulocyte % 1.3 % Normal 0-3.0 Nucleated Red Blood Cell % 0.0 % Normal 0-0 Neutrophils # 4.9 10 Normal 1.5-8.5 Lymph # 1.2 10 Low 1.5-5.0 [place] # 0.9 10 High 0.0-0.8 Eos # 0.3 10 Normal 0.0-0.5 Baso # 0.1 10 Normal 0.0-0.2 Laboratory test finding 11/29/2020 [facility] [employer] Equity Holder: [place] [address] [phone] Thyroid Stimulating Hormone 0.05 uIU/mL Low 0.3 6 - 3.74 Laboratory test finding 10/30/2020 [facility] [employer] [facility] [facility] Equity Holder: Dr [place] [address] [phone] Thyroid Stimulating Hormone 0.67 uIU/mL 0.3 6 - 3.74 Laboratory test finding 09/28/2020 [facility] [employer] hunt Equity Holder: Dr [place] [address] [phone] Thyroid Stimulating Hormone 1.37 uIU/mL 0.3 6 - 3.74 1 ASSAY INFORMATION: Real Time RT-PCR NOTE: The COVID-19 assay has been cleared by the U.S. Food and Drug Administration under the Emergency Use Authorization (EUA). 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 6 DIAGNOSIS CRITERIA MMB ng/ml Relative Index (RI) NON-AMI < or = 5 N/A BLOOM ZONE > 5 < or = 4 AMI > 5 > 4 7 Troponin I Reference Interva l for Siemens emaze LOCI: 99th Percentile= 0.00-0.045 ng/ml Risk Stratification: <= 0.10 ng/ml Decreased Risk for Adverse Clinical Events. 0.10-1.50 ng/ml Increased Risk for Adv erse Clinical Events. Evaluation of additional criterion and/or repeat testing in 2-6 hours is suggested to rule out myocardial damage. >= 1.50 ng/ml Indicative of Myocardial Injury. Procedures Date Code Description Status 02/22/2021 [id number] Colonoscopy Completed 01/10/2021 67122 Graham Cre SRV W/I 7 Days Of DC, C omm W/I 2 Dys Med Rec Completed 11/29/2020 06844 Office/Outpatient Established Mo d MDM 30-39 Min Completed 10/09/2020 09449 Office/Outpatient Established Lo w MDM 20-29 Min Completed 09/28/2014 [id number] Colonoscopy Completed 09/02/2012 [id number] Colonoscopy Completed 06/28/2009 [id number] Colonoscopy Completed Medical Devices Description No Information Available Encounters Type Date Location Provider Dx Diagnosis Office Visit 01/10/2021 10:00a [facility] M.D. N17.9 Acute kidney failure, [...] of colonic polyps Office Visit 11/29/2020 11:00a [place] [facility] M.D. J44.1 Chronic obstructive pulmonar [...] neoplasm of larynx Office Visit 10/09/2020 12:00p [place] A[facility] Queen M.D. J44.1 Chronic obstructive pulmonar [...] 04/18/2021 2:00 pm - [facility] * 06/25/2021 10:45 am - Nena Rendon M.D. at [facility] 01/10/2021 - Nena Rendon M.D.* [...] to Reason for Referral Status Appt Date [facility] Pulmonary Medicine CONSULT FOR PROGRESSIVE SOB Patient Noti fied 11/26/[address] [place], [place] [address] [phone]
--- OUTSIDE RECORDS SUMMARY | 2021-05-27 12:53 | CCD | Continuity of Care Document ---
Author Organization Unknown Address Unknown Phone Unavailable Care Team Providers Care Smooth And Burr Worker [employer]posites Name Role Phone Nena Norman M.D. AUTM [phone] Angel Lucio MD AUTM Supriya Adame AUTM AUTM Unavailable Problems Active Problems Provider Date [...] Lucio MD Onset: 06/28/2012 Tracheostomy present Marivel Corazon Milligan DO Onset: 06/28/2012 Tracheostomy complication Marivel [...] twice a day via nebulizer 360units J44.9 REIKA Dorsey 0 11/26/[address] 1 by mouth twice a day (Dysphagia/reflux) 60caps 530.85 Frankiln Hill MD 04/26/2020 Zyrtec Allergy 10mg Tablets [...] tab by mouth everyday Unknown Levothyroxine Sodium 75mcg Capsule s 1 tab by mouth everyday [...] then stop 26tabs J44.9 ERIKA Dorsey 11/27/19 21 - 08/16/2020 Milk Of Magnesia 7.75% Suspension [...] Available Vital Signs Date Vital Result Comment 02/04/2021 11:10am Height 67 inches 5'7" Weight 136.00 lb BMI (Body Mass Index) 21.3 kg/m2 [place] Body Weight 148 lb Weight 61.690 kg BSA (Body Surface Area) 1.72 m2 01/14/2021 2:48pm BP Systolic 120 mmHg BP Diastolic 70 mmHg Heart Rate 99 /min O2 % BldC Oximetry 96 % Body Temperature 96.9 F Height 67 inches 5'7" Weight 136.00 lb BMI (Body Mass Index) 21.3 kg/m2 [place] Body Weight 148 lb Weight 61.690 kg BSA (Body Surface Area) 1.72 m2 Results Description No Information Available Procedures Date Code Description Status 02/22/2021 13429 Colonoscopy Flexible Proximal To Splenic Flexure Diagnostic W/Or Completed 02/04/2021 44307 Office/Outpatient Established Lo w MDM 20-29 Min Completed 02/04/2021 82172 Tracheobronchoscopy Through Est Tracheostomy Incision Completed 01/14/2021 58762 Office/Outpatient Established Lo w MDM 20-29 Min Completed 01/01/2021 33319 Office/Outpatient Established Lo w MDM 20-29 Min Completed 12/25/2020 35458 Hospital Consult Initial Level 2 Completed 12/25/2020 76642 Dialysis Circuit W/ Transluminal Balloon Angioplasty, Peripheral Completed 12/05/2020 15322 Office/Outpatient Established Mo d MDM 30-39 Min Completed 11/26/2020 60397 Office/Outpatient Established Lo w MDM 20-29 Min Completed 11/26/2020 75692 Office/Outpatient Established Lo w MDM 20-29 Min Completed 10/01/2020 54673 Tracheobronchoscopy Through Est Tracheostomy Incision Completed Medical Devices Description No Information Available Encounters Type Date Location Provider Dx Diagnosis Office Visit 02/04/2021 11:00a [facility] Angel Lucio MD 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 T82.898A Oth complication of vascular prosth dev/grft, init Office Visit 11/26/2020 1:00p [facility]acic Giovana To ERIKA barrios J44.9 Chronic obstructive pulmonary disease, u nspecified Z87.891 Personal history of nicotine dependence Office Visit 11/26/2020 3:30p [facility] [place] MD Z86.010 [...] MD 12/25/2020 N18.6 End stage renal disease Agnela santoyo MD 12/05/2020 N18.4 Chronic kidney disease, [...] MD 11/26/2020 J44.9 Chronic obstructive pulmonary di ann-marie, unspecified ERIKA Dorsey 11/26/2020 Z87.891 Personal history of nicotine dep endence ERIKA Dorsey 10/01/2020 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 Angel Lucio MD 10/01/2020 Z43.0 Encounter for attention to trach eostomy Angel Lucio MD Plan of Treatment Future Appointment(s):* 06/24/2021 1:30 pm - ERIKA Dorsey at [facility]Thoracic 02/04/2021 - Angel Lucio MD* 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
--- OUTSIDE RECORDS SUMMARY | 2021-05-27 12:53 | CCD | Continuity of Care Document ---
Author Author Nickolas Rendon M.D. Organization Unknown Address [address] [place] [address] Phone [phone] Care Team Providers Care Home School Coordinator Name Role Phone Víctor Hayes MD AUTM [phone] Manuel Nunn MD AUTM Unavailable Bo Trotter MD AUTM Unavailable Nena Rendon MD AUTM [phone] Angel Lucio MD AUTM [phone] Cirilo Weeks MD AUTM [phone] Joceline Motley OD AUTM Unavailable Marlo Caban MD AUTM [phone] [facility] AUTM Angela Monzon MD AUTM [phone] Problems Active Problems Provider Date Benign essential [...] Mag64 64mg Tablets DR 1 by mo [facility] Nena Rendon M.D. 05/24/2019 Stiolto Respimat 2.5-2.5mcg/Act Ae rosol Inhale Two Puffs By Mouth Daily 12units Nena jaime M.D. 05/24/2019 Calcitriol 0.25mcg Capsules 1 on Thursday and Thursday only Nena Rendon M.D. 08/19/19 17 Saline Nasal [place] 0.65% Solution 3-4x/d as directed 1units Nena [...] CPT Code Status Date Vaccine Lot # 79275 Given 04/11/2020 Influenza Vaccin e Quadrivalent Preser/Antibiotic Free Im Use [id number] 02718 Given 05/24/2019 Influenza Vaccin e Quadrivalent Preser/Antibiotic Free Im Use 752453 91047 Given 06/08/2018 Influenza Virus Vaccine, Quadrivalent (Cciiv4), Derived From 4 Given 03/02/2018 Pneumovax 23 [id number] 25110 Given 05/21/2017 Influenza Vaccin e Quadrivalent Preser/Antibiotic Free Im Use 679815 59079 Given 08/19/2016 Adacel- Tetanus Diphtheria P ertussis (Age64 & Under) [id number] Q2037 Given 06/03/2016 Fluvirin Virus Vaccine 38758 01 U-PneuC Given 04/19/2016 Prevnar 13 Q2037 Given 06/06/2015 Fluvirin Virus Vaccine 51846 01 Q2037 Given 06/05/2014 Fluvirin Virus Vaccine 41833 21 Q2037 Given 05/07/2012 Fluvirin Virus Vaccine 78305 01 Q2037 Given 05/01/2011 Fluvirin Virus Vaccine 49216 Given 04/25/2010 Influenza Virus Vaccine 96385 Refused 09/14/2018 Shingrix Zoster Vaccine (HZV), Recombinant, Subunit, Adjuvanted 03081 Refused 09/14/2018 Zoster Vaccine Vital Signs Date [...] H/L Range Note Laboratory test finding 03/19/2021 [facility] [employer]ued[employer] Supervisor: [place] [address] [phone] TSH <pending> Coronavirus 2019 Nasopharygeal 02/18/2021 [place] [address] [phone] Coronavirus 2019 Nasopharygeal ASSAY INFORMATIO <SEE N OTE> 1 Laboratory test finding 02/08/2021 [facility] [employer] Supervisor: Dr Niranjan [place]oss [place] [id number] [phone] Thyroid Stimulating Hormone 6.49 uIU/mL High 0.3 6 - 3.74 Basic Metabolic Panel 01/10/2021 [facility] [employer] Supervisor: [place] [address] [phone] Glucose 109 mg/dL High 74 - 99 [...] Low >60 4 Laboratory test finding 01/10/2021 [facility] Silvia hunt [employer] Supervisor: Dr Niranjan Goss [place] [address] [phone] Thyroid Stimulating Hormone 8.00 uIU/mL High 0.3 6 - 3.74 5 Ua W/ Reflex To Culture 01/02/2021 [place] [id number] [phone] Appearance, Urine RFX CLEAR Normal Clear Color, Urine RFX YELLOW Normal Yellow PH,Urine RFX 6.0 units Normal 5.0-9.0 Specific [place] Ur Auto RFX 1.008 Normal 1.002-1.035 Protein, [...] /LPF Normal 0-1 Istat Chem8+ [facility] [place] [address] [phone] iSTAT HCT 45.0 % Normal 38.0-51.0 iSTAT Glucose 103 mg/dL Normal 70-105 iSTAT Sodium 137 mEq/L Normal 136-145 iSTAT Potassium 4.2 mEq/L Normal 3.5-5.1 iSTAT CA++ 4.7 mg/dL Normal 4.5-5.3 iSTAT Chloride 97 mEq/L Low 98-109 iSTAT Co2 29.0 MM/L High 23.0-27.0 iSTAT BUN 47 mg/dL High 8-26 iSTAT Creatinine 3.0 mg/dL High 0.6-1.3 Cardiac Marker Panel 01/02/2021 [facility] [address] [place] [address] [phone] CPK Creatine Phosphokinase 64 U/L Normal 39-30 8 CK-MB Value Mass 3.0 NG/ML Normal <3.6 MB/CK Relative Index 4.69 High < Or =4 6 Troponin I < 0.02 NG/ML Normal < 0.10 7 Liver Profile 01/02/2021 [facility] n[address] [place] [address] [phone] Ast/Sgot 14 U/L Normal 7-37 Alt/SGPT 18 U/L Normal 12-78 Alkaline Phosphatase 74 U/L Normal 45-117 Bilirubin,Total 0.6 mg/dL Normal 0.2-1.0 Bilirubin,Direct 0.2 mg/dL Normal 0.0-0.2 Total Protein 6.8 GM/DL Normal 6.4-8.2 Albumin 3.2 GM/DL Normal 3.2-5.2 Albumin/Globulin Ratio 0.9 Normal CBC With Differential 01/02/2021 [facility] [address] [place], [place] [address] [phone] White Blood Count 7.5 10 Normal 4.0-10.0 [...] 36.0-66.0 Lymph % 16.2 % Low 24.0-44.0 [place] % 11.3 % High 2.0-8.0 Eos % 4.4 % High 0.0-3.0 Baso % 1.1 % High 0.0-1.0 Immature Granulocyte % 1.3 % Normal 0-3.0 Nucleated Red Blood Cell % 0.0 % Normal 0-0 Neutrophils # 4.9 10 Normal 1.5-8.5 Lymph # 1.2 10 Low 1.5-5.0 [place] # 0.9 10 High 0.0-0.8 Eos # 0.3 10 Normal 0.0-0.5 Baso # 0.1 10 Normal 0.0-0.2 Laboratory test finding 11/29/2020 [facility] [employer] Supervisor: [place] [address] [phone] Thyroid Stimulating Hormone 0.05 uIU/mL Low 0.3 6 - 3.74 Laboratory test finding 10/30/2020 [facility] [employer] hunt [employer] Supervisor: [place] [address] [phone] Thyroid Stimulating Hormone 0.67 uIU/mL 0.3 6 - 3.74 Laboratory test finding 09/28/2020 [facility] [employer] hunt [employer] Supervisor: [place] [address] [phone] Thyroid Stimulating Hormone 1.37 uIU/mL 0.3 6 - 3.74 1 ASSAY INFORMATION: Real Time RT-PCR NOTE: The COVID-19 assay has been cleared by the U.S. Food and Drug Administration under the Emergency Use Authorization (EUA). 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 6 DIAGNOSIS CRITERIA MMB ng/ml Relative Index (RI) NON-AMI < or = 5 N/A BLOOM ZONE > 5 < or = 4 AMI > 5 > 4 7 Troponin I Reference Interva l for Siemens [place] LOCI: 99th Percentile= 0.00-0.045 ng/ml Risk Stratification: <= 0.10 ng/ml Decreased Risk for Adverse Clinical Events. 0.10-1.50 ng/ml Increased Risk for Adv erse Clinical Events. Evaluation of additional criterion and/or repeat testing in 2-6 hours is suggested to rule out myocardial damage. >= 1.50 ng/ml Indicative of Myocardial Injury. Procedures Date Code Description Status 02/22/2021 [id number] Colonoscopy Completed 01/10/2021 11289 Graham Cre SRV W/I 7 Days Of DC, C omm W/I 2 Dys Med Rec Completed 11/29/2020 17277 Office/Outpatient Established Mo d MDM 30-39 Min Completed 10/09/2020 72979 Office/Outpatient Established Lo w MDM 20-29 Min Completed 09/28/2014 [id number] Colonoscopy Completed 09/02/2012 [id number] Colonoscopy Completed 06/28/2009 [id number] Colonoscopy Completed Medical Devices Description No Information Available Encounters Type Date Location Provider Dx Diagnosis Office Visit 01/10/2021 10:00a [facility] M.D. N17.9 Acute kidney failure, [...] of colonic polyps Office Visit 11/29/2020 11:00a [facility] hunt M.D. J44.1 Chronic obstructive pulmonar [...] neoplasm of larynx Office Visit 10/09/2020 12:00p [facility] A[facility] Queen M.D. J44.1 Chronic obstructive pulmonar [...] 04/18/2021 2:00 pm [facility] * 06/25/2021 10:45 am - Nena Rendon M.D. at [facility] 01/10/2021 - Nena Rendon M.D.* [...] to Reason for Referral Status Appt Date [facility] Pulmonary Medicine CONSULT FOR PROGRESSIVE SOB Patient Noti fied 11/26/[address] [place], [place] [id number] [phone]
--- OUTSIDE RECORDS SUMMARY | 2021-05-27 12:53 | CCD | Continuity of Care Document ---
Author Author Nickolas Rendon M.D. Organization Unknown Address [address] [place] [address] Phone [phone] Care Team Providers Care Commercial Litigation Attorney Name Role Phone Víctor Hayes MD AUTM [phone] Manuel Nunn MD AUTM Unavailable Bo Trotter MD AUTM Unavailable Nena Rendon MD AUTM [phone] Angel Lucio MD AUTM [phone] Cirilo Weeks MD AUTM [phone] Joceline Motley OD AUTM Unavailable Marlo Caban MD AUTM [phone] [facility] AUTM [phone] Angela Monzon MD AUTM [phone] Problems Active Problems Provider Date Benign essential [...] Mag64 64mg Tablets DR 1 by mo [facility] Nena Rendon M.D. 05/24/2019 Stiolto Respimat 2.5-2.5mcg/Act Ae rosol Inhale Two Puffs By Mouth Daily 12units Nena jaime M.D. 05/24/2019 Calcitriol 0.25mcg Capsules 1 on Thursday and Thursday only Nena Rendon M.D. 08/19/19 17 Saline Nasal [place] 0.65% Solution 3-4x/d as directed 1units Nena [...] CPT Code Status Date Vaccine Lot # [id number] Given 04/11/2020 Influenza Vaccin e Quadrivalent Preser/Antibiotic Free Im Use [id number] 22058 Given 05/24/2019 Influenza Vaccin e Quadrivalent Preser/Antibiotic Free Im Use [id number] 28602 Given 06/08/2018 Influenza Virus Vaccine, Quadrivalent (Cciiv4), Derived From 2 Given 03/02/2018 Pneumovax 23 [id number] 24517 Given 05/21/2017 Influenza Vaccin e Quadrivalent Preser/Antibiotic Free Im Use [id number] 76069 Given 08/19/2016 Adacel- Tetanus Diphtheria P ertussis (Age64 & Under) [id number] Q2037 Given 06/03/2016 Fluvirin Virus Vaccine 70378 01 U-PneuC Given 04/19/2016 Prevnar 13 Q2037 Given 06/06/2015 Fluvirin Virus Vaccine 54764 01 Q2037 Given 06/05/2014 Fluvirin Virus Vaccine [id number] 21 Q2037 Given 05/07/2012 Fluvirin Virus Vaccine 31573 01 Q2037 Given 05/01/2011 Fluvirin Virus Vaccine 97563 Given 04/25/2010 Influenza Virus Vaccine [id number] Refused 09/14/2018 Shingrix Zoster Vaccine (HZV), Recombinant, Subunit, Adjuvanted 63801 Refused 09/14/2018 Zoster Vaccine Vital Signs Date [...] H/L Range Note Laboratory test finding 03/19/2021 [place] [facility] Economic Development Director: [place] [address] [phone] TSH <pending> Coronavirus 2019 Nasopharygeal 02/18/2021 [place] [address] [phone] Coronavirus 2019 Nasopharygeal ASSAY INFORMATIO <SEE N OTE> 1 Laboratory test finding 02/08/2021 [facility] [facility] Economic Development Director: Dr Nir[place] [id number] [phone] Thyroid Stimulating Hormone 6.49 uIU/mL High 0.3 6 - 3.74 Basic Metabolic Panel 01/10/2021 [place] [facility] Economic Development Director: [place] [address] [phone] Glucose 109 mg/dL High 74 - 99 [...] Low >60 4 Laboratory test finding 01/10/2021 [place] [facility] Economic Development Director: Dr Niranjan [place]oss [place] [id number] [phone] Thyroid Stimulating Hormone 8.00 uIU/mL High 0.3 6 - 3.74 5 Ua W/ Reflex To Culture 01/02/2021 [place] [id number] [phone] Appearance, Urine RFX CLEAR Normal Clear Color, Urine RFX YELLOW Normal Yellow PH,Urine RFX 6.0 units Normal 5.0-9.0 Specific [place] Ur Auto RFX 1.008 Normal 1.002-1.035 Protein, [...] Normal 0-1 Istat Chem8+ [facility] [address] [place] [address] [phone] iSTAT HCT 45.0 % Normal 38.0-51.0 iSTAT Glucose 103 mg/dL Normal 70-105 iSTAT Sodium 137 mEq/L Normal 136-145 iSTAT Potassium 4.2 mEq/L Normal 3.5-5.1 iSTAT CA++ 4.7 mg/dL Normal 4.5-5.3 iSTAT Chloride 97 mEq/L Low 98-109 iSTAT Co2 29.0 MM/L High 23.0-27.0 iSTAT BUN 47 mg/dL High 8-26 iSTAT Creatinine 3.0 mg/dL High 0.6-1.3 Cardiac Marker Panel 01/02/2021 [facility] enter [address] [place] [address] [phone] CPK Creatine Phosphokinase 64 U/L Normal 39-30 8 CK-MB Value Mass 3.0 NG/ML Normal <3.6 MB/CK Relative Index 4.69 High < Or =4 6 Troponin I < 0.02 NG/ML Normal < 0.10 7 Liver Profile 01/02/2021 [facility] nter [address] [place] [address] [phone] Ast/Sgot 14 U/L Normal 7-37 Alt/SGPT 18 U/L Normal 12-78 Alkaline Phosphatase 74 U/L Normal 45-117 Bilirubin,Total 0.6 mg/dL Normal 0.2-1.0 Bilirubin,Direct 0.2 mg/dL Normal 0.0-0.2 Total Protein 6.8 GM/DL Normal 6.4-8.2 Albumin 3.2 GM/DL Normal 3.2-5.2 Albumin/Globulin Ratio 0.9 Normal CBC With Differential 01/02/2021 [facility] [address] [place], [place] [id number] [phone] White Blood Count 7.5 10 Normal 4.0-10.0 [...] 36.0-66.0 Lymph % 16.2 % Low 24.0-44.0 [place] % 11.3 % High 2.0-8.0 Eos % 4.4 % High 0.0-3.0 Baso % 1.1 % High 0.0-1.0 Immature Granulocyte % 1.3 % Normal 0-3.0 Nucleated Red Blood Cell % 0.0 % Normal 0-0 Neutrophils # 4.9 10 Normal 1.5-8.5 Lymph # 1.2 10 Low 1.5-5.0 [place] # 0.9 10 High 0.0-0.8 Eos # 0.3 10 Normal 0.0-0.5 Baso # 0.1 10 Normal 0.0-0.2 Laboratory test finding 11/29/2020 [place] [facility] Economic Development Director: [place] [address] [phone] Thyroid Stimulating Hormone 0.05 uIU/mL Low 0.3 6 - 3.74 Laboratory test finding 10/30/2020 [place] [employer] [facility] Economic Development Director: [place] [address] [phone] Thyroid Stimulating Hormone 0.67 uIU/mL 0.3 6 - 3.74 Laboratory test finding 09/28/2020 [place] [employer] [facility] Economic Development Director: [place] [address] [phone] Thyroid Stimulating Hormone 1.37 uIU/mL 0.3 6 - 3.74 1 ASSAY INFORMATION: Real Time RT-PCR NOTE: The COVID-19 assay has been cleared by the U.S. Food and Drug Administration under the Emergency Use Authorization (EUA). 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 6 DIAGNOSIS CRITERIA MMB ng/ml Relative Index (RI) NON-AMI < or = 5 N/A BLOOM ZONE > 5 < or = 4 AMI > 5 > 4 7 Troponin I Reference Interva l for [employer] LOCI: 99th Percentile= 0.00-0.045 ng/ml Risk Stratification: <= 0.10 ng/ml Decreased Risk for Adverse Clinical Events. 0.10-1.50 ng/ml Increased Risk for Adv erse Clinical Events. Evaluation of additional criterion and/or repeat testing in 2-6 hours is suggested to rule out myocardial damage. >= 1.50 ng/ml Indicative of Myocardial Injury. Procedures Date Code Description Status 02/22/2021 [id number] Colonoscopy Completed 01/10/2021 [address] SRV W/I 7 Days Of DC, C omm W/I 2 Dys Med Rec Completed 11/29/2020 17211 Office/Outpatient Established Mo d MDM 30-39 Min Completed 10/09/2020 92655 Office/Outpatient Established Lo w MDM 20-29 Min Completed 09/28/2014 [id number] Colonoscopy Completed 09/02/2012 [id number] Colonoscopy Completed 06/28/2009 [id number] Colonoscopy Completed Medical Devices Description No Information Available Encounters Type Date Location Provider Dx Diagnosis Office Visit 01/10/2021 10:00a [place] [facility] M.[facility] N17.9 Acute kidney failure, [...] of colonic polyps Office Visit 11/29/2020 11:00a [place] [facility] M.D[facility] J44.1 Chronic obstructive pulmonar [...] neoplasm of larynx Office Visit 10/09/2020 12:00p [place] [facility] M.D. J44.1 Chronic obstructive pulmonar [...] 04/18/2021 2:00 pm - [facility] * 06/25/2021 10:45 am - Nena Rendon M.D. at [facility] 01/10/2021 - Nena Rendon M.D.* [...] to Reason for Referral Status Appt Date [facility] Pulmonary Medicine CONSULT FOR PROGRESSIVE SOB Patient Noti fied 11/26/[address] [place], [place] [id number] [phone]
--- OUTSIDE RECORDS SUMMARY | 2021-05-27 12:55 | CCD ---
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 Name Role Phone Mary, L Giovana ANALYSIS MANAGER Unavailable Unavailable Mary, L Giovana ANALYSIS MANAGER Unavailable Unavailable Mary, L Giovana ANALYSIS MANAGER Unavailable Unavailable Mary, L Giovana ANALYSIS MANAGER Unavailable Unavailable Mary, L Giovana ANALYSIS MANAGER Unavailable Unavailable Mary, L Giovana ANALYSIS MANAGER Unavailable Unavailable Mary, L Giovana ANALYSIS MANAGER Unavailable Unavailable Mary, L Giovana ANALYSIS MANAGER Unavailable Unavailable Mary, L Giovana ANALYSIS MANAGER Unavailable Unavailable Mary, L Giovana ANALYSIS MANAGER Unavailable Unavailable Mary, L Giovana ANALYSIS MANAGER Unavailable Unavailable Mary, L Giovana ANALYSIS MANAGER Unavailable Unavailable Mary, L Giovana ANALYSIS MANAGER Unavailable Unavailable Mary, L Giovana ANALYSIS MANAGER Unavailable Unavailable Mary, L Giovana ANALYSIS MANAGER Unavailable Unavailable Mary, L Giovana ANALYSIS MANAGER Unavailable Unavailable Mary, L Giovana ANALYSIS MANAGER Unavailable Unavailable Mary, L Giovana ANALYSIS MANAGER Unavailable Unavailable Mary, L Giovana ANALYSIS MANAGER Unavailable Unavailable Mary, L Giovana ANALYSIS MANAGER Unavailable Unavailable Mary, L Giovana ANALYSIS MANAGER Unavailable Unavailable Mary, L Giovana ANALYSIS MANAGER Unavailable Unavailable Mary, L Giovana ANALYSIS MANAGER Unavailable Unavailable Mary, L Giovana ANALYSIS MANAGER Unavailable Unavailable Mary, L Giovana ANALYSIS MANAGER Unavailable Unavailable CASH WEBSTER MD Unavailable Unavailable CASH WEBSTER MD Unavailable Unavailable REINDL, CHATO DILL Unavailable Unavailable REINDL, CHATO DILL Unavailable Unavailable REINDL, CHATO DILL Unavailable Unavailable REINDL, CHATO DILL Unavailable Unavailable REINDL, CHATO DILL Unavailable Unavailable REINDL, CHATO DILL Unavailable Unavailable REINDL, CHATO DILL Unavailable Unavailable REINDL, CHATO DILL Unavailable Unavailable REINDL, CHATO DILL Unavailable Unavailable REINDL, CHATO DILL Unavailable Unavailable REINDL, CHATO DILL Unavailable Unavailable REINDL, CHATO DILL Unavailable Unavailable REINDL, CHATO DILL Unavailable Unavailable REINDL, CHATO DILL Unavailable Unavailable REINDL, CHATO DILL Unavailable Unavailable REINDL, CHATO DILL Unavailable Unavailable REINDL, CHATO DILL Unavailable Unavailable REINDL, CHATO DILL Unavailable Unavailable REINDL, CHATO DILL Unavailable Unavailable REINDL, CHATO DILL Unavailable Unavailable REINDL, CHATO DILL Unavailable Unavailable REINDL, CHATO DILL Unavailable Unavailable REINDL, CHATO DILL Unavailable Unavailable REINDL, CHATO DILL Unavailable Unavailable REINDL, CHATO DILL Unavailable Unavailable REINDL, CHATO DILL Unavailable Unavailable REINDL, CHATO DILL Unavailable Unavailable REINDL, CHATO DILL Unavailable Unavailable REINDL, CHATO DILL Unavailable Unavailable REINDL, CHATO DILL Unavailable Unavailable REINDL, CHATO DILL Unavailable Unavailable REINDL, CHATO DILL Unavailable Unavailable REINDL, CHATO DILL Unavailable Unavailable REINDL, CHATO DILL Unavailable Unavailable REINDL, CHATO DILL Unavailable Unavailable REINDL, CHATO DILL Unavailable Unavailable REINDL, CHATO DILL Unavailable Unavailable REINDL, CHATO DILL Unavailable Unavailable REINDL, CHATO DILL Unavailable Unavailable REINDL, CHATO DILL Unavailable Unavailable REINDL, CHATO DILL Unavailable Unavailable REINDL, CHATO DILL Unavailable Unavailable Diann Rendon MD Unavailable Unavailable Diann Rendon MD Unavailable Unavailable Diann Rendon MD Unavailable Unavailable Diann Rendon MD Unavailable Unavailable Diann Rendon MD Unavailable Unavailable Diann Rendon MD Unavailable Unavailable Diann Rendon MD Unavailable Unavailable Diann Rendon MD Unavailable Unavailable Diann Rendon MD Unavailable Unavailable Diann Rendon MD Unavailable Unavailable Diann Rendon MD Unavailable Unavailable Diann Rendon MD Unavailable Unavailable Diann Rendon MD Unavailable Unavailable Diann Rendon MD Unavailable Unavailable Diann Rendon MD Unavailable Unavailable Diann Rendon MD Unavailable Unavailable Diann Rendon MD Unavailable Unavailable Diann Rendon MD Unavailable Unavailable Diann Rendon MD Unavailable Unavailable JulietaDiann MD Unavailable Unavailable JulietaDiann cassidy MD Unavailable Unavailable JulietaDiann MD Unavailable Unavailable JulietaDiann MD Unavailable Unavailable JulietaDiann MD Unavailable Unavailable JulietaDiann MD Unavailable Unavailable JulietaDiann MD Unavailable Unavailable JulietaDiann MD Unavailable Unavailable JulietaDiann MD Unavailable Unavailable JulietaDiann jaime MD Unavailable Unavailable JulietaDiann MD Unavailable Unavailable JulietaiDann MD Unavailable Unavailable JulietaDiann MD Unavailable Unavailable JulietaDiann cassidy MD Unavailable Unavailable JulietaDiann MD Unavailable Unavailable JulietaDiann MD Unavailable Unavailable JulietaDiann MD Unavailable Unavailable JulietaDiann jaime MD Unavailable Unavailable JulietaDiann MD Unavailable Unavailable Diann Rendon MD Unavailable Unavailable JulietaDiann cassidy MD Unavailable Unavailable Diann Rendon MD Unavailable Unavailable Diann Rendon MD Unavailable Unavailable Diann Rendon MD Unavailable Unavailable Diann Rendon MD Unavailable Unavailable Diann Rendon MD Unavailable Unavailable Diann Rendon MD Unavailable Unavailable Diann Rendon MD Unavailable Unavailable Diann Rendon MD Unavailable Unavailable Diann Rendon MD Unavailable Unavailable Diann Rendon MD Unavailable Unavailable Diann Rendon MD Unavailable Unavailable Diann Rendon MD Unavailable Unavailable Diann Rendon MD Unavailable Unavailable Diann Rendon MD Unavailable Unavailable Diann Rendon MD Unavailable Unavailable Diann Rendon MD Unavailable Unavailable Diann Rendon MD Unavailable Unavailable Diann Rendon MD Unavailable Unavailable Diann Rendon MD Unavailable Unavailable Diann Rendon MD Unavailable Unavailable Diann Rendon MD Unavailable Unavailable Diann Rendon MD Unavailable Unavailable Diann Rendon MD Unavailable Unavailable Diann Rendon MD Unavailable Unavailable Diann Rendon MD Unavailable Unavailable Diann Rendon MD Unavailable Unavailable Diann Rendon MD Unavailable Unavailable Diann Rendon MD Unavailable Unavailable Diann Rendon MD Unavailable Unavailable Julieta, M Nena MD Unavailable Unavailable Diann Rendon MD Unavailable Unavailable Diann Rendon MD Unavailable Unavailable Diann Rendon MD Unavailable Unavailable Diann Rendon MD Unavailable Unavailable Diann Rendon MD Unavailable Unavailable Diann Rendon MD Unavailable Unavailable Diann Rendon MD Unavailable Unavailable Diann Rendon MD Unavailable Unavailable Diann Rendon MD Unavailable Unavailable Diann Rendon MD Unavailable Unavailable Diann Rendon MD Unavailable Unavailable Diann Rendon MD Unavailable Unavailable Diann Rendon MD Unavailable Unavailable Diann Rendon MD Unavailable Unavailable Cederstrand, Farheen Miller MD Unavailable Unavailable Cederstrand, Farheen Miller MD Unavailable Unavailable Cederstrand, Farheen Miller MD Unavailable Unavailable Cederstrand, Farheen Milelr MD Unavailable Unavailable Cederstrand, Farheen Miller MD Unavailable Unavailable Cederstrand, Farheen Miller MD Unavailable Unavailable Cederstrand, Farheen Miller MD Unavailable Unavailable Cederstrand, Fahreen Miller MD Unavailable Unavailable Cederstrand, Farheen Miller MD Unavailable Unavailable Cederstrand, Farheen Miller MD Unavailable Unavailable Cederstrand, Farheen Miller MD Unavailable Unavailable Cederstrand, Farheen Miller MD Unavailable Unavailable Cederstrand, Farheen Miller MD Unavailable Unavailable Cederstrand, Farheen Miller MD Unavailable Unavailable Cederstrand, Farheen Miller MD Unavailable Unavailable Cederstrand, Farheen Miller MD Unavailable Unavailable Saha, L Thelma RPA Unavailable Unavailable Saha, L Thelma RPA Unavailable Unavailable Saha, L Thelma RPA Unavailable Unavailable Saha, L Thelma RPA Unavailable Unavailable Saha, L Thelma RPA Unavailable Unavailable Saha, L Thelma RPA Unavailable Unavailable Saha, L Thelma RPA Unavailable Unavailable Saha, L Thelma RPA Unavailable Unavailable Saha, L Thelma RPA Unavailable Unavailable Saha, L Thelma RPA Unavailable Unavailable Saha, L Thelma RPA Unavailable Unavailable Saha, L Thelma RPA Unavailable Unavailable Saha, L Thelma RPA Unavailable Unavailable Saha, L Thelma RPA Unavailable Unavailable Saha, L Thelma RPA Unavailable Unavailable Saha, L Thelma RPA Unavailable Unavailable Saha, L Thelma RPA Unavailable Unavailable Saha, L Thelma RPA Unavailable Unavailable Saha, L Thelma RPA Unavailable Unavailable Saha, L Thelma RPA Unavailable Unavailable Saha, L Thelma RPA Unavailable Unavailable Saha, L Thelma RPA Unavailable Unavailable Saha, L Thelma RPA Unavailable Unavailable Saha, L Thelma RPA Unavailable Unavailable Saha, L Thelma RPA Unavailable Unavailable Saha, L Thelma RPA Unavailable Unavailable Saha, L Thelma RPA Unavailable Unavailable Saha, L Thelma RPA Unavailable Unavailable Saha, L Thelma RPA Unavailable Unavailable Saha, L Thelma RPA Unavailable Unavailable Saha, L Thelma RPA Unavailable Unavailable Saha, L Thelma RPA Unavailable Unavailable KHADJIAH, C ANNIKA MD Unavailable Unavailable KHADIJAH, C ANNIKA MD Unavailable Unavailable KHADIJAH, C ANNIKA MD Unavailable Unavailable KHADIJAH, C ANNIKA MD Unavailable Unavailable KHADIJAH, C ANNIKA MD Unavailable Unavailable KHADIJAH, C ANNIKA MD Unavailable Unavailable KHADIJAH, C ANNIKA MD Unavailable Unavailable KHADIJAH, C ANNIKA MD Unavailable Unavailable KHADIJAH, C ANNIKA MD Unavailable Unavailable KHADIJAH, C ANNIKA MD Unavailable Unavailable KHADIJAH, C ANNIKA MD Unavailable Unavailable KHADIJAH, C ANNIKA MD Unavailable Unavailable KHADIJAH, C ANNIKA MD Unavailable Unavailable KHADIJAH, C ANNIKA MD Unavailable Unavailable KHADIJAH, C ANNIKA MD Unavailable Unavailable KHADIJAH, C ANNIKA MD Unavailable Unavailable KHADIJAH, C ANNIKA MD Unavailable Unavailable KHADIJAH, C ANNIKA MD Unavailable Unavailable KHADIJAH, C ANNIKA MD Unavailable Unavailable KHADIJAH, C ANNIKA MD Unavailable Unavailable KHADIJAH, C ANNIKA MD Unavailable Unavailable KHADIJAH, C ANNIKA MD Unavailable Unavailable KHADIJAH, C ANNIKA MD Unavailable Unavailable KHADIJAH, C ANNIKA MD Unavailable Unavailable KHADIJAH, C ANNIKA MD Unavailable Unavailable KHADIJAH, C ANNIKA MD Unavailable Unavailable KHADIJAH, C ANNIKA MD Unavailable Unavailable KHADIJAH, C ANNIKA MD Unavailable Unavailable KHADIJAH, C ANNIKA MD Unavailable Unavailable KHADIJAH, C ANNIKA MD Unavailable Unavailable KHADIJAH, C ANNIKA MD Unavailable Unavailable KHADIJAH, C ANNIKA MD Unavailable Unavailable KHADIJAH, C ANNIKA MD Unavailable Unavailable KHADIJAH, C ANNIKA MD Unavailable Unavailable Re-disclosure Warning The records that you are about to access may contain information from federally-assisted alcohol or drug abuse programs. If such information is present, then the following federally mandated warning applies: This information has been disclosed to you from records protected by federal confidentiality rules (42 CFR part 2). The federal rules prohibit you from making any further disclosure of this information unless further disclosure is expressly permitted by the written consent of the person to whom it pertains or as otherwise permitted by 42 CFR part 2. A general authorization for the release of medical or other information is NOT sufficient for this purpose. The Federal rules restrict any use of the information to criminally investigate or prosecute any alcohol or drug abuse patient.The records that you are about to access may contain highly sensitive health information, the redisclosure of which is protected by Article 27-F of the [facility] Public Health law. If you continue you may have access to information: Regarding HIV / AIDS; Provided by facilities licensed or operated by the [facility] Office of Mental Health; or Provided by the [facility] Office for People With Developmental Disabilities. If such information is present, then the following [facility] mandated warning applies: This information has been disclosed to you from confidential records which are protected by state law. State law prohibits you from making any further disclosure of this information without the specific written consent of the person to whom it pertains, or as otherwise permitted by law. Any unauthorized further disclosure in violation of state law may result in a fine or fpc sentence or both. A general authorization for the release of medical or other information is NOT sufficient authorization for further disc losure. Family History Family Member Name Family Member Gender Family Member Status Date o f Status Description Data Source(s) Unknown Unknown Problem [facility] ([facility], ) Unknown Unknown Problem [facility] ([facility], ) Unknown Female Problem [facility] ([facility]) Encounters Encounter Providers Location Date Indications Data Source(s ) Outpatient Attender: NAE Lucio/Mode/Vik/Re indl 04/29/2021 03:45:00 PM EDT [facility], ) Outpatient Attender: NAE Lucio/Mode/Vik/Re indl 04/04/2021 11:30:00 AM EDT [facility] Outpatient Attender: Nena Farah 10:45:00 AM EDT [facility] ([facility] ) Outpatient Attender: ANNIKA Lucio/[place]/Vik/Reind l 02/04/2021 11:00:00 AM EDT [facility] Outpatient Attender: Giovana Schmidang/[place]/[facility]ik/Reindl 01/14/2021 03:00:00 PM EDT [facility] ([facility] Outpatient Attender: Nena Farah 10:00:00 AM EDT [facility] ([facility] ) Outpatient Attender: Thelma Saha RPA Khadijah/[place]/Vik/R eindl 01/01/2021 01:15:00 PM EDT [facility] ([facility] Outpatient Attender: Angela Lucio/[place]/Vik/ Reindl 12/25/2020 02:00:00 PM EDT [facility] ([facility] Outpatient Attender: Thelma Saha RPA Khadijah/[place]/Vik/R eindl 12/05/2020 11:00:00 AM EDT [facility] ([facility] Outpatient Attender: Nena Farah 11:00:00 AM EDT [facility] ([facility] ) Outpatient Attender: HCATO Lucio/[place]/Vik/Rein dl 11/26/2020 03:30:00 PM EDT [facility] ([facility] Outpatient Attender: Giovana Schmidang/[place]/Vik/Reindl 11/26/2020 01:00:00 PM EDT [facility] ([facility] Outpatient Attender: Nena Farah 12:00:00 PM EDT [facility] ([facility] ) Outpatient Attender: Nena Farah 10:15:00 AM EST [facility] ([facility] ) Outpatient Attender: Thelma Saha RPA Khadijah/[place]/Vik/R eindl 08/21/2020 10:30:00 AM EST [facility] ([facility], ) Outpatient Attender: Thelma Lucio/[place]/Vik/R eindl 08/06/2020 10:00:00 AM EST [facility] ([facility], ) Outpatient Attender: Nena Farah 09:15:00 AM EST [facility] ([facility] ) Outpatient Attender: Nena Farah 09:45:00 AM EST [facility] ([facility] ) Outpatient Attender: Nena Farah 09:15:00 AM EST [facility] ([facility] ) Outpatient Attender: Nena Farah 02:45:00 PM EDT [facility] ([facility] ) Outpatient Attender: CHATO Lucio/Mode/Vik/Rein dl 04/26/2020 01:15:00 PM EDT [facility] ([facility], ) Outpatient Attender: Thelma Lucio/[place]/Vik/R eindl 04/19/2020 11:00:00 AM EDT [facility] ([facility], ) Outpatient Attender: Nena Farah 02:00:00 PM EDT [facility] ([facility] ) Immunizations Vaccine Date Status Description Data Source(s) Influenza, injectable, MDCK, preservative free, marie valent 04/18/2021 02:09:00 PM EDT completed [facility]) COVID-19 VACCINE Moderna 10/19/2020 12:00:00 AM EDT completed [facility] Vaccine Series Complete: YESThis Data wa s Submitted to [facility] Via [employer]. COVID-19 VACCINE Moderna 09/21/2020 12:00:00 AM EST completed [facility] Vaccine Series Complete: NOThis Data was Submitted to [facility] [employer]. Influenza, injectable, MDCK, preservative free, marie valent 04/11/2020 09:48:00 AM EDT completed [facility] ([facility]) Medications Medication Brand Name Start Date Product Form Dose Route Admi nistrative Instructions Pharmacy Instructions Status Indications Reaction Description Data Source(s) Administration Of Flu Vaccine 04/18/2021 12:00:00 AM EDT completed [facility] ([facility]) Medication administered onsite Levothyroxine Sodium 0.088 MG Oral Tablet Levothyroxine Sodi um 03/21/2021 12:00:00 AM EDT ORAL active M EDENT ([facility]) 24 HR metoprolol succinate 100 MG Extended Release Ora l Tablet Metoprolol Succinate ER 03/19/2021 12:00:00 AM EDT active [facility] ([facility]) Gatoraid 01/11/2021 12:00:00 AM EDT active [facility] ([facility]) Levothyroxine Sodium 0.075 MG Oral Tablet Levothyroxine Sodi um 11/30/2020 12:00:00 AM EDT ORAL completed [facility] ([facility]) 17 gram/dose 11/27/2020 12:00:00 AM EDT powder [address] LAUREANO COLON PREPARATION INSTRUCTIONS USE DIRECTED SEE DR. LAUREANO COLON PREPARATION INSTRUCTIONS SOLD: 11/27/2020 [facility] Budesonide 0.25 MG/ML Inhalant Solution Budesonide 11/26/2020 12: 00:00 AM EDT active [facility] ([facility], ) 10 mg 11/26/2020 12:00:00 AM EDT tablet 26 TAKE 3TABLETS BY MOUTH ONCE DAILY FOR 4 DAYS;2/DAY X4DAYS;1/DAY X 4 DAYS;THEN 1/2 DAILY FOR 4 DAYS, THEN STOP TAKE 3TABLETS BY MOUTH ONCE DAILY FOR 4 DAYS;2/DAY X4DAYS;1/DAY X 4 DAYS;THEN 1/2 DAILY FOR 4 DAYS, THEN STOP SOLD: 11/27/2020 [facility] Magnesium Hydroxide 80 MG/ML Oral Suspension Milk Of Magnesi a 11/26/2020 12:00:00 AM EDT ORAL completed [facility] ([facility], ) POLYETHYLENE GLYCOL 3350 142 MG/ML Oral Solution [Miralax] M iralax 11/26/2020 12:00:00 AM EDT completed [facility] ([facility]) Prednisone 10 MG Oral Tablet Prednisone 11/26/2020 12:00:00 AM EDT completed [facility] ([facility]) Prednisone 20 MG Oral Tablet Prednisone 11/26/2020 12:00:00 AM EDT completed [facility] Covid-19 vaccine, Unspecified 10/19/2020 12:00:00 AM EDT completed [facility] ([facility]) Medication administered onsite Covid-19 vaccine, Unspecified 10/19/2020 12:00:00 AM EDT completed [facility] ([facility]) Medication administered onsite 10 mg 10/09/2020 12:00:00 AM EDT tablet 20 TAKE 2 TABLETS BY MOUTH EVERY MORNING FOR 4 DAYS THEN 1 & 1/2 TABLETS EVERY MORNING FOR 4 DAYS THEN 1 TABLET EVERY MORNING FOR 4 DAYS THEN 1/2 TABLET EVERY MORNING FOR 4 DAYS TAKE 2 TABLETS BY MOUTH EVERY MORNING FOR 4 DAYS THEN 1 & 1/2 TABLETS EVERY MORNING FOR 4 DAYS THEN 1 TABLET EVERY MORNING FOR 4 DAYS THEN 1/2 TABLET EVERY MORNING FOR 4 DAYS SOLD: 10/11/2020 [facility] Covid-19 vaccine, Unspecified 09/21/2020 12:00:00 AM EST completed [facility] ([facility]) Medication administered onsite Covid-19 vaccine, Unspecified 09/21/2020 12:00:00 AM EST completed [facility] ([facility]) Medication administered onsite Tamsulosin hydrochloride 0.4 MG Oral Capsule Tamsulosin HCL 09/04/2020 12:00:00 AM EST ORAL active [facility] ([facility]) doxycycline hyclate 100 MG Oral Capsule DOXYCYCLINE HYCLATE 08/06/2020 12:00:00 AM EST capsule 20 TAKE ONE CAPSULE BY MOUTH TW ICE A DAY FOR 10 DAYS TAKE ONE CAPSULE BY MOUTH TWICE A DAY FOR 10 DAYS SOLD: 08/07/2020 [facility] doxycycline hyclate 100 MG Oral Capsule Doxycycline Hyclate 08/06/2020 12:00:00 AM EST completed [facility] ([facility]) Prednisone 10 MG Oral Tablet Prednisone 08/06/2020 12:00:00 AM EST ORAL completed [facility] ([facility]) 10 mg 08/06/2020 12:00:00 AM EST tablet 20 TAKE 2 TABLETS BY MOUTH IN THE MORNING FOR 4 DAYS, THEN 1 & 1/2 TABLETS IN THE MORNING FOR 4 DAYS THEN 1 TABLET IN THE MORNING FOR 4 DAYS THEN 1/2 TABLET IN THE MORNING FOR 4 DAYS TAKE 2 TABLETS BY MOUTH IN THE MORNING FOR 4 DAYS, THEN 1 & 1/2 TABLETS IN THE MORNING FOR 4 DAYS THEN 1 TABLET IN THE MORNING FOR 4 DAYS THEN 1/2 TABLET IN THE MORNING FOR 4 DAYS SOLD: 08/07/2020 [facility] 20 mg 07/31/2020 12:00:00 AM EST tablet 15 TAKE ONE TABLET BY MOUTH EVERY OTHER DAY TAKE ONE TABLET BY MOUTH EVERY OTHER DAY SOLD: 09/19/2020 [facility] 20 mg 07/31/2020 12:00:00 AM EST tablet 15 TAKE ONE TABLET BY MOUTH EVERY OTHER DAY TAKE ONE TABLET BY MOUTH EVERY OTHER DAY SOLD: 10/23/2020 [facility] 20 mg 07/31/2020 12:00:00 AM EST tablet 15 TAKE ONE TABLET BY MOUTH EVERY OTHER DAY TAKE ONE TABLET BY MOUTH EVERY OTHER DAY SOLD: 08/01/2020 [facility] Levothyroxine Sodium 0.1 MG Oral Tablet Levothyroxine Sodium 07/31/2020 12:00:00 AM EST ORAL completed [facility] ([facility]) 20 mg 07/31/2020 12:00:00 AM EST tablet 15 TAKE ONE TABLET BY MOUTH EVERY OTHER DAY TAKE ONE TABLET BY MOUTH EVERY OTHER DAY SOLD: 12/04/2020 [facility] Levothyroxine Sodium 0.075 MG Oral Tablet Levothyroxine Sodi um 06/29/2020 12:00:00 AM EST ORAL completed [facility] ([facility]) Levothyroxine Sodium 0.075 MG Oral Tablet Levothyroxine Sodi um 06/29/2020 12:00:00 AM EST ORAL completed [facility] ([facility]) 50 mcg 05/30/2020 12:00:00 AM EST tablet 30 TAKE ONE TABLET BY MOUTH EVERY DAY TAKE ONE TABLET BY MOUTH EVERY DAY SOLD: 06/02/2020 [facility] Levothyroxine Sodium 0.05 MG Oral Tablet Levothyroxine Sodiu m 05/29/2020 12:00:00 AM EST ORAL completed [facility] ([facility]) Ensure Active 05/01/2020 12:00:00 AM EDT acti ve MEDENT ([facility]) Omeprazole 40 MG Delayed Release Oral Capsule Omeprazole 04/26/2020 12:00:00 AM EDT ORAL active [facility] ([facility], ) 20 mg 04/18/2020 12:00:00 AM EDT tablet 15 TAKE ONE TABLET BY MOUTH EVERY OTHER DAY TAKE ONE TABLET BY MOUTH EVERY OTHER DAY SOLD: 04/22/2020 [facility] 20 mg 04/18/2020 12:00:00 AM EDT tablet 15 TAKE ONE TABLET BY MOUTH EVERY OTHER DAY TAKE ONE TABLET BY MOUTH EVERY OTHER DAY SOLD: 06/25/2020 [facility] 20 mg 04/18/2020 12:00:00 AM EDT tablet 15 TAKE ONE TABLET BY MOUTH EVERY OTHER DAY TAKE ONE TABLET BY MOUTH EVERY OTHER DAY SOLD: 05/15/2020 [facility] Administration Of Flu Vaccine 04/11/2020 12:00:00 AM EDT completed [facility]) Medication administered onsite Levothyroxine Sodium 0.175 MG Oral Tablet Levothyroxine Sodi um 04/04/2020 12:00:00 AM EDT ORAL completed [facility] ([facility]) Omeprazole 40 MG Delayed Release Oral Capsule Omeprazole 03/30/2020 12:00:00 AM EDT ORAL active [facility] ([facility]) Azithromycin 250 MG Oral Tablet Azithromycin 01/30/2020 12:00:00 AM EDT completed [facility] ([facility]) Prednisone 5 MG Oral Tablet Prednisone 01/30/2020 12:00:00 AM EDT ORAL completed [facility] ([facility]) Levothyroxine Sodium 0.088 MG Oral Tablet Levothyroxine Sodi um 01/05/2020 12:00:00 AM EDT ORAL completed [facility] ([facility]) Insurance Providers Payer name Policy type / Coverage type Policy ID Covered republican ID Covered republican's relationship to marlow Policy Marlow Plan Information [employer] [id number] MEDICARE A [id number] Self [id number] A MEDICARE [id number] SP [id number] A MEDICARE [id number] SP [id number] A Medicare Natl Govt Servic Medicare Primary [id number] Self 1 [id number] Medicare Natl Govt Servic Medicare Primary [id number] Self 2 [id number] Medicare Natl Govt Servic Medicare Primary [id number] Self [id number] Medicare Natl Govt Servic Medicare Primary [id number] Self 1 [id number] Medicare Natl Govt Servic Medicare Primary [id number] Self 1 [id number] Medicare Natl Govt Servic Medicare Primary [id number] Self 2 [id number] MEDICARE [id number] SP [id number] R64 Medicare Natl Govt Servic Medicare Primary [id number] Self 1 [id number] Medicare Natl Govt Servic Medicare Primary [id number] Self Medicare Natl Govt Servic Medicare Primary [id number] Self 2 [id number] UMR [facility] [id number] SP [id number] [employer] U [id number] Self [id number] A [employer] U [id number] Spouse [id number] Umr Commercial [id number]646.2438 .0 Family Dependent [id number] Umr (as Of 11/17/2017) Medigap Part B [id number] .1.369152.3.227.99.4595.7196.0 Family Dependent 1 [id number] R [facility] [id number] SP [id number] Umr ([place]) Medigap Part B [id number] Family Dependent [id number] [employer] PPO O [id number] S [id number] Umr [place] Ppo Medigap Part B [id number] 2.1.821911.3.227.9 9.4595.7196.0 Family Dependent [id number] Ghi Medigap Part B [id number] 2..1.736679.3.227.99 .8646.2438.0 Family Dependent [id number] Ghi Medigap Part B [id number] 2..1.123118.3.227.99.8646.243 8.0 Self [id number] [place] Medigap Part B [id number] 2..1.651439.3.227.99 .8646.2438.0 Family Dependent [id number] Ghi Medigap Part B [id number] 2..1.286899.3.227.99 .8646.2438.0 Family Dependent [id number] Ghi Medigap Part B [id number] 2..1.909051.3.227.99.8646.243 8.0 Self [id number] [place] Medigap Part B [id number] 2..1.473256.3.227.99 .8646.2438.0 Family Dependent [id number] Ghi Medigap Part B [id number] 2..1.205236.3.227.99 .8646.2438.0 Family Dependent [id number] Ghi Medigap Part B [id number] 2.16.840.1.046170.3.227.99.8646.243 8.0 Self [id number] [place] Medigap Part B [id number] 2.0.1.607220.3.227.99 .8646.2438.0 Family Dependent [id number] Ghi Medigap Part B [id number] 2.0.1.253029.3.227.99 .8646.2438.0 Family Dependent [id number] Ghi Medigap Part B [id number] 2.0.1.374683.3.227.99.8646.243 8.0 Self [id number] [place] Medigap Part B [id number] 2.0.1.019711.3.227.99 .8646.2438.0 Family Dependent [id number] Ghi Medigap Part B [id number] 2..1.405215.3.227.99 .8646.2438.0 Family Dependent [id number] Ghi Medigap Part B [id number] 2..1.957163.3.227.99.8646.243 8.0 Self [id number] [place] Medigap Part B [id number] 2..1.874766.3.227.99 .8646.2438.0 Family Dependent [id number] Ghi Medigap Part B [id number] 2.0.1.858694.3.227.99 .8646.2438.0 Family Dependent [id number] Ghi Medigap Part B [id number] 2.0.1.330097.3.227.99.8646.243 8.0 Self [id number] [place] Medigap Part B [id number] 2.0.1.603307.3.227.99 .8646.2438.0 Family Dependent [id number] Ghi Medigap Part B [id number] 2.0.1.238309.3.227.99 .8646.2438.0 Family Dependent [id number] Ghi Medigap Part B [id number] 2.0.1.468406.3.227.99.8646.243 8.0 Self [id number] [place] Medigap Part B [id number] 2.0.1.403984.3.227.99 .8646.2438.0 Family Dependent [id number] Ghi Medigap Part B [id number] 2.0.1.514157.3.227.99 .8646.2438.0 Family Dependent [id number] Ghi Medigap Part B [id number] 2.0.1.434097.3.227.99.8646.243 8.0 Self [id number] [place] Medigap Part B [id number] 2.0.1.892074.3.227.99 .8646.2438.0 Family Dependent [id number] Ghi Medigap Part B [id number] 2.0.1.096731.3.227.99 .8646.2438.0 Family Dependent [id number] Ghi Medigap Part B [id number] 2.0.1.440274.3.227.99.8646.243 8.0 Self [id number] [place] Medigap Part B [id number] 2.0.1.797419.3.227.99 .8646.2438.0 Family Dependent [id number] [place] Ppo Medigap Part B [id number] 2.0.1.727506.3.227.99 .4595.7196.0 Family Dependent [id number] [employer] [id number] HU2 [id number] [employer] [id number] HU2 [id number] Ghi Medigap Part B 2499 Family Dependent Ghi Medigap Part B [id number] Self [place] Medigap Part B [id number] Family Dependent 335 Medicare [place] Medicare Primary [id number] Self Ghi/[employer] Medigap Part B Ppo [id number] Family Dependent Ppo [place] Ppo Medigap Part B [id number] Family Dependent 335 MEDICARE [id number] SP [id number] A MEDICARE P [id number] S [id number] A MEDICARE [id number] SP [id number] R64 [employer] PPO S [id number] P [id number] UMR [facility] [id number] WI2 [id number] UMR [facility] [id number] WI2 [id number] MEDICARE C [id number] S [id number] R64 UMR O [id number] S [id number] [facility] PART B C [id number] S [id number] MEDICARE [id number] SP [id number] R64 MEDICARE [id number] SP [id number] A [employer] [id number] HU2 [id number] [facility] [id number] Family Dependent [id number] [facility] Medigap Part B [id number] Family Dependent [id number] [facility] [id number] .1.852978.3.227 .99.4595.7196.0 Family Dependent [id number] [place]/Umr (Old) Medigap Part B [id number] .1.225495.3.227 .99.4595.7196.0 Family Dependent [id number] Medicare [place] Medicare Primary [id number] .[id number] Self 1 [id number] [place] [id number] .1.292344.3.227 .99.4595.7196.0 Family Dependent [id number] MEDICARE C [id number] S [id number] A [place]/Umr (Old) [facility] Part B [id number] 2.16.840.1.209032.3.227 .99.4595.7196.0 Family Dependent [id number] [place]/Umr (Old) [facility] Part B [id number] 2.16.840.1.215109.3.227 .99.4595.7196.0 Family Dependent [id number] Ghi [facility] Part B [id number] 2.16.840.1.560259.3.227.99 .8646.2438.0 Family Dependent [id number] [facility] [id number] 2.16.840.1.479519.3.227.99.8646.243 8.0 Self [id number] [place] [facility] Part B [id number] 2.16.840.1.513871.3.227.99 .8646.2438.0 Family Dependent [id number] Problems, Conditions, and Diagnoses Code Display Name Description Problem Type Effective Dates Data Source(s) 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 Problem 04/29/2021 12:00:00 AM EDT [facility] ([facility]) 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 Problem 04/04/2021 12:00:00 AM EDT [facility] ([facility]) N18.5 Chronic kidney disease stage 5 Chronic kidney disease stage 5 Problem 04/04/2021 12:00:00 AM EDT [facility] ([facility]) Z87.891 Ex-smoker Ex-smoker Problem 11/26/2020 12:00:00 AM ED T [facility] ([facility]) Surgeries/Procedures Procedure Description Date Indications Data Source(s) OFFICE OUTPATIENT VISIT 15 MINUTES 04/29/2021 12:00:00 AM EDT [facility] ([facility]) Dialysis Circuit, Intro [place]/Cath W/ Diagnostic Angiograp hy 04/24/2021 12:00:00 AM EDT [facility] ([facility] ) Translum Balloon Angio Central Dial Segment Through Dialys C ircui 04/24/2021 12:00:00 AM EDT [facility] ([facility], ) Ultrasound Guidance For Vascular Access Requiring Ultrasound Eval 04/24/2021 12:00:00 AM EDT [facility] ([facility], ) OFFICE OUTPATIENT VISIT 25 MINUTES 04/04/2021 12:00:00 AM EDT [facility] ([facility], ) OFFICE OUTPATIENT VISIT 25 MINUTES 03/19/2021 12:00:00 AM EDT [facility] ([facility]) Colonoscopy 02/22/2021 12:00:00 AM EDT M [facility] ([facility]) Colonoscopy Flexible Proximal To Splenic Flexure Diagnostic W/Or 02/22/2021 12:00:00 AM EDT [facility], ) Tracheobronchoscopy Through Est Tracheostomy Incision 02/04/2021 12:00:00 AM EDT [facility] ([facility], ) OFFICE OUTPATIENT VISIT 15 MINUTES 02/04/2021 12:00:00 AM EDT [facility] ([facility], ) OFFICE OUTPATIENT VISIT 15 MINUTES 01/14/2021 12:00:00 AM EDT [facility] ([facility], ) Graham Cre SRV W/I 7 Days Of DC, Comm W/I 2 Dys Med Rec 01/10/2021 12:00:00 AM EDT [facility] ([facility] ) OFFICE OUTPATIENT VISIT 15 MINUTES 01/01/2021 12:00:00 AM EDT [facility] ([facility], ) Dialysis Circuit W/ Transluminal Balloon Angioplasty, Periph eral 12/25/2020 12:00:00 AM EDT [facility] ([facility], ) INITL INPATIENT CONSULT NEW/ESTAB PT 40 MIN 12/25/2020 12:00:00 AM EDT [facility] ([facility], ) OFFICE OUTPATIENT VISIT 25 MINUTES 12/05/2020 12:00:00 AM EDT [facility] ([facility], ) OFFICE OUTPATIENT VISIT 25 MINUTES 11/29/2020 12:00:00 AM EDT [facility] ([facility]) OFFICE OUTPATIENT VISIT 15 MINUTES 11/26/2020 12:00:00 AM EDT [facility] ([facility]) OFFICE OUTPATIENT VISIT 15 MINUTES 11/26/2020 12:00:00 AM EDT [facility] ([facility]) OFFICE OUTPATIENT VISIT 15 MINUTES 10/09/2020 12:00:00 AM EDT [facility] ([facility]) Tracheobronchoscopy Through Est Tracheostomy Incision 10/01/2020 12:00:00 AM EDT [facility] ([facility]) ECG ROUTINE ECG W/LEAST 12 LDS W/I&R 08/30/2020 12:00: 00 AM EST [facility] ([facility]) OFFICE OUTPATIENT VISIT 25 MINUTES 08/30/2020 12:00:00 AM EST [facility] ([facility]) OFFICE OUTPATIENT VISIT 15 MINUTES 08/21/2020 12:00:00 AM EST [facility] ([facility]) Dialysis Circuit W/ Transluminal Balloon Angioplasty, Periph eral 08/14/2020 12:00:00 AM EST [facility] ([facility]) Translum Balloon Angio Central Dial Segment Through Dialys C ircui 08/14/2020 12:00:00 AM EST [facility] ([facility]) OFFICE OUTPATIENT VISIT 25 MINUTES 08/06/2020 12:00:00 AM EST [facility] ([facility]) OFFICE OUTPATIENT VISIT 15 MINUTES 08/06/2020 12:00:00 AM EST [facility] ([facility]) Dilate Esophagus Unguided Sound Or Bougie 05/04/2020 1 2:00:00 AM EDT [facility] ([facility]) Results ID Date Data Source [id number] 05/24/2021 10:15:00 AM EDT [facility] Name Value Range Interpretation Code Description Data Lety rce(s) Supporting Document(s) SARS coronavirus 2 RNA [Presence] in Res piratory specimen by DAVIS with probe detection NEGATIVE [facility] This lab was ordered by [facility] a nd reported by [facility]. ID Date Data Source [id number] 05/24/2021 10:15:00 AM EDT [facility] ([facility]) Name Value Range Interpretation Code Description Data Lety rce(s) Supporting Document(s) Laboratory test finding (navigational concept) Laboratory test result [facility]) A false negative result may occur if a s pecimen is improperly collected, transported or handled. False [...] pathogens. DISCLAIMER: Testing was performed using the [employer] SARS-CoV-2 test. This test was developed and its performance characteristics determined by [employer]. This test has not been FDA cleared [...] the authorization is terminated or revoked sooner. ID Date Data Source [id number] 04/29/2021 09:59:00 AM EDT [facility] ([facility]) Name Value Range Interpretation Code Description Data Lety rce(s) Supporting Document(s) Blood Urea Nitrogen 30 mg/dL 7-18 [facility] ([facility]) Glucose, Fasting 104 mg/dL 70-100 [facility] ([facility]) Sodium Level 136 meq/L 136-145 [facility] ([facility]) Creatinine For GFR 2.04 mg/dL 0.70-1.30 [facility] ([facility]) Glomerular Filtration Rate 33.4 [facility] ([facility]) <content>Units are mL/min/1.73 m2</content>
<content></content>
<content>Chronic Kidney Disease Staging per NKF:</content>
<content></content>
<content>Stage I & II GFR >=60 Normal to Mildly Decreased</content>
<content>Stage III GFR 30- 59 Moderately Decreased</content>
<content>Stage IV GFR 15-29 Severely Decreased</content>
<content>Stage V GFR <15 Very Little GFR Left</content>
<content>ESRD GFR <15 on FUELS ENGINEER</content>
<content></content> Chloride Level 102 meq/L 98-107 [facility] ([facility]) Potassium Serum 4.1 meq/L 3.5-5.1 [facility] ([facility]) Carbon Dioxide Level 29 meq/L 21-32 [facility]) Anion Gap 5 meq/L 8-16 [facility]) Calcium Level 9.7 mg/dL 8.8-10.2 [facility] ([facility]) ID Date Data Source [id number] 04/29/2021 09:59:00 AM EDT [facility] ([facility], ) Name Value Range Interpretation Code Description Data Lety rce(s) Supporting Document(s) Blood Urea Nitrogen 30 mg/dL 7-18 Above high normal [facility] ([facility], ) Glucose, Fasting 104 mg/dL 70-100 Above high normal M [facility] ([facility]) Creatinine For GFR 2.04 mg/dL 0.70-1.30 Above high normal [facility] ([facility]) Glomerular Filtration Rate 33.4 Below low normal [facility] ([facility]) <content>Units are mL/min/1.73 m2</content>
<content></content>
<content>Chronic Kidney Disease Staging per NKF:</content>
<content></content>
<content>Stage I & II GFR >=60 Normal to Mildly Decreased</content>
<content>Stage III GFR 30- 59 Moderately Decreased</content>
<content>Stage IV GFR 15-29 Severely Decreased</content>
<content>Stage V GFR <15 Very Little GFR Left</content>
<content>ESRD GFR <15 on FUELS ENGINEER</content>
<content></content> Sodium Level 136 meq/L 136-145 Normal (applies to non-numeric res ults) [facility] ([facility]) Potassium Serum 4.1 meq/L 3.5-5.1 Normal (applies to non-numeric results) [facility] ([facility]) Carbon Dioxide Level 29 meq/L 21-32 Normal (applies to non-num live results) [facility] ([facility]) Chloride Level 102 meq/L 98-107 Normal (applies to non-numeric r esults) [facility] ([facility]) Anion Gap 5 meq/L 8-16 Below low normal [facility] ( [facility]) Calcium Level 9.7 mg/dL 8.8-10.2 Normal (applies to non-numeric re sults) [facility]) ID Date Data Source [id number] 04/24/2021 09:09:00 AM EDT [facility] ([facility]) Name Value Range Interpretation Code Description Data Lety rce(s) Supporting Document(s) Glucose, Fasting 107 mg/dL 70-100 [facility] ([facility]) Blood Urea Nitrogen 31 mg/dL 7-18 [facility] ([facility]) Creatinine For GFR 2.06 mg/dL 0.70-1.30 [facility] ([facility]) Glomerular Filtration Rate 33.0 [facility] ([facility]) <content>Units are mL/min/1.73 m2</content>
<content></content>
<content>Chronic Kidney Disease Staging per NKF:</content>
<content></content>
<content>Stage I & II GFR >=60 Normal to Mildly Decreased</content>
<content>Stage III GFR 30- 59 Moderately Decreased</content>
<content>Stage IV GFR 15-29 Severely Decreased</content>
<content>Stage V GFR <15 Very Little GFR Left</content>
<content>ESRD GFR <15 on FUELS ENGINEER</content>
<content></content> Sodium Level 137 meq/L 136-145 [facility] ([facility]) Potassium Serum 4.3 meq/L 3.5-5.1 [facility] ([facility]) Chloride Level 103 meq/L 98-107 [facility] ([facility]) Anion Gap 3 meq/L 8-16 [facility] ([facility]) Carbon Dioxide Level 31 meq/L 21-32 [facility] ( [facility] Calcium Level 10.3 mg/dL 8.8-10.2 [facility] ([facility]) ID Date Data Source [id number] 04/24/2021 09:09:00 AM EDT [facility] ([facility]) Name Value Range Interpretation Code Description Data Lety rce(s) Supporting Document(s) Prothrombin Time 13.1 s 12.7-14.5 [facility] ([facility]) Inr 0.95 [facility] ([facility]) THERAPUTIC HUMAN INR VALUES INDICATIONS NORMAL RANGES PROPHYLAXIS/TREATMENT OF: VENOUS THROMBOSIS 2.0-3.0 PULMONARY EMBOLISM 2.0-3.0 PREVENTION OF SYSTEMIC EMBOLISM FROM: TISSUE HEART VALVES 2.0-3.0 ACUTE MYOCARDIAL INFARCTION 2.0-3.0 VALVULAR HEART DISEASE 2.0-3.0 ATRIAL FIBRILLATION 2.0-3.0 MECHANICAL VALVES(HIGH RISK) 2.5-3.5 RECURRENT MYOCARDIAL INFARCTION 2.5-3.5 Partial Thromboplastin Time 25.5 s 25.9-37.0 [facility] ([facility]) ID Date Data Source [id number] 04/24/2021 09:09:00 AM EDT [facility] ([facility], ) Name Value Range Interpretation Code Description Data Lety rce(s) Supporting Document(s) Glucose, Fasting 107 mg/dL 70-100 Above high normal [facility]) Blood Urea Nitrogen 31 mg/dL 7-18 Above high normal [facility] ([facility]) Glomerular Filtration Rate 33.0 Below low normal [facility] ([facility]) <content>Units are mL/min/1.73 m2</content>
<content></content>
<content>Chronic Kidney Disease Staging per NKF:</content>
<content></content>
<content>Stage I & II GFR >=60 Normal to Mildly Decreased</content>
<content>Stage III GFR 30- 59 Moderately Decreased</content>
<content>Stage IV GFR 15-29 Severely Decreased</content>
<content>Stage V GFR <15 Very Little GFR Left</content>
<content>ESRD GFR <15 on FUELS ENGINEER</content>
<content></content> Creatinine For GFR 2.06 mg/dL 0.70-1.30 Above high normal [facility] ([facility]) Sodium Level 137 meq/L 136-145 Normal (applies to non-numeric res ults) [facility] ([facility]) Potassium Serum 4.3 meq/L 3.5-5.1 Normal (applies to non-numeric results) [facility] ([facility]) Carbon Dioxide Level 31 meq/L 21-32 Normal (applies to non-num live results) [facility] ([facility]) Chloride Level 103 meq/L 98-107 Normal (applies to non-numeric r esults) [facility]) Anion Gap 3 meq/L 8-16 Below low normal [facility] ( [facility]) Calcium Level 10.3 mg/dL 8.8-10.2 Above high normal [facility]) ID Date Data Source [id number] 04/24/2021 09:09:00 AM EDT [facility] ([facility]) Name Value Range Interpretation Code Description Data Lety rce(s) Supporting Document(s) Prothrombin Time 13.1 s 12.7-14.5 Normal (applies to non-numeric results) [facility]) Partial Thromboplastin Time 25.5 s 25.9-37.0 Norm al (applies to non-numeric results) [facility] ([facility]) Inr 0.95 Normal (applies to non-numeric resul ts) [facility]) THERAPUTIC HUMAN INR VALUES INDICATIONS NORMAL RANGES PROPHYLAXIS/TREATMENT OF: VENOUS THROMBOSIS 2.0-3.0 PULMONARY EMBOLISM 2.0-3.0 PREVENTION OF SYSTEMIC EMBOLISM FROM: TISSUE HEART VALVES 2.0-3.0 ACUTE MYOCARDIAL INFARCTION 2.0-3.0 VALVULAR HEART DISEASE 2.0-3.0 ATRIAL FIBRILLATION 2.0-3.0 MECHANICAL VALVES(HIGH RISK) 2.5-3.5 RECURRENT MYOCARDIAL INFARCTION 2.5-3.5 ID Date Data Source [id number] 04/24/2021 09:08:00 AM EDT [facility] ([facility]) Name Value Range Interpretation Code Description Data Lety rce(s) Supporting Document(s) Hemoglobin 14.7 g/dL 13.5-17.5 [facility] ([facility]) White Blood Count 6.3 10 4.0-10.0 [facility] ([facility]) Red Blood Count 4.55 10 4.30-6.10 [facility] ([facility]) Hematocrit 44.8 % 42.0-52.0 [facility] ([facility]) Mean Corpuscular Volume 98.5 fl 80.0-96.0 [facility] Mean Corpuscular HGB Conc 32.8 g/dL 32.0-36.5 [facility] ([facility]) Mean Corpuscular Hemoglobin 32.3 pg 27.0-33.0 [facility] ([facility]) Red Cell Distribution Width 14.1 % 11.5-14.5 [facility] ([facility]) Platelet Count, Automated 303 10 150-450 [facility] NT ([facility]) Nucleated Red Blood Cell % 0.0 % 0-0 [facility] ([facility]) ID Date Data Source [id number] 04/24/2021 09:08:00 AM EDT [facility] ([facility] ) Name Value Range Interpretation Code Description Data Lety rce(s) Supporting Document(s) Red Blood Count 4.55 10 4.30-6.10 Normal (applies to non-numeric results) [facility] ([facility]) White Blood Count 6.3 10 4.0-10.0 Normal (applies to non-numeri c results) [facility] ([facility]) Hemoglobin 14.7 g/dL 13.5-17.5 Normal (applies to non-numeric resul ts) [facility]) Hematocrit 44.8 % 42.0-52.0 Normal (applies to non-numeric resul ts) [facility]) Mean Corpuscular Volume 98.5 fl 80.0-96.0 Above high normal [facility] ([facility]) Mean Corpuscular Hemoglobin 32.3 pg 27.0-33.0 Norm al (applies to non-numeric results) [facility] ([facility]) Red Cell Distribution Width 14.1 % 11.5-14.5 Norm al (applies to non-numeric results) [facility]) Mean Corpuscular HGB Conc 32.8 g/dL 32.0-36.5 Normal (applies to non-numeric results) [facility] ([facility]) Platelet Count, Automated 303 10 150-450 Normal (applies to non-numeric results) [facility] ([facility]) Nucleated Red Blood Cell % 0.0 % 0-0 Normal (applies to n on-numeric results) [facility]) ID Date Data Source [id number] 03/19/2021 10:46:00 AM EDT [facility] ([facility]) Name Value Range Interpretation Code Description Data Lety rce(s) Supporting Document(s) Thyrotropin [Units/volume] in Serum or Plasma by Detec tion limit <= 0.05 mIU/L 5.69 uIU/mL 0.36-3.74 [facility] ID Date Data Source [id number] 02/18/2021 09:45:00 AM EDT [facility] ([facility]) Name Value Range Interpretation Code Description Data Lety rce(s) Supporting Document(s) Coronavirus 2019 Nasopharygeal Laboratory test result [facility] ([facility]) ASSAY INFORMATION: Real Time RT-PCR NOTE: The COVID-19 assay has been cleared by the U.S. Food and Drug Administration under the Emergency Use Authorization (EUA). [facility] and [facility] are designated as high complexity laboratories by the Clinical Laboratory Improvement Amendments of 1988(CLIA) and are qualified to perform this test. Not Detected ID Date Data Source [id number] 02/08/2021 10:28:00 AM EDT [facility] ([facility]) Name Value Range Interpretation Code Description Data Lety rce(s) Supporting Document(s) Thyrotropin [Units/volume] in Serum or Plasma by Detec tion limit <= 0.05 mIU/L 6.49 uIU/mL 0.36-3.74 [facility] ([facility] ) ID Date Data Source [id number] 01/10/2021 10:00:00 AM EDT [facility] ([facility]) Name Value Range Interpretation Code Description Data Lety rce(s) Supporting Document(s) Thyrotropin [Units/volume] in Serum or Plasma by Detec tion limit <= 0.05 mIU/L 8.00 uIU/mL 0.36-3.74 [facility] ([facility] ) NOTE: RESULT VERIFIED. ID Date Data Source [id number] 01/10/2021 10:00:00 AM EDT [facility] ([facility]) Name Value Range Interpretation Code Description Data Lety rce(s) Supporting Document(s) Glucose [Mass/volume] in Serum or Plasma 109 mg/dL 74-99 [facility] ([facility]) 100-125 mg/dL PRE-DIABETES/FASTING >126 mg/dL DIABETES/FASTING Urea nitrogen [Mass/volume] in Serum or Plasma 26 mg/dL 7-18 [facility] ([facility]) Creatinine 1.9 mg/dL 0.6-1.3 [facility] Potassium [Moles/volume] in Serum or Plasma 4.8 meq/L 3.5-5.1 [facility] ([facility]) Sodium [Moles/volume] in Serum or Plasma 136 meq/L 136-145 [facility] ([facility]) Carbon dioxide, total [Moles/volume] in Serum or Plasma 31 meq/L 21 -32 [facility] ([facility]) Chloride [Moles/volume] in Serum or Plasma 99 meq/L 98-107 [facility] ([facility]) Calcium [Mass/volume] in Serum or Plasma 10.2 mg/dL 8.5-10.1 [facility] ([facility]) NOTE: RESULT VERIFIED. Glomerular filtration rate/1.73 sq M pre dicted among non-blacks [Volume Rate/Area] in Serum or Plasma by Creatinine-based formula (MDRD) 34 mL/min [facility] ([facility]) Glomerular filtration rate/1.73 sq M pre dicted among blacks [Volume Rate/Area] in Serum or Plasma by Creatinine-based formula (MDRD) 41 mL/min [facility] ([facility]) <content>CHRONIC KIDNEY DISEASE STAGING PER NKF</content>
<content></content>
<content>STAGE I & II GFR >= 60 NORMAL TO MILDLY DECREASED</content>
<content>STAGE III GFR 30-59 MODERATELY DECREASED</content>
<content>STAGE IV GFR 15-29 SEVERELY DECREASED</content>
<content>STAGE V GFR <15 VERY LITTLE GFR LEFT</content>
<content>ESRD GFR <15 ON FUELS ENGINEER</content>
<content></content> ID Date Data Source [id number] 01/02/2021 09:12:00 PM EDT [facility] Name Value Range Interpretation Code Description Data Lety rce(s) Supporting Document(s) SARS coronavirus 2 RNA [Presence] in Res piratory specimen by DAVIS with probe detection NEGATIVE [facility] This lab was ordered by [facility] a nd reported by [facility]. ID Date Data Source [id number] 01/02/2021 07:43:00 PM EDT [facility] ([facility]) Name Value Range Interpretation Code Description Data Lety rce(s) Supporting Document(s) Appearance, Urine RFX Laboratory test result [facility] ([facility]) Color, Urine RFX Laboratory test result [facility] ([facility]) PH,Urine RFX 6.0 units 5.0-9.0 [facility] ([facility]) Protein, Urine Auto RFX Laboratory test result [facility] ([facility]) Specific [place] Ur Auto RFX 1.008 1.002-1.035 [facility]) Glucose, Urine (Ua) Auto RFX Laboratory test result [facility] ([facility]) Ketone, Urine Auto RFX Laboratory test result [facility] ([facility]) Urobilinogen, Urine Auto RFX 0.2 mg/dL 0.0-2.0 [facility] ([facility]) Nitrite, Urine Auto RFX Laboratory test result [facility] ([facility]) Bilirubin, Urine Auto RFX Laboratory test result [facility] ([facility]) Blood, Urine Blood RFX Laboratory test result [facility] ([facility]) Leukocyte Esterase Ur Auto RFX Laboratory test result [facility] ([facility]) WBC, Urine Auto RFX 17 /HPF 0-3 [facility] ([facility]) RBC, Urine Auto RFX 4 /HPF 0-3 [facility] ([facility]) Bacteria, Urine Auto RFX Laboratory test result [facility] ([facility]) Transitional Epithelial AU RFX 1 /HPF [facility] ([facility]) Squam Epithelial Cell Ur Aurfx 1 /HPF 0-6 [facility] ([facility]) Hyaline Cast, Urine Auto RFX 0 /LPF 0-1 [facility]) ID Date Data Source [id number] 01/02/2021 06:02:00 PM EDT [facility]) Name Value Range Interpretation Code Description Data Lety rce(s) Supporting Document(s) Laboratory test finding (navigational concept) 137 meq/L 136-145 [facility] ([facility]) Laboratory test finding (navigational concept) 45.0 % 38.0-51.0 [facility] ([facility]) Laboratory test finding (navigational concept) 103 mg/dL 70-105 [facility] ([facility]) Laboratory test finding (navigational concept) 4.2 meq/L 3.5-5.1 [facility] ([facility]) Laboratory test finding (navigational concept) 4.7 mg/dL 4.5-5.3 [facility] ([facility]) Laboratory test finding (navigational concept) 97 meq/L 98-109 [facility] ([facility]) Laboratory test finding (navigational concept) 29.0 MM/L 23.0-27.0 [facility] ([facility]) Laboratory test finding (navigational concept) 3.0 mg/dL 0.6-1.3 [facility] ([facility]) Laboratory test finding (navigational concept) 47 mg/dL 8-26 [facility] ([facility]) ID Date Data Source [id number] 01/02/2021 06:01:00 PM EDT [facility] ([facility]) Name Value Range Interpretation Code Description Data Lety rce(s) Supporting Document(s) Alt/SGPT 18 U/L 12-78 [facility] [facility] Ast/Sgot 14 U/L 7-37 [facility] ([facility]) Alkaline Phosphatase 74 U/L 45-117 [facility] ([facility]) Bilirubin,Total 0.6 mg/dL 0.2-1.0 [facility] ([facility]) Bilirubin,Direct 0.2 mg/dL 0.0-0.2 [facility] ([facility]) Total Protein 6.8 GM/DL 6.4-8.2 [facility] ([facility]) Albumin 3.2 GM/DL 3.2-5.2 [facility] ([facility]) Albumin/Globulin Ratio 0.9 [facility] ([facility]) ID Date Data Source [id number] 01/02/2021 06:01:00 PM EDT [facility]) Name Value Range Interpretation Code Description Data Lety rce(s) Supporting Document(s) CPK Creatine Phosphokinase 64 U/L 39-308 [facility] ([facility]) CK-MB Value Mass 3.0 ng/mL [facility] ([facility]) Troponin I Laboratory test result [facility] ([facility]) <content>Troponin I Reference Interval f or Siemens [place] LOCI:</content>
<content></content>
<content>99th Percentile= 0.00-0.045 ng/ml</content>
<content></content>
<content>Risk Stratification:</content>
<content><= 0.10 ng/ml Decreased Risk for Adverse Clinical</content>
<content>Events.</content>
<content>0.10-1.50 ng/ml Increased Risk for Adverse Clinical</content>
<content>Events. Evaluation of additional</content>
<content>criterion and/or repeat testing in 2-6</content>
<content>hours is suggested to rule out myocardial</content>
<content>damage.</content>
<content>>= 1.50 ng/ml Indicative of Myocardial Injury.</content>
<content></content> MB/CK Relative Index 4.69 [facility] ([facility]) <content>DIAGNOSIS CRITERIA</content>
<content>MMB ng/ml Relative Index (RI)</content>
<content>NON-AMI < or = 5 N/A</content>
<content>BLOOM ZONE > 5 < or = 4</content>
<content>AMI > 5 > 4</content>
<content></content> ID Date Data Source [id number] 01/02/2021 05:57:00 PM EDT [facility] ([facility]) Name Value Range Interpretation Code Description Data Lety rce(s) Supporting Document(s) White Blood Count 7.5 10 4.0-10.0 [facility] ([facility]) Red Blood Count 4.51 10 4.30-6.10 [facility] ([facility]) Hemoglobin 14.3 g/dL 13.5-17.5 [facility] ([facility]) Mean Corpuscular Volume 97.3 fl 80.0-96.0 [facility] Hematocrit 43.9 % 42.0-52.0 [facility] Mean Corpuscular Hemoglobin 31.7 pg 27.0-33.0 [facility] ([facility]) Mean Corpuscular HGB Conc 32.6 g/dL 32.0-36.5 [facility] NT ([facility]) Red Cell Distribution Width 13.6 % 11.5-14.5 [facility] ([facility]) Neutrophils % 65.7 % 36.0-66.0 [facility] ([facility]) Platelet Count, Automated 452 10 150-450 [facility] ([facility]) Gilliam % 11.3 % 2.0-8.0 [facility]) Lymph % 16.2 % 24.0-44.0 [facility] Eos % 4.4 % 0.0-3.0 [facility] Nucleated Red Blood Cell % 0.0 % 0-0 [facility] ([facility]) Baso % 1.1 % 0.0-1.0 [facility]) Immature Granulocyte % 1.3 % 0-3.0 [facility] ([facility]) Neutrophils # 4.9 10 1.5-8.5 [facility] ([facility]) Lymph # 1.2 10 1.5-5.0 [facility]) Eos # 0.3 10 0.0-0.5 [facility] Gilliam # 0.9 10 0.0-0.8 [facility] Baso # 0.1 10 0.0-0.2 [facility] ([facility] ID Date Data Source [id number] 11/29/2020 10:50:00 AM EDT [facility] ([facility]) Name Value Range Interpretation Code Description Data Lety rce(s) Supporting Document(s) Thyrotropin [Units/volume] in Serum or Plasma by Detec tion limit <= 0.05 mIU/L 0.05 uIU/mL 0.36-3.74 [facility] ([facility] ) ID Date Data Source [id number] 10/30/2020 10:45:00 AM EDT [facility] ([facility]) Name Value Range Interpretation Code Description Data Lety rce(s) Supporting Document(s) Thyrotropin [Units/volume] in Serum or Plasma by Detec tion limit <= 0.05 mIU/L 0.67 uIU/mL 0.36-3.74 [facility] ([facility] ) ID Date Data Source [id number] 09/28/2020 10:49:00 AM EST [facility] ([facility]) Name Value Range Interpretation Code Description Data Lety rce(s) Supporting Document(s) Thyrotropin [Units/volume] in Serum or Plasma by Detec tion limit <= 0.05 mIU/L 1.37 uIU/mL 0.36-3.74 [facility] ([facility] ) ID Date Data Source [id number] 08/30/2020 11:20:00 AM EST [facility] ([facility]) Name Value Range Interpretation Code Description Data Lety rce(s) Supporting Document(s) Thyrotropin [Units/volume] in Serum or Plasma by Detec tion limit <= 0.05 mIU/L 1.02 uIU/mL 0.36-3.74 [facility] ([facility] ) ID Date Data Source [id number] 08/30/2020 11:20:00 AM EST [facility] ([facility]) Name Value Range Interpretation Code Description Data Lety rce(s) Supporting Document(s) Cholesterol [Mass/volume] in Serum or Plasma 198 mg/dL 131-200 [facility] ([facility]) Triglyceride [Mass/volume] in Serum or Plasma 150 mg/dL 30-150 [facility] ([facility]) Cholesterol in HDL [Mass/volume] in Serum or Plasma 54 mg/dL 35-60 [facility] ([facility]) Cholesterol in LDL [Mass/volume] in Serum or Plasma by calcu lation 114 CALC 50-159 [facility] ([facility]) ID Date Data Source [id number] 08/30/2020 11:20:00 AM EST [facility] ([facility]) Name Value Range Interpretation Code Description Data Lety rce(s) Supporting Document(s) Magnesium 2.0 mg/dL 1.8-2.4 [facility]) ID Date Data Source [id number] 07/30/2020 10:48:00 AM EST [facility] ([facility]) Name Value Range Interpretation Code Description Data Lety rce(s) Supporting Document(s) Thyrotropin [Units/volume] in Serum or Plasma by Detec tion limit <= 0.05 mIU/L 40.53 uIU/mL 0.36-3.74 [facility] ([facility] ) NOTE: VERIFIED ID Date Data Source [id number] 06/28/2020 10:55:00 AM EST [facility] ([facility]) Name Value Range Interpretation Code Description Data Lety rce(s) Supporting Document(s) Thyrotropin [Units/volume] in Serum or Plasma by Detec tion limit <= 0.05 mIU/L 35.08 uIU/mL 0.36-3.74 [facility] ([facility] ) ID Date Data Source [id number] 05/28/2020 10:05:00 AM EST [facility] ([facility]) Name Value Range Interpretation Code Description Data Lety rce(s) Supporting Document(s) Magnesium 2.0 mg/dL 1.8-2.4 [facility] ([facility] [facility]) ID Date Data Source [id number] 05/28/2020 10:05:00 AM EST [facility] ([facility]) Name Value Range Interpretation Code Description Data Lety rce(s) Supporting Document(s) Glucose [Mass/volume] in Serum or Plasma 94 mg/dL 74-99 [facility] ([facility]) 100-125 mg/dL PRE-DIABETES/FASTING >126 mg/dL DIABETES/FASTING Urea nitrogen [Mass/volume] in Serum or Plasma 34 mg/dL 7-18 [facility] ([facility]) Creatinine 2.1 mg/dL 0.6-1.3 [facility] ([facility]) Sodium [Moles/volume] in Serum or Plasma 140 meq/L 136-145 [facility] ([facility]) Potassium [Moles/volume] in Serum or Plasma 4.9 meq/L 3.5-5.1 [facility] ([facility]) Chloride [Moles/volume] in Serum or Plasma 102 meq/L 98-107 [facility] ([facility]) Calcium [Mass/volume] in Serum or Plasma 9.5 mg/dL 8.5-10.1 [facility] ([facility]) Carbon dioxide, total [Moles/volume] in Serum or Plasma 33 meq/L 21 -32 [facility] ([facility]) Glomerular filtration rate/1.73 sq M pre dicted among non-blacks [Volume Rate/Area] in Serum or Plasma by Creatinine-based formula (MDRD) 30 mL/min [facility] ([facility]) Glomerular filtration rate/1.73 sq M pre dicted among blacks [Volume Rate/Area] in Serum or Plasma by Creatinine-based formula (MDRD) 37 mL/min [facility]) <content>CHRONIC KIDNEY DISEASE STAGING PER NKF</content>
<content></content>
<content>STAGE I & II GFR >= 60 NORMAL TO MILDLY DECREASED</content>
<content>STAGE III GFR 30-59 MODERATELY DECREASED</content>
<content>STAGE IV GFR 15-29 SEVERELY DECREASED</content>
<content>STAGE V GFR <15 VERY LITTLE GFR LEFT</content>
<content>ESRD GFR <15 ON FUELS ENGINEER</content>
<content></content> ID Date Data Source [id number] 05/28/2020 10:05:00 AM EST [facility] ([facility]) Name Value Range Interpretation Code Description Data Lety rce(s) Supporting Document(s) Thyrotropin [Units/volume] in Serum or Plasma by Detec tion limit <= 0.05 mIU/L 0.07 uIU/mL 0.36-3.74 [facility] ([facility] ) ID Date Data Source [id number] 05/01/2020 03:18:00 PM EDT [facility]) Name Value Range Interpretation Code Description Data Lety rce(s) Supporting Document(s) Glucose [Mass/volume] in Serum or Plasma 141 mg/dL 74-99 [facility] ([facility]) 100-125 mg/dL PRE-DIABETES/FASTING >126 mg/dL DIABETES/FASTING Sodium [Moles/volume] in Serum or Plasma 141 meq/L 136-145 [facility] ([facility]) Urea nitrogen [Mass/volume] in Serum or Plasma 38 mg/dL 7-18 [facility] ([facility]) Creatinine 2.0 mg/dL 0.6-1.3 [facility] ([facility]) Carbon dioxide, total [Moles/volume] in Serum or Plasma 29 meq/L 21 -32 [facility] ([facility]) Potassium [Moles/volume] in Serum or Plasma 4.3 meq/L 3.5-5.1 [facility] ([facility]) Chloride [Moles/volume] in Serum or Plasma 104 meq/L 98-107 [facility] ([facility]) Calcium [Mass/volume] in Serum or Plasma 9.0 mg/dL 8.5-10.1 [facility] ([facility]) Glomerular filtration rate/1.73 sq M pre dicted among blacks [Volume Rate/Area] in Serum or Plasma by Creatinine-based formula (MDRD) 39 mL/min [facility] ([facility]) <content>CHRONIC KIDNEY DISEASE STAGING PER NKF</content>
<content></content>
<content>STAGE I & II GFR >= 60 NORMAL TO MILDLY DECREASED</content>
<content>STAGE III GFR 30-59 MODERATELY DECREASED</content>
<content>STAGE IV GFR 15-29 SEVERELY DECREASED</content>
<content>STAGE V GFR <15 VERY LITTLE GFR LEFT</content>
<content>ESRD GFR <15 ON FUELS ENGINEER</content>
<content></content> Glomerular filtration rate/1.73 sq M pre dicted among non-blacks [Volume Rate/Area] in Serum or Plasma by Creatinine-based formula (MDRD) 32 mL/min [facility] ([facility]) ID Date Data Source [id number] 05/01/2020 03:18:00 PM EDT [facility] ([facility]) Name Value Range Interpretation Code Description Data Lety rce(s) Supporting Document(s) Magnesium 1.9 mg/dL 1.8-2.4 [facility] ([facility]) ID Date Data Source [id number] 05/01/2020 02:48:00 PM EDT [facility] ([facility]) Name Value Range Interpretation Code Description Data Lety rce(s) Supporting Document(s) Thyrotropin [Units/volume] in Serum or Plasma by Detec tion limit <= 0.05 mIU/L 0.06 uIU/mL 0.36-3.74 [facility] ([facility] ) ID Date Data Source [id number] 04/29/2020 09:00:00 AM EDT [facility] Name Value Range Interpretation Code Description Data Lety rce(s) Supporting Document(s) SARS coronavirus 2 RNA [facility] This lab was ordered by [facility] and reported by [facility]. ID Date Data Source [id number] 04/02/2020 10:05:00 AM EDT [facility] ([facility]) Name Value Range Interpretation Code Description Data Lety rce(s) Supporting Document(s) Triiodothyronine (T3) Free [Mass/volume] in Serum or Plasma 1.7 pg/ mL 2.2-4.0 [facility] ([facility]) ID Date Data Source [id number] 04/02/2020 10:05:00 AM EDT [facility] ([facility]) Name Value Range Interpretation Code Description Data Lety rce(s) Supporting Document(s) Thyroxine (T4) free [Mass/volume] in Serum or Plasma 0.90 ng/dL 0.76- 1.46 [facility] ([facility]) ID Date Data Source [id number] 04/02/2020 10:04:00 AM EDT [facility] ([facility]) Name Value Range Interpretation Code Description Data Lety rce(s) Supporting Document(s) Thyrotropin [Units/volume] in Serum or Plasma by Detec tion limit <= 0.05 mIU/L 180.54 uIU/mL 0.36-3.74 [facility] ([facility]) NOTE: RESULT VERIFIED. ID Date Data Source [id number] 03/29/2020 10:10:00 AM EDT [facility] ([facility]) Name Value Range Interpretation Code Description Data Lety rce(s) Supporting Document(s) C reactive protein [Mass/volume] in Serum or Plasma by High sensitivity method Laboratory test result 0.00-0.30 [facility] ([facility]) ID Date Data Source [id number] 03/29/2020 10:10:00 AM EDT [facility] ([facility]) Name Value Range Interpretation Code Description Data Lety rce(s) Supporting Document(s) Glucose [Mass/volume] in Serum or Plasma 101 mg/dL 74-99 [facility] ([facility]) 100-125 mg/dL PRE-DIABETES/FASTING >126 mg/dL DIABETES/FASTING Urea nitrogen [Mass/volume] in Serum or Plasma 15 mg/dL 7-18 [facility] ([facility]) Creatinine 1.8 mg/dL 0.6-1.3 [facility] ([facility]) Potassium [Moles/volume] in Serum or Plasma 4.8 meq/L 3.5-5.1 [facility] ([facility]) Sodium [Moles/volume] in Serum or Plasma 137 meq/L 136-145 [facility] ([facility]) Chloride [Moles/volume] in Serum or Plasma 101 meq/L 98-107 [facility] ([facility]) Carbon dioxide, total [Moles/volume] in Serum or Plasma 26 meq/L 21 -32 [facility] ([facility]) Calcium [Mass/volume] in Serum or Plasma 8.9 mg/dL 8.5-10.1 [facility] ([facility]) Alkaline phosphatase isoenzyme [Units/volume] in Serum or Pl asma 90 mg/dL 46-116 [facility] ([facility]) Aspartate aminotransferase [Enzymatic activity/volume] in Serum or Plasma 22 U/L 15-37 [facility] ([facility] Total Bilirubin 0.3 mg/dL 0.2-1.0 [facility] ([facility]) Alanine aminotransferase [Enzymatic activity/volume] in Seru m or Plasma 18 U/L 12-78 [facility] ([facility]) Albumin [Mass/volume] in Serum or Plasma 2.9 g/dL 3.4-5.0 [facility] ([facility]) Proteinase 3 Ab [Units/volume] in Serum 6.3 g/dL 6.4-8.2 [facility] ([facility]) Glomerular filtration rate/1.73 sq M pre dicted among non-blacks [Volume Rate/Area] in Serum or Plasma by Creatinine-based formula (MDRD) 36 mL/min [facility] ([facility]) A/G Ratio 0.85 CALC 1.00-1.90 [facility] ([facility]) Glomerular filtration rate/1.73 sq M pre dicted among blacks [Volume Rate/Area] in Serum or Plasma by Creatinine-based formula (MDRD) 44 mL/min [facility] ([facility]) <content>CHRONIC KIDNEY DISEASE STAGING PER NKF</content>
<content></content>
<content>STAGE I & II GFR >= 60 NORMAL TO MILDLY DECREASED</content>
<content>STAGE III GFR 30-59 MODERATELY DECREASED</content>
<content>STAGE IV GFR 15-29 SEVERELY DECREASED</content>
<content>STAGE V GFR <15 VERY LITTLE GFR LEFT</content>
<content>ESRD GFR <15 ON FUELS ENGINEER</content>
<content></content> ID Date Data Source [id number] 03/29/2020 10:10:00 AM EDT [facility] ([facility]) Name Value Range Interpretation Code Description Data Lety rce(s) Supporting Document(s) Magnesium 1.7 mg/dL 1.8-2.4 [facility] ([facility]) ID Date Data Source [id number] 03/29/2020 10:10:00 AM EDT [facility] Name Value Range Interpretation Code Description Data Lety rce(s) Supporting Document(s) Leukocytes [#/volume] in Blood by Automated count 4.6 x10*3/UL 4.1-10 .9 [facility] ([facility]) Erythrocytes [#/volume] in Blood by Automated count 4.05 x10*6/UL 4.2 0-6.30 [facility] ([facility]) Hemoglobin [Mass/volume] in Blood 12.6 g/dL 12.0-18.0 [facility] ([facility]) Hematocrit [Volume Fraction] of Blood by Automated count 38.1 % 3 7.0-51.0 [facility] ([facility]) MCV 94.0 fL 80.0-97.0 [facility] [facility] MCH 31.3 pg 26.0-32.0 [facility] ([facility]) MCHC 33.2 g/dL 31.0-38.0 [facility] ([facility]) Erythrocyte distribution width [Ratio] by Automated count 14.2 % 11.6-13.7 [facility] ([facility]) Platelets [#/volume] in Blood by Automated count 534 x10*3/UL 140-440 [facility] ([facility]) MPV 6.9 FL 7.8-11.0 [facility] ([place] [facility]) Lymph % 20.5 % 10.0-58.5 [facility] [facility]) Mid % 7.5 % 1.7-9.3 [facility] ([facility]) Neut % 72.0 % 37.0-92.0 [facility] ([facility]) Lymph # 0.9 x10*3/UL 0.6-4.1 [facility] ([facility]) Mid # 0.4 x10*3/UL 0.1-0.6 [facility] ([facility]) Neut # 3.3 x10*3/UL 2.0-7.8 [facility] ([facility]) ID Date Data Source [id number] 03/29/2020 10:10:00 AM EDT [facility] ([facility]) Name Value Range Interpretation Code Description Data Lety rce(s) Supporting Document(s) Thyrotropin [Units/volume] in Serum or Plasma by Detec tion limit <= 0.05 mIU/L 183.03 uIU/mL 0.36-3.74 [facility] ([facility]) NOTE: RESULT VERIFIED. Procedure Social History Code Duration Value Status Description Data Source(s ) 11/26/2020 12:00:00 AM EDT Denies Smoking completed Denie s Smoking [facility] ([facility]) Vital Signs ID Date Data Source UNK Name Value Range Interpretation Code Description Data Source(s) Body weight 137.12 [lb_av] 137.12 [lb_av] [facility] ([facility]) Body height 67 [in_i] 67 [in_i] [facility] ([facility]) 5'7" Body weight 62.200 kg 62.200 kg [facility] ([facility]) Body surface area Derived from formula 1.72 m2 1.72 m2 [facility] ([facility]) Systolic blood pressure 126 mm[Hg] 126 mm[Hg] M [facility] ([facility]) Diastolic blood pressure 62 mm[Hg] 62 mm[Hg] [facility] ([facility]) Body temperature 97.3 [degF] 97.3 [degF] [facility] ([facility]) Body mass index (BMI) [Ratio] 21.5 kg/m2 21.5 k g/m2 [facility] ([facility]) [place] body weight 148 [lb_av] 148 [lb_av] [facility] ([facility]) Body temperature 98.2 [degF] 98.2 [degF] [facility] ([facility]) Body height 67 [in_i] 67 [in_i] [facility] ([facility]) 5'7" Systolic blood pressure 136 mm[Hg] 136 mm[Hg] [facility] Diastolic blood pressure 78 mm[Hg] 78 mm[Hg] [facility] ([facility]) Body mass index (BMI) [Ratio] 22.1 kg/m2 22.1 k g/m2 [facility] ([facility]) Body weight 64.128 kg 64.128 kg [facility] ([facility]) Body surface area Derived from formula 1.75 m2 1.75 m2 [facility] ([facility]) [place] body weight 148 [lb_av] 148 [lb_av] MEDEN T ([facility]) Body weight 141.38 [lb_av] 141.38 [lb_av] MEDEN T ([facility]) Systolic blood pressure 108 mm[Hg] 108 mm[Hg] M EDENT ([facility]) RT Arm Body weight 138.38 [lb_av] 138.38 [lb_av] MEDEN T ([facility]) Diastolic blood pressure 60 mm[Hg] 60 mm[Hg] [facility] ([facility]) RT Arm Heart rate 60 /min 60 /min [facility] ([facility]) Body height 64.75 [in_i] 64.75 [in_i] [facility] ([facility]) 5'4.75" Body mass index (BMI) [Ratio] 23.2 kg/m2 23.2 k g/m2 [facility] ([facility]) Body weight 136.00 [lb_av] 136.00 [lb_av] MEDEN T ([facility]) Body surface area Derived from formula 1.72 m2 1.72 m2 [facility] ([facility]) Body mass index (BMI) [Ratio] 21.3 kg/m2 21.3 k g/m2 [facility] ([facility]) Body height 67 [in_i] 67 [in_i] [facility] ([facility]) 5'7" [place] body weight 148 [lb_av] 148 [lb_av] MEDEN T ([facility]) Body weight 61.690 kg 61.690 kg [facility] ([facility]) Body height 67 [in_i] 67 [in_i] [facility]" Body weight 136.00 [lb_av] 136.00 [lb_av] MEDEN T ([facility]) Body weight 61.690 kg 61.690 kg [facility] ([facility]) Body surface area Derived from formula 1.72 m2 1.72 m2 [facility] ([facility]) Body temperature 96.9 [degF] 96.9 [degF] [facility] ([facility]) Oxygen saturation in Arterial blood by Pulse oximetry 96 % 96 % [facility] ([facility]) [place] body weight 148 [lb_av] 148 [lb_av] MEDEN T ([facility]) Body weight 61.690 kg 61.690 kg [facility] ([facility]) Body surface area Derived from formula 1.72 m2 1.72 m2 [facility] ([facility]) Body height 67 [in_i] 67 [in_i] [facility] ([facility]) 5'7" Body weight 136.00 [lb_av] 136.00 [lb_av] MEDEN T ([facility]) Body mass index (BMI) [Ratio] 21.3 kg/m2 21.3 k g/m2 [facility] ([facility]) Systolic blood pressure 120 mm[Hg] 120 mm[Hg] [facility] ([facility]) Diastolic blood pressure 70 mm[Hg] 70 mm[Hg] [facility] ([facility]) Heart rate 99 /min 99 /min [facility] ([facility]) Oxygen saturation in Arterial blood by Pulse oximetry 96 % 96 % [facility] ([facility]) Body temperature 96.9 [degF] 96.9 [degF] [facility] ([facility]) Body mass index (BMI) [Ratio] 21.3 kg/m2 21.3 k g/m2 [facility] ([facility]) [place] body weight 148 [lb_av] 148 [lb_av] MEDEN T ([facility]) Systolic blood pressure 118 mm[Hg] 118 mm[Hg] [facility] RT Arm Body height 64.75 [in_i] 64.75 [in_i] [facility]) 5'4.75" Body weight 138.00 [lb_av] 138.00 [lb_av] MED[facility] T ([facility]) Body mass index (BMI) [Ratio] 23.1 kg/m2 23.1 k g/m2 [facility] ([facility]) Diastolic blood pressure 60 mm[Hg] 60 mm[Hg] [facility]) RT Arm Heart rate 60 /min 60 /min [facility] ([facility]) Body height 67 [in_i] 67 [in_i] [facility] ([facility]) 5'7" Body mass index (BMI) [Ratio] 21.7 kg/m2 21.7 k g/m2 [facility] ([facility]) [place] body weight 148 [lb_av] 148 [lb_av] MED[facility] T ([facility]) Body weight 62.824 kg 62.824 kg [facility] ([facility]) Body surface area Derived from formula 1.73 m2 1.73 m2 [facility] ([facility]) Systolic blood pressure 95 mm[Hg] 95 mm[Hg] M EDENT ([facility]) Diastolic blood pressure 55 mm[Hg] 55 mm[Hg] [facility] ([facility]) Body weight 138.50 [lb_av] 138.50 [lb_av] MED[facility] T ([facility]) Body height 67 [in_i] 67 [in_i] [facility]) 5'7" Body weight 142.50 [lb_av] 142.50 [lb_av] MED[facility] T ([facility]) Systolic blood pressure 104 mm[Hg] 104 mm[Hg] [facility] ([facility]) Diastolic blood pressure 64 mm[Hg] 64 mm[Hg] [facility] ([facility]) Heart rate 66 /min 66 /min [facility] ([facility]) Body mass index (BMI) [Ratio] 22.3 kg/m2 22.3 k g/m2 [facility] ([facility]) [place] body weight 148 [lb_av] 148 [lb_av] [facility] T ([facility]) Body weight 64.638 kg 64.638 kg [facility] ([facility]) Body surface area Derived from formula 1.75 m2 1.75 m2 [facility] ([facility]) Systolic blood pressure 142 mm[Hg] 142 mm[Hg] M EDENT ([facility]) RT Arm Heart rate 60 /min 60 /min [facility] ([facility]) Diastolic blood pressure 68 mm[Hg] 68 mm[Hg] [facility] ([facility]) RT Arm Body height 64.75 [in_i] 64.75 [in_i] [facility] ([facility]) 5'4.75" Body weight 142.00 [lb_av] 142.00 [lb_av] MEDEN T ([facility]) Oxygen saturation in Arterial blood by Pulse oximetry 100 % 100 % [facility] ([facility]) Body mass index (BMI) [Ratio] 23.8 kg/m2 23.8 k g/m2 [facility] ([facility]) Systolic blood pressure 134 mm[Hg] 134 mm[Hg] [facility] ([facility]) Diastolic blood pressure 73 mm[Hg] 73 mm[Hg] [facility] Body weight 142.00 [lb_av] 142.00 [lb_av] MED[facility] T ([facility]) Body mass index (BMI) [Ratio] 22.2 kg/m2 22.2 k g/m2 [facility] ([facility]) [place] body weight 148 [lb_av] 148 [lb_av] [facility] T ([facility]) Body weight 64.411 kg 64.411 kg [facility] ([facility]) Body surface area Derived from formula 1.75 m2 1.75 m2 [facility] ([facility]) Body height 67 [in_i] 67 [in_i] [facility]) 5'7" Diastolic blood pressure 64 mm[Hg] 64 mm[Hg] [facility] ([facility]) Heart rate 72 /min 72 /min [facility] ([facility]) Systolic blood pressure 122 mm[Hg] 122 mm[Hg] [facility]) Oxygen saturation in Arterial blood by Pulse oximetry 96 % 96 % [facility] ([facility]) Body height 67 [in_i] 67 [in_i] [facility] ([facility]) 5'7" Body weight 140.00 [lb_av] 140.00 [lb_av] [facility] T ([facility]) Body mass index (BMI) [Ratio] 21.9 kg/m2 21.9 k g/m2 [facility] ([facility]) [place] body weight 148 [lb_av] 148 [lb_av] [facility] T ([facility]) Body weight 63.504 kg 63.504 kg [facility] ([facility]) Body surface area Derived from formula 1.74 m2 1.74 m2 [facility] ([facility]) Systolic blood pressure 156 mm[Hg] 156 mm[Hg] M [facility]ENT ([facility]) RT Arm Diastolic blood pressure 70 mm[Hg] 70 mm[Hg] [facility] ([facility]) RT Arm Heart rate 80 /min 80 /min [facility] ([facility]) Body height 64.75 [in_i] 64.75 [in_i] [facility] ( [facility]) 5'4.75" Body weight 135.50 [lb_av] 135.50 [lb_av] [facility] T ([facility]) Oxygen saturation in Arterial blood by Pulse oximetry --post exerci se 96 % 96 % [facility] ([facility]) RM Air Body mass index (BMI) [Ratio] 22.7 kg/m2 22.7 k g/m2 [facility] ([facility]) Body height 67 [in_i] 67 [in_i] [facility] ([facility]) 5'7" Body weight 138.00 [lb_av] 138.00 [lb_av] [facility] T ([facility]) Body mass index (BMI) [Ratio] 21.6 kg/m2 21.6 k g/m2 [facility] ([facility]) [place] body weight 148 [lb_av] 148 [lb_av] [facility] T ([facility]) Body weight 62.597 kg 62.597 kg [facility] ([facility]) Body surface area Derived from formula 1.73 m2 1.73 m2 [facility] ([facility]) Systolic blood pressure 130 mm[Hg] 130 mm[Hg] [facility]) Diastolic blood pressure 70 mm[Hg] 70 mm[Hg] [facility] ([facility]) Body height 64.75 [in_i] 64.75 [in_i] [facility] ([facility]) 5'4.75" Body weight 133.50 [lb_av] 133.50 [lb_av] [facility] T ([facility]) Body mass index (BMI) [Ratio] 22.4 kg/m2 22.4 k g/m2 [facility] ([facility]) Systolic blood pressure 115 mm[Hg] 115 mm[Hg] [facility] ([facility]) Body weight 134.00 [lb_av] 134.00 [lb_av] [facility] T ([facility]) Body mass index (BMI) [Ratio] 21.0 kg/m2 21.0 k g/m2 [facility] ([facility]) [place] body weight 148 [lb_av] 148 [lb_av] [facility] T ([facility]) Body weight 60.782 kg 60.782 kg [facility] ([facility]) Body surface area Derived from formula 1.71 m2 1.71 m2 [facility] ([facility]) Diastolic blood pressure 71 mm[Hg] 71 mm[Hg] [facility] ([facility]) Body height 67 [in_i] 67 [in_i] [facility] ([facility]) 5'7" Systolic blood pressure 124 mm[Hg] 124 mm[Hg] [facility] ([facility]) Body height 67 [in_i] 67 [in_i] [facility] ([facility]) 5'7" Body weight 138.12 [lb_av] 138.12 [lb_av] [facility] T ([facility]) Body mass index (BMI) [Ratio] 21.6 kg/m2 21.6 k g/m2 [facility] ([facility]) [place] body weight 148 [lb_av] 148 [lb_av] [facility] T ([facility]) Body weight 62.654 kg 62.654 kg [facility] ([facility] ) Body surface area Derived from formula 1.73 m2 1.73 m2 [facility] ([facility]) Diastolic blood pressure 68 mm[Hg] 68 mm[Hg] [facility] ([facility]) Systolic blood pressure 118 mm[Hg] 118 mm[Hg] [facility]) RT Arm Diastolic blood pressure 66 mm[Hg] 66 mm[Hg] [facility] ([facility]) RT Arm Heart rate 71 /min 71 /min [facility] ([facility]) Body height 64.75 [in_i] 64.75 [in_i] [facility] ([facility]) 5'4.75" Body weight 138.25 [lb_av] 138.25 [lb_av] [facility] T ([facility]) Oxygen saturation in Arterial blood by Pulse oximetry --post exerci se 95 % 95 % [facility] ([facility]) RM Air Body mass index (BMI) [Ratio] 23.2 kg/m2 23.2 k g/m2 [facility] ([facility]) Diastolic blood pressure 70 mm[Hg] 70 mm[Hg] [facility] ([facility]) RT Arm Heart rate 76 /min 76 /min [facility] ([facility]) Body weight 137.25 [lb_av] 137.25 [lb_av] [facility] T ([facility]) Systolic blood pressure 136 mm[Hg] 136 mm[Hg] [facility]) RT Arm Diastolic blood pressure 62 mm[Hg] 62 mm[Hg] [facility] ([facility]) `RT Arm Heart rate 54 /min 54 /min [facility] ([facility]) Body height 64.75 [in_i] 64.75 [in_i] [facility] 5'4.75" Body weight 136.00 [lb_av] 136.00 [lb_av] [facility] T ([facility]) Oxygen saturation in Arterial blood by Pulse oximetry --post exerci se 98 % 98 % [facility] ([facility]) RM Air Systolic blood pressure 122 mm[Hg] 122 mm[Hg] [facility] ([facility]) `RT Arm Body mass index (BMI) [Ratio] 22.8 kg/m2 22.8 k g/m2 [facility] ([facility]) Body height 64.75 [in_i] 64.75 [in_i] [facility] ([facility]) 5'4.75" Diastolic blood pressure 64 mm[Hg] 64 mm[Hg] [facility] ([facility]) Systolic blood pressure 128 mm[Hg] 128 mm[Hg] [facility]) Heart rate 69 /min 69 /min [facility] ([facility]) Body weight 139.00 [lb_av] 139.00 [lb_av] [facility] T ([facility]) Oxygen saturation in Arterial blood by Pulse oximetry 97 % 97 % [facility] ([facility]) Body mass index (BMI) [Ratio] 23.3 kg/m2 23.3 k g/m2 [facility] ([facility]) Systolic blood pressure 165 mm[Hg] 165 mm[Hg] [facility] ([facility]) Diastolic blood pressure 79 mm[Hg] 79 mm[Hg] [facility] ([facility]) Body height 67 [in_i] 67 [in_i] [facility] ([facility]) 5'7" Body weight 139.00 [lb_av] 139.00 [lb_av] [facility] T ([facility]) Body mass index (BMI) [Ratio] 21.8 kg/m2 21.8 k g/m2 [facility] ([facility]) [place] body weight 148 [lb_av] 148 [lb_av] [facility] T ([facility]) Body weight 63.050 kg 63.050 kg [facility] ([facility]) Body surface area Derived from formula 1.73 m2 1.73 m2 [facility] ([facility]) [place] body weight 148 [lb_av] 148 [lb_av] [facility] T ([facility]) Body weight 63.277 kg 63.277 kg [facility] ([facility]) Systolic blood pressure 120 mm[Hg] 120 mm[Hg] M [facility]ENT ([facility]) Diastolic blood pressure 62 mm[Hg] 62 mm[Hg] [facility] ([facility]) Body height 67 [in_i] 67 [in_i] [facility] ([facility]) 5'7" Body weight 139.50 [lb_av] 139.50 [lb_av] [facility] T ([facility]) Body mass index (BMI) [Ratio] 21.8 kg/m2 21.8 k g/m2 [facility] ([facility]) Oxygen saturation in Arterial blood by Pulse oximetry --post exerci se 98 % 98 % [facility] ([facility]) RM Air Body weight 138.12 [lb_av] 138.12 [lb_av] [facility] ([facility]) Systolic blood pressure 110 mm[Hg] 110 mm[Hg] [facility]) RT Arm Diastolic blood pressure 54 mm[Hg] 54 mm[Hg] [facility] ([facility]) RT Arm Heart rate 65 /min 65 /min [facility] ([facility]) Body temperature 97.1 [degF] 97.1 [degF] [facility] ([facility]) Body height 64.75 [in_i] 64.75 [in_i] [facility] ([facility]) 5'4.75" Body mass index (BMI) [Ratio] 23.2 kg/m2 23.2 k g/m2 [facility] ([facility])
[2021-05-27] MEDS ORDERED: LIDOCAINE PRES-FREE 2% 10ML AMP As Ordered ONE (13:08)
[2021-05-27] MEDS ORDERED: BUPIVACAINE HCL 0.5% 30 ML VIAL As Ordered ONE (13:09)
[2021-05-27] MEDS ORDERED: LIDOCAINE 2% MDV 20ML VIAL As Ordered ONE (13:09)
[2021-05-27 13:28] LABS: HEMATOCRIT 46.5 % (42.0-52.0); HEMOGLOBIN 15.2 g/dl (13.5-17.5); MEAN CORPUSCULAR HEMOGLOBIN 31.9 pg (27.0-33.0); MEAN CORPUSCULAR HGB CONC 32.7 g/dl (32.0-36.5); MEAN CORPUSCULAR VOLUME 97.7 fl (80.0-96.0); PLATELET COUNT, AUTOMATED 285 10^3/uL (150-450); RED BLOOD COUNT 4.76 10^6/uL (4.30-6.10); WHITE BLOOD COUNT 6.8 10^3/uL (4.0-10.0)
[2021-05-27 13:39] LABS: INR 0.91; PROTHROMBIN TIME 12.6 SECONDS (12.7-14.5)
[2021-05-27 13:40] LABS: PARTIAL THROMBOPLASTIN TIME 27.9 SECONDS (25.9-37.0)
--- NOTE | 2021-05-27 13:46 | REP ---
INDICATION: HX HBP. COMPARISON: 01/02/2021. TECHNIQUE: Single portable AP view of the chest was performed. FINDINGS: There is no acute infiltrate or pulmonary edema. Lungs are clear. The heart is not significantly enlarged. The mediastinal silhouette is unremarkable. The visualized osseous structures are intact. IMPRESSION: No acute pulmonary disease. <Electronically signed by Chadd Katz > 05/27/21 [id number]
[2021-05-27 13:51] LABS: CALCIUM LEVEL 9.7 MG/DL (8.8-10.2); CREATININE FOR GFR 1.82 MG/DL (0.70-1.30); POTASSIUM SERUM 4.3 MEQ/L (3.5-5.1)
[2021-05-27] MEDS ORDERED: ISOVUE-300 61% 50ML VIAL As Ordered ONE (14:14)
[2021-05-27] MEDS ORDERED: HEPARIN SOD (PORCINE) 5000UNITS/ML 1ML VIAL/SYRINGE As Ordered ONE ×2 (14:14→16:19)
--- NOTE | 2021-05-27 15:09 | ECGEPIP ---
[facility] Test Date: 2021-05-27 Pat Name: JOSE R RAMIREZ Department: Room: - Gender: Male Director Patient: [facility] : 1935 Requested By: Adrianne Gandhi Order Number: [id number] Reading MD: Miracle Farah Measurements Intervals [place] Rate: 66 P: IA: QRS: -33 QRSD: 88 T: 49 QT: 416 QTc: 436 Interpretive Statements NSR rhythm 1ST DEGREE BLOCK PVC ABSENT Left axis deviation NOW BODERLINE LAFB Inferior infarct NO SEEN 01/02/21 Anteroseptal infarct , age undetermined Electronically Signed on 05-27-2021 15:09:12 EST by Miracle Farah
[2021-05-27] MEDS ORDERED: ceFAZolin 2 GM/D5W 50 ML IV BAG (J0690 PER 500MG) As Ordered ONE (15:27)
[2021-05-27] MEDS ORDERED: propofoL 200 MG/20 ML VIAL As Ordered ONE (16:03)
[2021-05-27] MEDS ORDERED: SUGAMMADEX SODIUM 500 MG/5 ML VIAL (BRIDION) As Ordered ONE (16:03)
[2021-05-27] MEDS ORDERED: ONDANSETRON 4MG/2ML VIAL As Ordered ONE (16:03)
[2021-05-27] MEDS ORDERED: fentaNYL 100 MCG/2 ML INJECTION (J3010) As Ordered ONE ×2 (16:03→18:12)
[2021-05-27] MEDS ORDERED: ROCURONIUM BROMIDE 50 MG/5 ML VIAL As Ordered ONE (16:03)
[2021-05-27] MEDS ORDERED: LIDOCAINE 2% JELLY 5ML TUBE As Ordered ONE (16:03)
[2021-05-27] MEDS ORDERED: LIDOCAINE 1% SDV 30ML VIAL As Ordered ONE (16:06)
[2021-05-27] MEDS ORDERED: dexameTHASONE 4 MG/ML 1ML VIAL (J1100 PER 1MG) As Ordered ONE (16:19)
--- NOTE | 2021-05-27 17:22 | ROOPDOC ---
[facility] Report Of Operation Report of Operation DATE OF PROCEDURE: 05/27/21 PREPROCEDURE DIAGNOSES: Recurrent left arm central venous stenosis, and radiocephalic AV fistula venous stenosis, with significant left arm swelling, and compressive neuropathy of the left hand POSTPROCEDURE DIAGNOSES: Recurrent left arm central venous stenosis, and radiocephalic AV fistula venous stenosis, with significant left arm swelling, and compressive neuropathy of the left hand PROCEDURE PERFORMED: 1. Ligation of left radiocephalic AV fistula. 2. Left subclavian vein stenosis balloon angioplasty with 14 mm x 60 millimeter [place] balloon, and covered stenting with Viabahn 13 mm x 5 cm covered stent SURGEON: Adrianne Resendiz MD MEDICAL ENGINEER: None ANESTHESIA: General, ETT through the tracheostomy: Dr Vazquez ESTIMATED BLOOD LOSS: Approximately 10 mL. Contrast: 35 mL of Isovue IV fluids: 250 mL of crystalloids COMPLICATIONS: None FINDINGS: Recurrent 95% focal stenosis of the left subclavian vein, at its junction with the left innominate vein SPECIMENS REMOVED: None PROCEDURE NOTE: Indication for the procedure: The patient is an 86-year-old gentleman, with chronic kidney disease, not on hemodialysis yet. He had a left radiocephalic AV fistula created by Dr. Monzon, in 2019. Since that procedure, he required multiple fistulograms and balloon angioplasty of the central vein stenosis, for recurrent left arm swelling. The last procedure was performed on 04/24/2021. During that procedure he was also noted to have significant venous outflow stenosis, of the cephalic vein, at the proximal forearm level, which also required balloon angioplasty. The patient developed recurrent left upper extremity swelling, especially of the forearm and the hand, with significant swelling at the level of the wrist, along with inability to flex the left hand fingers completely. Apart from mild numbness of the fingertips which he had since the initial fistula creation, there was no significant worsening of numbness of the left hand. Since the patient has not been hemodialysis for the past 2 years, and required multiple fistulograms, for the central vein stenosis, which was causing bothersome swelling of the left upper extremity, placing him at further risk for contrast-induced worsening of renal function, it was decided to place a left subclavian vein stent. Also due to the stenosis in the cephalic vein, at the proximal forearm level, the severe tortuosity of the AV fistula, along with signs of compressive neuropathy left hand, secondary to significant distal forearm swelling, it was also decided to ligate the AV fistula, after having a long discussion, with the patient, and his Dania. Informed consent was obtained from the patient, after explaining the risk benefits and complications of the procedure, which include but are not limited to bleeding, infection, loss of fistula, persistent neuropathy, contrast-induced worsening of kidney function, requiring hemodialysis and new dialysis access w hich may require additional treatment etc. As the patient could not tolerate intravenous sedation with local anesthesia, during his last fistulogram, it was decided to use general anesthesia, to minimize bronchospasms and hypoxic episodes during the procedure DESCRIPTION OF PROCEDURE: The patient was placed prone on the operating room table and general anesthesia was administered. The left arm and upper chest were cleaned and draped in a sterile fashion. He received 2 g Ancef intravenously as preoperative antibiotic prophylaxis. A timeout was performed. The left basilic vein, which was the predominant outflow for the AV fistula, was accessed, under ultrasound guidance, using a 21 gauge micropuncture needle, and exchanged to a micro sheath over a 0.018 inch wire. The sheath was then exchanged to a 10 Occitan 11 cm sheath. During this time, the fluoroscopy machine was malfunctioning, and had to be rebooted. Hence it was decided to ligate the AV fistula first. A 2 cm transverse incision was made, on the AV fistula, at the arterial anastomosis. The cephalic vein was dissected close to the anastomosis and ligated with 2, 0 silk ties. The incision was closed with 3-0 Vicryl and 4-0 Monocryl sutures. A left upper extremity Central venagram was then performed through the 10 Occitan sheath. The left subclavian vein stenosis was defined and balloon angioplasty with a 14 x 60 mm [place] balloon was performed. Subsequently the 13 mm x 50 mm Viabahn covered stent was placed across the stenosis, and deployed. This was post dilated with the 14mm balloon. Completion venogram revealed complete resolution of the stenosis. The sheath was removed and the sheath access site was secured with the 3-0 Vicryl suture. Dry dressings were placed. The patient's left radial pulse was +2 palpable. A cotton web roll followed by Quan wrap was placed, from the hand to the elbow, to decrease the left upper extremity swelling The patient tolerated the procedure well. He was hemodynamically stable. He was extubated and was transferred to the postop recovery room in a stable condition. The procedure and findings were discussed with his over the phone. Plan: 1. Increase aspirin to 325 mg daily, as the patient is on omeprazole, which interacts with Plavix. 2. Follow-up BUN and creatinine on 05/30/2021, and follow-up in the clinic. 3. Save right upper extremity, for future hemodialysis access-avoid IV lines of blood draws from the right upper extremity Adrianne Resendiz MD May 27, 2021 17:22
[2021-05-27] MEDS ORDERED: ASPIRIN 325 MG TAB PO STA (17:32)
[2021-05-27] MEDS ORDERED: LR 1,000 ML IV SCH (18:20)
[2021-05-27] MEDS ORDERED: ONDANSETRON 4MG/2ML VIAL IV PRN (18:20)
[2021-05-27] MEDS: fentaNYL 100 MCG/2 ML INJECTION (J3010) IV PRN ×4 (18:23→18:53)
[2021-05-27] MEDS: oxyCODONE 5MG TAB PO PRN ×2 (18:27→19:06)
[2021-05-27 19:35] VITALS: BP 152/67
== END 2021-05-27 19:42 | disposition home or self-care (01) ==
LOC: M SDC 12:44
PROVIDERS: ATTEND Surgery Vascular Surgery
DX: I87.1 Compression of vein (principal); T82.858A Stenosis of other vascular prosthetic devices, implants and grafts, initial encounter; Y74.2 Prosthetic and other implants, materials and accessory general hospital and personal-use devices associated with adverse incidents; M79.89 Other specified soft tissue disorders; G56.92 Unspecified mononeuropathy of left upper limb; N18.5 Chronic kidney disease, stage 5; I12.0 Hypertensive chronic kidney disease with stage 5 chronic kidney disease or end stage renal disease; E03.9 Hypothyroidism, unspecified; M10.9 Gout, unspecified; N25.81 Secondary hyperparathyroidism of renal origin; K21.9 Gastro-esophageal reflux disease without esophagitis; J44.9 Chronic obstructive pulmonary disease, unspecified; F41.9 Anxiety disorder, unspecified; J45.909 Unspecified asthma, uncomplicated; G47.30 Sleep apnea, unspecified; N40.0 Benign prostatic hyperplasia without lower urinary tract symptoms; K22.70 Barrett's esophagus without dysplasia; Z85.21 Personal history of malignant neoplasm of larynx; Z87.891 Personal history of nicotine dependence; Z93.0 Tracheostomy status; Z88.0 Allergy status to penicillin; Z88.1 Allergy status to other antibiotic agents; Z79.899 Other long term (current) drug therapy; Z79.82 Long term (current) use of aspirin
CPT/HCPCS: 36415; 36901; 36908; 37607; 71045; 76000; 80048; 85027; 85610; 85730; 86850; 86900; 86901; 93005; C1769; C1874; C1887; C1894; J0690; J1100; J1644; J2405; J3010; Q9967

== ENCOUNTER → 2021-05-29 | Outpatient (CLI) | payer MEDICARE, OTHER ==
[~2021-05-29] MED LIST changes: -LIDOCAINE 1% MDV 20ML VIAL SQ PRN; -LR 1,000 ML IV ONE
[2021-05-29 10:36] LABS: CREATININE FOR GFR 1.99 MG/DL (0.70-1.30); GLOMERULAR FILTRATION RATE 34.3 (>35)
== END ==
LOC: M LAB 09:14
PROVIDERS: ATTEND Surgery Vascular Surgery
DX: N18.5 Chronic kidney disease, stage 5 (principal)

== ENCOUNTER 2021-07-28 06:55 | Observation (INO) | payer MEDICARE, OTHER ==
[~2021-07-28 06:55] MED LIST changes: -CEFD1CAP8 PO
[2021-07-28] MEDS ORDERED: MIDAZOLAM INJ 2MG/2ML VIAL (J2250 PER 1MG) As Ordered ONE (07:20)
[2021-07-28] MEDS ORDERED: MIDAZOLAM INJ 2MG/2ML VIAL (J2250 PER 1MG) IV STA (07:20)
[2021-07-28] MEDS ORDERED: MIDAZOLAM INJ 2MG/2ML VIAL (J2250 PER 1MG) IV PRN (07:30)
[2021-07-28 07:55] LABS: ABG BASE EXCESS -3.8 (-2.0-2.0); ABG HCO3 20.2 MEQ/L (22.0-26.0); ABG O2 SATURATION 99.3 % (95.0-99.0); ABG PARTIAL PRESSURE CO2 33.5 mmHg (35.0-45.0); ABG PARTIAL PRESSURE O2 211.6 mmHg (75.0-100.0); ABG STANDARD HCO3 21.4 MEQ/L (22.0-26.0); ABG TOTAL CO2 21.3 MEQ/L (23.0-31.0); ABG pH (ARTERIAL) 7.399 UNITS (7.350-7.450)
[2021-07-28] MEDS ORDERED: METO1TAB33 PO (08:06)
[2021-07-28] MEDS ORDERED: ALBU83IN NEB (08:06)
[2021-07-28] MEDS ORDERED: STIO1AER INH (08:06)
[2021-07-28] MEDS ORDERED: TAMS1CAP17 PO (08:06)
[2021-07-28] MEDS ORDERED: LEVO75TA4 (08:06)
[2021-07-28] MEDS ORDERED: IPRA0.00 NEB (08:06)
[2021-07-28] MEDS ORDERED: OMEP-221 PO (08:06)
[2021-07-28] MEDS ORDERED: MECL-86 PO (08:06)
[2021-07-28] MEDS ORDERED: ALLO100T PO (08:06)
[2021-07-28] MEDS ORDERED: CALC1CAP31 PO (08:06)
[2021-07-28] MEDS ORDERED: LEVO100T5 PO (08:06)
[2021-07-28] MEDS ORDERED: [UNRECOGNIZED DRUG - CODE] PO (08:06)
[2021-07-28] MEDS ORDERED: BUDE0.5S6 NEB (08:06)
[2021-07-28 08:12] LABS: BASO # 0.1 10^3/uL (0.0-0.2); BASO % 0.8 % (0.0-1.0); EOS # 0.3 10^3/uL (0.0-0.5); EOS % 3.8 % (0.0-3.0); HEMATOCRIT 41.4 % (42.0-52.0); HEMOGLOBIN 14.2 g/dl (13.5-17.5); LYMPH # 0.7 10^3/uL (1.5-5.0); LYMPH % 8.2 % (24.0-44.0); MEAN CORPUSCULAR HEMOGLOBIN 32.3 pg (27.0-33.0); MEAN CORPUSCULAR HGB CONC 34.3 g/dl (32.0-36.5); MEAN CORPUSCULAR VOLUME 94.3 fl (80.0-96.0); MONO # 0.5 10^3/uL (0.0-0.8); MONO % 6.1 % (2.0-8.0); NEUTROPHILS # 6.9 10^3/uL (1.5-8.5); NEUTROPHILS % 80.4 % (36.0-66.0); PLATELET COUNT, AUTOMATED 265 10^3/uL (150-450); RED BLOOD COUNT 4.39 10^6/uL (4.30-6.10); WHITE BLOOD COUNT 8.6 10^3/uL (4.0-10.0)
[2021-07-28 08:26] LABS: CALCIUM LEVEL 8.7 MG/DL (8.8-10.2); CREATININE FOR GFR 1.74 MG/DL (0.70-1.30); POTASSIUM SERUM 3.9 MEQ/L (3.5-5.1)
[2021-07-28] MEDS ORDERED: IPRATROPIUM 0.5MG/ALBUTEROL 2.5MG INH SOL UD 3ML (DUONEB) NEB ONE (09:00)
[2021-07-28] MEDS ORDERED: dexameTHASONE 20MG/5ML VIAL (J1100 PER 1MG) IV ONE (09:00)
[2021-07-28] MEDS ORDERED: ONDANSETRON 4MG/2ML VIAL IV ONE (09:00)
[2021-07-28] MEDS ORDERED: ACETAMINOPHEN TAB 650MG DOSE (2X325MG) PO PRN (09:40)
[2021-07-28] MEDS ORDERED: BAYE325T13 PO (11:17)
[2021-07-28] MEDS ORDERED: CETI-24 PO (11:17)
[2021-07-28] MEDS ORDERED: HOME MED LIST COMPLETE! XX SCH (11:20)
[2021-07-28] MEDS ORDERED: ALBUTEROL SULFATE 2.5 MG/0.5 ML INH NEB SOLN NEB PRN (12:00)
[2021-07-28] MEDS ORDERED: MECLIZINE 25 MG TABLET PO PRN (12:00)
[2021-07-28] MEDS ORDERED: IPRATROPIUM 0.5MG/ALBUTEROL 2.5MG INH SOL UD 3ML (DUONEB) NEB PRN (12:00)
[2021-07-28 14:00] VITALS: BP 136/74
[2021-07-28] MEDS ORDERED: hydrOXYzine 25 MG TAB PO PRN (14:05)
[2021-07-28] MEDS: ASPIRIN 325 MG TAB PO SCH (14:48)
[2021-07-28] MEDS: allopurinoL 100 MG TAB PO SCH (14:49)
[2021-07-28] MEDS: CETIRIZINE (ZyrTEC) 10 MG TAB PO SCH (14:50)
[2021-07-28] MEDS: METOPROLOL SUCC (TopROL XL) 100MG *XL* TAB PO SCH (14:54)
[2021-07-28] MEDS: HEPARIN SOD (PORCINE) 5000UNITS/ML 1ML VIAL/SYRINGE SC SCH ×2 (14:57→21:47)
[2021-07-28] MEDS: LEVOTHYROXINE 100MCG TABLET (0.1MG) PO SCH (17:06)
[2021-07-28] MEDS: BUDESONIDE 0.5 MG/2 ML INHALATION SUSPENSION NEB SCH (19:11)
[2021-07-28 22:00] VITALS: BP 111/69
[2021-07-29 06:00] VITALS: BP 131/58
[2021-07-29 06:13] LABS: HEMATOCRIT 45.4 % (42.0-52.0); HEMOGLOBIN 15.1 g/dl (13.5-17.5); MEAN CORPUSCULAR HEMOGLOBIN 32.3 pg (27.0-33.0); MEAN CORPUSCULAR HGB CONC 33.3 g/dl (32.0-36.5); MEAN CORPUSCULAR VOLUME 97.2 fl (80.0-96.0); PLATELET COUNT, AUTOMATED 321 10^3/uL (150-450); RED BLOOD COUNT 4.67 10^6/uL (4.30-6.10); WHITE BLOOD COUNT 12.9 10^3/uL (4.0-10.0)
[2021-07-29 06:22] LABS: CALCIUM LEVEL 9.5 MG/DL (8.8-10.2); CREATININE FOR GFR 1.91 MG/DL (0.70-1.30); GLOMERULAR FILTRATION RATE 35.9 (>35); MAGNESIUM LEVEL 2.1 MG/DL (1.8-2.4)
[2021-07-29] MEDS: LEVOTHYROXINE 100MCG TABLET (0.1MG) PO SCH (06:56)
[2021-07-29] MEDS: HEPARIN SOD (PORCINE) 5000UNITS/ML 1ML VIAL/SYRINGE SC SCH (06:57)
[2021-07-29] MEDS: BUDESONIDE 0.5 MG/2 ML INHALATION SUSPENSION NEB SCH (07:37)
[2021-07-29] MEDS ORDERED: PRED10TA2 PO (08:03)
[2021-07-29] MEDS: CETIRIZINE (ZyrTEC) 10 MG TAB PO SCH (08:31)
[2021-07-29] MEDS: ASPIRIN 325 MG TAB PO SCH (08:31)
[2021-07-29] MEDS: allopurinoL 100 MG TAB PO SCH (08:31)
[2021-07-29 08:33] VITALS: BP 147/91
[2021-07-29] MEDS: METOPROLOL SUCC (TopROL XL) 100MG *XL* TAB PO SCH (08:33)
[2021-07-29] MEDS ORDERED: TAMSULOSIN 0.4 MG CAP PO SCH (09:00)
[2021-07-29] MEDS ORDERED: CALCITRIOL 0.25 MCG CAP (S0169) PO SCH (09:00)
[2021-07-29] MEDS ORDERED: predniSONE 20 MG TAB PO SCH (09:00)
[2021-07-29] MEDS ORDERED: NISOLDIPINE 8.5 MG PO SCH (21:00)
== END 2021-07-29 11:35 | disposition home or self-care (01) ==
LOC: EDBD 06:55 → M ED 06:55 → M ED INP 06:56 → MERGE 06:56 → ENRESERV 10:55 → M MSPAV 13:31
PROVIDERS: ADMIT Family Medicine; ATTEND Family Medicine
DX: J44.1 Chronic obstructive pulmonary disease with (acute) exacerbation (principal); F41.9 Anxiety disorder, unspecified; N18.4 Chronic kidney disease, stage 4 (severe); I12.9 Hypertensive chronic kidney disease with stage 1 through stage 4 chronic kidney disease, or unspecified chronic kidney disease; E03.9 Hypothyroidism, unspecified; K21.9 Gastro-esophageal reflux disease without esophagitis; R06.02 Shortness of breath; H91.90 Unspecified hearing loss, unspecified ear; Z90.02 Acquired absence of larynx; Z85.21 Personal history of malignant neoplasm of larynx; R33.9 Retention of urine, unspecified; Z79.899 Other long term (current) drug therapy; Z79.82 Long term (current) use of aspirin; Z79.51 Long term (current) use of inhaled steroids; Z79.52 Long term (current) use of systemic steroids; Z88.0 Allergy status to penicillin; Z88.1 Allergy status to other antibiotic agents; Z87.891 Personal history of nicotine dependence
CPT/HCPCS: 36415; 36600; 71045; 80048; 82803; 83605; 83735; 85025; 85027; 87040; 87798; 93005; 93041; 94640; 96372; 96374; 96375; 96376; 99285; G0378; J1100; J1644; J2250; J2405; J7512

== ENCOUNTER → 2021-10-02 | Outpatient (CLI) | payer MEDICARE, OTHER ==
[~2021-10-02] MED LIST changes: +BAYE325T13 PO; +BUDE0.5S6 NEB; +IPRA0.00 NEB; +LEVO100T5 PO; +LEVO75TA4; +MECL-86 PO; +OMEP40CA5 PO; +PRED10TA2 PO; +TAMS1CAP17 PO; +[UNRECOGNIZED DRUG - CODE] PO
== END ==
LOC: M RAD 12:56
PROVIDERS: ATTEND Internal Medicine
DX: R60.0 Localized edema (principal); R22.41 Localized swelling, mass and lump, right lower limb

== ENCOUNTER → 2021-10-08 | Outpatient (CLI) | payer MEDICARE, OTHER | LOC: M PLAIMG 07:47 | PROVIDERS: ATTEND Internal Medicine | DX: R62.7 Adult failure to thrive (principal); R60.0 Localized edema; K80.20 Calculus of gallbladder without cholecystitis without obstruction; N28.81 Hypertrophy of kidney ==

== ENCOUNTER 2022-01-03 08:24 | Emergency (ER) | payer MEDICARE, OTHER ==
[~2022-01-03] VITALS: Ht 167.6 cm; Wt 54.7 kg
[~2022-01-03 08:24] MED LIST changes: -FURO20TA2; -LEVO88TA3; -PERC5TAB12 PO
[2022-01-03] MEDS ORDERED: FURO20TA2 (09:01)
[2022-01-03] MEDS ORDERED: LEVO88TA3 (09:01)
[2022-01-03] MEDS ORDERED: PERCOCET 5MG/325MG TAB PO ONE (09:15)
[2022-01-03] MEDS ORDERED: PERC5TAB12 PO (10:18)
[2022-01-03 11:11] VITALS: BP 111/56
== END 2022-01-03 11:13 | disposition home or self-care (01) ==
LOC: M ED 08:24
DX: S20.212A Contusion of left front wall of thorax, initial encounter (principal); S50.02XA Contusion of left elbow, initial encounter; W06.XXXA Fall from bed, initial encounter; Y92.018 Other place in single-family (private) house as the place of occurrence of the external cause; I10 Essential (primary) hypertension; J44.9 Chronic obstructive pulmonary disease, unspecified; N18.9 Chronic kidney disease, unspecified; E07.9 Disorder of thyroid, unspecified; M10.9 Gout, unspecified; Z85.21 Personal history of malignant neoplasm of larynx; Z88.0 Allergy status to penicillin; Z88.1 Allergy status to other antibiotic agents; Z79.899 Other long term (current) drug therapy; Z79.890 Hormone replacement therapy; Z79.82 Long term (current) use of aspirin

== ENCOUNTER → 2022-01-03 | Outpatient (REF) | payer MEDICARE, OTHER ==
[~2022-01-03] MED LIST changes: +ALBU2.5V10 INH; +ALBU2.5V10 NEB; -ALBU83IN INH; -ALBU83IN NEB; +FURO20TA2; +LEVO88TA3; +PERC5TAB12 PO
== END ==
LOC: M LAB REF 12:02
PROVIDERS: ATTEND Internal Medicine
DX: E03.9 Hypothyroidism, unspecified (principal)

== ENCOUNTER → 2022-04-01 | Outpatient (POV) | payer MEDICARE, OTHER ==
[~2022-04-01] VITALS: Ht 170.2 cm; Wt 51.8 kg
[~2022-04-01] MED LIST changes: +FURO20TA2; +LEVO88TA3; +PERC5TAB12 PO
[2022-04-01 11:30] VITALS: BP 112/56
== END ==
LOC: M IRPOV 11:26
PROVIDERS: ATTEND Radiology Diagnostic Radiology
DX: K22.2 Esophageal obstruction (principal); R13.10 Dysphagia, unspecified; N18.9 Chronic kidney disease, unspecified; I12.9 Hypertensive chronic kidney disease with stage 1 through stage 4 chronic kidney disease, or unspecified chronic kidney disease; E03.9 Hypothyroidism, unspecified; M10.9 Gout, unspecified; Z79.82 Long term (current) use of aspirin; Z79.890 Hormone replacement therapy; Z79.899 Other long term (current) drug therapy; Z85.21 Personal history of malignant neoplasm of larynx; Z87.891 Personal history of nicotine dependence; Z88.1 Allergy status to other antibiotic agents

== ENCOUNTER → 2022-04-09 | Outpatient (CLI) | payer MEDICARE, OTHER | LOC: M LABSMTC 11:20 | PROVIDERS: ATTEND Anesthesiology | DX: Z01.812 Encounter for preprocedural laboratory examination (principal); Z20.822 Contact with and (suspected) exposure to COVID-19 ==

== ENCOUNTER → 2022-04-14 | Outpatient (CLI) | payer MEDICARE, OTHER ==
[~2022-04-14] MED LIST changes: +ACETAMINOPHEN *IV* 1,000 MG IV ONE; +CLINDAMYCIN 600 MG in IV 1 EA IV ONE; +CLINDAMYCIN 600MG/50ML PREMIX BAG As Ordered ONE; +CLON0.25 PO; +GLUCAGON INJ 1MG VIAL As Ordered ONE; +ISOVUE-300 61% 50ML VIAL As Ordered ONE; +LIDOCAINE 1% MDV 20ML VIAL As Ordered ONE; +MIDAZOLAM INJ 2MG/2ML VIAL (J2250 PER 1MG) As Ordered ONE; +diphenhydrAMINE 50MG/ML VIAL (J1200) As Ordered ONE; +fentaNYL 100 MCG/2 ML INJECTION As Ordered ONE
[2022-04-14] MEDS: NS 1,000 ML IV SCH ×3 (11:00→16:48)
[2022-04-14 15:30] VITALS: BP 125/63
== END ==
LOC: M IRPRO 10:32
PROVIDERS: ATTEND Radiology Diagnostic Radiology
DX: C76.0 Malignant neoplasm of head, face and neck (principal); K22.2 Esophageal obstruction; Z79.51 Long term (current) use of inhaled steroids; Z79.82 Long term (current) use of aspirin; Z79.890 Hormone replacement therapy; Z79.899 Other long term (current) drug therapy; Z88.1 Allergy status to other antibiotic agents
CPT/HCPCS: 49440; 99152; 99153; C1729; C1769; C1887; C1894; J0131; J1610; J2250; J3010; Q9967

== ENCOUNTER → 2022-04-29 | Outpatient (POV) | payer MEDICARE, OTHER ==
[~2022-04-29] VITALS: Ht 170.2 cm; Wt 51.8 kg
[~2022-04-29] MED LIST changes: -ACETAMINOPHEN *IV* 1,000 MG IV ONE; -CLINDAMYCIN 600 MG in IV 1 EA IV ONE; -CLINDAMYCIN 600MG/50ML PREMIX BAG As Ordered ONE; -GLUCAGON INJ 1MG VIAL As Ordered ONE; -ISOVUE-300 61% 50ML VIAL As Ordered ONE; -LIDOCAINE 1% MDV 20ML VIAL As Ordered ONE; -MIDAZOLAM INJ 2MG/2ML VIAL (J2250 PER 1MG) As Ordered ONE; -diphenhydrAMINE 50MG/ML VIAL (J1200) As Ordered ONE; -fentaNYL 100 MCG/2 ML INJECTION As Ordered ONE
[2022-04-29 10:35] VITALS: BP 117/55
== END ==
LOC: M IRPOV 11:27
PROVIDERS: ATTEND Radiology Diagnostic Radiology
DX: Z48.815 Encounter for surgical aftercare following surgery on the digestive system (principal); Z43.1 Encounter for attention to gastrostomy; Z88.1 Allergy status to other antibiotic agents

== ENCOUNTER → 2022-06-18 | Outpatient (REF) | payer MEDICARE, OTHER ==
[~2022-06-18] MED LIST changes: -DOXY-350 PO; +DOXY-444 PO
== END ==
LOC: M LAB REF 12:39
PROVIDERS: ATTEND Internal Medicine
DX: E03.9 Hypothyroidism, unspecified (principal)

== ENCOUNTER → 2022-08-19 | Outpatient (POV) | payer MEDICARE, OTHER ==
[~2022-08-19] VITALS: Ht 170.2 cm; Wt 52.7 kg
[~2022-08-19] MED LIST changes: +ALLO10TA PEG; -ALLO10TA PO; +BAYE325T13 PEG; -BAYE325T13 PO; +CALC1CAP31 PEG; +COLC1TAB14 PEG; -FURO20TA2; +FURO20TA2 PEG; +LEVO200T4 PEG; -LEVO88TA3; +MAGN64TASA PEG; -MAGN64TASA PO; +MECL-86 PEG; -MECL-86 PO; +METO1TAB33 PEG; +NISO17TA3 PEG; -NISO17TA3 PO; +OMEP40CA4 PEG; -OMEP40CA4 PO; +VENTAER INH
[2022-08-19 10:45] VITALS: BP 125/65
== END ==
LOC: M IRPOV 10:28
PROVIDERS: ATTEND Radiology Diagnostic Radiology
DX: Z43.1 Encounter for attention to gastrostomy (principal); Z88.1 Allergy status to other antibiotic agents

== ENCOUNTER 2022-08-26 12:25 | Inpatient (IN) | payer MEDICARE, OTHER ==
[~2022-08-26] VITALS: Ht 167.6 cm; Wt 40.0 kg
[~2022-08-26 12:25] MED LIST changes: -LEVO200T4 PEG; -VENTAER INH
[2022-08-26] MEDS ORDERED: NS 1,000 ML IV SCH ×2 (13:55→18:10)
[2022-08-26 14:55] LABS: HEMATOCRIT 48.7 % (42.0-52.0); HEMOGLOBIN 15.8 g/dl (13.5-17.5); MEAN CORPUSCULAR HEMOGLOBIN 30.9 pg (27.0-33.0); MEAN CORPUSCULAR HGB CONC 32.4 g/dl (32.0-36.5); MEAN CORPUSCULAR VOLUME 95.1 fl (80.0-96.0); PLATELET COUNT, AUTOMATED 298 10^3/uL (150-450); RED BLOOD COUNT 5.12 10^6/uL (4.30-6.10); WHITE BLOOD COUNT 17.4 10^3/uL (4.0-10.0)
[2022-08-26 15:22] LABS: ETHYL ALCOHOL (ETHANOL) 0.006 % (0.000-0.010)
[2022-08-26 15:27] LABS: ATYPICAL LYMPH 1 % (0-5); LYMPHOCYTES 3 % (16-44); MONOCYTES 2 % (0-5); NEUTROPHILS 86 % (28-66)
[2022-08-26 15:28] LABS: PLATELET ESTIMATE NORMAL (NORMAL)
[2022-08-26 15:37] LABS: ALBUMIN 2.6 G/DL (3.2-5.2); BILIRUBIN,DIRECT 0.1 MG/DL (<0.4); BILIRUBIN,TOTAL 0.3 MG/DL (0.3-1.2); CALCIUM LEVEL 9.4 MG/DL (8.3-10.6); CK-MB VALUE MASS 22.2 NG/ML (<3.6); CREATININE FOR GFR 3.07 MG/DL (0.70-1.30); GLOMERULAR FILTRATION RATE 20.7 (>35); MB/CK RELATIVE INDEX 3.45 (< OR =4); POTASSIUM SERUM 3.8 MMOL/L (3.5-5.1); THYROID STIMULATING HORMONE 29.695 uIU/ML (0.55-4.78); TOTAL PROTEIN 7.2 G/DL (5.7-8.2)
[2022-08-26 15:39] LABS: RSV AMPLIFICATION NEGATIVE (NEGATIVE)
[2022-08-26] MEDS ORDERED: CEFEPIME HCL 2 GM in D5W MINI-BAG PLUS 50 ML IV ONE (16:05)
[2022-08-26 16:53] LABS: CK-MB VALUE MASS 22.9 NG/ML (<3.6)
[2022-08-26 16:54] LABS: MB/CK RELATIVE INDEX 3.47 (< OR =4)
[2022-08-26] MEDS ORDERED: LEVO200T4 PEG (16:58)
[2022-08-26] MEDS ORDERED: VENTAER INH (17:02)
[2022-08-26] MEDS ORDERED: HOME MED LIST COMPLETE! XX SCH (17:05)
[2022-08-26] MEDS ORDERED: CEFEPIME HCL 2 GM in D5W MINI-BAG PLUS 50 ML IV SCH (18:10)
[2022-08-26] MEDS ORDERED: ACETAMINOPHEN TAB 650MG DOSE (2X325MG) PO PRN (18:10)
[2022-08-26] MEDS ORDERED: MAALOX 30 ML SUSP *UDC PO PRN (18:10)
[2022-08-26] MEDS ORDERED: MOM 30ML SUSPENSION UDC PO PRN (18:10)
[2022-08-26] MEDS ORDERED: IPRATROPIUM 0.5MG/ALBUTEROL 2.5MG INH SOL UD 3ML (DUONEB) NEB PRN (18:15)
[2022-08-26] MEDS ORDERED: clonazePAM 0.5 MG TAB PO PRN (18:20)
[2022-08-26 19:33] LABS: CREATININE,RANDOM URINE 35.6 MG/DL
[2022-08-26 19:57] LABS: CALCIUM LEVEL 8.9 MG/DL (8.3-10.6); CK-MB VALUE MASS 23.2 NG/ML (<3.6); CREATININE FOR GFR 2.98 MG/DL (0.70-1.30); GLOMERULAR FILTRATION RATE 21.4 (>35); MAGNESIUM LEVEL 2.7 MG/DL (1.8-2.4); MB/CK RELATIVE INDEX 3.26 (< OR =4)
[2022-08-26 20:08] LABS: FREE T4 1.08 NG/DL (0.89-1.76)
[2022-08-26] MEDS ORDERED: NS 0.45% 1,000 ML IV SCH (20:35)
[2022-08-26] MEDS ORDERED: DOCUSATE SODIUM 100MG CAPSULE PO SCH (21:00)
[2022-08-26] MEDS ORDERED: DOXYCYCLINE HYCLATE 100 MG in D5W MINI-BAG PLUS 100 ML IV SCH (21:00)
[2022-08-26] MEDS: IPRATROPIUM 0.5MG/ALBUTEROL 2.5MG INH SOL UD 3ML (DUONEB) NEB SCH (21:25)
[2022-08-26] MEDS: BUDESONIDE 0.5 MG/2 ML INHALATION SUSPENSION INH SCH (21:25)
[2022-08-26 23:25] VITALS: BP 115/67
[2022-08-26 23:27] LABS: CK-MB VALUE MASS 27.4 NG/ML (<3.6)
[2022-08-26 23:34] LABS: CALCIUM LEVEL 9.1 MG/DL (8.3-10.6); GLOMERULAR FILTRATION RATE 21.3 (>35); MB/CK RELATIVE INDEX 3.36 (< OR =4); POTASSIUM SERUM 4.1 MMOL/L (3.5-5.1)
[2022-08-27] MEDS ORDERED: D5W 1,000 ML IV SCH (00:45)
[2022-08-27] MEDS ORDERED: OLANZapine INTRAMUSCULAR 10MG VIAL IM ONE (01:00)
[2022-08-27] MEDS: metroNIDAZOLE 500 MG in IV 1 EA IV SCH ×2 (01:01→06:31)
[2022-08-27 01:22] LABS: CK-MB VALUE MASS 29.8 NG/ML (<3.6)
[2022-08-27 01:31] LABS: MB/CK RELATIVE INDEX 3.05 (< OR =4)
[2022-08-27] MEDS: IPRATROPIUM 0.5MG/ALBUTEROL 2.5MG INH SOL UD 3ML (DUONEB) NEB SCH ×2 (01:58→07:41)
[2022-08-27 02:11] LABS: VENOUS BASE EXCESS -3.4 (-2.0-2.0); VENOUS HCO3 21.3 MEQ/L (23.0-27.0); VENOUS O2 SATURATION 61.6 % (60.0-80.0); VENOUS PARTIAL PRESSURE CO2 37.6 mmHg (38.0-50.0); VENOUS PARTIAL PRESSURE O2 32.4 mmHg (30.0-50.0); VENOUS PH 7.371 UNITS (7.330-7.430); VENOUS STANDARD HCO3 20.8 MEQ/L; VENOUS TOTAL CO2 22.5 MEQ/L (24.0-28.0)
[2022-08-27 05:00] VITALS: BP 126/59
[2022-08-27 05:20] LABS: BASO % 0.2 % (0.0-1.0); EOS % 0.1 % (0.0-3.0); HEMATOCRIT 45.3 % (42.0-52.0); HEMOGLOBIN 14.7 g/dl (13.5-17.5); LYMPH # 0.3 10^3/uL (1.5-5.0); LYMPH % 1.6 % (24.0-44.0); MEAN CORPUSCULAR HEMOGLOBIN 30.8 pg (27.0-33.0); MEAN CORPUSCULAR HGB CONC 32.5 g/dl (32.0-36.5); MEAN CORPUSCULAR VOLUME 94.8 fl (80.0-96.0); MONO # 0.4 10^3/uL (0.0-0.8); MONO % 2.5 % (2.0-8.0); NEUTROPHILS # 16.8 10^3/uL (1.5-8.5); NEUTROPHILS % 95.1 % (36.0-66.0); PLATELET COUNT, AUTOMATED 234 10^3/uL (150-450); RED BLOOD COUNT 4.78 10^6/uL (4.30-6.10); WHITE BLOOD COUNT 17.7 10^3/uL (4.0-10.0)
[2022-08-27 05:56] LABS: CALCIUM LEVEL 8.6 MG/DL (8.3-10.6); CREATININE FOR GFR 2.88 MG/DL (0.70-1.30); GLOMERULAR FILTRATION RATE 22.3 (>35); MAGNESIUM LEVEL 2.6 MG/DL (1.8-2.4); POTASSIUM SERUM 3.3 MMOL/L (3.5-5.1)
[2022-08-27] MEDS ORDERED: HEPARIN SOD (PORCINE) 5000UNITS/ML 1ML VIAL/SYRINGE SC SCH (06:00)
[2022-08-27] MEDS: BUDESONIDE 0.5 MG/2 ML INHALATION SUSPENSION INH SCH (07:41)
[2022-08-27] MEDS: KCL 10MEQ/100ML SWI (KRUN) 10 MEQ in IV 1 EA IV SCH ×3 (07:54→10:31)
[2022-08-27 08:00] VITALS: BP 108/58
[2022-08-27 08:09] LABS: CK-MB VALUE MASS 32.4 NG/ML (<3.6)
[2022-08-27 08:11] LABS: MB/CK RELATIVE INDEX 3.59 (< OR =4)
[2022-08-27] MEDS ORDERED: LEVOTHYROXINE 100MCG (0.1MG) 5ML SDV PF (SOLUTION FORM) IV SCH ×2 (09:00)
[2022-08-27] MEDS ORDERED: OMEPRAZOLE SUSPENSION 20MG 10ML ORAL SYRINGE GT SCH (09:00)
[2022-08-27] MEDS ORDERED: ASPIRIN 325 MG TAB PEG SCH (09:00)
[2022-08-27] MEDS ORDERED: METOPROLOL SUCC (TopROL XL) 100MG *XL* TAB XX SCH (09:00)
[2022-08-27 10:28] LABS: CALCIUM LEVEL 8.7 MG/DL (8.3-10.6); CREATININE FOR GFR 2.84 MG/DL (0.70-1.30); GLOMERULAR FILTRATION RATE 22.7 (>35); MAGNESIUM LEVEL 2.6 MG/DL (1.8-2.4); POTASSIUM SERUM 3.3 MMOL/L (3.5-5.1)
[2022-08-27] MEDS ORDERED: MORPHINE 10MG/0.5ML ORAL CONCENTRATE SOLUTION U/D SL PRN (11:30)
[2022-08-27] MEDS ORDERED: SCOPOLAMINE 1MG TRANSDERMAL PATCH TOP PRN (11:30)
[2022-08-27] MEDS ORDERED: OLANZapine INTRAMUSCULAR 10MG VIAL IM PRN (11:35)
[2022-08-27] MEDS ORDERED: NS 0.45% IV SCH (13:00)
[2022-08-27] MEDS ORDERED: SODIUM BICARBONATE IV SCH (13:00)
[2022-08-27] MEDS ORDERED: POTASSIUM ACETATE IV SCH (13:00)
[2022-08-27] MEDS ORDERED: CEFEPIME HCL 1 GM in D5W MINI-BAG PLUS 50 ML IV SCH (18:00)
[2022-08-27] MEDS: LORazepam 1 MG TAB PO PRN ×2 (18:12→22:31)
[2022-08-28] MEDS: LORazepam 1 MG TAB PO PRN (04:26)
[2022-08-29] MEDS ORDERED: ATIV1TAB10 PO (08:51)
[2022-08-29] MEDS ORDERED: MORP1SOL5 PO (08:51)
[2022-08-29] MEDS ORDERED: HYOS125TA PO (08:51)
[2022-09-01] MEDS ORDERED: CALCITRIOL 0.25 MCG CAP (S0169) PEG SCH (09:00)
== END 2022-08-29 12:38 | disposition expired | DRG 70 ==
LOC: M ED 12:25 → M ED INP 18:07 → M PCU 22:45 → M MSPAV 08-27 19:56
PROVIDERS: ADMIT Internal Medicine; ATTEND Internal Medicine
DX: G93.41 Metabolic encephalopathy (principal); K63.1 Perforation of intestine (nontraumatic); J18.9 Pneumonia, unspecified organism; I21.A1 Myocardial infarction type 2; E43 Unspecified severe protein-calorie malnutrition; N18.4 Chronic kidney disease, stage 4 (severe); N17.9 Acute kidney failure, unspecified; M62.82 Rhabdomyolysis; E87.0 Hyperosmolality and hypernatremia; E87.20 Acidosis, unspecified; R64 Cachexia; Z68.1 Body mass index [BMI] 19.9 or less, adult; I12.9 Hypertensive chronic kidney disease with stage 1 through stage 4 chronic kidney disease, or unspecified chronic kidney disease; Z51.5 Encounter for palliative care; Z66 Do not resuscitate; J44.9 Chronic obstructive pulmonary disease, unspecified; N30.90 Cystitis, unspecified without hematuria; D64.9 Anemia, unspecified; M62.50 Muscle wasting and atrophy, not elsewhere classified, unspecified site; Z93.1 Gastrostomy status; R13.10 Dysphagia, unspecified; M10.9 Gout, unspecified; K21.9 Gastro-esophageal reflux disease without esophagitis; H90.3 Sensorineural hearing loss, bilateral; Z85.21 Personal history of malignant neoplasm of larynx; Z90.02 Acquired absence of larynx; Z92.3 Personal history of irradiation; Z87.891 Personal history of nicotine dependence; Z79.82 Long term (current) use of aspirin; Z79.890 Hormone replacement therapy; Z79.899 Other long term (current) drug therapy; Z88.0 Allergy status to penicillin; Z88.1 Allergy status to other antibiotic agents; Z93.0 Tracheostomy status